=== PATIENT | female | born 1955 | race Caucasian/White ===

== ENCOUNTER 2017-12-26 07:32 | Observation (INO) ==
[2017-12-26] MEDS ORDERED: 0.9 % Sodium Chloride 500 ML IVC ONE (07:40)
[2017-12-26] MEDS ORDERED: Aspirin 81 MG TAB.CHEW PO ONE (07:40)
[2017-12-26] MEDS ORDERED: Ondansetron 4 MG/2 ML VIAL IVP ONE (07:40)
--- NOTE | 2017-12-26 07:43 | Emergency Department Note ---
Disposition Clinical Impression: Elevated troponin, Abnormal EKG Abdominal pain Qualifiers: Abdominal location: generalized Qualified Code(s): R10.84 - Generalized abdominal pain Schizophrenia Qualifiers: Schizophrenia type: unspecified Qualified Code(s): F20.9 - Schizophrenia, unspecified Disposition: Admitted As Inpatient Condition: Good Reasons to Return/Additional Instructions: admitted as inpatient. Referrals: Kalen Ashby [Non-Partnered Physician] - Time of Disposition: 11:44 Nausea/Vomiting/Diarrhea HPI - General Chief complaint: ED Nausea/Vomiting/Diarrhea Stated complaint: N/V couple days Time Seen by Provider: 12/26/17 07:36 Source: patient, EMS Mode of arrival: EMS Limitations: no limitations Nursing Notes Reviewed: Yes Vital Signs Reviewed: Yes - History of Present Illness HPI Narrative: 62 -year-old female presents to emergency department with complaint of abdominal pain, nausea, vomiting, diarrhea, constipation. Patient states that symptoms onset approximately one week ago however they have been worse the past 2 days. She describes the pain as sharp and is located diffusely across the abdomen worse in the epigastric region. Admits to associated symptoms of nausea , continuously vomiting since last night, intermittent diarrhea and constipation. She does state that she has experienced black tarry stools, however most recently they have been yellow and mucousy. She does have very significant psychiatric history and she has been taking muscle relaxers for this pain however she has been increasing her dosage and has run out. She states these episodes began approximately 3 years ago after her laparoscopic cholecystectomy. Also admits to subjective fevers without chills, denies any symptoms of chest pain, shortness of breath. Pt Subjective Complaint: nausea, vomiting, diarrhea, abdominal pain Onset (ago): week(s) Description of emesis: food contents Description of Diarrhea: water, mucous, tarry Associated Abdominal Pain: Yes If pain, Location of pain: diffuse Severity scale (1-10): 10 Quality: sharp Consistency: constant Improves with: nothing Worsens with: nonthing Context: history of abdominal surgery Associated symptoms: Reports: fever/chills, nausea/vomiting - Related Data Home Medications Medication Instructions Recorded Confirmed Albuterol Sulfate [Ventolin Hfa] 1 - 2 puff IH Q4-6H PRN 12/26/17 12/26/17 LORazepam [Ativan] 0.5 mg PO BID 12/26/17 12/26/17 Perphenazine [Perphenazine] 4 - 8 mg PO QID PRN 12/26/17 12/26/17 Tizanidine HCl [Tizanidine HCl] 4 mg PO QID PRN 12/26/17 12/26/17 Allergies Allergy/AdvReac Type Severity Reaction Status Date / Time ciprofloxacin [From Cipro] Allergy Hives Verified 12/26/17 09:57 ibuprofen Allergy Hives Verified 01/03/16 17:28 [From NeoProfen (ibuprofen lysn)(PF)] Penicillins Allergy Swelling Verified 12/26/17 09:57 of Lip/Tongue/Throat vancomycin Allergy Hives Verified 12/26/17 09:57 clindamycin AdvReac Diarrhea Verified 12/26/17 09:57 All systems ED: reviewed and negative except as stated. Review of Systems: As Per HPI Past Medical History - Past Medical History Medical history: Reports: non-contributory, asthma, COPD, migraine, other Psychiatric history: Reports: anxiety, depression, other - Social History Smoking Status: Never smoker Smokeless Tobacco Status: No Alcohol use: Reports: none Drug use: Reports: none Physical Exam - General Limitations: no limitations General appearance: alert, anxious - Head Head exam: atraumatic, normocephalic, normal inspection - Respiratory Respiratory exam: Present: normal lung sounds bilaterally - Cardiovascular Cardiovascular exam: Present: regular rate, normal rhythm, normal heart sounds - Abdominal Exam Abdominal exam: Present: soft, tenderness, normal bowel sounds. Absent: distention, guarding, rebound, rigidity Abdominal tenderness: Present: diffuse - Neurological Exam Neurological exam: Present: alert, oriented X3 - Psychiatric Psychiatric exam: Present: normal affect, normal mood, anxious - Skin Skin exam: Present: warm, dry, intact, normal color Course Course Narrative: 62-year-old female presenting with complaint of abdominal pain, nausea, vomiting. We will obtain EKG, CBC, CMP, lipase, chest x-ray, abdominal CT. We will give full dose aspirin for possible ischemia given hyperacute T waves on EKG. - Reevaluation(s) Reevaluation #1: Patient's EKG noted for hyperacute T waves in V2-4. Elevated trop of 0.19. We repeated the EKG with similar findings which are concerning for Brugada syndrome. We contacted cardiology at 0900 for their recommendations. Vital Signs Temperature 99.7 F H 12/26/17 07:35 Pulse Rate 103 12/26/17 07:35 Respiratory Rate 26 12/26/17 07:35 Blood Pressure 179/132 12/26/17 07:35 O2 Sat by Pulse Oximetry 100 12/26/17 07:35 Temperature 99.7 F H 12/26/17 07:35 Pulse Rate 103 12/26/17 11:15 Respiratory Rate 18 12/26/17 11:15 Blood Pressure 190/107 12/26/17 11:15 O2 Sat by Pulse Oximetry 100 12/26/17 11:15 Oxygen Delivery Oxygen Delivery Room Air Nausea/Vomiting/Diarrhea - MDM Narrative Medical decision making narrative: 62-year-old female presented to emergency room with abdominal pain. Workup has revealed a elevated WBC of 17.5 and elevated troponin is 0.19. Curbside with cardiology for elevated troponin and peaked T waves in leads V2 to V4, recommended obtaining a d-dimer with CTA if elevated. CTA revealed no evidence of pulmonary embolus. Patient will be admitted to medicine service for further evaluation of troponinemia. Discussed this with hospitalist, who agrees with admission at this time. - Lab Data Result diagrams: 12/26/17 07:49 12/26/17 07:49 Lab Results 12/26/17 12/26/17 12/26/17 Range/Units 07:49 07:49 07:49 WBC 17.5 H (4.3-11.1) K/mcL RBC 4.93 (3.82-4.97) M/mcL Hgb 14.2 (11.5-15.4) g/dL Hct 41.4 (35.3-44.9) % MCV 84.0 (83.0-100.0) fL MCH 28.8 (28.0-33.3) pg MCHC 34.3 (31.6-35.5) g/dL RDW 13.0 (11.5-14.5) % Plt Count 495 H (140-400) K/mcL MPV 9.8 (9.4-12.4) fL Immature Gran % 0.4 (0-4) % Seg Neutrophils % 94.8 % Lymphocytes % 2.5 % Monocytes % 2.2 % Eosinophils % 0.0 % Basophils % 0.1 % Neutrophils # 16.6 H (1.6-8.9) K/mcL Lymphocytes # 0.4 L (0.6-4.6) K/mcL Monocytes # 0.4 (0.0-1.3) K/mcL Eosinophils # 0.0 (0.0-0.6) K/mcL Basophils # 0.0 (0.0-0.2) K/mcL PT 13.3 H (9.4-12.1) Seconds INR 1.2 APTT 28.2 (26.0-36.0) Seconds D-Dimer 1036 H (0-500) ng/mLFEU Sodium (136-145) mEq/L Potassium (3.5-5.1) mEq/L Chloride (98-107) mEq/L Carbon Dioxide (23-29) mEq/L BUN (8-23) mg/dL Creatinine (0.60-1.20) mg/dL Est GFR ( Amer) (> 60) Est GFR (Non-Af Amer) (> 60) BUN/Creatinine Ratio (6-26) Glucose (70-105) mg/dL Calculated Osmolality (280-300) Calcium (8.6-10.3) mg/dL Total Bilirubin (0.3-1.0) mg/dL Direct Bilirubin (0.0-0.2) mg/dL Indirect Bilirubin (0.0-1.2) mg/dL AST (13-39) Units/L ALT (7-52) Units/L Alkaline Phosphatase (34-104) Units/L Troponin I (< 0.04) ng/mL B-Natriuretic Peptide 144 H (Less than 100) pg/mL Serum Total Protein (6.4-8.9) g/dL Albumin (3.5-5.7) g/dL Globulin (2.4-3.5) g/dL Albumin/Globulin Ratio (1.1-2.2) Lipase (11-82) Units/L Urine Color (Yellow) Urine Clarity (Clear) Urine pH (5.0-8.0) pH Units Ur Specific [place] (1.010-1.025) Urine Protein (Neg-Trace) mg/dL Urine Glucose (UA) (Normal) mg/dL Urine Ketones (Negative) mg/dL Urine Blood (Negative) Urine Nitrite (Negative) Urine Bilirubin (Negative) Urine Urobilinogen (Normal) mg/dL Ur Leukocyte Esterase (Negative) Urine Microscopic RBC (0-3) per hpf Urine Microscopic WBC (0-3) per hpf Ur Squamous Epith Cells (None-Few) per lpf Urine Bacteria (None-Few) per hpf Hyaline Casts (None-Few) per lpf Ur Culture Indicated? (NO) Urine Opiates Screen (Akkxep=694) ng/mL Ur Barbiturates Screen (Bjoujr=625) ng/mL Ur Phencyclidine Scrn (Cutoff=25) ng/mL Ur Amphetamines Screen (Mlwmjn=5970) ng/mL U Benzodiazepines Scrn (Bxerow=352) ng/mL Urine Cocaine Screen (Cutoff= 300) ng/mL U Marijuana (THC) Screen (Cutoff = 50) ng/mL 12/26/17 12/26/17 12/26/17 Range/Units 07:49 08:35 08:35 WBC (4.3-11.1) K/mcL RBC (3.82-4.97) M/mcL Hgb (11.5-15.4) g/dL Hct (35.3-44.9) % MCV (83.0-100.0) fL MCH (28.0-33.3) pg MCHC (31.6-35.5) g/dL RDW (11.5-14.5) % Plt Count (140-400) K/mcL MPV (9.4-12.4) fL Immature Gran % (0-4) % Seg Neutrophils % % Lymphocytes % % Monocytes % % Eosinophils % % Basophils % % Neutrophils # (1.6-8.9) K/mcL Lymphocytes # (0.6-4.6) K/mcL Monocytes # (0.0-1.3) K/mcL Eosinophils # (0.0-0.6) K/mcL Basophils # (0.0-0.2) K/mcL PT (9.4-12.1) Seconds INR APTT (26.0-36.0) Seconds D-Dimer (0-500) ng/mLFEU Sodium 140 (136-145) mEq/L Potassium 3.5 (3.5-5.1) mEq/L Chloride 103 (98-107) mEq/L Carbon Dioxide 18 L (23-29) mEq/L BUN 6 L (8-23) mg/dL Creatinine 0.78 (0.60-1.20) mg/dL Est GFR ( Amer) > 60 (> 60) Est GFR (Non-Af Amer) > 60 (> 60) BUN/Creatinine Ratio 8 (6-26) Glucose 191 H (70-105) mg/dL Calculated Osmolality 293 (280-300) Calcium 9.9 (8.6-10.3) mg/dL Total Bilirubin 0.8 (0.3-1.0) mg/dL Direct Bilirubin 0.2 (0.0-0.2) mg/dL Indirect Bilirubin 0.6 (0.0-1.2) mg/dL AST 16 (13-39) Units/L ALT 11 (7-52) Units/L Alkaline Phosphatase 65 (34-104) Units/L Troponin I 0.19 H* (< 0.04) ng/mL B-Natriuretic Peptide (Less than 100) pg/mL Serum Total Protein 7.7 (6.4-8.9) g/dL Albumin 5.0 (3.5-5.7) g/dL Globulin 2.7 (2.4-3.5) g/dL Albumin/Globulin Ratio 1.9 (1.1-2.2) Lipase 43 (11-82) Units/L Urine Color Yellow (Yellow) Urine Clarity Clear (Clear) Urine pH 5.5 (5.0-8.0) pH Units Ur Specific [place] 1.023 (1.010-1.025) Urine Protein 100 H (Neg-Trace) mg/dL Urine Glucose (UA) 250 H (Normal) mg/dL Urine Ketones 40 H (Negative) mg/dL Urine Blood Small H (Negative) Urine Nitrite Negative (Negative) Urine Bilirubin Negative (Negative) Urine Urobilinogen Normal (Normal) mg/dL Ur Leukocyte Esterase Negative (Negative) Urine Microscopic RBC 5-15 H (0-3) per hpf Urine Microscopic WBC 0-3 (0-3) per hpf Ur Squamous Epith Cells Many H (None-Few) per lpf Urine Bacteria None Seen (None-Few) per hpf Hyaline Casts Few (None-Few) per lpf Ur Culture Indicated? NO (NO) Urine Opiates Screen Negative (Msubow=849) ng/mL Ur Barbiturates Screen Negative (Pwrcwm=500) ng/mL Ur Phencyclidine Scrn Negative (Cutoff=25) ng/mL Ur Amphetamines Screen Negative (Bcyyxv=8379) ng/mL U Benzodiazepines Scrn Negative (Lbflpe=354) ng/mL Urine Cocaine Screen Negative (Cutoff= 300) ng/mL U Marijuana (THC) Screen Negative (Cutoff = 50) ng/mL - EKG Data EKG shows normal: sinus rhythm Rate: tachycardia Rhythm: NSR [place]/QRS: normal Hyperacute T waves: v3, v4, v5 When compared to previous EKG there are: changes noted Interpretation: other Critical Care Time Critical Care Time: Yes Total Critical Care Time: 45 Attestation: Critical care performed: Time is exclusive of separately billable procedures. Time includes: direct patient care, patient reassessment, coordination of patient care, interpretation of data (laboratory data, radiology data, and respiratory data), review of patient's medical records, medical consultation and documentation of patient care. Procedures included in critical care time: Procedures excluded from critical care time: Attestation Statement - Attestation Attestation: I, Moises Maza DO, examined this patient [id number] and my medical decision-making was reviewed with Lamont Cheek PGY-1, Resident Physician. I agree with the documented findings, disposition and treatment plan as described except to the extent set forth below. Please see my progress notes for details. 62-year-old female presents to the emergency room for evaluation of multiple complaints. She presents here today by EMS for description of nausea, vomiting , diarrhea, abdominal cramping, generalized pain and malaise. Patient has multiple medical issues including psychiatric, postsurgical related complications, intermittent poorly controlled inflammatory or irritable bowel disease. Patient is on a long list of medications. She brought it to his [facility] [place] based on her medical condition and her medications. Vital signs on presentation do show a temperature of 99.7. Heart rate was elevated. Respirations were elevated. Blood pressure was stable. Fluid resuscitation was started in transit by EMS. 1 L was given. Patient otherwise is denying chest pain, shortness of breath. She does complain of nausea vomiting and diarrhea. She also has intermittent constipation. She did have dark colored stool less than 1 week ago return to mucousy and yellow this time. Patient on physical exams resting in the bed with what appears to be slightly exaggerated presentation. Her lungs are clear heart regular. Abdomen is soft but she does describe an act like there is some guarding or discomfort on palpation across the abdominal wall. Patient does move all 4 extremities with appropriate response and purpose. Patient does appear to be alert and oriented. Cranial nerves III through XII are grossly intact. Vital signs will be controlled here in the emergency room of fluids nausea medication as needed. Patient will have a screening evaluation completed with chest x-ray EKG labs including troponin CBC chemistry urine drug screen urinalysis. Patient also CT imaging of the abdomen to address her abdominal complaints possible diarrhea. Currently she does not require any further physical exam or workup. Disposition will be determined once for workup and treatment course are established and evaluated. Some of the symptoms do appear to be histrionic with the patient will be addressed appropriately for potential emergency related issues. Influenza swab loss. On secondary to the presentation possible viral syndrome. See detailed documentation of the physical exam, medical intervention, medical decision- making and disposition of the resident physician's note. No critical care by this patient's treatment course. 0800 Discussion was had with the patient's at the bedside. He states that this happens from time to time. She always has a symptoms when she runs out of her muscle relaxer medication. She does not have a prescription that is able to be filled until the eighth of this month. She has been taking extra medication secondary to the spasms. Again some of this could be secondary to multiple medication she is on as well as her psychiatric history but despite that we will continue with the evaluation looking for potential infectious, pulmonary, cardiac related source of her symptoms. Initial EKG showed sinus tachycardia with what appears to be acute T waves. No concerning history for hyperkalemia at this point labs will be addressed and fluid resuscitation will be established. Disposition pending workup and treatment course. Patient again is still denying chest pain or shortness of breath or other complaints of abdominal discomfort along with the nausea vomiting and diarrhea 0900 Patient's troponin was 0.19. Patient has no other comparable troponins in the past. EKG was repeated at that time approximately 45 minutes after arrival in the emergency room. Second EKG does show some potential progression of a biphasic T-wave in hyperacute T waves in the V1 and V2 V3 distribution. Concern is noted for type II Brugada syndrome. Patient was given aspirin. She has remained chest pain-free throughout the entire treatment course here in the emergency room. Consultation and review the EKGs to be completed by the on- call regulatory affairs intern Dr. Shepard. The EKGs were sent to him directly for review approximately 1 hour and 25 minutes after the initial presentation to the emergency room. Patient does not meet STEMI criteria but because of the findings there is concern and conversations were started about cardiac intervention. 1115 Cardiology review the EKG. No recommendations for intervention. Patient CT angiogram of the chest is unremarkable for acute blood clot. D-dimer was elevated. Patient will be admitted for definitive management of elevated troponin with unknown etiology of this time. Patient is otherwise stable. Pain is still an issue this appears to be chronic. Oral pain medications were started at this time. Pt will be admitted for further workup and management of her symptoms and evaluation by cardiology. Patient is otherwise stable. No recommendation for anticoagulation or other medical intervention requested at this time.
[2017-12-26 08:01] LABS: INR 1.2; Prothrombin Time 13.3 Seconds (9.4-12.1)
[2017-12-26] MEDS ORDERED: *HR* LORazepam 2 MG/ML VIAL IVP ONE ×2 (08:03→09:42)
[2017-12-26 08:04] LABS: Activated Partial Thrombo Time 28.2 Seconds (26.0-36.0)
[2017-12-26 08:19] LABS: Basophils % 0.1 %; Hematocrit 41.4 % (35.3-44.9); Hemoglobin 14.2 g/dL (11.5-15.4); Immature Granulocytes % 0.4 % (0-4); Lymphocytes # 0.4 K/mcL (0.6-4.6); Lymphocytes % 2.5 %; Mean Corpuscular HGB Conc 34.3 g/dL (31.6-35.5); Mean Corpuscular Hemoglobin 28.8 pg (28.0-33.3); Mean Platelet Volume 9.8 fL (9.4-12.4); Monocytes # 0.4 K/mcL (0.0-1.3); Monocytes % 2.2 %; Neutrophils # 16.6 K/mcL (1.6-8.9); Platelet Count 495 K/mcL (140-400); Red Blood Count 4.93 M/mcL (3.82-4.97); Segmented Neutrophils % 94.8 %
[2017-12-26 08:30] LABS: Alanine Aminotransferase 11 Units/L (7-52); Albumin/Globulin Ratio 1.9 (1.1-2.2); Alkaline Phosphatase 65 Units/L (34-104); Aspartate Amino Transferase 16 Units/L (13-39); BUN/Creatinine Ratio 8 (6-26); Bilirubin,Direct 0.2 mg/dL (0.0-0.2); Bilirubin,Indirect 0.6 mg/dL (0.0-1.2); Bilirubin,Total 0.8 mg/dL (0.3-1.0); Blood Urea Nitrogen 6 mg/dL (8-23); Calcium 9.9 mg/dL (8.6-10.3); Carbon Dioxide 18 mEq/L (23-29); Chloride 103 mEq/L (98-107); Globulin 2.7 g/dL (2.4-3.5); Glucose 191 mg/dL (70-105); Lipase 43 Units/L (11-82); Osmolality,Calculated 293 (280-300); Potassium 3.5 mEq/L (3.5-5.1); Sodium 140 mEq/L (136-145); Total Protein 7.7 g/dL (6.4-8.9); eGFR For African Americans > 60 (> 60); eGFR For Non-African Americans > 60 (> 60)
[2017-12-26 08:36] LABS: Troponin I 0.19 ng/mL (< 0.04)
[2017-12-26 08:44] LABS: Bilirubin,Urine Negative (Negative); Blood,Urine Small (Negative); Clarity,Urine Clear (Clear); Color,Urine Yellow (Yellow); Glucose,Urine (UA) 250 mg/dL (Normal); Ketones,Urine 40 mg/dL (Negative); Leukocyte Esterase,Urine Negative (Negative); Nitrite,Urine Negative (Negative); PH,Urine 5.5 pH Units (5.0-8.0); Protein,Urine 100 mg/dL (Neg-Trace); Specific Gravity,Urine 1.023 (1.010-1.025); Urobilinogen,Urine Normal (Normal)
[2017-12-26 08:46] LABS: Bacteria,Urine None Seen per hpf (None-Few); Hyaline Casts,Urine Few per lpf (None-Few); Squamous Epithelial Cell,Urine Many per lpf (None-Few); WBC,Urine 0-3 per hpf (0-3)
[2017-12-26 08:52] LABS: Amphetamine Screen,Urine Negative ng/mL (Cutoff=1000); Barbiturate Screen,Urine Negative ng/mL (Cutoff=200); Benzodiazepines Screen,Urine Negative ng/mL (Cutoff=200); Cannabinoid Screen,Urine Negative ng/mL (Cutoff = 50); Cocaine Screen,Urine Negative ng/mL (Cutoff= 300); Opiate Screen,Urine Negative ng/mL (Cutoff=300); Phencyclidine Screen,Urine Negative ng/mL (Cutoff=25)
[2017-12-26] MEDS ORDERED: *HR* Metoprolol 5 MG/5 ML VIAL IVP ONE (08:55)
[2017-12-26] MEDS ORDERED: *HR* HYDROcodone/Acet 5/325 mg TABLET PO ONE (10:56)
[2017-12-26] MEDS: tiZANidine 4 MG TABLET PO PRN ×2 (13:02→19:08)
[2017-12-26] MEDS: *HR* Promethazine 25 MG/ML VIAL IVP PRN (13:25)
[2017-12-26] MEDS: Pantoprazole 40 MG VIAL IVP SCH ×2 (13:49→18:27)
[2017-12-26] MEDS ORDERED: Naloxone 0.4 MG/ML INJ IVP PRN (14:11)
[2017-12-26] MEDS ORDERED: *HR* HYDROcodone/Acet 5/325 mg TABLET PO PRN (14:11)
[2017-12-26] MEDS ORDERED: Acetaminophen 325 MG TABLET PO PRN (14:11)
[2017-12-26] MEDS ORDERED: Nitroglycerin 0.4 MG TAB.SUBL SL PRN (14:21)
[2017-12-26] MEDS ORDERED: *HR* Heparin 5,000 UNIT/ML VIAL IVP ONE (14:42)
[2017-12-26] MEDS ORDERED: *HR* Heparin 5,000 UNIT/ML VIAL IVP PRN ×2 (14:42)
[2017-12-26 15:19] LABS: Hematocrit 47.9 % (35.3-44.9); Mean Corpuscular HGB Conc 33.8 g/dL (31.6-35.5); Mean Corpuscular Hemoglobin 28.6 pg (28.0-33.3); Mean Corpuscular Volume 84.5 fL (83.0-100.0); Mean Platelet Volume 9.9 fL (9.4-12.4); Platelet Count 504 K/mcL (140-400); Red Blood Count 5.67 M/mcL (3.82-4.97); Red Cell Distribution Width 13.3 % (11.5-14.5)
[2017-12-26 15:25] LABS: INR 1.2; Prothrombin Time 12.9 Seconds (9.4-12.1)
[2017-12-26 15:28] LABS: Activated Partial Thrombo Time 30.4 Seconds (26.0-36.0)
[2017-12-26 15:38] LABS: Hemoglobin 16.2 g/dL (11.5-15.4)
[2017-12-26] MEDS: 0.9 % Sodium Chloride 1,000 ML IVC SCH (15:47)
[2017-12-26] MEDS: Heparin 25,000 UNIT/500 ML D5W 25,000 UNIT/500 ML BAG IVC SCH (15:56)
[2017-12-26] MEDS: *HR* OxyCODONE Immed Rel 5 MG TABLET PO PRN (16:13)
--- NOTE | 2017-12-26 17:39 | Internal Med History&Physical ---
Addendum entered and electronically signed by Dejan Vogel MD 12/26/17 19:43: She is at high risk for morbidity, mortality and complications due to continuous IV heparin infusion which requires frequent blood work monitoring for coagulation parameters. Original Note: <Dejan Vogel - Last Filed: 12/26/17 19:40> Date of Encounter: 12/26/17 Internal Medicine - H&P: HPI History of present illness: Ms. Ocampo is a 62 year old female Internal Medicine - H&P: Meds Albuterol Sulfate [Ventolin Hfa] 1 - 2 puff IH Q4-6H PRN 12/26/17 [History] LORazepam [Ativan] 0.5 mg PO BID 12/26/17 [History] Perphenazine [Perphenazine] 4 - 8 mg PO QID PRN 12/26/17 [History] Tizanidine HCl [Tizanidine HCl] 4 mg PO QID PRN 12/26/17 [History] 3 Allergy/AdvReac Type Severity Reaction Status Date / Time ciprofloxacin [From Cipro] Allergy Hives Verified 12/26/17 09:57 ibuprofen Allergy Hives Verified 01/03/16 17:28 [From NeoProfen (ibuprofen lysn)(PF)] Penicillins Allergy Swelling Verified 12/26/17 09:57 of Lip/Tongue/Throat vancomycin Allergy Hives Verified 12/26/17 09:57 clindamycin AdvReac Diarrhea Verified 12/26/17 09:57 All Systems PM: A 10-system review of systems was performed and is negative for pertinent findings except as documented above in the HPI. - Constitutional Vitals: Temp Pulse Resp BP Pulse Ox 97.7 F 83 14 112/68 100 12/26/17 19:00 12/26/17 19:00 12/26/17 19:00 12/26/17 19:00 12/26/17 19:00 Internal Med - H&P Results - Labs CBC & Chem 7: 12/26/17 15:07 12/26/17 07:49 Labs: Cardiac Enzymes 12/26/17 Range/Units 17:54 Troponin I 0.40 H* (< 0.04) ng/mL - Attending Attestation I have personally performed a face to face evaluation on this patient. I have reviewed and agree with the care plan. History and Exam by me shows: Patient presented to the hospital with abdominal pain. She reports mild, dull chest pain. On exam she is in no acute distress. Heart is regular. Lungs are clear. EKG was personally reviewed shows normal sinus rhythm with nonspecific ST and T wave changes. Assessment: Non-ST elevation ME based on chest pain, abdominal pain and rising serum troponin as well as nondiagnostic EKG changes. 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 Consult cardiology. Obtain echocardiogram. Dejan Vogel MD <[email or web address] - Last Filed: 12/26/17 20:59> Date of Encounter: 12/26/17 Time of Encounter: 13:00 Assessment and Plan (1) Abdominal pain Current visit: Yes Status: Acute Acute on chronic abdominal pain. Pt. states she has had severe cramping in abdomen since having gallbladder removed 3 years ago. States pain became worse yesterday at 6 PM accompanied with nausea, vomiting, diarrhea. Patient also reports black stool yesterday. Colonoscopy in [address] of the abdomen/pelvis today shows no convincing acute abnormality in the abdomen or pelvis to account for patient's abdominal pain, subtle approximately 2 cm hypodensity in the liver dome. Consider further evaluation with contrast- enhanced CT, and mild thickening of the cecal wall. IVP Phenergan 12.5 mg Q6 PRN for N/V. IVP Protonix 40 mg BID. Monitor I&O. Fecal hemoccult ordered. Consider GI consult based on FOBT results and/or worsening abdminal sx. Monitor pt. and f/u labs. Pt. discussed w/Dr. Vogel who agrees w/plan of care. Pt. is high risk for further morbidity d/t severe abdominal pain, current CP and elevated troponins requiring heparin infusion and monitoring of PT/INR, current leukocytosis, hx, and risk factors. Inpatient. Qualifiers: Abdominal location: generalized Qualified Code(s): R10.84 - Generalized abdominal pain (2) Elevated troponin Current visit: Yes Status: Acute Acutely elevated troponin first at 0.19, second at 0.25. Heparin drip started. Pt. states she has hx of intermittent chest pain >10 years. Denies cardiac hx. Current CP presents as centralized pressure w/o radiation. Cardiology consult ordered in ED and I appreciate the consult. Continuous telemetry. Echocardiogram. Pt. to be monitored closely. (3) Chest pain Current visit: Yes Status: Acute Acute on chronic chest pain. Pt. reports hx of intermittent chest pain >10 years. States pain can present as sharp and stabbing or squeezing pressure. Patient currently experiencing centralized pressure in chest without radiation. Initial troponin 0.19. Second troponin 0.25. Will trend 1. Heparin drip started. Cardiology consult ordered in the ED and I appreciate the consult. Continuous cardiac telemetry. Echocardiogram ordered. Qualifiers: Chest pain type: other chest pain Qualified Code(s): R07.89 - Other chest pain; R07.8 - Other chest pain (4) Leukocytosis Current visit: Yes Status: Acute Acute leukocytosis w/WBC of 17.5 on admission. Pt. reports fever and chills intermittently over past several months. Currently has N/V/Diarrhea. Blood cultures x2. Pt. currently afebrile. Will continue to monitor and consider abx coverage based on culture results and/or f/u labs. Qualifiers: Leukocytosis type: unspecified Qualified Code(s): D72.829 - Elevated white blood cell count, unspecified (5) COPD (chronic obstructive pulmonary disease) Current visit: Yes Status: Chronic Hx of chronic COPD. Stable. Supplemental O2 w/titration and SpO2 monitoring. DuoNebs Q6 PRN. Qualifiers: COPD type: unspecified COPD Qualified Code(s): J44.9 - Chronic obstructive pulmonary disease, unspecified (6) IBS (irritable bowel syndrome) Current visit: Yes Status: Chronic Hx of chronic IBS. Pt. reports Crohns disease as well as dx of diverticulitis with colonoscopy in 2013. Patient reports diarrhea currently. CT of the abdomen /pelvis today shows no convincing acute abnormality in the abdomen or pelvis to account for patient's abdominal pain, subtle approximately 2 cm hypodensity in the liver dome. Consider further evaluation with contrast-enhanced CT, mild thickening of the cecal wall. Monitor I&O. Fecal hemoccult. Qualifiers: Irritable bowel syndrome type: with both diarrhea and constipation Qualified Code(s): K58.2 - Mixed irritable bowel syndrome (7) Schizophrenia Current visit: Yes Status: Chronic Hx of chronic schizophrenia. Continue pts. Perphenazine. Qualifiers: Schizophrenia type: unspecified Qualified Code(s): F20.9 - Schizophrenia, unspecified (8) DVT prophylaxis Current visit: Yes Status: Acute Patient due to currently elevated troponins. Monitor patient for signs of bleeding. Internal Medicine - H&P: HPI Chief complaint: N/V/Diarrhea Admitted From: Emergency Dept Plans for Post Hospital Care: Home History of present illness: Ms. Ocampo is a 62 year old femalew PMH of asthma, COPD, migraine, and IBS/ Crohn's disease presents from the ED with chief complaint of abdominal pain with nausea, vomiting, and diarrhea since 6 PM last night. Patient states she has chronic abdominal pain since having her gallbladder removed 3 years ago. Described pain as severe abdominal cramping. 2014 colonoscopy that showed diverticulosis. Patient also reports recent episodes of black stool with latest last evening. Additionally patient reports chest pain in center chest as pressure and states she has intermittent chest pain for the past 10 years. Denies cardiac history, catheterization, or stent placement. Patient also reports generalized weakness for the past several weeks. Patient reports fever , chills, nausea, vomiting, abdominal pain, diarrhea, chest pain, shortness of breath but denies changes in vision, headache, palpitations, numbness, tingling , constipation, pre-syncope, or syncope. Past Med Surg Social Fam HX - Past Medical History Source: patient, old records reviewed, obtained from family Medical history: asthma, COPD, migraine, other (IBS/Crohns disease, Diverticulosis) Psychiatric history: anxiety, depression, other - Social History Smoking Status: Never smoker Smokeless Tobacco Status: No Alcohol use: none Drug use: none Current living situation: Home, With Family Activity Level: Independent ambulation Recent Out of Country Travel Within the Last 8 Weeks: No Exposure or Possible Exposure to Illness During Travel: No - Family History Father Race: Family Member Ethnicity: Non- Living Status: Still Living Hx Family Cardiac Disorders: Yes (HTN) Hx Family Neurologic Disorders: Yes (Seizures) Mother Race: Family Member Ethnicity: Non- Living Status: Still Living Hx Family Cardiac Disorders: Yes (HTN) Hx Family GI Disorders: Yes (GERD) Brother History Unknown: Yes Race: Family Member Ethnicity: Non- Living Status: Still Living All Systems PM: A 10-system review of systems was performed and is negative for pertinent findings except as documented above in the HPI. - Constitutional Constitutional: as per HPI, chills, fever(s), weakness, no night sweats - EENT Eyes: no change in vision, no discharge, no pain, no photophobia Ears: no ear discharge, no ear pain, no tinnitus Nose, mouth and throat: no dysphagia, no nasal discharge, no neck pain, no sore throat - Breasts Breasts: as per HPI - Cardiovascular Cardiovascular ROS IM: as per HPI, chest pain, dyspnea, dyspnea on exertion, lightheadedness, no diaphoresis, no palpitations, no syncope - Respiratory Respiratory: as per HPI, dyspnea, dyspnea on exertion, no cough, no wheezing, no excessive phlegm production - Gastrointestinal Gastrointestinal: as per HPI, abdominal pain, diarrhea, melena, nausea, vomiting , no hematemesis, no hematochezia - Genitourinary Genitourinary: as per HPI, no change in urinary stream, no dysuria, no flank pain, no hematuria Menstruation: as per HPI - Musculoskeletal Musculoskeletal ROS IM: no numbness, no tingling - Integumentary Integumentary IM: no rash, no unusual bruising - Neurological Neurological ROS: no confusion, no convulsions, no focal weakness, no numbness, no tingling, no tremor(s) - Psychiatric Psychiatric: as per HPI, anxiety, depression - Endocrine Endocrine IM: as per HPI - Hematologic/Lymphatic Hematologic/Lymphatic: no easy bruising - Allergic/Immunologic Allergic/Immunologic: as per HPI - Constitutional Vitals: Temp Pulse Resp BP Pulse Ox 98.1 F 123 16 148/77 100 12/26/17 15:23 12/26/17 15:23 12/26/17 15:23 12/26/17 15:23 12/26/17 15:23 General appearance: Present: cooperative, A&O X 3, pleasant, severe distress ( Abdominal pain), underweight, answers questions appropriately - Head Head exam: Present: atraumatic, normocephalic - Eye Eye exam: Present: PERRL, conjuntiva pink, sclera anicteric Pupils: Present: PERRL - ENT ENT exam: Present: normal exam, normal external ear exam - Neck Neck exam general surgery: Present: supple, trachea midline. Absent: lymphadenopathy - Respiratory Respiratory exam: Present: CTAB. Absent: accessory muscle use, rales, rhonchi, wheezes - Cardiovascular Cardiovascular exam: Present: +S1, +S2, tachycardia. Absent: diastolic murmur, gallop, rubs, systolic murmur - GI/Abdominal GI/Abdominal exam: Present: guarding, normal bowel sounds, soft, tenderness, no peritoneal signs. Absent: distended - Rectal Rectal exam: Present: deferred - Additional comments: exam deferred. - Extremities Exam Extremities exam: Present: warm, radial pulses palpable and symmetrical. Absent : calf tenderness, cyanotic, pedal edema - Back Exam Back exam: Present: normal inspection - Neurological Exam Neurological exam: Present: CN II-XII intact, oriented X3, no focal deficits. Absent: pronater drift, facial droop, speech deficit - Psychiatric Psychiatric exam: Present: anxious - Skin Skin exam: Present: dry, intact, pallor Internal Med - H&P Results - Labs CBC & Chem 7: 12/26/17 15:07 12/26/17 07:49 - EKG Data EKG shows normal: sinus rhythm Rate: tachycardia - EKG Data Prior EKG available for review: yes EKG comments: 12/26/17 18:00 EKG dated 10/09/13 shows sinus rhythm with short TN interval. EKG dated 12/26/17 07:35 shows sinus tachycardia with possible left atrial enlargement and moderate ST depression. EKG dated 12/26/17 08:52 shows sinus tachycardia with possible left atrial enlargement. - Diagnostic Studies Chest x-ray Additional comments: Impressions Chest X-Ray 12/26/17 07:41 IMPRESSION: 1. No acute radiographic abnormality to account for patient's chest pain. D/ / Ephraim Tavares MD / Ephraim Tavares MD Interpreting Provider: Ephraim Tavares MD CT scan - abdomen Additional comments: Impressions Abdomen/Pelvis CT 12/26/17 07:41 IMPRESSION: 1. No convincing acute abnormality in the abdomen or pelvis to account for patient's abdominal pain. 2. Subtle approximately 2 cm hypodensity in the liver dome. Consider further evaluation with contrast-enhanced CT. 3. Mild thickening of the cecal wall. If patient is not up-to-date on colon cancer screening, consider colonoscopy for further evaluation. Other Images Additional comments: Impressions Chest CTA 12/26/17 10:13 IMPRESSION: 1. No evidence of a pulmonary embolism or parenchymal lung infiltrate. D/ / 12/26/2017 11:02:45 Santiago Bernardo MD / pravin Interpreting Provider: Santiago Bernardo MD
[2017-12-26] MEDS ORDERED: Ipratropium/Albuterol Neb 3 ML IH PRN (18:35)
[2017-12-26] MEDS: *HR* LORazepam 0.5 MG TABLET PO SCH (20:22)
[2017-12-27] MEDS: Perphenazine 2 MG TABLET PO PRN ×2 (00:43→22:16)
[2017-12-27] MEDS: 0.9 % Sodium Chloride 1,000 ML IVC SCH ×3 (01:55→23:28)
[2017-12-27] MEDS: tiZANidine 4 MG TABLET PO PRN ×4 (02:00→21:24)
[2017-12-27] MEDS ORDERED: 0.9 % Sodium Chloride 1,000 ML IVC ONE ×3 (03:10→12:01)
[2017-12-27] MEDS: Pantoprazole 40 MG VIAL IVP SCH ×2 (05:22→17:13)
[2017-12-27] MEDS: *HR* LORazepam 0.5 MG TABLET PO SCH ×2 (08:12→21:24)
[2017-12-27] MEDS: Aspirin Enteric Coated 81 MG Tablet PO SCH (08:12)
[2017-12-27 08:24] LABS: Basophils % 0.2 %; Eosinophils % 0.1 %; Hematocrit 31.8 % (35.3-44.9); Immature Granulocytes % 0.4 % (0-4); Lymphocytes # 2.5 K/mcL (0.6-4.6); Lymphocytes % 19.1 %; Mean Corpuscular HGB Conc 32.7 g/dL (31.6-35.5); Mean Corpuscular Hemoglobin 28.8 pg (28.0-33.3); Mean Corpuscular Volume 88.1 fL (83.0-100.0); Mean Platelet Volume 10.7 fL (9.4-12.4); Monocytes # 0.7 K/mcL (0.0-1.3); Monocytes % 5.3 %; Neutrophils # 9.8 K/mcL (1.6-8.9); Platelet Count 284 K/mcL (140-400); Red Blood Count 3.61 M/mcL (3.82-4.97); Red Cell Distribution Width 13.8 % (11.5-14.5); Segmented Neutrophils % 74.9 %
[2017-12-27 08:25] LABS: Hemoglobin 10.4 g/dL (11.5-15.4)
[2017-12-27 08:30] LABS: Alanine Aminotransferase 8 Units/L (7-52); Albumin 3.7 g/dL (3.5-5.7); Albumin/Globulin Ratio 1.8 (1.1-2.2); Alkaline Phosphatase 44 Units/L (34-104); Aspartate Amino Transferase 15 Units/L (13-39); BUN/Creatinine Ratio 12 (6-26); Bilirubin,Total 0.7 mg/dL (0.3-1.0); Blood Urea Nitrogen 10 mg/dL (8-23); Calcium 8.1 mg/dL (8.6-10.3); Carbon Dioxide 19 mEq/L (23-29); Chloride 110 mEq/L (98-107); Chol/HDL Ratio 3.2 (0-4.9); Cholesterol 118 mg/dL (< 200); Globulin 2.1 g/dL (2.4-3.5); Glucose 98 mg/dL (70-105); HDL Cholesterol 37 mg/dL (40-59); LDL Cholesterol,Calculated 57 mg/dL (0-99); Magnesium 1.6 mg/dL (1.6-2.6); Osmolality,Calculated 283 (280-300); Potassium 3.3 mEq/L (3.5-5.1); Sodium 137 mEq/L (136-145); Total Protein 5.8 g/dL (6.4-8.9); Triglycerides 119 mg/dL (< 150); eGFR For African Americans > 60 (> 60); eGFR For Non-African Americans > 60 (> 60)
--- NOTE | 2017-12-27 09:38 | Cardiology Consult Note ---
Date of Encounter: 12/27/17 Time of Encounter: 09:35 Assessment and Plan (1) Elevated troponin Current Visit: Yes Status: Acute Asymptomatic denied any chest pain however elevated troponin is from significant abdominal pain almost to the point of seizure like activity as described by the patient. Possible demand ischemia rather than a primary ischemic event. In the setting of her black tarry stools Crohn's disease and drop in hemoglobin a noninvasive ischemic workup would likely be more appropriate such as a stress test. A left heart can be possible if the patient is deemed low risk from the G.I. bleed perspective. Since her components are trending downwards and she has no chest pain the ischemic workup can be postponed until she is stable from her G.I. symptoms. An ischemic workup should be obtained prior to discharge from this hospital visit. Echoes pending (2) IBS (irritable bowel syndrome) Current Visit: Yes Status: Chronic Significant abdominal pain almost to the point of seizure like activity relieved with muscle relaxants and G.I. bleed, black tarry stools, drop in hemoglobin and potassium with history of Crohn's disease likely is reason for presentation to the hospital. Cardiac evaluation within echocardiogram will be obtained immediately to help her stratify her upcoming ischemic evaluation. Qualifiers: Irritable bowel syndrome type: with both diarrhea and constipation Qualified Code(s): K58.2 - Mixed irritable bowel syndrome Discussion w patient/family: The assessment and plan as outlined above was discussed with the patient and/or family members who expressed understanding and agreement. All questions were answered. Thank you for involving us in the care of your patient. Please call with any questions. History of Present Illness Consult date: 12/27/17 Consult reason: NSTEMI Chief complaint: abdominal pain and taina tarry stools History of present illness: Ms. Ocampo is a 62 year old female with history of COPD, Crohn's disease, schizophrenia who presents with abdominal pain, nausea vomiting and diarrhea. She also complains of black tarry stools. Initially her white blood count was elevated in her BNP is only 144. She was found to have an elevated troponin of .4 currently at .19. Her hemoglobin has dropped significantly from 16.5 currently 10.0. Her potassium also is below 3.5. She denies any current chest pain or past chest pain but does describe shortness of breath which she relates to COPD. She is not a smoker but has had secondhand smoke exposure as well as significant exposure to multiple chemicals. She had a remote stress test but no recent cardiac workup. She currently is denying any chest pain, orthopnea, PND, presyncope or syncope Past Med Surg Social Fam HX - Past Medical History Medical history: asthma, COPD, migraine, other (IBS/Crohns disease, Diverticulosis) Psychiatric history: anxiety, depression, other - Social History Smoking Status: Never smoker Smokeless Tobacco Status: No Alcohol use: none Drug use: none - Family History Father Race: Family Member Ethnicity: Non- Living Status: Still Living Hx Family Cardiac Disorders: Yes (HTN) Hx Family Neurologic Disorders: Yes (Seizures) Mother Race: Family Member Ethnicity: Non- Living Status: Still Living Hx Family Cardiac Disorders: Yes (HTN) Hx Family GI Disorders: Yes (GERD) Brother History Unknown: Yes Race: Family Member Ethnicity: Non- Living Status: Still Living Medications and Allergies Albuterol Sulfate [Ventolin Hfa] 1 - 2 puff IH Q4-6H PRN 12/26/17 [History] LORazepam [Ativan] 0.5 mg PO BID 12/26/17 [History] Perphenazine [Perphenazine] 4 - 8 mg PO QID PRN 12/26/17 [History] Tizanidine HCl [Tizanidine HCl] 4 mg PO QID PRN 12/26/17 [History] 3 Allergy/AdvReac Type Severity Reaction Status Date / Time ciprofloxacin [From Cipro] Allergy Hives Verified 12/26/17 09:57 ibuprofen Allergy Hives Verified 01/03/16 17:28 [From NeoProfen (ibuprofen lysn)(PF)] Penicillins Allergy Swelling Verified 12/26/17 09:57 of Lip/Tongue/Throat vancomycin Allergy Hives Verified 12/26/17 09:57 clindamycin AdvReac Diarrhea Verified 12/26/17 09:57 All Systems Review: The remainder of the systems were reviewed and are negative Physical Examination Vital Signs, Last 4 Hours Temp Pulse Resp BP Pulse Ox 12/27/17 06:57 98.5 F 86 16 109/63 100 General: Conversant, No Apparent Distress HEENT: Atraumatic, Normocephaly, Mucus Membranes Moist Neck: No JVD, Normal carotid pulses Cardiac: Reg Rate and Rhythm, Normal S1 and S2, No Murmur Lungs: Normal Breath Sounds, No Wheeze, Rales, Rhonchi Neuro: Alert and responsive, No focal deficits noted Abdomen: Soft, Non-Tender Skin: No rashes noted on visualized skin Musculoskeletal: No Chest Wall Tenderness Extremities: No Clubbing, No Cyanosis, No Edema, Normal Pulses Results 12/27/17 06:43 12/27/17 06:43 Lab Results 12/26/17 12/26/17 12/27/17 17:54 22:41 00:25 WBC Hgb Hct Plt Count APTT 94.2 H D Sodium Potassium Chloride Carbon Dioxide BUN Creatinine Glucose Calcium Magnesium Total Bilirubin AST ALT Alkaline Phosphatase Troponin I 0.40 H* 0.18 H* 12/27/17 12/27/17 12/27/17 06:43 06:43 06:43 WBC 13.1 H Hgb 10.4 L D Hct 31.8 L Plt Count 284 APTT 41.3 H D Sodium 137 Potassium 3.3 L Chloride 110 H Carbon Dioxide 19 L BUN 10 Creatinine 0.84 Glucose 98 Calcium 8.1 L Magnesium 1.6 Total Bilirubin 0.7 AST 15 ALT 8 Alkaline Phosphatase 44 Troponin I Consult Discharge Plan - Plan Additional Instructions: admitted as inpatient. Referrals: Kalen Ashby [Non-Partnered Physician] -
[2017-12-27 13:31] LABS: Basophils % 0.2 %; Eosinophils % 0.2 %; Hematocrit 26.6 % (35.3-44.9); Immature Granulocytes % 0.3 % (0-4); Immature Platelets 2.2 % (1.1-6.1); Lymphocytes # 2.5 K/mcL (0.6-4.6); Lymphocytes % 26.1 %; Mean Corpuscular HGB Conc 32.3 g/dL (31.6-35.5); Mean Corpuscular Hemoglobin 28.7 pg (28.0-33.3); Mean Corpuscular Volume 88.7 fL (83.0-100.0); Mean Platelet Volume 10.3 fL (9.4-12.4); Monocytes # 0.6 K/mcL (0.0-1.3); Monocytes % 6.4 %; Neutrophils # 6.5 K/mcL (1.6-8.9); Platelet Count 212 K/mcL (140-400); Red Cell Distribution Width 13.7 % (11.5-14.5); Segmented Neutrophils % 66.8 %
[2017-12-27 13:34] LABS: Hemoglobin 8.6 g/dL (11.5-15.4)
[2017-12-27 16:36] LABS: Activated Partial Thrombo Time 201.8 Seconds (26.0-36.0)
[2017-12-27 16:42] LABS: Heparin anti-factor XA UFH 0.99 IU/mL (0.30-0.70)
--- NOTE | 2017-12-27 17:05 | Internal Med Progress Note ---
Date of Encounter: 12/27/17 Time of Encounter: 17:00 - Assessment and plan (1) Abdominal pain Current Visit: Yes Status: Acute Assessment and plan: Pain is improved this afternoon. N/V resolved. Continues to have black, tarry , loose stool. Patient had some hypotension this afternoon, which improved with fluid bolus. Hgb was down to 10.4 this AM; further decreased to 8.6 this AM. Suspect GI bleed. Nursing staff unable to get FOBT. She refused IV protonix his AM; I have convinced her to take it. Will give stat dose now and continue BID. I have consulted GI Dr. Bass for suspected GI bleed. I have discontinued her heparin. I will make her NPO. I will obtain serial H/H. Will consent, type and crossmatch, and hold 2 units PRBCs; will transfuse if Hgb drops below 7 or she becomes symptomatic. Will monitor closely. Her condition is guarded at this time. Qualifiers: Abdominal location: generalized Qualified Code(s): R10.84 - Generalized abdominal pain (2) GI bleed Current Visit: Yes Status: Suspected Assessment and plan: See above. Qualifiers: GI bleed type/associated pathology: melena Qualified Code(s): K92.1 - Melena (3) Elevated troponin Current Visit: Yes Status: Acute Assessment and plan: Cardiology consulted; appreciate input. Troponin has trended down. Chest pain has resolved. Will defer stress test until after GI issues resolved per cardiology recommendations. (4) Chest pain Current Visit: Yes Status: Resolved Assessment and plan: See above. Qualifiers: Chest pain type: other chest pain Qualified Code(s): R07.89 - Other chest pain; R07.8 - Other chest pain (5) Leukocytosis Current Visit: Yes Status: Resolved Assessment and plan: Resolved. Follow up on blood cultures x 2. Qualifiers: Leukocytosis type: unspecified Qualified Code(s): D72.829 - Elevated white blood cell count, unspecified (6) COPD (chronic obstructive pulmonary disease) Current Visit: Yes Status: Chronic Assessment and plan: Supplemental O2 w/titration and SpO2 monitoring. DuoNebs Q6 PRN. Qualifiers: COPD type: unspecified COPD Qualified Code(s): J44.9 - Chronic obstructive pulmonary disease, unspecified (7) IBS (irritable bowel syndrome) Current Visit: Yes Status: Chronic Assessment and plan: Manage abdominal pain as per above. Qualifiers: Irritable bowel syndrome type: with both diarrhea and constipation Qualified Code(s): K58.2 - Mixed irritable bowel syndrome (8) Schizophrenia Current Visit: Yes Status: Chronic Assessment and plan: Continue home medications. Qualifiers: Schizophrenia type: unspecified Qualified Code(s): F20.9 - Schizophrenia, unspecified (9) DVT prophylaxis Current Visit: Yes Status: Acute Assessment and plan: Heparin discontinued due to acute GI bleed. Start SCDs. - Time Spent With Patient 25 - 35 minutes - Subjective Interval history: Patient had no acute events overnight. She states that she is feeling better right now in terms of her abdominal pain. Her only complaint is some swelling in her bilateral hands. Nursing staff reported this afternoon that patient had low BP to systolic 80s. She received IV NS 1L bolus and BP improved to systolic 120s. A repeat CBC showed drop of hemoglobin to 8.6 this afternoon from 10.4 this AM. Nursing staff has not been able to get sufficient stool for FOBT. She continues to have dark, tarry, loose stool. She refused her protonix this AM because she is "allergic to everything." Nursing staff did not notify me that this medication was held. I explained to her the importance of this medication for GI bleed, and she agreed to try it. I advised nursing staff to give this evening's dose STAT at 16:45. I have consulted GI Dr. Bass, who agreed to come evaluate patient. I will get serial H/H to monitor her blood count. I have consented, typed and crossed, and held 2 units PRBCs; will consider transfusion if Hbg drops below 7 or she becomes symptomatic. I have stopped her heparin. I have made her NPO. - Constitutional Vitals: Temp Pulse Resp BP Pulse Ox 98 F 77 16 129/75 99 12/27/17 14:20 12/27/17 14:20 12/27/17 14:20 12/27/17 14:20 12/27/17 14:20 General appearance: Present: cooperative, A&O X 3, pleasant, no acute distress, underweight, answers questions appropriately Exam: Pale - Respiratory Respiratory exam: Present: CTAB. Absent: accessory muscle use, rales, rhonchi, wheezes Additional comments: Normal WOB - Cardiovascular Cardiovascular exam: Present: RRR, +S1, +S2. Absent: diastolic murmur, gallop, rubs, systolic murmur Additional comments: Trace edema of hands, no BLE edema - GI/Abdominal GI/Abdominal exam: Present: normal bowel sounds, soft. Absent: distended, hepatomegaly, mass, splenomegaly Additional comments: Moderate diffuse TTP across epigastrium; no rebound or guarding - Psychiatric Psychiatric exam: Present: normal affect, normal mood. Absent: anxious, depressed - Skin Skin exam: Present: dry, intact, pallor, warm. Absent: rash Internal Medicine: Result - Labs CBC & Chem 7: 12/27/17 12:50 12/27/17 06:43 Labs: Short CBC 12/27/17 12/27/17 Range/Units 06:43 12:50 WBC 13.1 H 9.7 (4.3-11.1) K/mcL Hgb 10.4 L D 8.6 L D (11.5-15.4) g/dL Hct 31.8 L 26.6 L (35.3-44.9) % Plt Count 284 212 (140-400) K/mcL Neutrophils # 9.8 H 6.5 (1.6-8.9) K/mcL BMP 12/27/17 06:43 Sodium 137 Potassium 3.3 L Chloride 110 H Carbon Dioxide 19 L BUN 10 Creatinine 0.84 Glucose 98 Calcium 8.1 L Cardiac Enzymes 12/26/17 12/27/17 Range/Units 17:54 00:25 Troponin I 0.40 H* 0.18 H* (< 0.04) ng/mL Liver Function 12/27/17 Range/Units 06:43 Total Bilirubin 0.7 (0.3-1.0) mg/dL AST 15 (13-39) Units/L ALT 8 (7-52) Units/L Alkaline Phosphatase 44 (34-104) Units/L Albumin 3.7 (3.5-5.7) g/dL - ABG Interpretation ABG results: PT/INR, D-dimer PT 12.9 Seconds (9.4-12.1) H 12/26/17 15:07 D-Dimer 1036 ng/mLFEU (0-500) H 12/26/17 07:49 - Impressions Impressions Echocardiogram 12/27/17 18:40 Impressions: LVEF 65-70%. Normal left ventricular diastolic function. Normal right ventricular structure and function. No pulmonary hypertension. Left Ventricular Wall Motion: Rest Echo Findings All wall segments showed normal motion. Findings: Study Quality * Technically adequate exam. ECG Findings * Sinus bradycardia. Left Ventricle * LVEF 65-70%. * Normal left ventricular diastolic function. * Normal LV chamber size, wall thickness and function. Right Ventricle * Normal right ventricular structure and function. Left Atrium * Normal left atrial size. Right Atrium * Normal right atrial size. Interatrial Septum * No evidence of PFO by color Doppler. Aortic Valve * Aortic valve not well visualized. Mitral Valve * Normal mitral valve structure and function. Tricuspid Valve * Mild tricuspid regurgitation. * Estimated RVSP is 20 mmHg. * Estimated RA pressure is 5 mmHg. * No pulmonary hypertension. Pulmonic Valve * Pulmonic valve not well visualized. Aorta * Normally sized aortic root. Pericardium * The pericardium appears normal. IVC * Normal IVC dimensions and inspiratory collapse. - VTE Documentation of Mechanical Device: Intermittent pneumatic compression device Consult Discharge Plan - Plan Additional Instructions: admitted as inpatient. Referrals: Kalen Ashby [Non-Partnered Physician] -
--- NOTE | 2017-12-27 17:37 | General Surgery Consult Note ---
<GrantgénesisAylin cope - Last Filed: 12/27/17 17:31> Date of Encounter: 12/27/17 Time of Encounter: 17:31 Assessment and Plan (1) GI bleed Current Visit: Yes Status: Suspected 62-year-old female with past medical history of Crohn's colitis presenting with melena and suspected active LGIB. Hemoglobin 14.2 on admission down to 8.6 this afternoon. -Patient denies any melena or rectal bleeding currently. -Continue to trend H&H. -Transfuse per primary team. -Protonix. -NPO -Patient with mild thickening of the cecal wall indicated on CT of the abdomen and pelvis on 12/26/2017. We will continue to monitor patient closely. Will consider endoscopy tomorrow. If patient stabilizes with no further drop in hemoglobin, can consider outpatient colonoscopy. Qualifiers: GI bleed type/associated pathology: melena Qualified Code(s): K92.1 - Melena (2) Elevated troponin Current Visit: Yes Status: Acute Management per cardiology. History of Present Illness Consult date: 12/27/17 Reason for consult: other (Suspected active GI bleed) Requesting physician: Michael Garcia History of present illness: Mrs. Hermosillo is a 62-year-old female with past medical history of COPD, migraines , Crohn's disease since 2008, and schizoaffective disorder who presents to [facility] on 12/26/2017 with chief complaint of abdominal pain with nausea, vomiting, and diarrhea for 1 day prior to arrival. Patient also stated at that time that she had noticed black tarry stools for the past several days. Upon further questioning, patient states she has had melena off and on since 2008 when she was diagnosed with Crohn's colitis. Patient states her last colonoscopy was in 2013 which demonstrated diverticulosis, and no active Crohn's disease. Patient attributes this to taking aloe vera capsules prior to endoscopy. Patient states she has had chronic abdominal pain since having her gallbladder removed 3 years ago. Patient also reporting chest pain in the center of her chest that she quantifies as pressure-like. He states she has had intermittent chest pain for the past 10 years. Patient denies any history of cardiac catheterization or stent placement. Patient does report lightheadedness over the past couple days and generalized weakness for the past several weeks. She reports intermittent subjective fevers, chills, and night sweats. She also reports chest pain and shortness of breath. She denies any recent changes in her vision, palpitations, numbness, tingling, or syncope. Patient states she believes she looks paler than normal. She states she does not currently follow with a GI physician, and she is taking no medications for her Crohn's. Past Med Surg Social Fam HX - Past Medical History Source: patient Medical history: asthma, COPD, migraine, other (IBS/Crohns disease, Diverticulosis) Psychiatric history: anxiety, bipolar, depression, other (Schizoaffective) - Past Surgical History Surgical History: cholecystectomy, other (Breast augmentation) - Social History Smoking Status: Never smoker Smokeless Tobacco Status: No Alcohol use: none Drug use: none - Family History Father Race: Family Member Ethnicity: Non- Living Status: Still Living Hx Family Cardiac Disorders: Yes (HTN) Hx Family Neurologic Disorders: Yes (Seizures) Mother Race: Family Member Ethnicity: Non- Living Status: Still Living Hx Family Cardiac Disorders: Yes (HTN) Hx Family GI Disorders: Yes (GERD) Brother History Unknown: Yes Race: Family Member Ethnicity: Non- Living Status: Still Living Medications and Allergies Albuterol Sulfate [Ventolin Hfa] 1 - 2 puff IH Q4-6H PRN 12/26/17 [History] LORazepam [Ativan] 0.5 mg PO BID 12/26/17 [History] Perphenazine [Perphenazine] 4 - 8 mg PO QID PRN 12/26/17 [History] Tizanidine HCl [Tizanidine HCl] 4 mg PO QID PRN 12/26/17 [History] 3 Allergy/AdvReac Type Severity Reaction Status Date / Time ciprofloxacin [From Cipro] Allergy Hives Verified 12/26/17 09:57 ibuprofen Allergy Hives Verified 01/03/16 17:28 [From NeoProfen (ibuprofen lysn)(PF)] Penicillins Allergy Swelling Verified 12/26/17 09:57 of Lip/Tongue/Throat vancomycin Allergy Hives Verified 12/26/17 09:57 clindamycin AdvReac Diarrhea Verified 12/26/17 09:57 Review of Systems All systems PM: The remainder of the systems were reviewed and are negative - Constitutional as per HPI, chills, fever(s), headache(s), weakness, no frequent falls - EENT Nose, mouth and throat: no abnormal hearing, no dizziness - Cardiovascular chest pain, dyspnea, dyspnea on exertion, lightheadedness, no irregular heart rhythm, no radiating jaw, neck or arm pain, no orthopnea, no palpitations - Respiratory dyspnea, no cough - Gastrointestinal abdominal pain, diarrhea, loose stools, melena, vomiting, no hematemesis, no hematochezia - Musculoskeletal back pain, muscle cramps, no abnormal gait - Neurological headache(s), weakness, no dizziness, no frequent falls, no numbness, no paresthesias General Surgery Exam Initial Vital Signs Temp Pulse Resp BP Pulse Ox 99.7 F H 103 26 179/132 100 12/26/17 07:35 12/26/17 07:35 12/26/17 07:35 12/26/17 07:35 12/26/17 07:35 - General physical appearance no distress, other (Pallor) - Respiratory normal expansion, normal respiratory effort, clear to auscultation - Cardiovascular Cardiovascular exam: Present: RRR, no murmurs/rubs/gallops - Abdomen Abdomen general surgery: Present: bowel sounds present, soft, tender ( Bilaterally across her lower abdomen). Absent: distended, guarding, rebound, rigid Hernia: Present: none - Integumentary Integumentary general surgery: Present: warm and dry - Neurologic Present: CN 2-12 grossly intact, normal coordination - Psychiatric Psychiatric general surgery: Present: A&Ox3, speech is normal, memory intact Exam Initial Vital Signs Temp Pulse Resp BP Pulse Ox 99.7 F H 103 26 179/132 100 12/26/17 07:35 12/26/17 07:35 12/26/17 07:35 12/26/17 07:35 12/26/17 07:35 Results - Labs 12/27/17 12:50 12/27/17 06:43 Abnormal lab results RBC 3.00 M/mcL (3.82-4.97) L 12/27/17 12:50 Hgb 8.6 g/dL (11.5-15.4) L D 12/27/17 12:50 Hct 26.6 % (35.3-44.9) L 12/27/17 12:50 PT 12.9 Seconds (9.4-12.1) H 12/26/17 15:07 APTT 201.8 Seconds (26.0-36.0) H* D 12/27/17 15:15 D-Dimer 1036 ng/mLFEU (0-500) H 12/26/17 07:49 Heparin Anti-Xa, Unfract 0.99 IU/mL (0.30-0.70) H 12/27/17 15:15 Potassium 3.3 mEq/L (3.5-5.1) L 12/27/17 06:43 Chloride 110 mEq/L (98-107) H 12/27/17 06:43 Carbon Dioxide 19 mEq/L (23-29) L 12/27/17 06:43 Calcium 8.1 mg/dL (8.6-10.3) L 12/27/17 06:43 Troponin I 0.18 ng/mL (< 0.04) H* 12/27/17 00:25 B-Natriuretic Peptide 144 pg/mL (Less than 100) H 12/26/17 07:49 Serum Total Protein 5.8 g/dL (6.4-8.9) L 12/27/17 06:43 Globulin 2.1 g/dL (2.4-3.5) L 12/27/17 06:43 HDL Cholesterol 37 mg/dL (40-59) L 12/27/17 06:43 Urine Protein 100 mg/dL (Neg-Trace) H 12/26/17 08:35 Urine Glucose (UA) 250 mg/dL (Normal) H 12/26/17 08:35 Urine Ketones 40 mg/dL (Negative) H 12/26/17 08:35 Urine Blood Small (Negative) H 12/26/17 08:35 Urine Microscopic RBC 5-15 per hpf (0-3) H 12/26/17 08:35 Ur Squamous Epith Cells Many per lpf (None-Few) H 12/26/17 08:35 Diabetes panel 12/27/17 Range/Units 06:43 Sodium 137 (136-145) mEq/L Potassium 3.3 L (3.5-5.1) mEq/L Chloride 110 H (98-107) mEq/L Carbon Dioxide 19 L (23-29) mEq/L BUN 10 (8-23) mg/dL Creatinine 0.84 (0.60-1.20) mg/dL Glucose 98 (70-105) mg/dL Calcium 8.1 L (8.6-10.3) mg/dL AST 15 (13-39) Units/L ALT 8 (7-52) Units/L Alkaline Phosphatase 44 (34-104) Units/L Albumin 3.7 (3.5-5.7) g/dL Triglycerides 119 (< 150) mg/dL HDL Cholesterol 37 L (40-59) mg/dL Calcium panel 12/27/17 Range/Units 06:43 Calcium 8.1 L (8.6-10.3) mg/dL Albumin 3.7 (3.5-5.7) g/dL Pituitary panel 12/27/17 Range/Units 06:43 Sodium 137 (136-145) mEq/L Potassium 3.3 L (3.5-5.1) mEq/L Chloride 110 H (98-107) mEq/L Carbon Dioxide 19 L (23-29) mEq/L BUN 10 (8-23) mg/dL Creatinine 0.84 (0.60-1.20) mg/dL Glucose 98 (70-105) mg/dL Calcium 8.1 L (8.6-10.3) mg/dL Adrenal panel 12/27/17 Range/Units 06:43 Sodium 137 (136-145) mEq/L Potassium 3.3 L (3.5-5.1) mEq/L Chloride 110 H (98-107) mEq/L Carbon Dioxide 19 L (23-29) mEq/L BUN 10 (8-23) mg/dL Creatinine 0.84 (0.60-1.20) mg/dL Glucose 98 (70-105) mg/dL Calcium 8.1 L (8.6-10.3) mg/dL Total Bilirubin 0.7 (0.3-1.0) mg/dL AST 15 (13-39) Units/L ALT 8 (7-52) Units/L Alkaline Phosphatase 44 (34-104) Units/L Albumin 3.7 (3.5-5.7) g/dL All other labs normal. Consult Discharge Plan - Plan Additional Instructions: admitted as inpatient. Referrals: Kalen Ashby [Non-Partnered Physician] - <Eliezer Bass - Last Filed: 12/27/17 21:11> Date of Encounter: 12/27/17 Review of Systems All systems PM: The remainder of the systems were reviewed and are negative General Surgery Exam Initial Vital Signs Temp Pulse Resp BP Pulse Ox 99.7 F H 103 26 179/132 100 12/26/17 07:35 12/26/17 07:35 12/26/17 07:35 12/26/17 07:35 12/26/17 07:35 Exam Initial Vital Signs Temp Pulse Resp BP Pulse Ox 99.7 F H 103 26 179/132 100 12/26/17 07:35 12/26/17 07:35 12/26/17 07:35 12/26/17 07:35 12/26/17 07:35 Results - Labs 12/27/17 18:06 12/27/17 06:43 Abnormal lab results RBC 3.00 M/mcL (3.82-4.97) L 12/27/17 12:50 Hgb 9.6 g/dL (11.5-15.4) L 12/27/17 18:06 Hct 29.2 % (35.3-44.9) L 12/27/17 18:06 PT 12.9 Seconds (9.4-12.1) H 12/26/17 15:07 APTT 201.8 Seconds (26.0-36.0) H* D 12/27/17 15:15 D-Dimer 1036 ng/mLFEU (0-500) H 12/26/17 07:49 Heparin Anti-Xa, Unfract 0.99 IU/mL (0.30-0.70) H 12/27/17 15:15 Potassium 3.3 mEq/L (3.5-5.1) L 12/27/17 06:43 Chloride 110 mEq/L (98-107) H 12/27/17 06:43 Carbon Dioxide 19 mEq/L (23-29) L 12/27/17 06:43 Calcium 8.1 mg/dL (8.6-10.3) L 12/27/17 06:43 Troponin I 0.18 ng/mL (< 0.04) H* 12/27/17 00:25 B-Natriuretic Peptide 144 pg/mL (Less than 100) H 12/26/17 07:49 Serum Total Protein 5.8 g/dL (6.4-8.9) L 12/27/17 06:43 Globulin 2.1 g/dL (2.4-3.5) L 12/27/17 06:43 HDL Cholesterol 37 mg/dL (40-59) L 12/27/17 06:43 Urine Protein 100 mg/dL (Neg-Trace) H 12/26/17 08:35 Urine Glucose (UA) 250 mg/dL (Normal) H 12/26/17 08:35 Urine Ketones 40 mg/dL (Negative) H 12/26/17 08:35 Urine Blood Small (Negative) H 12/26/17 08:35 Urine Microscopic RBC 5-15 per hpf (0-3) H 12/26/17 08:35 Ur Squamous Epith Cells Many per lpf (None-Few) H 12/26/17 08:35 Stool Occult Blood Positive (Negative) A 12/27/17 18:43 Diabetes panel 12/27/17 Range/Units 06:43 Sodium 137 (136-145) mEq/L Potassium 3.3 L (3.5-5.1) mEq/L Chloride 110 H (98-107) mEq/L Carbon Dioxide 19 L (23-29) mEq/L BUN 10 (8-23) mg/dL Creatinine 0.84 (0.60-1.20) mg/dL Glucose 98 (70-105) mg/dL Calcium 8.1 L (8.6-10.3) mg/dL AST 15 (13-39) Units/L ALT 8 (7-52) Units/L Alkaline Phosphatase 44 (34-104) Units/L Albumin 3.7 (3.5-5.7) g/dL Triglycerides 119 (< 150) mg/dL HDL Cholesterol 37 L (40-59) mg/dL Calcium panel 12/27/17 Range/Units 06:43 Calcium 8.1 L (8.6-10.3) mg/dL Albumin 3.7 (3.5-5.7) g/dL Pituitary panel 12/27/17 Range/Units 06:43 Sodium 137 (136-145) mEq/L Potassium 3.3 L (3.5-5.1) mEq/L Chloride 110 H (98-107) mEq/L Carbon Dioxide 19 L (23-29) mEq/L BUN 10 (8-23) mg/dL Creatinine 0.84 (0.60-1.20) mg/dL Glucose 98 (70-105) mg/dL Calcium 8.1 L (8.6-10.3) mg/dL Adrenal panel 12/27/17 Range/Units 06:43 Sodium 137 (136-145) mEq/L Potassium 3.3 L (3.5-5.1) mEq/L Chloride 110 H (98-107) mEq/L Carbon Dioxide 19 L (23-29) mEq/L BUN 10 (8-23) mg/dL Creatinine 0.84 (0.60-1.20) mg/dL Glucose 98 (70-105) mg/dL Calcium 8.1 L (8.6-10.3) mg/dL Total Bilirubin 0.7 (0.3-1.0) mg/dL AST 15 (13-39) Units/L ALT 8 (7-52) Units/L Alkaline Phosphatase 44 (34-104) Units/L Albumin 3.7 (3.5-5.7) g/dL All other labs normal. - Attending Attestation I have personally seen and examined the patient. I have reviewed pertinent labs , imaging, progress notes, including this one. I agree with the above assessment and plan. 62F with several day history of melena/dark stools with associated lightheadedness; also reports abdominal pain; has acute blood loss anemia; will plan for endoscopy if she continues to have bloody stools and h/h continues to decline; if all is improved, then will plan for outpatient colonoscopy and EGD
[2017-12-27] MEDS: Heparin 25,000 UNIT/500 ML D5W 25,000 UNIT/500 ML BAG IVC SCH (18:25)
[2017-12-27 18:32] LABS: Hematocrit 29.2 % (35.3-44.9); Hemoglobin 9.6 g/dL (11.5-15.4)
[2017-12-27] MEDS: *HR* OxyCODONE Immed Rel 5 MG TABLET PO PRN (21:24)
[2017-12-27] MEDS: *HR* Promethazine 25 MG/ML VIAL IVP PRN (21:24)
[2017-12-27 23:48] LABS: Hematocrit 27.2 % (35.3-44.9); Hemoglobin 8.9 g/dL (11.5-15.4)
[2017-12-28] MEDS: tiZANidine 4 MG TABLET PO PRN ×2 (03:10→09:49)
[2017-12-28] MEDS: Pantoprazole 40 MG VIAL IVP SCH (06:17)
[2017-12-28] MEDS: *HR* OxyCODONE Immed Rel 5 MG TABLET PO PRN ×2 (06:17→14:37)
[2017-12-28 08:15] LABS: Basophils # 0.1 K/mcL (0.0-0.2); Basophils % 0.8 %; Eosinophils # 0.1 K/mcL (0.0-0.6); Eosinophils % 0.9 %; Hematocrit 29.5 % (35.3-44.9); Hemoglobin 9.5 g/dL (11.5-15.4); Immature Granulocytes % 0.2 % (0-4); Lymphocytes # 2.4 K/mcL (0.6-4.6); Lymphocytes % 37.9 %; Mean Corpuscular HGB Conc 32.2 g/dL (31.6-35.5); Mean Corpuscular Volume 89.9 fL (83.0-100.0); Mean Platelet Volume 10.5 fL (9.4-12.4); Monocytes # 0.4 K/mcL (0.0-1.3); Monocytes % 5.9 %; Neutrophils # 3.5 K/mcL (1.6-8.9); Platelet Count 226 K/mcL (140-400); Red Blood Count 3.28 M/mcL (3.82-4.97); Red Cell Distribution Width 13.8 % (11.5-14.5); Segmented Neutrophils % 54.3 %
[2017-12-28 08:28] LABS: Alanine Aminotransferase 9 Units/L (7-52); Albumin 3.4 g/dL (3.5-5.7); Albumin/Globulin Ratio 1.9 (1.1-2.2); Alkaline Phosphatase 41 Units/L (34-104); Aspartate Amino Transferase 16 Units/L (13-39); BUN/Creatinine Ratio 10 (6-26); Bilirubin,Total 0.6 mg/dL (0.3-1.0); Blood Urea Nitrogen 6 mg/dL (8-23); Calcium 8.5 mg/dL (8.6-10.3); Carbon Dioxide 19 mEq/L (23-29); Chloride 114 mEq/L (98-107); Globulin 1.8 g/dL (2.4-3.5); Glucose 76 mg/dL (70-105); Osmolality,Calculated 284 (280-300); Potassium 3.9 mEq/L (3.5-5.1); Sodium 139 mEq/L (136-145); Total Protein 5.2 g/dL (6.4-8.9); eGFR For African Americans > 60 (> 60); eGFR For Non-African Americans > 60 (> 60)
[2017-12-28] MEDS: *HR* LORazepam 0.5 MG TABLET PO SCH (09:48)
[2017-12-28] MEDS: 0.9 % Sodium Chloride 1,000 ML IVC SCH (10:01)
[2017-12-28] MEDS: Aspirin Enteric Coated 81 MG Tablet PO SCH (10:02)
--- NOTE | 2017-12-28 10:58 | General Surgery Progress Note ---
Addendum entered and electronically signed by Aylin Webster MD 12/28/17 12 :12: Patient now reporting abdominal discomfort and weakness. She states she thinks it is secondary to not eating. We will give her clear liquid diet without red dye. If patient is feeling better around dinner, ok for discharge. If not feeling better, NPO at midnight for endoscopy tomorrow. Original Note: <Aylin Webster - Last Filed: 12/28/17 10:52> Date of Encounter: 12/28/17 Time of Encounter: 10:53 - Assessment and Plan (1) GI bleed Current Visit: Yes Status: Suspected 62-year-old female with past medical history of Crohn's colitis presenting with melena and suspected active LGIB. Hemoglobin 14.2 on admission down to 8.6 this afternoon. Mild thickening of the cecal wall indicated on CT of the abdomen and pelvis on 12/26/2017. -Patient denies any melena or rectal bleeding overnight. -Patient's hemoglobin stable overnight. Patient denies any bleeding over the last 24 hours. We will have her follow-up in the office with Dr. Bass on January 28 to schedule outpatient endoscopy. -Okay to resume diet. -Surgery to sign off. Please feel free to reach out with any further questions or concerns. Thank you for involving us in the patient's care. Qualifiers: GI bleed type/associated pathology: melena Qualified Code(s): K92.1 - Melena (2) Elevated troponin Current Visit: Yes Status: Acute Management per cardiology. Subjective Patient reports: no new complaints, feels better, pain is less, voiding w/o difficulty, flatus, bowel movement (Patient denies bleeding from her rectum for the last 24 hours. Reports brown diarrhea overnight. No blood, no melena. States her abdominal pain is improving. No lightheadedness or shortness of breath. No nausea or vomiting for 3 days.) Objective Vital Signs - Last 8 Hours Temp Pulse Resp BP Pulse Ox 12/28/17 10:44 98.3 F 52 15 151/75 98 12/28/17 07:32 98.2 F 58 15 127/72 99 Intake and Output 12/27/17 12/28/17 12/28/17 23:59 07:59 15:59 Intake Total 900 / 900 1000 / 1000 Balance 900 / 900 1000 / 1000 Intake: IV Fluids 900 / 900 1000 / 1000 0.9 % Sodium Chloride 1,000 ML 900 / 900 1000 / 1000 @ 100 mls/hr IVC .Q10H YOON Rx#: [id number] Other: # Voids 1 Weight 45.359 kg Patient Weight 12/28/17 23:59 Weight 45.359 kg - General physical appearance well developed, well nourished, no distress, other (Mild pallor) - Cardiovascular Cardiovascular exam: Present: RRR, no murmurs/rubs/gallops - Abdomen Abdomen: Present: bowel sounds present, soft. Absent: guarding, rebound, rigid Abdominal Tenderness: diffusely (Mild) Hernia: none - Neurologic CN 2-12 grossly intact, normal coordination - Musculoskeletal normal gait, normal posture - Psychiatric oriented to time, oriented to person, oriented to place, speech is normal, memory intact - Labs 12/28/17 07:24 12/28/17 07:24 Diabetes panel 12/28/17 Range/Units 07:24 Sodium 139 (136-145) mEq/L Potassium 3.9 (3.5-5.1) mEq/L Chloride 114 H (98-107) mEq/L Carbon Dioxide 19 L (23-29) mEq/L BUN 6 L (8-23) mg/dL Creatinine 0.60 (0.60-1.20) mg/dL Glucose 76 (70-105) mg/dL Calcium 8.5 L (8.6-10.3) mg/dL AST 16 (13-39) Units/L ALT 9 (7-52) Units/L Alkaline Phosphatase 41 (34-104) Units/L Albumin 3.4 L (3.5-5.7) g/dL Calcium panel 12/28/17 Range/Units 07:24 Calcium 8.5 L (8.6-10.3) mg/dL Albumin 3.4 L (3.5-5.7) g/dL Pituitary panel 12/28/17 Range/Units 07:24 Sodium 139 (136-145) mEq/L Potassium 3.9 (3.5-5.1) mEq/L Chloride 114 H (98-107) mEq/L Carbon Dioxide 19 L (23-29) mEq/L BUN 6 L (8-23) mg/dL Creatinine 0.60 (0.60-1.20) mg/dL Glucose 76 (70-105) mg/dL Calcium 8.5 L (8.6-10.3) mg/dL Adrenal panel 12/28/17 Range/Units 07:24 Sodium 139 (136-145) mEq/L Potassium 3.9 (3.5-5.1) mEq/L Chloride 114 H (98-107) mEq/L Carbon Dioxide 19 L (23-29) mEq/L BUN 6 L (8-23) mg/dL Creatinine 0.60 (0.60-1.20) mg/dL Glucose 76 (70-105) mg/dL Calcium 8.5 L (8.6-10.3) mg/dL Total Bilirubin 0.6 (0.3-1.0) mg/dL AST 16 (13-39) Units/L ALT 9 (7-52) Units/L Alkaline Phosphatase 41 (34-104) Units/L Albumin 3.4 L (3.5-5.7) g/dL - VTE Documentation of Mechanical Device: Intermittent pneumatic compression device Consult Discharge Plan - Plan Additional Instructions: admitted as inpatient. Referrals: Kalen Ashby [Non-Partnered Physician] - Eliezer Bass MD [Non-Partnered Physician] - 01/28/18 4:15 pm <Eliezer Bass - Last Filed: 12/28/17 12:35> Date of Encounter: 12/28/17 Objective Vital Signs - Last 8 Hours Temp Pulse Resp BP Pulse Ox 12/28/17 10:44 98.3 F 52 15 151/75 98 12/28/17 07:32 98.2 F 58 15 127/72 99 Intake and Output 12/27/17 12/28/17 12/28/17 23:59 07:59 15:59 Intake Total 900 / 900 1000 / 1000 Balance 900 / 900 1000 / 1000 Intake: IV Fluids 900 / 900 1000 / 1000 0.9 % Sodium Chloride 1,000 ML 900 / 900 1000 / 1000 @ 100 mls/hr IVC .Q10H YOON Rx#: [id number] Other: # Voids 1 Weight 45.359 kg Patient Weight 12/28/17 23:59 Weight 45.359 kg - Labs 12/28/17 10:40 12/28/17 07:24 Diabetes panel 12/28/17 Range/Units 07:24 Sodium 139 (136-145) mEq/L Potassium 3.9 (3.5-5.1) mEq/L Chloride 114 H (98-107) mEq/L Carbon Dioxide 19 L (23-29) mEq/L BUN 6 L (8-23) mg/dL Creatinine 0.60 (0.60-1.20) mg/dL Glucose 76 (70-105) mg/dL Calcium 8.5 L (8.6-10.3) mg/dL AST 16 (13-39) Units/L ALT 9 (7-52) Units/L Alkaline Phosphatase 41 (34-104) Units/L Albumin 3.4 L (3.5-5.7) g/dL Calcium panel 12/28/17 Range/Units 07:24 Calcium 8.5 L (8.6-10.3) mg/dL Albumin 3.4 L (3.5-5.7) g/dL Pituitary panel 12/28/17 Range/Units 07:24 Sodium 139 (136-145) mEq/L Potassium 3.9 (3.5-5.1) mEq/L Chloride 114 H (98-107) mEq/L Carbon Dioxide 19 L (23-29) mEq/L BUN 6 L (8-23) mg/dL Creatinine 0.60 (0.60-1.20) mg/dL Glucose 76 (70-105) mg/dL Calcium 8.5 L (8.6-10.3) mg/dL Adrenal panel 12/28/17 Range/Units 07:24 Sodium 139 (136-145) mEq/L Potassium 3.9 (3.5-5.1) mEq/L Chloride 114 H (98-107) mEq/L Carbon Dioxide 19 L (23-29) mEq/L BUN 6 L (8-23) mg/dL Creatinine 0.60 (0.60-1.20) mg/dL Glucose 76 (70-105) mg/dL Calcium 8.5 L (8.6-10.3) mg/dL Total Bilirubin 0.6 (0.3-1.0) mg/dL AST 16 (13-39) Units/L ALT 9 (7-52) Units/L Alkaline Phosphatase 41 (34-104) Units/L Albumin 3.4 L (3.5-5.7) g/dL - Attending Attestation I have personally seen and examined the patient. I have reviewed pertinent labs , imaging, progress notes, including this one. I agree with the above assessment and plan and wish to include the following... Patient reports feeling 'rough around the edges.' states stools are 'less dark ' than before but she feels 'exhausted' she attributed to not eating today; h/ h did drop slightly; will reassess h/h and patient status after eating. if there juarez drop, then will keep patient and plan for endoscopy tomorrow.
[2017-12-28 11:33] LABS: Hematocrit 28.4 % (35.3-44.9); Hemoglobin 9.3 g/dL (11.5-15.4)
--- NOTE | 2017-12-28 12:24 | Cardiology Progress Note ---
Date of Encounter: 12/28/17 Time of Encounter: 12:00 Assessment and Plan (1) Elevated troponin Current Visit: Yes Status: Acute Troponin elevation, 0.19, 0.25, 0.40, 0.18. Likely demand ischemia in the setting of GI bleed and leukocytosis. Hgb dropped from 16 to 8.5. Denies chest pain. Reports intermittent melena at home. TTE-LVEF 65-70%. Normal left ventricular diastolic function. Normal right ventricular structure and function. No pulmonary hypertension. She is not a good candidate for further ischemic evaluation due to melena. Planning for EGD/colonoscopy in out-pt setting. Consider stress test in out-pt setting after EGD/ colonoscopy. (2) IBS (irritable bowel syndrome) Current Visit: Yes Status: Chronic Significant abdominal pain almost to the point of seizure like activity relieved with muscle relaxants and G.I. bleed, black tarry stools, drop in hemoglobin and potassium with history of Crohn's disease likely is reason for presentation to the hospital. Qualifiers: Irritable bowel syndrome type: with both diarrhea and constipation Qualified Code(s): K58.2 - Mixed irritable bowel syndrome Discussion w patient/family: The assessment and plan as outlined above was discussed with the patient and/or family members who expressed understanding and agreement. All questions were answered. Thank you for involving us in the care of your patient. Please call with any questions. Subjective Principal diagnosis: elevated troponin, melena Interval history: Ms. Ocampo denies recurrent anemia. Denies chest pain. Objective Vital Signs, Last 4 Hours Temp Pulse Resp BP Pulse Ox 12/28/17 10:44 98.3 F 52 15 151/75 98 General: Conversant, No Apparent Distress, Other (pale appearing) HEENT: Atraumatic, Normocephaly, Mucus Membranes Moist Neck: No JVD, Normal carotid pulses Cardiac: Reg Rate and Rhythm, Normal S1 and S2, No Murmur Lungs: Normal Breath Sounds, No Wheeze, Rales, Rhonchi Neuro: Alert and responsive, No focal deficits noted Abdomen: Soft, Non-Tender Skin: No rashes noted on visualized skin Musculoskeletal: No Chest Wall Tenderness Extremities: No Clubbing, No Cyanosis, No Edema, Normal Pulses Results 12/28/17 10:40 12/28/17 07:24 Lab Results 03/02/1012/27/17 12/27/17 12:50 15:15 18:06 WBC 9.7 Hgb 8.6 L D 9.6 L Hct 26.6 L 29.2 L Plt Count 212 APTT 201.8 H* D Sodium Potassium Chloride Carbon Dioxide BUN Creatinine Glucose Calcium Total Bilirubin AST ALT Alkaline Phosphatase 12/27/17 12/28/17 12/28/17 23:26 07:24 07:24 WBC 6.4 Hgb 8.9 L 9.5 L Hct 27.2 L 29.5 L Plt Count 226 APTT Sodium 139 Potassium 3.9 Chloride 114 H Carbon Dioxide 19 L BUN 6 L Creatinine 0.60 Glucose 76 Calcium 8.5 L Total Bilirubin 0.6 AST 16 ALT 9 Alkaline Phosphatase 41 12/28/17 10:40 WBC Hgb 9.3 L Hct 28.4 L Plt Count APTT Sodium Potassium Chloride Carbon Dioxide BUN Creatinine Glucose Calcium Total Bilirubin AST ALT Alkaline Phosphatase - Imaging and Cardiology Echo: report reviewed - EKG Interpretation EKG results cardiology: personally reviewed - VTE Documentation of Mechanical Device: Intermittent pneumatic compression device Consult Discharge Plan - Plan Additional Instructions: admitted as inpatient. Referrals: Eliezer Bass MD [Non-Partnered Physician] - 01/28/18 4:15 pm Kalen Ashby [Non-Partnered Physician] -
[2017-12-28 15:07] VITALS: BP 179/71
[2017-12-28 15:47] LABS: Hematocrit 32.4 % (35.3-44.9); Hemoglobin 10.6 g/dL (11.5-15.4)
--- NOTE | 2017-12-28 16:52 | Discharge Summary ---
- NOTES TO OUTPATIENT PROVIDER Notes to Outpatient Provider: Obtain CBC at follow up. Refer for EGD/ colonoscopy as outpatient. Refer for stress stest as outpatient. Follow up with PCP in 2-3 days after discharge. Follow up with GI as scheduled. Follow up with cardiology for outpatient stress test after resolution of GI issues. Orders not resulted at time of discharge: Pending orders 12/26/17 22:41 Silicon, serum Routine 12/27/17 12:50 PRBC [Red Blood Cells] [BBK] Routine Type and Screen [BBK] Stat 12/28/17 17:00 Hemoglobin and Hematocrit [HEME] Q6H 12/28/17 23:00 Hemoglobin and Hematocrit [HEME] Q6H Date of Encounter: 12/28/17 Time of Encounter: 16:50 - Discharge Diagnosis (1) GI bleed Priority: Primary Status: Acute Qualifiers: GI bleed type/associated pathology: melena Qualified Code(s): K92.1 - Melena (2) Abdominal pain Priority: Secondary Status: Acute Qualifiers: Abdominal location: generalized Qualified Code(s): R10.84 - Generalized abdominal pain (3) Elevated troponin Priority: Secondary Status: Acute (4) Chest pain Priority: Secondary Status: Resolved Qualifiers: Chest pain type: other chest pain Qualified Code(s): R07.89 - Other chest pain; R07.8 - Other chest pain (5) Leukocytosis Priority: Secondary Status: Resolved Qualifiers: Leukocytosis type: unspecified Qualified Code(s): D72.829 - Elevated white blood cell count, unspecified (6) COPD (chronic obstructive pulmonary disease) Priority: Secondary Status: Chronic Qualifiers: COPD type: unspecified COPD Qualified Code(s): J44.9 - Chronic obstructive pulmonary disease, unspecified (7) IBS (irritable bowel syndrome) Priority: Secondary Status: Chronic Qualifiers: Irritable bowel syndrome type: with both diarrhea and constipation Qualified Code(s): K58.2 - Mixed irritable bowel syndrome (8) Schizophrenia Priority: Secondary Status: Chronic Qualifiers: Schizophrenia type: unspecified Qualified Code(s): F20.9 - Schizophrenia, unspecified (9) DVT prophylaxis Priority: Secondary Status: Acute Hospital course: Ms. Ocampo is a 62 year old female admitted for abdominal pain, nausea, vomiting, and diarrhea. She was admitted to general medical floor and made NPO and started on IVF. She was started on IV protonix and IV phenergan PRN for N/ V. She has history of diverticulosis and GI bleed was suspected given melena. FOBT was positive. Her hemoglobin dropped the later on the day of admission. GI was consulted and recommended NPO, serial H/H, protonix, and transfusions if necessary. They would take her to endoscopy if she did not stabilize. Patient' s hemoglobin stabilized over the next 24 hours. Since she was still having abdominal pain and dark stools, GI recommended EGD today. However, patient did not want to get this done and wanted to go home. GI recommended that if she tolerated clear liquid diet, she could be discharged with endoscopy scheduled as outpatient. She was able to tolerate diet. I counselled her for 15 minutes today on the risks of going home. I advised her to monitor intake and advance diet as tolerated. I advised her to return to ED if she developed dizziness, lightheadedness, worsening melena, worsening abdominal pain, or any other symptom of worsening GI bleed. She voiced understanding. During this hospitalization, she also had an elevated troponin 0.25 --> 0.40 --> 0.18. Cardiology was consulted. She had ECHO with TTE-LVEF 65-70%. Normal left ventricular diastolic function. Normal right ventricular structure and function. No pulmonary hypertension. Cardiology stated that she is not a good candidate for further ischemic evaluation at this time due to melena. They recommended stress test in outpatient setting after EGD/colonoscopy. Patient will be discharged home on protonix 40 mg PO QD for 14 days. She will follow up with her PCP in 2-3 days after discharge. Patient has met maximum benefit of this hospitalization and will be discharged home in stable condition. Discharge discussed with: patient, family, nurse - Time Spent with Patient Total time spent providing and/or coordinating discharge services: Greater than 30 minutes - Discharge Medications Prescriptions: Pantoprazole Sodium [Protonix] 40 mg PO DAILY 14 Days #14 tablet. Tizanidine HCl 4 mg PO QID PRN 3 Days #12 tablet PRN Reason: Muscle Spasm Home Medications: Albuterol Sulfate [Ventolin Hfa] 1 - 2 puff IH Q4-6H PRN 12/26/17 [History] LORazepam [Ativan] 0.5 mg PO BID 12/26/17 [History] Perphenazine 4 - 8 mg PO QID PRN 12/26/17 [History] Pantoprazole Sodium [Protonix] 40 mg PO DAILY 14 Days #14 tablet. 12/28/17 [Rx ] Tizanidine HCl 4 mg PO QID PRN 3 Days #12 tablet 12/28/17 [Rx] Allergies/Adverse Reactions: 3 Allergy/AdvReac Type Severity Reaction Status Date / Time ciprofloxacin [From Cipro] Allergy Hives Verified 12/26/17 09:57 ibuprofen Allergy Hives Verified 01/03/16 17:28 [From NeoProfen (ibuprofen lysn)(PF)] Penicillins Allergy Swelling Verified 12/26/17 09:57 of Lip/Tongue/Throat vancomycin Allergy Hives Verified 12/26/17 09:57 clindamycin AdvReac Diarrhea Verified 12/26/17 09:57 Date of admission: 12/26/17 15:39 Primary care physician: Lakshmi Rahman MD Consults: 12/27/17 16:34 Consult to Gastroenterology [CONS] Stat Consulting Provider: Eliezer Bass Reason for Consult: Suspected active GI bleed. Time Notified: 16:35 Call Completed: Yes Discharging clinician: Michael Garcia Anticipated date of discharge: 12/28/17 - Constitutional Vitals: Temp Pulse Resp BP Pulse Ox 99.0 F 57 15 179/71 99 12/28/17 15:06 12/28/17 15:06 12/28/17 15:06 12/28/17 15:06 12/28/17 15:06 General appearance: Present: cooperative, A&O X 3, pleasant, no acute distress, underweight, answers questions appropriately - Respiratory Respiratory exam: Present: CTAB. Absent: accessory muscle use, rales, rhonchi, wheezes Additional comments: Normal WOB - Cardiovascular Cardiovascular exam: Present: RRR, +S1, +S2. Absent: diastolic murmur, gallop, rubs, systolic murmur Additional comments: No BLE edema - GI/Abdominal GI/Abdominal exam: Present: soft. Absent: distended, hepatomegaly, mass, splenomegaly Additional comments: Mild TTP diffusely across epigastrium. - Psychiatric Psychiatric exam: Present: normal affect, normal mood. Absent: anxious, depressed - Skin Skin exam: Present: dry, intact, pallor, warm. Absent: rash - Patient Status Disposition: Home, Self-Care Condition: Fair Overall status at discharge: patient is progressing back to baseline - Discharge Instructions Follow Up With: Eliezer Bass MD [Non-Partnered Physician] - 01/28/18 4:15 pm Kalen Ashby [Non-Partnered Physician] - 12/30/17 Additional Instructions: Obtain CBC at follow up. Refer for EGD/colonoscopy as outpatient. Refer for stress stest as outpatient. Follow up with PCP in 2-3 days after discharge. Follow up with GI as scheduled. Follow up with cardiology for outpatient stress test after resolution of GI issues. - Diet and Activity Activity: resume usual activities as tolerated Diet: advance to your usual diet - VTE Documentation of Mechanical Device: Intermittent pneumatic compression device
--- NOTE | 2017-12-29 19:57 | Electrocardiograph Report ---
[place] [id number] Test Date: 2017-12-26 Pat Name: Tomasa Ocampo Department: 103 Room: 3B Gender: F Corporate Executive: HEATHER : 1955 Requested By: Kenney Cheek Order Number: [id number] Reading MD: Renetta Schultz Measurements Intervals [place] Rate: 105 P: 57 MA: 122 QRS: 11 QRSD: 89 T: 63 QT: 336 QTc: 397 Interpretive Statements SINUS TACHYCARDIA POSSIBLE LEFT ATRIAL ENLARGEMENT [-0.1mV P WAVE IN V1/V2] MODERATE ST DEPRESSION [0.05+ mV ST DEPRESSION] Electronically Signed On 12-29-2017 19:56:11 EST by Renetta Schultz
--- NOTE | 2017-12-29 19:58 | Electrocardiograph Report ---
[place] [address] Test Date: 2017-12-26 Pat Name: Tomasa Ocampo Department: 103 Room: 3B Gender: F Dam Attendant: EVERETTE : 1955 Requested By: Moises Maza Order Number: [id number] Reading MD: Renetta Schultz Measurements Intervals [place] Rate: 112 P: 65 PA: 130 QRS: 5 QRSD: 89 T: 67 QT: 341 QTc: 408 Interpretive Statements SINUS TACHYCARDIA POSSIBLE LEFT ATRIAL ENLARGEMENT [-0.1mV P WAVE IN V1/V2] ABNORMAL RHYTHM ECG Electronically Signed On 12-29-2017 19:56:39 EST by Renetta Schultz
== END 2017-12-28 18:00 | disposition home or self-care (01) | DRG 385 ==
LOC: 3BNU 07:32 → EMEROO 07:32 → 3BNU 12:10 → SUATTDRO 15:39
PROVIDERS: ADMIT Internal Medicine; ATTEND Family Medicine

== ENCOUNTER 2018-04-05 13:59 | Inpatient (IN) ==
--- NOTE | 2018-04-05 14:28 | General Surg History&Physical ---
Date of Encounter: 04/05/18 Time of Encounter: 14:25 Assessment and Plan (1) GI bleed Current Visit: Yes Status: Acute Tomasa Ocampo has lower GI bleeding with associated hemodynamic compromise as evidenced by her dizziness and passing out and pale skin. - admit - CLD - IVF - labs - CT scan of abd and pelvis - medicine consult - begin bowel prep - plan for colonoscopy on 04/06 The assessment and plan as outlined above was discussed with the patient and/or family members who expressed understanding and agreement. All questions were answered. Qualifiers: GI bleed type/associated pathology: melena Qualified Code(s): K92.1 - Melena History of Present Illness Chief complaint: melena HPI: Tomasa Ocampo is a patient that is well known to me who I saw originally in the inpatient setting as a consult for lower GI bleeding. Although it is not alright diagnosed, she states she was told she has some component of IBD. She presents today because she states that she continues to have lower GI bleeding with associated dizziness, lightheadedness, and syncopal episodes. She states her last bowel movement was on 04/04 and there was blood. She has not had a bowel movement today. Furthermore, she reports persistent and sometimes worse abdominal pain, but it is difficult to distinguish it from surgical pathologial abdominal pain vs her IBS and IBD?. In addition, I did review her old CT scan which demonstrated thickening of her cecum. Past Med Surg Social Fam HX - Past Medical History Medical history: asthma, COPD, migraine, other (IBS/Crohns disease, Diverticulosis) Additional medical history: 3 bowel diseases ? Psychiatric history: anxiety, bipolar, depression, other (Schizoaffective) - Past Surgical History Surgical History: cholecystectomy, other (Breast augmentation) Additional surgical history: breast construction. dental - Social History Smoking Status: Never smoker Smokeless Tobacco Status: No Alcohol use: none Drug use: none - Family History Father Family Member Ethnicity: Non- Living Status: Still Living Hx Family Cardiac Disorders: Yes (HTN) Hx Family Neurologic Disorders: Yes (Seizures) Mother Family Member Ethnicity: Non- Living Status: Still Living Hx Family Cardiac Disorders: Yes (HTN) Hx Family GI Disorders: Yes (GERD) Brother Family Member Ethnicity: Non- Living Status: Still Living Medications and Allergies Albuterol Sulfate [Ventolin Hfa] 1 - 2 puff IH Q4-6H PRN 12/26/17 [History] LORazepam [Ativan] 0.5 mg PO BID 12/26/17 [History] Perphenazine 4 - 8 mg PO QID PRN 12/26/17 [History] Pantoprazole Sodium [Protonix] 40 mg PO DAILY 14 Days #14 tablet. 12/28/17 [Rx ] Tizanidine HCl 4 mg PO QID PRN 3 Days #12 tablet 12/28/17 [Rx] Dicyclomine [Bentyl] 10 mg PO QID #60 capsule 02/22/18 [Rx] 3 Allergy/AdvReac Type Severity Reaction Status Date / Time ciprofloxacin [From Cipro] Allergy Hives Verified 12/26/17 09:57 ibuprofen Allergy Hives Verified 01/03/16 17:28 [From NeoProfen (ibuprofen lysn)(PF)] Penicillins Allergy Swelling Verified 12/26/17 09:57 of Lip/Tongue/Throat vancomycin Allergy Hives Verified 12/26/17 09:57 clindamycin AdvReac Diarrhea Verified 12/26/17 09:57 Review of Systems All systems PM: The remainder of the systems were reviewed and are negative General Surgery Exam - General physical appearance no distress - Eyes normal ocular movement - ENT normocephalic - Neck no lymphadectomy - Respiratory normal expansion, normal respiratory effort - Cardiovascular Cardiovascular exam: Present: RRR - Abdomen Abdomen general surgery: Present: soft, non tender - Integumentary Integumentary general surgery: Present: other (pale) - Neurologic Present: CN 2-12 grossly intact - Musculoskeletal Present: normal posture - Psychiatric Psychiatric general surgery: Present: A&Ox3, speech is normal, memory intact Results - Labs All other labs normal.
[2018-04-05] MEDS ORDERED: Isovue-370 500 ML INFUS..BTL IV ONE ×2 (14:29→15:03)
[2018-04-05] MEDS ORDERED: Perphenazine 2 MG TABLET PO PRN (14:35)
[2018-04-05] MEDS ORDERED: Polyethylene Glycol 3350 255 GM POWDER PO ONE (14:35)
[2018-04-05] MEDS: 0.9 % Sodium Chloride 1,000 ML IVC SCH (15:24)
[2018-04-05 15:41] LABS: Basophils % 0.5 %; Eosinophils # 0.1 K/mcL (0.0-0.6); Eosinophils % 1.1 %; Hematocrit 33.8 % (35.3-44.9); Hemoglobin 11.3 g/dL (11.5-15.4); Immature Granulocytes % 0.2 % (0-4); Lymphocytes # 1.8 K/mcL (0.6-4.6); Lymphocytes % 21.3 %; Mean Corpuscular HGB Conc 33.4 g/dL (31.6-35.5); Mean Corpuscular Hemoglobin 28.9 pg (28.0-33.3); Mean Corpuscular Volume 86.4 fL (83.0-100.0); Mean Platelet Volume 9.6 fL (9.4-12.4); Monocytes # 0.6 K/mcL (0.0-1.3); Monocytes % 7.1 %; Neutrophils # 5.8 K/mcL (1.6-8.9); Platelet Count 274 K/mcL (140-400); Red Blood Count 3.91 M/mcL (3.82-4.97); Red Cell Distribution Width 12.4 % (11.5-14.5); Segmented Neutrophils % 69.8 %
[2018-04-05] MEDS ORDERED: *HR* OxyCODONE Immed Rel 5 MG TABLET PO PRN (15:55)
[2018-04-05 16:01] LABS: BUN/Creatinine Ratio 7 (6-26); Blood Urea Nitrogen 5 mg/dL (8-23); Calcium 9.7 mg/dL (8.6-10.3); Carbon Dioxide 22 mEq/L (23-29); Chloride 101 mEq/L (98-107); Glucose 108 mg/dL (70-105); Osmolality,Calculated 278 (280-300); Phosphorous 3.8 mg/dL (2.7-4.5); Potassium 3.8 mEq/L (3.5-5.1); Sodium 135 mEq/L (136-145); Troponin I < 0.03 ng/mL (< 0.04); eGFR For African Americans > 60 (> 60); eGFR For Non-African Americans > 60 (> 60)
[2018-04-05 16:01] LABS: INR 1.1; Prothrombin Time 11.8 Seconds (9.4-12.1)
[2018-04-05 16:03] LABS: Activated Partial Thrombo Time 32.9 Seconds (26.0-36.0)
[2018-04-05] MEDS: *HR* Promethazine 25 MG/ML VIAL IVP PRN (17:56)
--- NOTE | 2018-04-05 18:13 | Internal Medicine Consult Note ---
<RuiterrencecarleyDylan chi - Last Filed: 04/05/18 19:04> Date of Encounter: 04/05/18 Time of Encounter: 17:00 - Assessment and plan (1) GI bleed Current Visit: Yes Status: Acute Assessment and plan: Acute lower GI bleeding. Pt. reports BM yesterday w/bright red and dark blood. Associated sx: dizziness, lightheadedness, pallor, syncope. IV flids. CT of abd/ pel ordered. Pt. doing bowel prep for colonoscopy tomorrow. Repeat labs ordered. Monitor H/H and I&O. Pt. typed and screened: O positive with negative antibody screen. Pt. discussed w/Dr. Hamilton who agrees w/plan of care and consult. Pt. is high risk for further morbidity d/t current GI bleeding, abdominal pain, syncopal episodes w/dizziness and lightheadedness, hx, and risk factors. Inpatient. Qualifiers: GI bleed type/associated pathology: melena Qualified Code(s): K92.1 - Melena (2) Abdominal pain Current Visit: Yes Status: Acute Assessment and plan: Acute on chronic abdominal pain. Pt. reports abdominal pain since cholecystectomy 3 years ago. [address] of the abdomen/pelvis ordered. Will await results. CT of the abdomen/pelvis dated showed mild thickening of the cecal wall with recommendation for colonoscopy for further evaluation. Pt. completing bowel prep tonight for planned colonoscopy tomorrow. IVP Zofran and Phenergan for N/V. Clear liquids tonight (avoid reds/purples/blues) and NPO @ midnight. Pt. reports bleeding w/ IV Protonix. Continue pts. PO Prilosec. Monitor I&O. Qualifiers: Abdominal location: generalized Qualified Code(s): R10.84 - Generalized abdominal pain (3) Syncope Current Visit: Yes Status: Acute Assessment and plan: Acute syncope most likely d/t GI bleed. Pt. is pale on presentation. Hgb 11.3 and Hct 33.8, down from WNL 02/22/18. Falls/safety precautions, up with assist, bed rest w/bathroom privileges w/assist only. Continuous cardiac telemetry. Qualifiers: Syncope type: unspecified Qualified Code(s): R55 - Syncope and collapse (4) Sodium (Na) deficiency Current Visit: Yes Status: Acute Assessment and plan: Mild. 135 today. Pt. receiving 0.[address] IV fluids per Dr. Bass. Re-check sodium @ 00:00 to ensure sodium increase does not exceed 7-8 mEq in 24 hour period. (5) COPD (chronic obstructive pulmonary disease) Current Visit: Yes Status: Chronic Assessment and plan: Hx of chronic COPD. Stable. DuoNebs Q6HR PRN. Supplemental O2 w/titration and SpO2 monitoring. Continue pts. inhalers PRN. Qualifiers: COPD type: unspecified COPD Qualified Code(s): J44.9 - Chronic obstructive pulmonary disease, unspecified (6) Schizoaffective disorder, chronic condition Current Visit: Yes Status: Chronic Assessment and plan: Hx of chronic Schizoaffective Disorder. Continue pts. Perphenazine. (7) Chest pain Current Visit: Yes Status: Chronic Assessment and plan: Hx of chronic chest discomfort. Pt. states that she has had sx for past 10 years. Initial troponin <0.03. Will trend. Continuous cardiac telemetry. Echocardiogram dated showed LVEF of 65-70%, normal left ventricular diastolic function, normal right ventricular structure and function, and no pulmonary hypertension. Left ventricular wall segments showed normal motion. Qualifiers: Chest pain type: other chest pain Qualified Code(s): R07.89 - Other chest pain; R07.8 - Other chest pain (8) DVT prophylaxis Current Visit: Yes Status: Acute Assessment and plan: Anti-embolic stockings and SCDs on bilateral LEs for DVT prophylaxis d/t current GI bleeding. - Time Spent With Patient Total time spent is greater than 50% in coordination of care (as documented) at patient's floor/unit and/or counseling patient: Greater than 35 minutes Internal Medicine - CN: HPI - Data of Consult Patient: new to practice Consult date: 04/05/18 Requesting Physician: Eliezer Bass MD - Consult Narrative Reason for consult: Medical mgmt History of present illness: Ms. Ocampo is a 62 year old female w/PMH of asthma, COPD, migraine, and IBS/ Crohn's disease presents for Hospitalist consult with chief complaint of lower GI bleeding. Patient states she has chronic abdominal pain since having her gallbladder removed 3 years ago. Also reports being told she may have IBS but no official dx. States she had BM yesterday w/bright red and dark blood in stool. 2014 colonoscopy that showed diverticulosis. Additionally patient reports chest discomfort in center chest as pressure and states she has intermittent chest pain for the past 10 years. Also reports having migraine headache today. Denies cardiac history, catheterization, or stent placement. Patient also reports generalized weakness for the past several weeks. Patient reports syncope, fever, chills, nausea, vomiting, abdominal pain, urinary retention, chest discomfort, shortness of breath, dizziness, and lightheadedness but denies changes in vision, palpitations, numbness, tingling, constipation, pre-syncope. Past Med Surg Social Fam HX - Past Medical History Source: patient, old records reviewed, obtained from family Medical history: asthma, COPD, migraine, other Additional medical history: IBS, Crohns disease, Diverticulosis Psychiatric history: anxiety, bipolar, depression, other - Past Surgical History Surgical History: cholecystectomy, other (Breast augmentation) Additional surgical history: breast construction. dental - Social History Smoking Status: Never smoker Smokeless Tobacco Status: No Alcohol use: none Drug use: none Current living situation: Home, With Family Activity Level: Independent ambulation Recent Out of Country Travel Within the Last 8 Weeks: No Exposure or Possible Exposure to Illness During Travel: No - Family History Father Race: Family Member Ethnicity: Non- Living Status: Still Living Hx Family Cardiac Disorders: Yes (HTN, HLD) Hx Family Genitourinary Disorders: Yes (Kidney stones) Hx Family Musculoskeletal Disorders: Yes (Degenerative spine) Hx Family Neurologic Disorders: Yes (Seizures) Mother Race: Family Member Ethnicity: Non- Living Status: Still Living Hx Family Cardiac Disorders: Yes (HTN, HLD) Hx Family GI Disorders: Yes (GERD) Brother Race: Family Member Ethnicity: Non- Living Status: Still Living Hx Family Musculoskeletal Disorders: Yes (Degenerative spine) - Constitutional Constitutional: as per HPI, chills, fatigue, fever(s), falls, weakness - EENT Eyes: as per HPI Ears: as per HPI Nose, mouth and throat: as per HPI - Breasts Breasts: as per HPI - Cardiovascular Cardiovascular ROS IM: as per HPI, lightheadedness, syncope, other (Occasional chest discomfort) - Respiratory Respiratory: as per HPI - Gastrointestinal Gastrointestinal: as per HPI, abdominal pain, cramping, hematochezia, melena, nausea, vomiting - Genitourinary Genitourinary: as per HPI Menstruation: as per HPI - Musculoskeletal Musculoskeletal ROS IM: as per HPI - Integumentary Integumentary IM: as per HPI - Neurological Neurological ROS: as per HPI, dizziness, headache(s), weakness - Psychiatric Psychiatric: as per HPI, anxiety, depression (Bipolar), other (Schizoaffective Disorder) - Endocrine Endocrine IM: as per HPI - Hematologic/Lymphatic Hematologic/Lymphatic: as per HPI - Allergic/Immunologic Allergic/Immunologic: as per HPI Internal Medicine - CN: Meds Albuterol Sulfate [Ventolin Hfa] 1 - 2 puff IH Q4-6H PRN 12/26/17 [History] LORazepam [Ativan] 0.5 mg PO BID 12/26/17 [History] Perphenazine 4 - 8 mg PO QID PRN 12/26/17 [History] Pantoprazole Sodium [Protonix] 40 mg PO DAILY 14 Days #14 tablet. 12/28/17 [Rx ] Tizanidine HCl 4 mg PO QID PRN 3 Days #12 tablet 12/28/17 [Rx] Dicyclomine [Bentyl] 10 mg PO QID #60 capsule 02/22/18 [Rx] 3 Allergy/AdvReac Type Severity Reaction Status Date / Time ciprofloxacin [From Cipro] Allergy Hives Verified 12/26/17 09:57 ibuprofen Allergy Hives Verified 01/03/16 17:28 [From NeoProfen (ibuprofen lysn)(PF)] Penicillins Allergy Swelling Verified 12/26/17 09:57 of Lip/Tongue/Throat vancomycin Allergy Hives Verified 12/26/17 09:57 clindamycin AdvReac Diarrhea Verified 12/26/17 09:57 Internal Medicine - CN: Exam - Constitutional General appearance IM: Present: cooperative, mild distress (Abdominal pain and nausea), A&O X 3, pleasant, underweight, answers questions appropriately - Head Head exam: Present: atraumatic - Eye Eye exam: Present: PERRL, conjuntiva pink, sclera anicteric Pupils: Present: normal accommodation, PERRL - ENT ENT exam: Present: normal exam - Neck Neck exam general surgery: Present: normal inspection - Respiratory Respiratory exam: Present: CTAB - Cardiovascular Cardiovascular exam IM: Present: RRR, +S1, +S2 - GI/Abdominal GI/Abdominal exam IM: Present: normal bowel sounds, soft, tenderness - Rectal Rectal exam: Present: deferred - Additional comments: exam deferred. - Extremities Exam Extremities exam IM: Present: warm, radial pulses palpable and symmetrical - Back Exam Back exam: Present: normal inspection - Neurological Exam Neurological exam: Present: alert, oriented X3, strengths equal and symetr throughout - Psychiatric Psychiatric exam: Present: normal affect, normal mood - Skin Skin exam IM: Present: dry, intact Internal Medicine - CN: Reslt - Labs CBC & Chem 7: 04/05/18 14:29 04/05/18 14:34 Labs: Short CBC 04/05/18 Range/Units 14:29 WBC 8.3 (4.3-11.1) K/mcL Hgb 11.3 L (11.5-15.4) g/dL Hct 33.8 L (35.3-44.9) % Plt Count 274 (140-400) K/mcL Neutrophils # 5.8 (1.6-8.9) K/mcL BMP 04/05/18 14:34 Sodium 135 L Potassium 3.8 Chloride 101 Carbon Dioxide 22 L BUN 5 L Creatinine 0.71 Glucose 108 H Calcium 9.7 Cardiac Enzymes 04/05/18 Range/Units 14:34 Troponin I < 0.03 (< 0.04) ng/mL - ABG Interpretation ABG results: PT/INR, D-dimer PT 11.8 Seconds (9.4-12.1) 04/05/18 14:29 - EKG Data Prior EKG available for review: yes EKG comments: 04/05/18 18:26 EKG dated 10/09/13 shows sinus rhythm with short ME interval. EKG dated 12/26/17 shows sinus tachycardia with possible left atrial enlargement. EKG dated 04/05/18 17:33 shows sinus rhythm and normal ECG. EKG dated 04/05/18 17:34 shows ectopic atrial bradycardia with short ME interval. Consult Discharge Plan - Plan Referrals: Lakshmi Rahman MD [Primary Care Provider] - <Arti Hamilton - Last Filed: 04/06/18 00:18> Date of Encounter: 04/06/18 - Time Spent With Patient Total time spent is greater than 50% in coordination of care (as documented) at patient's floor/unit and/or counseling patient: Internal Medicine - CN: HPI - Data of Consult Requesting Physician: Eliezer Bass MD - Consult Narrative History of present illness: Ms. Ocampo is a 62 year old female Internal Medicine - CN: Exam - Constitutional Vitals: Temp Pulse Resp BP Pulse Ox 99.0 F 99 17 173/88 99 04/05/18 23:07 04/05/18 23:07 04/05/18 23:07 04/05/18 23:07 04/05/18 23:07 Internal Medicine - CN: Reslt - Labs CBC & Chem 7: 04/05/18 14:29 04/05/18 14:34 Labs: Short CBC 04/05/18 Range/Units 14:29 WBC 8.3 (4.3-11.1) K/mcL Hgb 11.3 L (11.5-15.4) g/dL Hct 33.8 L (35.3-44.9) % Plt Count 274 (140-400) K/mcL Neutrophils # 5.8 (1.6-8.9) K/mcL BMP 04/05/18 14:34 Sodium 135 L Potassium 3.8 Chloride 101 Carbon Dioxide 22 L BUN 5 L Creatinine 0.71 Glucose 108 H Calcium 9.7 Cardiac Enzymes 04/05/18 04/05/18 Range/Units 14:34 20:41 Troponin I < 0.03 0.07 H* (< 0.04) ng/mL - ABG Interpretation ABG results: PT/INR, D-dimer PT 11.8 Seconds (9.4-12.1) 04/05/18 14:29 - Impressions Impressions Abdomen/Pelvis CT 04/05/18 18:00 IMPRESSION: No CT evidence of an acute intra-abdominal or intrapelvic process. Cecal thickening described on previous CT is not appreciated on this exam. The hepatic dome hypoattenuating lesion described on previous study is not appreciated on this exam. D/ / Josesito Dennis / Josesito Dennis Interpreting Provider: Josesito Dennis - Attending Attestation I performed a history and physical exam of the patient and discussed her management with the SEO TEAM LEAD. I reviewed the SEO TEAM LEAD note and agree with the documented findings and plan of care, except Pt states her abd spasms are usually controlled by her PO muscle relaxant. Will give Valium 5 mg IV x one trial for abdominal spams.
[2018-04-05] MEDS ORDERED: Ipratropium/Albuterol Neb 3 ML IH PRN (18:39)
[2018-04-05] MEDS ORDERED: tiZANidine 4 MG TABLET PO PRN (19:00)
[2018-04-05] MEDS: Ondansetron 4 MG/2 ML VIAL IVP PRN (20:09)
[2018-04-05] MEDS: *HR* LORazepam 0.5 MG TABLET PO SCH (22:50)
[2018-04-06] MEDS ORDERED: diazePAM 10 MG/2 ML SYRINGE IVP ONE (00:05)
[2018-04-06] MEDS: 0.9 % Sodium Chloride 1,000 ML IVC SCH ×3 (01:17→18:42)
[2018-04-06] MEDS: *HR* Promethazine 25 MG/ML VIAL IVP PRN (01:18)
[2018-04-06 01:54] LABS: ABG Base Excess -3 mEq/L (-2 to 3); ABG HCO3 22 mEq/L (21-27); ABG Oxygen Saturation 100 % (95-98); ABG PCO2 37 mmHg (35-45); ABG PH 7.38 pH Units (7.32-7.45); ABG PO2 456 mmHg (85-104); ABG TCO2 23 mEq/L (20-26)
[2018-04-06 03:43] LABS: Alanine Aminotransferase 15 Units/L (7-52); Albumin/Globulin Ratio 1.7 (1.1-2.2); Alkaline Phosphatase 74 Units/L (34-104); Aspartate Amino Transferase 35 Units/L (13-39); BUN/Creatinine Ratio 8 (6-26); Blood Urea Nitrogen 5 mg/dL (8-23); Calcium 9.9 mg/dL (8.6-10.3); Carbon Dioxide 18 mEq/L (23-29); Chloride 96 mEq/L (98-107); Globulin 2.9 g/dL (2.4-3.5); Glucose 145 mg/dL (70-105); Lipase 14 Units/L (11-82); Osmolality,Calculated 274 (280-300); Potassium 3.5 mEq/L (3.5-5.1); Sodium 132 mEq/L (136-145); Total Protein 7.9 g/dL (6.4-8.9); eGFR For African Americans > 60 (> 60); eGFR For Non-African Americans > 60 (> 60)
[2018-04-06] MEDS ORDERED: 0.9 % Sodium Chloride 1,000 ML IVC ONE (03:43)
[2018-04-06 03:49] LABS: Basophils % 0.1 %; Hematocrit 44.9 % (35.3-44.9); Immature Granulocytes % 0.6 % (0-4); Lymphocytes # 0.8 K/mcL (0.6-4.6); Lymphocytes % 3.4 %; Mean Corpuscular HGB Conc 33.4 g/dL (31.6-35.5); Mean Corpuscular Hemoglobin 28.7 pg (28.0-33.3); Mean Platelet Volume 9.5 fL (9.4-12.4); Monocytes # 0.8 K/mcL (0.0-1.3); Monocytes % 3.3 %; Neutrophils # 21.9 K/mcL (1.6-8.9); Platelet Count 388 K/mcL (140-400); Red Blood Count 5.22 M/mcL (3.82-4.97); Red Cell Distribution Width 12.3 % (11.5-14.5); Segmented Neutrophils % 92.6 %
[2018-04-06] MEDS: *HR* Metoprolol 5 MG/5 ML VIAL IVP PRN ×2 (03:52→12:02)
[2018-04-06] MEDS: Meropenem 1,000 MG in Water for inj. (sterile) 20 ML 10 ML IVP SCH ×3 (03:57→20:15)
--- NOTE | 2018-04-06 04:15 | Event Note ---
Date of Encounter: 04/06/18 Time of Encounter: 01:40 Pt was found nonresponsive. Rapid respond is called. Saw pt at bedside. Pt is lethargic, weak, Opening eyes on deep stimulation. Patient has received Valium 5 mg IV earlier. Flumazenil 0.2 mg iv x 2 was given. Patient is more awake alert after treatment, but still lethargic and weak. Patient has tachycardia, tachypenia. She denies chest pain. Lab work shows elevated WBC, elevated lactate. Highly suspect sepsis, source of infection is unclear. Chest x-ray shows mild pulmonary edema. Will check a urine analysis. Early today abdominal CT has been done, result is unremarkable. Pt has multiple antibiotic allergies. Will continue IV fluid, empirically start zyvox and meropenem. Follow-up blood culture. Patient has elevated troponin. She denies chest pain. Highly suspect due to sepsis. Patient cannot have antioagulations because of GI bleed. Will continue antibiotic treatment for sepsis. Consult cardiology in a.m. for further management for elevated troponin. Patient was transferred to [facility] for close monitoring.
[2018-04-06 04:20] LABS: Platelet Estimate Normal (Normal)
[2018-04-06] MEDS ORDERED: Furosemide 20 MG/2 ML VIAL IVP ONE (04:22)
[2018-04-06 05:46] LABS: Bilirubin,Urine Negative (Negative); Blood,Urine Small (Negative); Clarity,Urine Clear (Clear); Color,Urine Yellow (Yellow); Glucose,Urine (UA) 100 mg/dL (Normal); Ketones,Urine 80 mg/dL (Negative); Leukocyte Esterase,Urine Negative (Negative); Nitrite,Urine Negative (Negative); Protein,Urine 100 mg/dL (Neg-Trace); Specific Gravity,Urine 1.013 (1.010-1.025); Urobilinogen,Urine Normal (Normal)
[2018-04-06 05:49] LABS: Bacteria,Urine None Seen per hpf (None-Few); Hyaline Casts,Urine None Seen per lpf (None-Few); Squamous Epithelial Cell,Urine Many per lpf (None-Few); WBC,Urine 0-3 per hpf (0-3)
[2018-04-06] MEDS: Ondansetron 4 MG/2 ML VIAL IVP PRN ×2 (07:41→23:57)
[2018-04-06] MEDS ORDERED: Acetaminophen IV 1,000 MG/100 ML INFUS..BTL IVPB PRN ×2 (07:41→19:23)
[2018-04-06] MEDS ORDERED: Meropenem 1,000 MG in Water for inj. (sterile) 20 ML 10 ML IVP SCH (08:00)
[2018-04-06] MEDS: *HR* LORazepam 0.5 MG TABLET PO SCH ×2 (09:20→20:16)
--- NOTE | 2018-04-06 09:20 | Cardiology Consult Note ---
Addendum entered and electronically signed by Wilner Hernandez CNP 04/06/18 11:55 : Noted that troponin elevated up to 4.0 and d-dimer elevated at 797. Discussed with Dr. Shepard. Will order stat echo. Will consider LHC during stay. Will defer CTA to primary team. Heparin gtt started. Addendum entered and electronically signed by Wilner Hernandez CNP 04/06/18 11:08 : Okay to start AC and asa per surgery. Hgb 15. Last BM normal with no blood. Discussed with Dr. Shepard, will start low dose heparin gtt. Check Stat troponin and d-dimer. If troponin significantly elevated further will consider diagnostic LHC. Original Note: <Wilner Hernandez - Last Filed: 04/06/18 09:12> Date of Encounter: 04/06/18 Time of Encounter: 09:12 Assessment and Plan (1) Elevated troponin Current Visit: Yes Status: Acute Troponin elevation 0.03, 0.07, 1.34 possible NSTEMI vs demand ischemia in the setting of sepsis and unresponsiveness. Initial EKG shows NSR with no acute ST changes. Repeat EKG showed SR with short HI interval. No sinus tachycardia. She denies chest pain during admission. She was found unresponsive last night. AMS may be secondary to Valium. No prior history of CAD. Recent hospital stay with elevated troponin in the setting of GI bleed. Recommend checking TTE. Due to concern for GI bleed we will not start heparin. Continue beta-jeovany and start statin. Start asa when felt to be safe from GI standpoint. Noted to have tachycardia in the setting of possible sepsis. Currently receiving IV fluid resuscitation. (2) Abdominal pain Current Visit: Yes Status: Acute Dr. Bass following. Planning for EGD and colonoscopy. Qualifiers: Abdominal location: generalized Qualified Code(s): R10.84 - Generalized abdominal pain Discussion w patient/family: The assessment and plan as outlined above was discussed with the patient and/or family members who expressed understanding and agreement. All questions were answered. Thank you for involving us in the care of your patient. Please call with any questions. History of Present Illness Consult date: 04/06/18 Requesting physician: Lorin Brown Consult reason: Elevated troponin Chief complaint: abdominal pain, blood in stools History of present illness: Ms. Ocampo is a 62 year old female with past medical history significant for COPD, IBS, and chron's disease. She was sent to the hospital for urgent work-up for c/o abdominal pain and melena. Cardiology consulted for elevated troponin. Last night she was found unresponsive and rapid response was called. states that she started having nausea and restlessness after drinking contrast. She was given valium prior to being unresponsive. She was given flumazenil IV and responded. She denies chest pain or SOB during her hospital stay. Reports that it is not uncommon for her to have chest pain on a daily basis that increases with activity or occurs with rest. Her chest pain is associated with SOB. On my exam she remains tachycardiac. Noted that patient was hospitalized in December with GI bleed and found to have elevated troponin at that time. LHC was not recommended due to GI bleed. TTE completed showed preserved EF. Past Med Surg Social Fam HX - Past Medical History Medical history: asthma, COPD, GI bleed, migraine, other Additional medical history: IBS, Crohns disease, Diverticulosis Psychiatric history: anxiety, bipolar, depression, other - Past Surgical History Surgical History: cholecystectomy, other (Breast augmentation) Additional surgical history: breast construction. dental - Social History Smoking Status: Never smoker Smokeless Tobacco Status: No Alcohol use: none Drug use: none - Family History Father Race: Family Member Ethnicity: Non- Living Status: Still Living Hx Family Cardiac Disorders: Yes (HTN, HLD) Hx Family Genitourinary Disorders: Yes (Kidney stones) Hx Family Musculoskeletal Disorders: Yes (Degenerative spine) Hx Family Neurologic Disorders: Yes (Seizures) Mother Race: Family Member Ethnicity: Non- Living Status: Still Living Hx Family Cardiac Disorders: Yes (HTN, HLD) Hx Family GI Disorders: Yes (GERD) Brother Race: Family Member Ethnicity: Non- Living Status: Still Living Hx Family Musculoskeletal Disorders: Yes (Degenerative spine) Medications and Allergies Albuterol Sulfate [Ventolin Hfa] 1 - 2 puff IH Q4-6H PRN 12/26/17 [History] LORazepam [Ativan] 0.5 mg PO BID 12/26/17 [History] Perphenazine 4 - 8 mg PO QID PRN 12/26/17 [History] Tizanidine HCl 4 mg PO QID PRN 3 Days #12 tablet 12/28/17 [Rx] Oxycodone HCl [Oxycodone HCl] 5 mg PO Q4-6H PRN 04/06/18 [History] 3 Allergy/AdvReac Type Severity Reaction Status Date / Time ciprofloxacin [From Cipro] Allergy Hives Verified 12/26/17 09:57 ibuprofen Allergy Hives Verified 01/03/16 17:28 [From NeoProfen (ibuprofen lysn)(PF)] Penicillins Allergy Swelling Verified 12/26/17 09:57 of Lip/Tongue/Throat vancomycin Allergy Hives Verified 12/26/17 09:57 clindamycin AdvReac Diarrhea Verified 12/26/17 09:57 All Systems Review: The remainder of the systems were reviewed and are negative Physical Examination Vital Signs, Last 4 Hours Temp Pulse Resp BP Pulse Ox 04/06/18 07:05 97.5 F L 140 20 132/100 95 04/06/18 05:24 137 133/95 General: Other (Drowsy, ill appearing, Pale) HEENT: Atraumatic, Normocephaly, Mucus Membranes Moist Neck: No JVD, Normal carotid pulses Cardiac: Reg Rate and Rhythm, Normal S1 and S2, No Murmur, Other (sinus tachycardia) Lungs: Normal Breath Sounds, No Wheeze, Rales, Rhonchi Neuro: Other (Drowsy and oriented x3) Abdomen: Soft Skin: No rashes noted on visualized skin, Other (Chill with brown, benites discoloration) Musculoskeletal: No Chest Wall Tenderness Extremities: No Clubbing, No Cyanosis, No Edema, Normal Pulses Results 04/06/18 03:36 04/06/18 02:04 Lab Results 04/05/18 04/05/18 04/05/18 14:29 14:29 14:34 WBC 8.3 Hgb 11.3 L Hct 33.8 L Plt Count 274 INR 1.1 APTT 32.9 Sodium 135 L Potassium 3.8 Chloride 101 Carbon Dioxide 22 L BUN 5 L Creatinine 0.71 Glucose 108 H Calcium 9.7 Magnesium 2.0 Total Bilirubin AST ALT Alkaline Phosphatase Troponin I < 0.03 Lipase 04/05/18 04/06/18 04/06/18 20:41 02:04 02:04 WBC Hgb Hct Plt Count INR APTT Sodium Cancelled 132 L Potassium Cancelled 3.5 Chloride Cancelled 96 L Carbon Dioxide Cancelled 18 L BUN Cancelled 5 L Creatinine Cancelled 0.64 Glucose Cancelled 145 H Calcium Cancelled 9.9 Magnesium Total Bilirubin Cancelled 1.0 AST Cancelled 35 ALT Cancelled 15 Alkaline Phosphatase Cancelled 74 Troponin I 0.07 H* 1.34 H* Lipase Cancelled 14 04/06/18 03:36 WBC 23.6 H D Hgb 15.0 D Hct 44.9 Plt Count 388 INR APTT Sodium Potassium Chloride Carbon Dioxide BUN Creatinine Glucose Calcium Magnesium Total Bilirubin AST ALT Alkaline Phosphatase Troponin I Lipase - Imaging and Cardiology Chest Xray: report reviewed Echo: report reviewed - EKG Interpretation EKG results cardiology: personally reviewed Consult Discharge Plan - Plan Referrals: Lakshmi Rahman MD [Primary Care Provider] - 04/19/18 10:00 am <Daniel Shepard - Last Filed: 04/06/18 12:50> Date of Encounter: 04/06/18 - Attending Attestation I have personally performed a face to face evaluation on this patient. I have reviewed and agree with the care plan. History and Exam by me shows: 62 YOF with NSTEMI in setting of recent hx of GI Bleed, states presented with bloody stools, nausea and vomiting. Patient unresponsive last night with improvement today. WBC and troponins trending up today with unknown source of infection. Patient denies any chest pain but has tachycardia. Stat ECHO today to evaluate for RWMA and RV strain (possible PE). D/W family high risk of LHC/PCI in setting of recent increase in WBC/infection. Also PCI with recent GI bleed high risk. Family will wait for results of echo for better decision on urgency of LHC. Also repeat CE's obtained in hope they will downtrend to allo management of possible infection/sepsis/rising lactate prior to LHC. D/W Dr. Pierce aware of risks and pending cardiac testing for possible LHC. Assessment and Plan Discussion w patient/family: The assessment and plan as outlined above was discussed with the patient and/or family members who expressed understanding and agreement. All questions were answered. Thank you for involving us in the care of your patient. Please call with any questions. History of Present Illness History of present illness: Ms. Ocampo is a 62 year old female All Systems Review: The remainder of the systems were reviewed and are negative Physical Examination Vital Signs, Last 4 Hours Temp Pulse Resp BP Pulse Ox 04/06/18 11:15 98.5 F 135 21 139/90 98 Results 04/06/18 11:25 04/06/18 02:04 Lab Results 04/05/18 04/05/18 04/05/18 14:29 14:29 14:34 WBC 8.3 Hgb 11.3 L Hct 33.8 L Plt Count 274 INR 1.1 APTT 32.9 D-Dimer Sodium 135 L Potassium 3.8 Chloride 101 Carbon Dioxide 22 L BUN 5 L Creatinine 0.71 Glucose 108 H Calcium 9.7 Magnesium 2.0 Total Bilirubin AST ALT Alkaline Phosphatase Troponin I < 0.03 Lipase 04/05/18 04/06/18 04/06/18 20:41 02:04 02:04 WBC Hgb Hct Plt Count INR APTT D-Dimer Sodium Cancelled 132 L Potassium Cancelled 3.5 Chloride Cancelled 96 L Carbon Dioxide Cancelled 18 L BUN Cancelled 5 L Creatinine Cancelled 0.64 Glucose Cancelled 145 H Calcium Cancelled 9.9 Magnesium Total Bilirubin Cancelled 1.0 AST Cancelled 35 ALT Cancelled 15 Alkaline Phosphatase Cancelled 74 Troponin I 0.07 H* 1.34 H* Lipase Cancelled 14 04/06/18 04/06/18 04/06/18 03:36 10:30 10:30 WBC 23.6 H D Hgb 15.0 D Hct 44.9 Plt Count 388 INR APTT D-Dimer 797 H Sodium Potassium Chloride Carbon Dioxide BUN Creatinine Glucose Calcium Magnesium 1.5 L Total Bilirubin AST ALT Alkaline Phosphatase Troponin I Lipase 04/06/18 04/06/18 04/06/18 10:30 11:25 11:25 WBC 18.0 H Hgb 15.9 H Hct 46.8 H Plt Count 411 H INR 1.2 APTT 30.8 D-Dimer Sodium Potassium Chloride Carbon Dioxide BUN Creatinine Glucose Calcium Magnesium Total Bilirubin AST ALT Alkaline Phosphatase Troponin I 4.06 H* Lipase
--- NOTE | 2018-04-06 09:49 | General Surgery Progress Note ---
Addendum entered and electronically signed by Mono Echevarria DO 04/06/18 10: 33: BM without melena overnight. Hgb stable, 15.0. No colonoscopy at this time. Ok with ASA and anticoagulation if needed Prefer Medicine to take over as primary Original Note: <Mono Echevarria - Last Filed: 04/06/18 09:45> Date of Encounter: 04/06/18 Time of Encounter: 07:30 - Assessment and Plan (1) GI bleed Current Visit: Yes Status: Acute Admitted with GI bleed and syncope CT Abd/Pelvis shows no evidence of acute abdominal or pelvic process, cecal thickening not appreciated compared to previous Rapid called last night likely 2/2 valium Labs: leukocytosis (23.6), no anemia, elevated lactic acid (4.1), elevated troponin (1.34) Tachycardia and troponemia - appreciate Cardiology input BM last night - brown, no noted blood PLAN: Clear liquid diet - if able to tolerate and no vomiting IV fluids Continue antibiotics Nausea control Pain control with Ofirmev for now - avoid narcotics for now with lethargy Check electrolytes and replace if needed Colonoscopy on hold until patient is more stable Qualifiers: GI bleed type/associated pathology: melena Qualified Code(s): K92.1 - Melena (2) Abdominal pain Current Visit: Yes Status: Acute Qualifiers: Abdominal location: generalized Qualified Code(s): R10.84 - Generalized abdominal pain Subjective Patient reports: feels better, still having pain, no bowel movement, nausea, afebrile Narrative: Patient reports that she feels a little better today, but still very weak and lethargic. Complaining of diffuse abdominal pain. Still has some nausea, but her vomiting has stopped. reports that the vomiting began after getting contrast for her CT scan yesterday. Last night the patient was found unresponsive. She responded to flumazenil, and it was suspected that maybe valium was contributing to her limited responsiveness. Unclear at this time why she was given the valium. Infection was also suspected and she was started on IV antibiotics. She was not able to drink her bowel prep due to N/V. She denies other complaints, denies chest pain, dyspnea, or problems with urination. Objective Vital Signs - Last 8 Hours Temp Pulse Resp BP Pulse Ox 04/06/18 07:05 97.5 F L 140 20 132/100 95 06/12/18 05:24 137 133/95 04/06/18 02:48 98.4 F 140 18 152/102 94 Intake and Output 04/05/18 04/06/18 04/06/18 23:59 07:59 15:59 Intake Total 1000 / 1000 1760 / 1760 Output Total 600 / 600 1350 / 1350 Balance 400 / 400 410 / 410 Intake: IV Fluids 1000 / 1000 1760 / 1760 0.9 % Sodium Chloride 1,000 ML 1000 / 1000 1750 / 1750 @ 125 mls/hr IVC .Q8H YOON Rx#: [id number] Merrem 1,000 MG In Water for inj. (sterile) 10 ML @ 120 mls/ hr IVP Q8H YOON Rx#:[id number] Oral 0 0 Output: Urine 500 / 500 Emesis 100 / 100 Catheter 1350 / 1350 Urethral (Askew) 700 / 700 Other: Meal Dinner Percent of Meal Consumed 0% Stool Size Moderate Stool Consistency formed Stool Characteristics Normal for Patient Stool Color Brown # Bowel Movements 1 Blood Glucose* 229 - General physical appearance moderate distress, other (lethargic) - Respiratory normal expansion, normal respiratory effort, clear to auscultation - Cardiovascular Cardiovascular exam: Present: tachycardia, regular rhythm, no murmurs/rubs/ gallops - Abdomen Abdomen: Present: bowel sounds present, soft, tender (Diffuse). Absent: distended, guarding, rebound, rigid - Neurologic CN 2-12 grossly intact, other (able to answer questions appropriately) - Labs 04/06/18 03:36 04/06/18 02:04 Diabetes panel 04/05/18 04/06/18 04/06/18 Range/Units 14:34 02:04 02:04 Sodium 135 L Cancelled 132 L (136-145) mEq/L Potassium 3.8 Cancelled 3.5 (3.5-5.1) mEq/L Chloride 101 Cancelled 96 L (98-107) mEq/L Carbon Dioxide 22 L Cancelled 18 L (23-29) mEq/L BUN 5 L Cancelled 5 L (8-23) mg/dL Creatinine 0.71 Cancelled 0.64 (0.60-1.20) mg/dL Glucose 108 H Cancelled 145 H (70-105) mg/dL Calcium 9.7 Cancelled 9.9 (8.6-10.3) mg/dL AST Cancelled 35 ALT Cancelled 15 Alkaline Phosphatase Cancelled 74 Albumin Cancelled 5.0 Calcium panel 04/05/18 04/06/18 04/06/18 Range/Units 14:34 02:04 02:04 Calcium 9.7 Cancelled 9.9 (8.6-10.3) mg/dL Phosphorus 3.8 (2.7-4.5) mg/dL Albumin Cancelled 5.0 Pituitary panel 04/05/18 04/06/18 04/06/18 Range/Units 14:34 02:04 02:04 Sodium 135 L Cancelled 132 L (136-145) mEq/L Potassium 3.8 Cancelled 3.5 (3.5-5.1) mEq/L Chloride 101 Cancelled 96 L (98-107) mEq/L Carbon Dioxide 22 L Cancelled 18 L (23-29) mEq/L BUN 5 L Cancelled 5 L (8-23) mg/dL Creatinine 0.71 Cancelled 0.64 (0.60-1.20) mg/dL Glucose 108 H Cancelled 145 H (70-105) mg/dL Calcium 9.7 Cancelled 9.9 (8.6-10.3) mg/dL Adrenal panel 04/05/18 04/06/18 04/06/18 Range/Units 14:34 02:04 02:04 Sodium 135 L Cancelled 132 L (136-145) mEq/L Potassium 3.8 Cancelled 3.5 (3.5-5.1) mEq/L Chloride 101 Cancelled 96 L (98-107) mEq/L Carbon Dioxide 22 L Cancelled 18 L (23-29) mEq/L BUN 5 L Cancelled 5 L (8-23) mg/dL Creatinine 0.71 Cancelled 0.64 (0.60-1.20) mg/dL Glucose 108 H Cancelled 145 H (70-105) mg/dL Calcium 9.7 Cancelled 9.9 (8.6-10.3) mg/dL Total Bilirubin Cancelled 1.0 AST Cancelled 35 ALT Cancelled 15 Alkaline Phosphatase Cancelled 74 Albumin Cancelled 5.0 - VTE Documentation of Mechanical Device: Intermittent pneumatic compression device Consult Discharge Plan - Plan Referrals: Lakshmi Rahman MD [Primary Care Provider] - 04/19/18 10:00 am <Eliezer Bass Milka - Last Filed: 04/06/18 21:44> Date of Encounter: 04/06/18 - Assessment and Plan (1) GI bleed Current Visit: Yes Status: Acute Qualifiers: GI bleed type/associated pathology: melena Qualified Code(s): K92.1 - Melena Objective Vital Signs - Last 8 Hours Temp Pulse Resp BP Pulse Ox 04/06/18 20:56 118 16 101/79 96 04/06/18 20:40 131 04/06/18 20:39 131 16 122/91 96 04/06/18 20:17 98.1 F 04/06/18 17:44 128 04/06/18 17:41 133 16 139/107 96 04/06/18 15:55 98.2 F 126 17 124/111 94 Intake and Output 04/06/18 04/06/18 04/06/18 07:59 15:59 23:59 Intake Total 2059 260 / 260 Output Total 1350 / 1350 900 / 900 Balance 710 / 710 -640 / -640 Intake: IV Fluids 2059 260 / 260 0.9 % Sodium Chloride 1,000 ML 1750 / 1750 250 / 250 @ 125 mls/hr IVC .Q8H YOON Rx#: [id number] Merrem 1,000 MG In Water for inj. (sterile) 10 ML @ 120 mls/ hr IVP Q8H YOON Rx#:[id number] Zyvox Premix 600mg/300mL 600 mg 300 / 300 In 300 ml @ 150 mls/hr IVPB Q12HR YOON Rx#:[id number] Output: Catheter 1350 / 1350 900 / 900 Urethral (Askew) 700 / 700 Other: Blood Glucose* 229 179 - Labs 04/06/18 18:22 04/06/18 02:04 Diabetes panel 04/06/18 04/06/18 Range/Units 02:04 02:04 Sodium Cancelled 132 L Potassium Cancelled 3.5 Chloride Cancelled 96 L Carbon Dioxide Cancelled 18 L BUN Cancelled 5 L Creatinine Cancelled 0.64 Glucose Cancelled 145 H Calcium Cancelled 9.9 AST Cancelled 35 ALT Cancelled 15 Alkaline Phosphatase Cancelled 74 Albumin Cancelled 5.0 Thyroid panel 04/06/18 Range/Units 18:22 TSH 0.309 L (0.340-5.600) mcIU/mL Calcium panel 04/06/18 04/06/18 04/06/18 Range/Units 02:04 02:04 10:30 Calcium Cancelled 9.9 Phosphorus 2.6 L (2.7-4.5) mg/dL Albumin Cancelled 5.0 Pituitary panel 04/06/18 04/06/18 04/06/18 Range/Units 02:04 02:04 18:22 Sodium Cancelled 132 L Potassium Cancelled 3.5 Chloride Cancelled 96 L Carbon Dioxide Cancelled 18 L BUN Cancelled 5 L Creatinine Cancelled 0.64 Glucose Cancelled 145 H Calcium Cancelled 9.9 TSH 0.309 L (0.340-5.600) mcIU/mL Adrenal panel 04/06/18 04/06/18 Range/Units 02:04 02:04 Sodium Cancelled 132 L Potassium Cancelled 3.5 Chloride Cancelled 96 L Carbon Dioxide Cancelled 18 L BUN Cancelled 5 L Creatinine Cancelled 0.64 Glucose Cancelled 145 H Calcium Cancelled 9.9 Total Bilirubin Cancelled 1.0 AST Cancelled 35 ALT Cancelled 15 Alkaline Phosphatase Cancelled 74 Albumin Cancelled 5.0 - Attending Attestation I have personally seen and examined the patient. I have reviewed pertinent labs , imaging, progress notes, including this one. I agree with the above assessment and plan and wish to include the following... 62F admitted from clinic due to syncopal episodes and reports of melena; was unresponsive overnight; patient evaluated by cardiology and found to have an MS ; no further reports of LGIB; h/h stable; tachycardic with sinus rhythm; will plan for investigation of her bleeding when cardiac issues resolved and patient recovers, unless there is an emergent case that requires otherwise. will allow medicine to take over care of patient with general surgery being available as needed.
[2018-04-06 11:00] LABS: Magnesium 1.5 mg/dL (1.6-2.6); Phosphorous 2.6 mg/dL (2.7-4.5)
[2018-04-06] MEDS ORDERED: *HR* Heparin 5,000 UNIT/ML VIAL IVP ONE (11:03)
[2018-04-06] MEDS ORDERED: *HR* Heparin 5,000 UNIT/ML VIAL IVP PRN ×4 (11:03→19:23)
[2018-04-06] MEDS ORDERED: Heparin 25,000 UNIT/500 ML D5W 25,000 UNIT/500 ML BAG IVC SCH ×2 (11:15→19:23)
[2018-04-06] MEDS ORDERED: Aspirin 81 MG TAB.CHEW PO SCH (11:15)
[2018-04-06] MEDS ORDERED: Isovue-370 500 ML INFUS..BTL IV ONE ×3 (11:41→19:23)
[2018-04-06 12:26] LABS: Hematocrit 46.8 % (35.3-44.9); Hemoglobin 15.9 g/dL (11.5-15.4); Mean Corpuscular Hemoglobin 28.5 pg (28.0-33.3); Platelet Count 411 K/mcL (140-400); Red Blood Count 5.57 M/mcL (3.82-4.97); Red Cell Distribution Width 12.5 % (11.5-14.5)
[2018-04-06 12:39] LABS: INR 1.2; Prothrombin Time 12.8 Seconds (9.4-12.1)
[2018-04-06 12:41] LABS: Activated Partial Thrombo Time 30.8 Seconds (26.0-36.0)
[2018-04-06 12:52] LABS: Troponin I 3.49 ng/mL (< 0.04)
--- NOTE | 2018-04-06 12:53 | Internal Med Progress Note ---
Date of Encounter: 04/06/18 Time of Encounter: 12:51 - Assessment and plan (1) Elevated troponin I level Current Visit: Yes Status: Acute Assessment and plan: Pt discussed with cardiology and consult ordered. Pt started on Heparin. Pt does not report CP or SOB. Will continue to monitor on telemetry. Echo ordered and pending. (2) Leukocytosis Current Visit: Yes Status: Acute Assessment and plan: Origin unclear at this time. Urine analaysis does not show evidence of UTI. CXR shows mild pulmonary edema. Abdominal CT CT evidence of an acute intra-abdominal or intrapelvic process. Cecal thickening described on previous CT is not appreciated on this exam. Awaiting Echo. Blood cultures ordered and pending. Checking CTA abdomen and pelvis. Qualifiers: Qualified Code(s): D72.829 - Elevated white blood cell count, unspecified (3) Elevated d-dimer Current Visit: Yes Status: Acute Assessment and plan: Checking CTA chest to rule out PE. (4) Elevated lactic acid level Current Visit: Yes Status: Acute Assessment and plan: Getting IVFsince 04/05/2018, and will recheck now. Will monitor till resolved. Checking CTA abd and pelvis - Time Spent With Patient Total time spent is greater than 50% in coordination of care (as documented) at patient's floor/unit and/or counseling patient: less than 15 minutes - Subjective Interval history: Pt's and parents at bedside. I updated on current medical status. Patient still nauseous and vomiting. Still having abdominal pain. Very pale Assessment and plan (1) GI bleed Current Visit: Yes Status: Acute Assessment and plan: Acute lower GI bleeding. Pt. reported blood in stool 04/05/2018, w/bright red and dark blood. Associated sx: dizziness, lightheadedness, pallor, syncope. IV flids. Clear liquid diet, prn Ofirmev. CT of abd/pelvis shows no acute intra abdominal process. Bowel prep ordered for colonoscopy 04/06/2018 but pt not tolerating prep. Surgery recommend hodling colonoscopy for now due to pt having possible sepsis and unknown source of infection. Repeat labs ordered. Monitor H/H and I&O. Pt. typed and screened: O positive with negative antibody screen. Pt. is high risk for further morbidity d/t current GI bleeding, abdominal pain, syncopal episodes w/dizziness and lightheadedness, hx, and risk factors. Inpatient. Qualifiers: GI bleed type/associated pathology: melena Qualified Code(s): K92.1 - Melena (2) Abdominal pain Current Visit: Yes Status: Acute Assessment and plan: Acute on chronic abdominal pain. Pt. reports abdominal pain since cholecystectomy 3 years ago. [address] of the abdomen/pelvis dated showed mild thickening of the cecal wall with recommendation for colonoscopy for further evaluation. CT of abd/pelvis 04/06/2018 shows no acute intra abdominal process. Checking STAT CTA abd/pelvis to ealuate for ischemic bowel. Colonoscopy on hold for now. IVP Zofran and Phenergan for N/V. Clear liquids tonight (avoid reds/purples/blues) and NPO @ midnight. Pt. reports bleeding w/ IV Protonix. Continue pts. PO Prilosec. Monitor I&O. Qualifiers: Abdominal location: generalized Qualified Code(s): R10.84 - Generalized abdominal pain (3) Syncope Current Visit: Yes Status: Acute Assessment and plan: Acute syncope most likely d/t GI bleed. Pt. is pale on presentation. Hgb 11.3 and Hct 33.8 now 15.9/46.8. H/H WNL 02/22/18. Falls/safety precautions, up with assist, bed rest w/bathroom privileges w/ assist only. Continuous cardiac telemetry. Hold off on orthostatic vitals for now as she is high risk for falls. Qualifiers: Syncope type: unspecified Qualified Code(s): R55 - Syncope and collapse (4) Sodium (Na) deficiency Current Visit: Yes Status: Acute Assessment and plan: Mild. 135 today. Pt. receiving 0.9 NS IV fluids per Dr. Bass. Re-check sodium 132. Will continue with fluids and continue to monitor Na levels (5) COPD (chronic obstructive pulmonary disease) Current Visit: Yes Status: Chronic Assessment and plan: Hx of chronic COPD. Stable. DuoNebs Q6HR PRN. Supplemental O2 w/titration and SpO2 monitoring. Continue pts. inhalers PRN. Qualifiers: COPD type: unspecified COPD Qualified Code(s): J44.9 - Chronic obstructive pulmonary disease, unspecified (6) Schizoaffective disorder, chronic condition Current Visit: Yes Status: Chronic Assessment and plan: Hx of chronic Schizoaffective Disorder. Continue pts. Perphenazine. (7) Chest pain Current Visit: Yes Status: Chronic Assessment and plan: Hx of chronic chest discomfort. Pt. states that she has had sx for past 10 years. Initial troponin <0.03. Will trend. Continuous cardiac telemetry. Echocardiogram dated showed LVEF of 65-70%, normal left ventricular diastolic function, normal right ventricular structure and function, and no pulmonary hypertension. Left ventricular wall segments showed normal motion. Qualifiers: Chest pain type: other chest pain Qualified Code(s): R07.89 - Other chest pain; R07.8 - Other chest pain (8) DVT prophylaxis Current Visit: Yes Status: Acute Assessment and plan: Anti-embolic stockings and SCDs on bilateral LEs for DVT prophylaxis d/t current GI bleeding. - Constitutional Vitals: Temp Pulse Resp BP Pulse Ox 98.5 F 135 21 139/90 98 04/06/18 11:15 04/06/18 11:15 04/06/18 11:15 04/06/18 11:15 04/06/18 11:15 General appearance: Present: cooperative, mild distress (Abdominal pain and nausea), A&O X 3, pleasant, underweight, answers questions appropriately - Head Head exam: Present: atraumatic, normocephalic - Eye Eye exam: Present: PERRL, conjuntiva pink, sclera anicteric Pupils: Present: PERRL - Neck Neck exam general surgery: Present: supple, trachea midline. Absent: lymphadenopathy - Respiratory Respiratory exam: Present: CTAB. Absent: accessory muscle use, rales, rhonchi, wheezes - Cardiovascular Cardiovascular exam: Present: RRR, +S1, +S2, tachycardia. Absent: diastolic murmur, gallop, rubs, systolic murmur - GI/Abdominal GI/Abdominal exam: Present: normal bowel sounds, soft, no peritoneal signs. Absent: distended, tenderness - Extremities Exam Extremities exam: Present: warm, radial pulses palpable and symmetrical. Absent : calf tenderness, cyanotic, pedal edema - Neurological Exam Neurological exam: Present: CN II-XII intact, oriented X3, no focal deficits. Absent: pronater drift, facial droop, speech deficit - Skin Skin exam: Present: dry, intact, pallor Internal Medicine: Result - Labs CBC & Chem 7: 04/06/18 11:25 04/06/18 02:04 Labs: Short CBC 04/05/18 04/06/18 04/06/18 Range/Units 14:29 03:36 11:25 WBC 8.3 23.6 H D 18.0 H (4.3-11.1) K/mcL Hgb 11.3 L 15.0 D 15.9 H (11.5-15.4) g/dL Hct 33.8 L 44.9 46.8 H (35.3-44.9) % Plt Count 274 388 411 H (140-400) K/mcL Neutrophils # 5.8 21.9 H (1.6-8.9) K/mcL BMP 04/05/18 04/06/18 04/06/18 14:34 02:04 02:04 Sodium 135 L Cancelled 132 L Potassium 3.8 Cancelled 3.5 Chloride 101 Cancelled 96 L Carbon Dioxide 22 L Cancelled 18 L BUN 5 L Cancelled 5 L Creatinine 0.71 Cancelled 0.64 Glucose 108 H Cancelled 145 H Calcium 9.7 Cancelled 9.9 Cardiac Enzymes 04/05/18 04/05/18 04/06/18 Range/Units 14:34 20:41 02:04 Troponin I < 0.03 0.07 H* 1.34 H* (< 0.04) ng/mL 04/06/18 Range/Units 10:30 Troponin I 4.06 H* (< 0.04) ng/mL Liver Function 04/06/18 04/06/18 Range/Units 02:04 02:04 Total Bilirubin Cancelled 1.0 AST Cancelled 35 ALT Cancelled 15 Alkaline Phosphatase Cancelled 74 Albumin Cancelled 5.0 Urine 04/06/18 Range/Units 05:00 Urine Color Yellow (Yellow) Urine Clarity Clear (Clear) Urine pH 7.0 (5.0-8.0) pH Units Ur Specific Coral 1.013 (1.010-1.025) Urine Protein 100 H (Neg-Trace) mg/dL Urine Glucose (UA) 100 H (Normal) mg/dL - ABG Interpretation ABG results: ABG ABG pH 7.38 pH Units (7.32-7.45) 04/06/18 01:51 ABG pCO2 37 mmHg (35-45) 04/06/18 01:51 ABG pO2 456 mmHg (85-104) H 04/06/18 01:51 ABG O2 Saturation 100 % (95-98) H 04/06/18 01:51 PT/INR, D-dimer PT 12.8 Seconds (9.4-12.1) H 04/06/18 11:25 D-Dimer 797 ng/mLFEU (0-500) H 04/06/18 10:30 - Impressions Impressions Abdomen/Pelvis CT 04/05/18 18:00 IMPRESSION: No CT evidence of an acute intra-abdominal or intrapelvic process. Cecal thickening described on previous CT is not appreciated on this exam. The hepatic dome hypoattenuating lesion described on previous study is not appreciated on this exam. D/ / Josesito Dennis / Josesito Dennis Interpreting Provider: Josesito Dennis Chest X-Ray 04/06/18 02:11 IMPRESSION: Mild pulmonary edema. D/ / Bernardino Vasquez MD / Bernardino Vasquez MD Interpreting Provider: Beranrdino Vasquez MD - VTE Documentation of Mechanical Device: Intermittent pneumatic compression device Consult Discharge Plan - Plan Referrals: Lakshmi Rahman MD [Primary Care Provider] - 04/19/18 10:00 am
--- NOTE | 2018-04-06 13:34 | Internal Med Progress Note ---
Date of Encounter: 04/06/18 Time of Encounter: 12:51 - Assessment and plan (1) GI bleed Current Visit: Yes Status: Acute Assessment and plan: Acute lower GI bleeding. Pt. reported blood in stool 04/05/2018, w/bright red and dark blood. Associated sx: dizziness, lightheadedness, pallor, syncope. Monitoring H/H Q 6 hour. Pt started on heparin for elevated troponin of 4. IV flids. Clear liquid diet, prn Ofirmev. CT of abd/pelvis shows no acute intra abdominal process. Bowel prep ordered for colonoscopy 04/06/2018 but pt not tolerating prep. Surgery recommend hodling colonoscopy for now due to pt having possible sepsis and unknown source of infection. Repeat labs ordered. Monitor H/H and I&O. Pt. typed and screened: O positive with negative antibody screen. Pt. is high risk for further morbidity d/t current GI bleeding, abdominal pain, syncopal episodes w/dizziness and lightheadedness, hx, and risk factors. Inpatient. Qualifiers: GI bleed type/associated pathology: melena Qualified Code(s): K92.1 - Melena (2) Elevated troponin I level Current Visit: Yes Status: Acute Assessment and plan: Pt discussed with cardiology and consult ordered. Pt started on Heparin. Pt does not report CP or SOB. Will continue to monitor on telemetry. Echo ordered and pending. (3) Leukocytosis Current Visit: Yes Status: Acute Assessment and plan: Origin unclear at this time. Urine analaysis does not show evidence of UTI. CXR shows mild pulmonary edema. Abdominal CT CT evidence of an acute intra-abdominal or intrapelvic process. Cecal thickening described on previous CT is not appreciated on this exam. Awaiting Echo. Blood cultures ordered and pending. Checking CTA abdomen and pelvis. Qualifiers: Qualified Code(s): D72.829 - Elevated white blood cell count, unspecified (4) Elevated d-dimer Current Visit: Yes Status: Acute Assessment and plan: Checking CTA chest to rule out PE (5) Elevated lactic acid level Current Visit: Yes Status: Acute Assessment and plan: Getting IVFsince 04/05/2018, and will recheck now. Will monitor till resolved. Checking CTA abd and pelvis (6) COPD (chronic obstructive pulmonary disease) Current Visit: Yes Status: Chronic Assessment and plan: Hx of chronic COPD. Stable. DuoNebs Q6HR PRN. Supplemental O2 w/titration and SpO2 monitoring. Continue pts. inhalers PRN. Qualifiers: COPD type: unspecified COPD Qualified Code(s): J44.9 - Chronic obstructive pulmonary disease, unspecified (7) Syncope Current Visit: Yes Status: Acute Assessment and plan: Acute syncope most likely d/t GI bleed. Pt. is pale on presentation. Hgb 11.3 and Hct 33.8 now 15.9/46.8. H/H WNL 02/22/18. Falls/safety precautions, up with assist, bed rest w/bathroom privileges w/ assist only. Continuous cardiac telemetry. Hold off on orthostatic vitals for now as she is high risk for falls. Qualifiers: Syncope type: unspecified Qualified Code(s): R55 - Syncope and collapse (8) Sodium (Na) deficiency Current Visit: Yes Status: Acute Assessment and plan: Mild. 135 today. Pt. receiving 0.9 NS IV fluids per Dr. Bass. Re-check sodium 132. Will continue with fluids and continue to monitor Na levels (9) Schizoaffective disorder, chronic condition Current Visit: Yes Status: Chronic Assessment and plan: Hx of chronic Schizoaffective Disorder. Continue pts. Perphenazine. (10) Abdominal pain Current Visit: Yes Status: Acute Assessment and plan: Acute on chronic abdominal pain. Pt. reports abdominal pain since cholecystectomy 3 years ago. [address] of the abdomen/pelvis dated showed mild thickening of the cecal wall with recommendation for colonoscopy for further evaluation. CT of abd/pelvis 04/06/2018 shows no acute intra abdominal process. Checking STAT CTA abd/pelvis to ealuate for ischemic bowel. Colonoscopy on hold for now. IVP Zofran and Phenergan for N/V. Clear liquids tonight (avoid reds/purples/blues) and NPO @ midnight. Pt. reports bleeding w/ IV Protonix. Continue pts. PO Prilosec. Monitor I&O. Qualifiers: Abdominal location: generalized Qualified Code(s): R10.84 - Generalized abdominal pain (11) Chest pain Current Visit: Yes Status: Chronic Assessment and plan: Hx of chronic chest discomfort. Pt. states that she has had sx for past 10 years. Initial troponin <0.03. Will trend. Continuous cardiac telemetry. Echocardiogram dated showed LVEF of 65-70%, normal left ventricular diastolic function, normal right ventricular structure and function, and no pulmonary hypertension. Left ventricular wall segments showed normal motion. Qualifiers: Chest pain type: other chest pain Qualified Code(s): R07.89 - Other chest pain; R07.8 - Other chest pain (12) DVT prophylaxis Current Visit: Yes Status: Acute Assessment and plan: Initially ordered anti-embolic stockings and SCDs on bilateral LEs for DVT prophylaxis d/t current GI bleeding, however pt placed on heparin due to elevated troponin. (13) Hypomagnesemia Current Visit: Yes Status: Acute Assessment and plan: Will replace and recheck in am (14) Hypomagnesemia Current Visit: Yes Status: Acute - Time Spent With Patient Total time spent is greater than 50% in coordination of care (as documented) at patient's floor/unit and/or counseling patient: less than 15 minutes - Subjective Interval history: 04/05/2018 Ms. Ocampo is a 62 year old female w/PMH of asthma, COPD, migraine, and IBS/ Crohn's disease presents for Hospitalist consult with chief complaint of lower GI bleeding. Patient states she has chronic abdominal pain since having her gallbladder removed 3 years ago. Also reports being told she may have IBS but no official dx. States she had BM yesterday w/bright red and dark blood in stool. 2014 colonoscopy that showed diverticulosis. Additionally patient reports chest discomfort in center chest as pressure and states she has intermittent chest pain for the past 10 years. Also reports having migraine headache today. Denies cardiac history, catheterization, or stent placement. Patient also reports generalized weakness for the past several weeks. Patient reports syncope, fever, chills, nausea, vomiting, abdominal pain, urinary retention, chest discomfort, shortness of breath, dizziness, and lightheadedness but denies changes in vision, palpitations, numbness, tingling, constipation, pre-syncope. 04/06/2018 Pt's and parents at bedside. I updated on current medical status. Patient still nauseous and vomiting. Still having abdominal pain. Very pale - Constitutional Vitals: Temp Pulse Resp BP Pulse Ox 98.5 F 135 21 139/90 98 04/06/18 11:15 04/06/18 11:15 04/06/18 11:15 04/06/18 11:15 04/06/18 11:15 General appearance: Present: cooperative, mild distress (Abdominal pain and nausea), A&O X 3, pleasant, underweight, answers questions appropriately - Head Head exam: Present: atraumatic, normocephalic - Eye Eye exam: Present: PERRL, conjuntiva pink, sclera anicteric Pupils: Present: PERRL - Neck Neck exam general surgery: Present: supple, trachea midline. Absent: lymphadenopathy - Respiratory Respiratory exam: Present: CTAB. Absent: accessory muscle use, rales, rhonchi, wheezes - Cardiovascular Cardiovascular exam: Present: RRR, +S1, +S2, tachycardia. Absent: diastolic murmur, gallop, rubs, systolic murmur - GI/Abdominal GI/Abdominal exam: Present: normal bowel sounds, soft, no peritoneal signs. Absent: distended, tenderness - Extremities Exam Extremities exam: Present: warm, radial pulses palpable and symmetrical. Absent : calf tenderness, cyanotic, pedal edema - Neurological Exam Neurological exam: Present: CN II-XII intact, oriented X3, no focal deficits. Absent: pronater drift, facial droop, speech deficit - Skin Skin exam: Present: dry, intact, pallor Internal Medicine: Result - Labs CBC & Chem 7: 04/06/18 11:25 04/06/18 02:04 Labs: Short CBC 04/05/18 04/06/18 04/06/18 Range/Units 14:29 03:36 11:25 WBC 8.3 23.6 H D 18.0 H (4.3-11.1) K/mcL Hgb 11.3 L 15.0 D 15.9 H (11.5-15.4) g/dL Hct 33.8 L 44.9 46.8 H (35.3-44.9) % Plt Count 274 388 411 H (140-400) K/mcL Neutrophils # 5.8 21.9 H (1.6-8.9) K/mcL BMP 04/05/18 04/06/18 04/06/18 14:34 02:04 02:04 Sodium 135 L Cancelled 132 L Potassium 3.8 Cancelled 3.5 Chloride 101 Cancelled 96 L Carbon Dioxide 22 L Cancelled 18 L BUN 5 L Cancelled 5 L Creatinine 0.71 Cancelled 0.64 Glucose 108 H Cancelled 145 H Calcium 9.7 Cancelled 9.9 Cardiac Enzymes 04/05/18 04/05/18 04/06/18 Range/Units 14:34 20:41 02:04 Troponin I < 0.03 0.07 H* 1.34 H* (< 0.04) ng/mL 04/06/18 04/06/18 Range/Units 10:30 12:07 Troponin I 4.06 H* 3.49 H* (< 0.04) ng/mL Liver Function 04/06/18 04/06/18 Range/Units 02:04 02:04 Total Bilirubin Cancelled 1.0 AST Cancelled 35 ALT Cancelled 15 Alkaline Phosphatase Cancelled 74 Albumin Cancelled 5.0 Urine 04/06/18 Range/Units 05:00 Urine Color Yellow (Yellow) Urine Clarity Clear (Clear) Urine pH 7.0 (5.0-8.0) pH Units Ur Specific [place] 1.013 (1.010-1.025) Urine Protein 100 H (Neg-Trace) mg/dL Urine Glucose (UA) 100 H (Normal) mg/dL - ABG Interpretation ABG results: ABG ABG pH 7.38 pH Units (7.32-7.45) 04/06/18 01:51 ABG pCO2 37 mmHg (35-45) 04/06/18 01:51 ABG pO2 456 mmHg (85-104) H 04/06/18 01:51 ABG O2 Saturation 100 % (95-98) H 04/06/18 01:51 PT/INR, D-dimer PT 12.8 Seconds (9.4-12.1) H 04/06/18 11:25 D-Dimer 797 ng/mLFEU (0-500) H 04/06/18 10:30 - Impressions Impressions Abdomen/Pelvis CT 04/05/18 18:00 IMPRESSION: No CT evidence of an acute intra-abdominal or intrapelvic process. Cecal thickening described on previous CT is not appreciated on this exam. The hepatic dome hypoattenuating lesion described on previous study is not appreciated on this exam. D/ / Josesito Dennis / Josesito Dennis Interpreting Provider: Josesito Dennis Chest X-Ray 04/06/18 02:11 IMPRESSION: Mild pulmonary edema. D/ / Bernardino Vasquez MD / Bernardino Vasquez MD Interpreting Provider: Bernardino Vasquez MD - VTE Documentation of Mechanical Device: Intermittent pneumatic compression device Consult Discharge Plan - Plan Referrals: Lakshmi Rahman MD [Primary Care Provider] - 04/19/18 10:00 am
[2018-04-06 13:46] LABS: Basophils % 0.1 %; Hemoglobin 15.6 g/dL (11.5-15.4); Immature Granulocytes % 0.7 % (0-4); Lymphocytes % 5.1 %; Mean Corpuscular HGB Conc 33.9 g/dL (31.6-35.5); Mean Corpuscular Hemoglobin 28.4 pg (28.0-33.3); Mean Corpuscular Volume 83.8 fL (83.0-100.0); Mean Platelet Volume 9.8 fL (9.4-12.4); Monocytes # 0.9 K/mcL (0.0-1.3); Monocytes % 4.8 %; Neutrophils # 16.7 K/mcL (1.6-8.9); Platelet Count 394 K/mcL (140-400); Red Blood Count 5.49 M/mcL (3.82-4.97); Red Cell Distribution Width 12.5 % (11.5-14.5); Segmented Neutrophils % 89.3 %
--- NOTE | 2018-04-06 14:37 | Event Note ---
Date of Encounter: 04/06/18 Time of Encounter: 14:34 - Cardiology Event Note Patient with EF 15% in setting of pneumonia and possible sepsis. D/W and parents high risk of proceding with a LHC in setting of sepsis and GI bleed. Trops downtrending currently at 3.5 from 4.0. She continues to deny any chest pain. Will consider LHC when sepsis/pneumonia improves. Family understand high risk involved and agree to wait for improvement in comorbidities prior to a LHC.
[2018-04-06] MEDS ORDERED: Potassium Phosphate 44 MEQ in 0.9 % Sodium Chloride 250 ML IVPB ONE (14:49)
--- NOTE | 2018-04-06 15:41 | Event Note ---
Date of Encounter: 04/06/18 Time of Encounter: 15:40 Consulting sales project coordinator and ID
--- NOTE | 2018-04-06 16:45 | Infectious Disease Consult ---
Date of Encounter: 04/06/18 Time of Encounter: 16:45 Assessment and Plan (1) Severe sepsis Status: Acute Assessment and plan: Secondary to pneumonia Patient has 3 SIRS criteria and end organ damage (2) Multifocal pneumonia Status: Acute Assessment and plan: Causative organism not clear. We will check urine legionella and pneumococcal antigen Check sputum cultures Check blood cultures Agree with broad-spectrum antibiotics including meropenem and Zyvox Might want to consider adding azithromycin for atypical coverage if patient does not improve clinically We will repeat chest x-ray 48 hours (3) Acute coronary syndrome Status: Acute Assessment and plan: Appreciate cardiology's recommendation Patient with severe sepsis and GI bleed she would be very high risk for angioplasty apparently and she is on heparin already (4) Crohns disease Status: Acute Qualifiers: Gastrointestinal tract location: unspecified location Digestive disease complication type: with rectal bleeding Qualified Code(s): K50.911 - Crohn's disease, unspecified, with rectal bleeding (5) Drug allergy, antibiotic Status: Acute Assessment and plan: Apparently she is allergic to penicillin - makes her tongue swell Allergies to Cipro vancomycin and clindamycin I am not clear but some of them she states make her very nauseated (6) Allergy to multiple antibiotics Status: Acute (7) GI bleed Status: Acute Assessment and plan: Surgery following Qualifiers: GI bleed type/associated pathology: melena Qualified Code(s): K92.1 - Melena (8) COPD (chronic obstructive pulmonary disease) Status: Chronic Qualifiers: COPD type: unspecified COPD Qualified Code(s): J44.9 - Chronic obstructive pulmonary disease, unspecified (9) Schizoaffective disorder, chronic condition Status: Chronic Infectious Disease HPI - Data of Consult Requesting Physician: Eliezer Bass MD Primary Care Provider: Lakshmi Rahman MD - Consult Narrative Reason for consult: sepsis History of present illness: Ms. Ocampo is a 62 year old female Patient is a 62-year-old woman who came in to [facility] on 04/05/2018 as direct admission from Dr. Ivan office for GI bleed, we are consulted on April 06 for leukocytosis. Patient is a 62-year-old woman who has past medical history mentioned below including asthma, COPD, irritable bowel syndrome with Crohns disease and diverticulosis and multiple psychiatric issues including anxiety, bipolar, depression and schizoaffective disorder was seen initially as an outpatient consult by surgery for lower GI bleeding. Patient apparently was having associated dizziness, lightheadedness and apparently had a near syncopal episode. Patient came into the admitted for further workup and evaluation. Since admission, patient has been afebrile with a MAXIMUM TEMPERATURE of 99.7 Fahrenheit. Patient has been tachycardic with heart rate as high as 154. Patient also had tachypnea with the breathing as high as 38. Initially labs revealed a WBC of 8.3, hemoglobin of 11.3, BUN of 5 and creatinine of 0.71 and a mild troponin leak with a troponin of 0.07. Other workup included abdominal and pelvic CT which was read as bilateral parenchymal infiltrates with patchy areas of consolidation with small pleural effusion suggesting probable multifocal pneumonia. No pulmonary emboli are identified. No aortic aneurysm or abdominal aortic dissection. Thoracic aortic is not well evaluated for a dissection though the limited evaluation shows no definite dissection flap. Vascular evaluation of the abdomen shows a patent inferior mesenteric artery as well as SMA and celiac artery. No acute processes seen within the abdominal pelvis. No evidence of ischemic bowel. Currently patient laying in bed appears comfortable. She appears very pale and tachycardic. is at bedside. I asked her about her allergies to antibiotics and she stated that penicillin makes her tongue swell but the rest of the antibiotics give her nausea and vomiting. I am not sure really if she is allergic to the vancomycin, clindamycin and ciprofloxacin at this point. CC: Eliezer Bass MD Past Med Surg Social Fam HX - Past Medical History Medical history: asthma, COPD, GI bleed, migraine, other Additional medical history: IBS, Crohns disease, Diverticulosis Psychiatric history: anxiety, bipolar, depression, other - Past Surgical History Surgical History: cholecystectomy, other (Breast augmentation) Additional surgical history: breast construction. dental - Social History Smoking Status: Never smoker Smokeless Tobacco Status: No Alcohol use: none Drug use: none - Family History Father Race: Family Member Ethnicity: Non- Living Status: Still Living Hx Family Cardiac Disorders: Yes (HTN, HLD) Hx Family Genitourinary Disorders: Yes (Kidney stones) Hx Family Musculoskeletal Disorders: Yes (Degenerative spine) Hx Family Neurologic Disorders: Yes (Seizures) Mother Race: Family Member Ethnicity: Non- Living Status: Still Living Hx Family Cardiac Disorders: Yes (HTN, HLD) Hx Family GI Disorders: Yes (GERD) Brother Race: Family Member Ethnicity: Non- Living Status: Still Living Hx Family Musculoskeletal Disorders: Yes (Degenerative spine) Infectious Disease-CN:Meds Albuterol Sulfate [Ventolin Hfa] 1 - 2 puff IH Q4-6H PRN 12/26/17 [History] LORazepam [Ativan] 0.5 mg PO BID 12/26/17 [History] Perphenazine 4 - 8 mg PO QID PRN 12/26/17 [History] Tizanidine HCl 4 mg PO QID PRN 3 Days #12 tablet 12/28/17 [Rx] Oxycodone HCl [Oxycodone HCl] 5 mg PO Q4-6H PRN 04/06/18 [History] 3 Allergy/AdvReac Type Severity Reaction Status Date / Time ciprofloxacin [From Cipro] Allergy Hives Verified 12/26/17 09:57 ibuprofen Allergy Hives Verified 01/03/16 17:28 [From NeoProfen (ibuprofen lysn)(PF)] Penicillins Allergy Swelling Verified 12/26/17 09:57 of Lip/Tongue/Throat vancomycin Allergy Hives Verified 12/26/17 09:57 clindamycin AdvReac Diarrhea Verified 12/26/17 09:57 Review of systems: 10 point review of systems done, negative other for what mentioned in history of present illness. Exam - Constitutional Vitals: Temp Pulse Resp BP Pulse Ox 98.2 F 126 17 124/111 94 04/06/18 15:55 04/06/18 15:55 04/06/18 15:55 04/06/18 15:55 04/06/18 15:55 General appearance: mild distress, no febrile - Head Head exam: Present: atraumatic, normocephalic - Eye Eye exam: Present: EOMI, PERRL, sclera anicteric Additional comments: Conjunctiva pale - ENT Additional comments: Mucous membranes dry. No oral lesions no oral thrush - Neck Neck exam: Present: full ROM. Absent: meningismus - Respiratory Additional comments: Chest expanding symmetrically. Some rhonchi bilateral. Some wheezing bilateral. - Cardiovascular Cardiovascular exam: Present: RRR, +S1, +S2 Additional comments: Tachycardic. I did not appreciate any murmur. - GI/Abdominal GI/Abdominal exam: Present: normal bowel sounds, soft. Absent: tenderness - Extremities Exam Extremities exam: Present: normal inspection. Absent: pedal edema - Back Exam Back exam: Present: normal inspection. Absent: CVA tenderness (L), CVA tenderness (R) - Neurological Exam Neurological exam: Present: alert, oriented X3, speech deficit - Psychiatric Psychiatric exam: Present: anxious - Skin Additional comments: Pale skin with bluish discoloration of the face Infectious Disease CN: Results - Labs CBC & Chem 7: 04/07/18 13:05 04/07/18 00:39 Cultures: Cultures 04/06/18 12:07 Blood Culture - Preliminary Arterial Line Culture is incubating and being continuously monitored for growth. Final report to follow. 04/06/18 03:36 Blood Culture - Preliminary Peripheral Venipuncture Culture is incubating and being continuously monitored for growth. Final report to follow. 04/06/18 03:53 Blood Culture - Preliminary Peripheral Venipuncture Culture is incubating and being continuously monitored for growth. Final report to follow. Serology: Serology 04/06/18 Range/Units 05:00 Urine Color Yellow (Yellow) Urine Clarity Clear (Clear) Urine pH 7.0 (5.0-8.0) pH Units Ur Specific [place] 1.013 (1.010-1.025) Urine Protein 100 H (Neg-Trace) mg/dL Urine Glucose (UA) 100 H (Normal) mg/dL Urine Ketones 80 H (Negative) mg/dL Urine Blood Small H (Negative) Urine Nitrite Negative (Negative) Urine Bilirubin Negative (Negative) Urine Urobilinogen Normal (Normal) mg/dL Ur Leukocyte Esterase Negative (Negative) Urine Microscopic RBC 5-15 H (0-3) per hpf Urine Microscopic WBC 0-3 (0-3) per hpf Ur Squamous Epith Cells Many H (None-Few) per lpf Urine Bacteria None Seen (None-Few) per hpf Hyaline Casts None Seen (None-Few) per lpf Ur Culture Indicated? NO (NO) - VTE Documentation of Mechanical Device: Intermittent pneumatic compression device Consult Discharge Plan - Plan Referrals: Lakshmi Rahman MD [Primary Care Provider] - 04/19/18 10:00 am
--- NOTE | 2018-04-06 16:52 | Pulmonology Consult Note ---
<Guillaume Aly W - Last Filed: 04/06/18 17:02> Date of Encounter: 04/06/18 Medications and Allergies Albuterol Sulfate [Ventolin Hfa] 1 - 2 puff IH Q4-6H PRN 12/26/17 [History] LORazepam [Ativan] 0.5 mg PO BID 12/26/17 [History] Perphenazine 4 - 8 mg PO QID PRN 12/26/17 [History] Tizanidine HCl 4 mg PO QID PRN 3 Days #12 tablet 12/28/17 [Rx] Oxycodone HCl [Oxycodone HCl] 5 mg PO Q4-6H PRN 04/06/18 [History] 3 Allergy/AdvReac Type Severity Reaction Status Date / Time ciprofloxacin [From Cipro] Allergy Hives Verified 12/26/17 09:57 ibuprofen Allergy Hives Verified 01/03/16 17:28 [From NeoProfen (ibuprofen lysn)(PF)] Penicillins Allergy Swelling Verified 12/26/17 09:57 of Lip/Tongue/Throat vancomycin Allergy Hives Verified 12/26/17 09:57 clindamycin AdvReac Diarrhea Verified 12/26/17 09:57 All Systems: The remainder of the systems were reviewed and are negative Physical Examination Vital Signs: Vital Signs, Last 4 Hours Temp Pulse Resp BP Pulse Ox 04/06/18 15:55 98.2 F 126 17 124/111 94 Results - Laboratory Findings CBC and BMP: 04/06/18 13:21 04/06/18 02:04 ABG ABG pH 7.38 pH Units (7.32-7.45) 04/06/18 01:51 ABG pCO2 37 mmHg (35-45) 04/06/18 01:51 ABG pO2 456 mmHg (85-104) H 04/06/18 01:51 ABG O2 Saturation 100 % (95-98) H 04/06/18 01:51 PT/INR, D-dimer PT 12.8 Seconds (9.4-12.1) H 04/06/18 11:25 D-Dimer 797 ng/mLFEU (0-500) H 04/06/18 10:30 Abnormal lab findings: Abnormal lab results WBC 18.7 K/mcL (4.3-11.1) H 04/06/18 13:21 RBC 5.49 M/mcL (3.82-4.97) H 04/06/18 13:21 Hgb 15.6 g/dL (11.5-15.4) H 04/06/18 13:21 Hct 46.0 % (35.3-44.9) H 04/06/18 13:21 Neutrophils # 16.7 K/mcL (1.6-8.9) H 04/06/18 13:21 PT 12.8 Seconds (9.4-12.1) H 04/06/18 11:25 D-Dimer 797 ng/mLFEU (0-500) H 04/06/18 10:30 ABG pO2 456 mmHg (85-104) H 04/06/18 01:51 ABG O2 Saturation 100 % (95-98) H 04/06/18 01:51 ABG Base Excess -3 mEq/L (-2 to 3) L 04/06/18 01:51 Sodium 132 mEq/L (136-145) L 04/06/18 02:04 Chloride 96 mEq/L (98-107) L 04/06/18 02:04 Carbon Dioxide 18 mEq/L (23-29) L 04/06/18 02:04 BUN 5 mg/dL (8-23) L 04/06/18 02:04 Glucose 145 mg/dL (70-105) H 04/06/18 02:04 POC Glucose 179 mg/dL (70-99) H 04/06/18 11:18 Calculated Osmolality 274 (280-300) L 04/06/18 02:04 Lactic Acid 2.9 mmol/L (0.5-2.2) H 04/06/18 13:21 Phosphorus 2.6 mg/dL (2.7-4.5) L 04/06/18 10:30 Magnesium 1.5 mg/dL (1.6-2.6) L 04/06/18 10:30 Creatine Kinase 316 Units/L (30-223) H 04/06/18 12:07 Troponin I 3.49 ng/mL (< 0.04) H* 04/06/18 12:07 B-Natriuretic Peptide 1756 pg/mL (Less than 100) H 04/06/18 13:21 Urine Protein 100 mg/dL (Neg-Trace) H 04/06/18 05:00 Urine Glucose (UA) 100 mg/dL (Normal) H 04/06/18 05:00 Urine Ketones 80 mg/dL (Negative) H 04/06/18 05:00 Urine Blood Small (Negative) H 04/06/18 05:00 Urine Microscopic RBC 5-15 per hpf (0-3) H 04/06/18 05:00 Ur Squamous Epith Cells Many per lpf (None-Few) H 04/06/18 05:00 - Microbiology Findings Microbiology Findings: Microbiology, Last 48 Hours 04/06/18 12:07 Blood Culture - Preliminary Arterial Line Culture is incubating and being continuously monitored for growth. Final report to follow. 04/06/18 03:36 Blood Culture - Preliminary Peripheral Venipuncture Culture is incubating and being continuously monitored for growth. Final report to follow. 04/06/18 03:53 Blood Culture - Preliminary Peripheral Venipuncture Culture is incubating and being continuously monitored for growth. Final report to follow. - Clinical Findings Intake & Output: Intake & Output 04/06/18 04/06/18 04/06/18 07:59 15:59 23:59 Intake Total 1760 / 1760 Output Total 1350 / 1350 600 / 600 Balance 410 / 410 -600 / -600 Consult Discharge Plan - Plan Referrals: Lakshmi Rahman MD [Primary Care Provider] - 04/19/18 10:00 am - Attending Attestation I examined this patient and my medical decision-making was reviewed with the Resident Physician. I agree with the documented findings, disposition and treatment plan as described except to the extent set forth below. We independently had [id number] contact with the patient Patient seen and examined at bedside Labs, radiology, chart personally reviewed. FAC ENGINEER: The patient is awake and alert no focal deficit she is lethargic intermittently but easily arousable Pulm: Patient has developed what appears to be in aspiration pneumonia however she is not in any respiratory distress or requiring supplemental oxygen will continue to treat pneumonia as she has underlying COPD for which we can scheduled bronchodilators Cards: Acute reduction in ejection fraction with non-ST elevation ND patients on ACS protocol cardiology managing. She remains tachycardic which may be a reflection of underlying cardiomyopathy versus severe sepsis recommend closely monitored colloid challenges over the next 1-3 hours would stop maintenance infusion at this time. We will continue to trend lactate which may be a manifestation again of either her cardiomyopathy or underlying sepsis FEN-GI: Nothing by mouth for now no evidence of mesenteric thrombus/ischemia Renal: No evidence of ELIZA she has a metabolic acidosis with elevated lactate which is trending down. Generally appears on the dry side and we will give cautious volume resuscitation as outlined above ID: Suspected aspiration pneumonia she is on broad-spectrum antimicrobials for hospital associated organisms. She remains tachycardic but afebrile ID has been consulted because of her multiple antibiotic allergies. Obtain blood and sputum cultures Heme/Onc: Concern initially for GI hemorrhage however H&H has been stable in fact it has been elevated since she came to the hospital which may reflect volume depletion. General surgery is following this case she will need colonoscopy when more stable Endo: Glucose Monitored; check TSH Integ/MSK: Skin Care per routine ICU Nursing Protocol to prevent ulcers. Lines: All lines examined without evidence of infection : Dispo: Recommend transfer to ICU for closer monitoring given new cardiomyopathy and severe sepsis she has high risk for deterioration CODE: Full <Geremias Esparza - Last Filed: 04/06/18 18:44> Date of Encounter: 04/06/18 Time of Encounter: 16:30 Assessment and Plan (1) GI bleed Current Visit: Yes Status: Acute Hemoglobin has been stable throughout stay in hospital. Current level at 15.6. No blood transfusions since admission. Last reported that in stool was on 09/12 with bright red and dark blood. Colonoscopy was scheduled earlier today but patient was unable to tolerate bowel prep. Colonoscopy has been delayed due to sepsis and unstable condition. Pt. typed and screened: O positive with negative antibody screen. Patient still continues to complain of dizziness and lightheadedness along with abdominal pain. Abdominal CT A showed a patent inferior mesenteric artery as well as a SMA and celiac artery with no evidence of ischemic bowel. - Continue to trend H/H. - Monitor I/O's. - NPO diet. - IVP Zofran and Phenergan for N/V - Continue Prilosec. Qualifiers: GI bleed type/associated pathology: melena Qualified Code(s): K92.1 - Melena (2) Chest pain Current Visit: Yes Status: Chronic Patient has been complaining of intermittent chest pain for the past 10 years. Troponin elevated at 0.07, 1.34, 4.06, 3.49. Current echocardiogram shows an EF of 15%. Patient was started on heparin drip. Chest CT shows no evidence of PE. She currently denies any chest pain. Cardiology on board. We will consider a left heart catheter once patient's sepsis and pneumonia improves. Whether elevated troponin source is due to heart failure,, cardiomyopathy, myocarditis, or other source is still unclear. - Continue heparin drip. Qualifiers: Chest pain type: other chest pain Qualified Code(s): R07.89 - Other chest pain; R07.8 - Other chest pain (3) Leukocytosis Current Visit: Yes Status: Acute Chest CTA shows Bilateral parenchymal infiltrates with patchy areas of consolidation with small pleural effusions suggestive of probable multifocal pneumonia. Given setting of vomiting, there is concern for aspiration PNA. Blood cultures were drawn. Patient started on linezolid and meropenem Day # 1. No acute process is seen within the abdomen or pelvis. - continue antibiotics. Abdomen/Pelvis CT 04/05/18 18:00 IMPRESSION: No CT evidence of an acute intra-abdominal or intrapelvic process. Cecal thickening described on previous CT is not appreciated on this exam. The hepatic dome hypoattenuating lesion described on previous study is not appreciated on this exam. D/ / Josesito Dennis / Josesito Dennis Interpreting Provider: Josesito Dennis Chest X-Ray 04/06/18 02:11 IMPRESSION: Mild pulmonary edema. D/ / Bernardino Vasquez MD / Bernardino Vasquez MD Interpreting Provider: Bernardino Vasquez MD Chest CTA 04/06/18 11:41 IMPRESSION: Bilateral parenchymal infiltrates with patchy areas of consolidation with small pleural effusions suggestive of probable multifocal pneumonia. No pulmonary emboli are identified. No aortic aneurysm or abdominal aortic dissection. The thoracic aorta is not well evaluated for a dissection, though the limited evaluation shows no definite dissection flap. Vascular evaluation of the abdomen shows a patent inferior mesenteric artery, as well as SMA and celiac artery. Of note, the celiac and SMA arise from a common trunk. No stenosis or thrombus is identified. No evidence of ischemic bowel. No acute process is seen within the abdomen or pelvis. D/ / 04/06/2018 13:54:23 David Katz MD / Beverley Arellano Interpreting Provider: David Katz MD Abdomen/Pelvis CTA 04/06/18 11:51 IMPRESSION: Bilateral parenchymal infiltrates with patchy areas of consolidation with small pleural effusions suggestive of probable multifocal pneumonia. No pulmonary emboli are identified. No aortic aneurysm or abdominal aortic dissection. The thoracic aorta is not well evaluated for a dissection, though the limited evaluation shows no definite dissection flap. Vascular evaluation of the abdomen shows a patent inferior mesenteric artery, as well as SMA and celiac artery. Of note, the celiac and SMA arise from a common trunk. No stenosis or thrombus is identified. No evidence of ischemic bowel. No acute process is seen within the abdomen or pelvis. D/ / 04/06/2018 13:54:23 David Katz MD / Beverley Arellano Interpreting Provider: David Katz MD Qualifiers: Qualified Code(s): D72.829 - Elevated white blood cell count, unspecified (4) Severe sepsis Current Visit: Yes Status: Acute Likely secondary to multifocal pneumonia. Current lactic acid level at 2.9. History of Present Illness Consult date: 04/06/18 Requesting physician: Arti Hamilton Reason for consult: other (Leukocytosis, GI bleed, NSTEMI, PNA) Chief complaint: Nausea, vomiting, GI bleed History of present illness: Patient is a 62-year-old female past medical history of asthma, COPD, IBS/Crohn' s disease and past surgical history of a cholecystectomy 3 years ago that presents for that presented on 04/05/18 for GI bleed. Patient said that she had been having bloody bowel movements since the day before presentation. She noted bright red blood and dark tarry stools. She has been reporting persistent diffuse abdominal pain. Patient has also been reporting intermittent chest discomfort for the past 10 years. Patient was also reporting symptoms of syncope, fever, chills, nausea, vomiting, dizziness, and lightheadedness. Patient was started on IV fluids and bowel prep for planned colonoscopy the next day, however the night before the patient was found to be nonresponsive and a rapid response was called. Patient was tachycardic and tachypneic. Lab work showed leukocytosis and elevated lactate. Chest x-ray showed mild pulmonary edema. She denied any chest pain. She was empirically started on Zyvox and meropenem blood cultures were drawn. Patient also had an elevated troponin and on continued to trend upward on subsequent labs: 0.07, 1.34, 4.06, 3.49. EKG showed NSR with no acute ST changes. Patient was started on low-dose heparin drip. Her prior echo on 12/27/17 showed an EF of 65-70%. Her current echo during this hospital stay showed an EF of 15%. CT of the chest shows pleural effusion consistent with multifocal pneumonia. Mesenteric vessels were patent. No evidence of PE. Patient currently demonstrating severe sepsis and was transferred to ICU for further management and observation. Past Med Surg Social Fam HX - Past Medical History Medical history: asthma, COPD, GI bleed, migraine, other Additional medical history: IBS, Crohns disease, Diverticulosis Psychiatric history: anxiety, bipolar, depression, other - Past Surgical History Surgical History: cholecystectomy, other (Breast augmentation) Additional surgical history: breast construction. dental - Social History Smoking Status: Never smoker Smokeless Tobacco Status: No Alcohol use: none Drug use: none - Family History Father Race: Family Member Ethnicity: Non- Living Status: Still Living Hx Family Cardiac Disorders: Yes (HTN, HLD) Hx Family Genitourinary Disorders: Yes (Kidney stones) Hx Family Musculoskeletal Disorders: Yes (Degenerative spine) Hx Family Neurologic Disorders: Yes (Seizures) Mother Race: Family Member Ethnicity: Non- Living Status: Still Living Hx Family Cardiac Disorders: Yes (HTN, HLD) Hx Family GI Disorders: Yes (GERD) Brother Race: Family Member Ethnicity: Non- Living Status: Still Living Hx Family Musculoskeletal Disorders: Yes (Degenerative spine) All Systems: The remainder of the systems were reviewed and are negative - Constitutional Constitutional: chills, fatigue, fever(s), weakness - EENT Eyes: as per HPI, no loss of vision Nose, mouth and throat: dizziness - Cardiovascular Cardiovascular: chest pain (Intermittent. Currently denies), dyspnea, lightheadedness - Respiratory Respiratory: dyspnea - Gastrointestinal Gastrointestinal: abdominal pain, hematochezia, melena, nausea, vomiting ( Currently denies), no hematemesis - Musculoskeletal Musculoskeletal: weakness - Neurological Neurological: dizziness, weakness, no abnormal speech, no numbness - Psychiatric Psychiatric: as per HPI Physical Examination Vital Signs: Vital Signs, Last 4 Hours Temp Pulse Resp BP Pulse Ox 04/06/18 15:55 98.2 F 126 17 124/111 94 General appearance: no acute distress Eyes: nonicteric ENT: oropharynx moist Neck: supple Effort: normal Inspection: normal Auscultation: bilateral: clear Percussion: bilateral: not dull Tactile fremitus: bilateral: normal Cardiovascular: regular rate and rhythm Gastrointestinal: normoactive bowel sounds, hypoactive bowel sounds, soft, tender (Diffuse tenderness with deep palpation), non-distended Integumentary: normal Extremities: no cyanosis, no edema, no clubbing, pink and warm, pulses normal, no ischemia or petechiae Musculoskeletal: no deformities, ROM normal normal mental status mood appropriate, affect normal Results - Laboratory Findings CBC and BMP: 04/06/18 13:21 04/06/18 02:04 ABG ABG pH 7.38 pH Units (7.32-7.45) 04/06/18 01:51 ABG pCO2 37 mmHg (35-45) 04/06/18 01:51 ABG pO2 456 mmHg (85-104) H 04/06/18 01:51 ABG O2 Saturation 100 % (95-98) H 04/06/18 01:51 PT/INR, D-dimer PT 12.8 Seconds (9.4-12.1) H 04/06/18 11:25 D-Dimer 797 ng/mLFEU (0-500) H 04/06/18 10:30 Abnormal lab findings: Abnormal lab results WBC 18.7 K/mcL (4.3-11.1) H 04/06/18 13:21 RBC 5.49 M/mcL (3.82-4.97) H 04/06/18 13:21 Hgb 15.6 g/dL (11.5-15.4) H 04/06/18 13:21 Hct 46.0 % (35.3-44.9) H 04/06/18 13:21 Neutrophils # 16.7 K/mcL (1.6-8.9) H 04/06/18 13:21 PT 12.8 Seconds (9.4-12.1) H 04/06/18 11:25 D-Dimer 797 ng/mLFEU (0-500) H 04/06/18 10:30 ABG pO2 456 mmHg (85-104) H 04/06/18 01:51 ABG O2 Saturation 100 % (95-98) H 04/06/18 01:51 ABG Base Excess -3 mEq/L (-2 to 3) L 04/06/18 01:51 Sodium 132 mEq/L (136-145) L 04/06/18 02:04 Chloride 96 mEq/L (98-107) L 04/06/18 02:04 Carbon Dioxide 18 mEq/L (23-29) L 04/06/18 02:04 BUN 5 mg/dL (8-23) L 04/06/18 02:04 Glucose 145 mg/dL (70-105) H 04/06/18 02:04 POC Glucose 179 mg/dL (70-99) H 04/06/18 11:18 Calculated Osmolality 274 (280-300) L 04/06/18 02:04 Lactic Acid 2.9 mmol/L (0.5-2.2) H 04/06/18 13:21 Phosphorus 2.6 mg/dL (2.7-4.5) L 04/06/18 10:30 Magnesium 1.5 mg/dL (1.6-2.6) L 04/06/18 10:30 Creatine Kinase 316 Units/L (30-223) H 04/06/18 12:07 Troponin I 3.49 ng/mL (< 0.04) H* 04/06/18 12:07 Urine Protein 100 mg/dL (Neg-Trace) H 04/06/18 05:00 Urine Glucose (UA) 100 mg/dL (Normal) H 04/06/18 05:00 Urine Ketones 80 mg/dL (Negative) H 04/06/18 05:00 Urine Blood Small (Negative) H 04/06/18 05:00 Urine Microscopic RBC 5-15 per hpf (0-3) H 04/06/18 05:00 Ur Squamous Epith Cells Many per lpf (None-Few) H 04/06/18 05:00 - Microbiology Findings Microbiology Findings: Microbiology, Last 48 Hours 04/06/18 12:07 Blood Culture - Preliminary Arterial Line Culture is incubating and being continuously monitored for growth. Final report to follow. 04/06/18 03:36 Blood Culture - Preliminary Peripheral Venipuncture Culture is incubating and being continuously monitored for growth. Final report to follow. 04/06/18 03:53 Blood Culture - Preliminary Peripheral Venipuncture Culture is incubating and being continuously monitored for growth. Final report to follow. - Clinical Findings Intake & Output: Intake & Output 04/06/18 04/06/18 04/06/18 07:59 15:59 23:59 Intake Total 1760 / 1760 Output Total 1350 / 1350 600 / 600 Balance 410 / 410 -600 / -600
--- NOTE | 2018-04-06 18:28 | Electrocardiograph Report ---
[address] [place], [place] [address] Test Date: 2018-04-05 Pat Name: Tomasa Ocampo Department: 115 Room: [facility] Gender: F Senior Center Director: : 1955 Requested By: Eliezer Bass Order Number: [id number] Reading MD: Horacio Pierce Measurements Intervals [place] Rate: 62 P: -31 CA: 135 QRS: -1 QRSD: 92 T: 16 QT: 421 QTc: 426 Interpretive Statements SINUS RHYTHM Poor R wave progression Electronically Signed On 04-06-2018 18:26:47 EDT by Horacio Pierce
--- NOTE | 2018-04-06 18:28 | Electrocardiograph Report ---
[address] [place], [place] [address] Test Date: 2018-04-05 Pat Name: Tomasa Ocampo Department: 115 Room: [facility] Gender: F Prospecting Driller: : 1955 Requested By: [id number] Order Number: [id number] Reading MD: Horacio Pierce Measurements Intervals [place] Rate: 58 P: -60 PA: 110 QRS: 0 QRSD: 93 T: 29 QT: 439 QTc: 435 Interpretive Statements ECTOPIC ATRIAL BRADYCARDIA WITH SHORT PA INTERVAL Poor R wave progression Electronically Signed On 04-06-2018 18:27:01 EDT by Horacio Pierce
--- NOTE | 2018-04-06 18:38 | Electrocardiograph Report ---
[place] [address] Test Date: 2018-04-05 Pat Name: Tomasa Ocampo Department: 115 Room: [facility] Gender: Female Medical Unit Secretary: : 1955 Requested By: Eliezer Bass Order Number: [id number] Reading MD: Horacio Pierce Measurements Intervals [place] Rate: 72 P: 0 AL: 123 QRS: 3 QRSD: 105 T: 35 QT: 374 QTc: 398 Interpretive Statements SINUS RHYTHM Electronically Signed On 04-06-2018 18:37:04 EDT by Horacio Pierce
--- NOTE | 2018-04-06 18:42 | Electrocardiograph Report ---
[place] [address] Test Date: 2018-04-06 Pat Name: Tomasa Ocampo Department: 115 Room: [facility] Gender: F Implementation Analyst: : 1955 Requested By: Eliezer Bass Order Number: [id number] Reading MD: Horacio Pierce Measurements Intervals [place] Rate: 139 P: 69 WI: 129 QRS: -28 QRSD: 94 T: 71 QT: 310 QTc: 391 Interpretive Statements SINUS TACHYCARDIA BORDERLINE LEFT AXIS DEVIATION LEFT VENTRICULAR HYPERTROPHY AND ST-T CHANGE Electronically Signed On 04-06-2018 18:40:40 EDT by Horacio Pierce
[2018-04-06 19:15] LABS: Basophils % 0.1 %; Hematocrit 42.5 % (35.3-44.9); Hemoglobin 14.7 g/dL (11.5-15.4); Immature Granulocytes % 0.8 % (0-4); Lymphocytes # 0.9 K/mcL (0.6-4.6); Lymphocytes % 4.2 %; Mean Corpuscular HGB Conc 34.6 g/dL (31.6-35.5); Mean Corpuscular Volume 83.8 fL (83.0-100.0); Mean Platelet Volume 10.5 fL (9.4-12.4); Monocytes % 4.6 %; Neutrophils # 19.8 K/mcL (1.6-8.9); Platelet Count 334 K/mcL (140-400); Red Blood Count 5.07 M/mcL (3.82-4.97); Red Cell Distribution Width 12.8 % (11.5-14.5); Segmented Neutrophils % 90.3 %
[2018-04-06] MEDS ORDERED: Ipratropium/Albuterol Neb 3 ML IH PRN (19:23)
[2018-04-06] MEDS ORDERED: *HR* Promethazine 25 MG/ML VIAL IVP PRN (19:23)
[2018-04-06] MEDS ORDERED: Perphenazine 2 MG TABLET PO PRN (19:23)
[2018-04-06] MEDS ORDERED: *HR* Metoprolol 5 MG/5 ML VIAL IVP PRN (19:23)
[2018-04-06] MEDS: Acetaminophen IV 1,000 MG/100 ML INFUS..BTL IVPB SCH (22:09)
[2018-04-06] MEDS ORDERED: *HR* OxyCODONE Oral Soln 5 MG/5 ML UD.LIQ PO STA (22:11)
[2018-04-06 22:41] LABS: Adenovirus Not Detected (Not Detect); Bordetella Pertussis Not Detected (Not Detect); Chlamydophila pneumoniae Not Detected (Not Detect); Coronavirus 229E Not Detected (Not Detect); Coronavirus HKU1 Not Detected (Not Detect); Coronavirus NL63 Not Detected (Not Detect); Coronavirus OC43 Not Detected (Not Detect); Human Metapneumovirus Not Detected (Not Detect); Human Rhinovirus/Enterovirus Not Detected (Not Detect); Influenza A Subtype 2009 H1 Not Detected (Not Detect); Influenza A Untypeable Not Detected (Not Detect); Influenza B Not Detected (Not Detect); Mycoplasma pneumoniae Not Detected (Not Detect); Parainfluenza Virus 1 Not Detected (Not Detect); Parainfluenza Virus 2 Not Detected (Not Detect); Parainfluenza Virus 3 Not Detected (Not Detect); Parainfluenza Virus 4 Not Detected (Not Detect); Respiratory Syncytial Virus Not Detected (Not Detect)
[2018-04-06] MEDS: tiZANidine 4 MG TABLET PO PRN (23:33)
[2018-04-07 00:50] LABS: Basophils % 0.1 %; Hematocrit 37.3 % (35.3-44.9); Immature Granulocytes % 0.6 % (0-4); Lymphocytes # 0.9 K/mcL (0.6-4.6); Lymphocytes % 3.8 %; Mean Corpuscular HGB Conc 34.6 g/dL (31.6-35.5); Mean Corpuscular Hemoglobin 29.2 pg (28.0-33.3); Mean Corpuscular Volume 84.4 fL (83.0-100.0); Mean Platelet Volume 9.7 fL (9.4-12.4); Monocytes # 1.2 K/mcL (0.0-1.3); Neutrophils # 21.7 K/mcL (1.6-8.9); Platelet Count 289 K/mcL (140-400); Red Blood Count 4.42 M/mcL (3.82-4.97); Red Cell Distribution Width 12.8 % (11.5-14.5); Segmented Neutrophils % 90.5 %
[2018-04-07 00:51] LABS: Hemoglobin 12.9 g/dL (11.5-15.4)
[2018-04-07 01:13] LABS: Alanine Aminotransferase 14 Units/L (7-52); Albumin/Globulin Ratio 1.9 (1.1-2.2); Alkaline Phosphatase 48 Units/L (34-104); Aspartate Amino Transferase 63 Units/L (13-39); BUN/Creatinine Ratio 11 (6-26); Bilirubin,Total 0.7 mg/dL (0.3-1.0); Blood Urea Nitrogen 7 mg/dL (8-23); Calcium 8.7 mg/dL (8.6-10.3); Carbon Dioxide 17 mEq/L (23-29); Chloride 101 mEq/L (98-107); Globulin 2.1 g/dL (2.4-3.5); Glucose 143 mg/dL (70-105); Magnesium 2.1 mg/dL (1.6-2.6); Osmolality,Calculated 274 (280-300); Phosphorous 2.1 mg/dL (2.7-4.5); Potassium 3.4 mEq/L (3.5-5.1); Sodium 132 mEq/L (136-145); Total Protein 6.1 g/dL (6.4-8.9); eGFR For African Americans > 60 (> 60); eGFR For Non-African Americans > 60 (> 60)
[2018-04-07 01:24] LABS: Platelet Estimate Normal (Normal)
[2018-04-07] MEDS: Acetaminophen IV 1,000 MG/100 ML INFUS..BTL IVPB SCH (02:46)
[2018-04-07] MEDS: Meropenem 1,000 MG in Water for inj. (sterile) 20 ML 10 ML IVP SCH ×3 (04:22→19:52)
[2018-04-07] MEDS: tiZANidine 4 MG TABLET PO PRN ×4 (04:22→22:52)
[2018-04-07] MEDS ORDERED: *HR* OxyCODONE Oral Soln 5 MG/5 ML UD.LIQ PO PRN ×2 (04:25→11:44)
[2018-04-07 05:35] LABS: Basophils % 0.1 %; Hematocrit 32.7 % (35.3-44.9); Immature Granulocytes % 0.8 % (0-4); Lymphocytes # 1.1 K/mcL (0.6-4.6); Lymphocytes % 4.6 %; Mean Corpuscular HGB Conc 34.3 g/dL (31.6-35.5); Mean Corpuscular Hemoglobin 28.7 pg (28.0-33.3); Mean Corpuscular Volume 83.8 fL (83.0-100.0); Mean Platelet Volume 9.8 fL (9.4-12.4); Monocytes # 1.2 K/mcL (0.0-1.3); Monocytes % 5.2 %; Neutrophils # 21.1 K/mcL (1.6-8.9); Platelet Count 250 K/mcL (140-400); Segmented Neutrophils % 89.3 %
[2018-04-07 05:57] LABS: Hemoglobin 11.2 g/dL (11.5-15.4)
[2018-04-07 06:20] LABS: Hypersegmented Neutrophils Present (Not Present); Platelet Estimate Normal (Normal); Reactive Lymphocytes Present (Not Present)
--- NOTE | 2018-04-07 08:14 | Pulmonology Progress Note ---
<JermainGuillaume W - Last Filed: 04/07/18 10:44> Date of Encounter: 04/07/18 Objective PUL Vital signs: Last Vital Signs Temp 98.2 F 04/07/18 07:20 Pulse 93 04/07/18 05:48 Resp 14 04/07/18 05:48 BP 61/33 04/07/18 05:48 Pulse Ox 96 04/07/18 05:48 Results - Laboratory Findings CBC and BMP: 04/07/18 05:15 04/07/18 00:39 ABG ABG pH 7.38 pH Units (7.32-7.45) 04/06/18 01:51 ABG pCO2 37 mmHg (35-45) 04/06/18 01:51 ABG pO2 456 mmHg (85-104) H 04/06/18 01:51 ABG O2 Saturation 100 % (95-98) H 04/06/18 01:51 PT/INR, D-dimer PT 12.8 Seconds (9.4-12.1) H 04/06/18 11:25 D-Dimer 797 ng/mLFEU (0-500) H 04/06/18 10:30 Abnormal lab findings: Abnormal lab results WBC 23.6 K/mcL (4.3-11.1) H 04/07/18 05:15 Hgb 11.2 g/dL (11.5-15.4) L D 04/07/18 05:15 Hct 32.7 % (35.3-44.9) L 04/07/18 05:15 Neutrophils # 21.1 K/mcL (1.6-8.9) H 04/07/18 05:15 Hypersegmented Neuts Present (Not Present) A 04/07/18 05:15 Reactive Lymphocytes Present (Not Present) A 04/07/18 05:15 PT 12.8 Seconds (9.4-12.1) H 04/06/18 11:25 APTT 54.3 Seconds (26.0-36.0) H 04/07/18 05:15 D-Dimer 797 ng/mLFEU (0-500) H 04/06/18 10:30 ABG pO2 456 mmHg (85-104) H 04/06/18 01:51 ABG O2 Saturation 100 % (95-98) H 04/06/18 01:51 ABG Base Excess -3 mEq/L (-2 to 3) L 04/06/18 01:51 Sodium 132 mEq/L (136-145) L 04/07/18 00:39 Potassium 3.4 mEq/L (3.5-5.1) L 04/07/18 00:39 Carbon Dioxide 17 mEq/L (23-29) L 04/07/18 00:39 BUN 7 mg/dL (8-23) L 04/07/18 00:39 Glucose 143 mg/dL (70-105) H 04/07/18 00:39 POC Glucose 134 mg/dL (70-99) H 04/06/18 17:16 Calculated Osmolality 274 (280-300) L 04/07/18 00:39 Phosphorus 2.1 mg/dL (2.7-4.5) L 04/07/18 00:39 AST 63 Units/L (13-39) H 04/07/18 00:39 Creatine Kinase 316 Units/L (30-223) H 04/06/18 12:07 Troponin I 3.49 ng/mL (< 0.04) H* 04/06/18 12:07 B-Natriuretic Peptide 1756 pg/mL (Less than 100) H 04/06/18 13:21 Serum Total Protein 6.1 g/dL (6.4-8.9) L 04/07/18 00:39 Globulin 2.1 g/dL (2.4-3.5) L 04/07/18 00:39 TSH 0.309 mcIU/mL (0.340-5.600) L 04/06/18 18:22 Urine Protein 100 mg/dL (Neg-Trace) H 04/06/18 05:00 Urine Glucose (UA) 100 mg/dL (Normal) H 04/06/18 05:00 Urine Ketones 80 mg/dL (Negative) H 04/06/18 05:00 Urine Blood Small (Negative) H 04/06/18 05:00 Urine Microscopic RBC 5-15 per hpf (0-3) H 04/06/18 05:00 Ur Squamous Epith Cells Many per lpf (None-Few) H 04/06/18 05:00 - Microbiology Findings Microbiology Findings: Microbiology, Last 48 Hours 04/06/18 21:30 Legionella Antigen - Final Urine,Clean Catch Streptococcus pneumoniae Antigen (M - Final 04/06/18 18:22 Blood Culture - Preliminary Peripheral Venipuncture Culture is incubating and being continuously monitored for growth. Final report to follow. 04/06/18 12:07 Blood Culture - Preliminary Arterial Line Culture is incubating and being continuously monitored for growth. Final report to follow. 04/06/18 03:36 Blood Culture - Preliminary Peripheral Venipuncture Culture is incubating and being continuously monitored for growth. Final report to follow. 04/06/18 03:53 Blood Culture - Preliminary Peripheral Venipuncture Culture is incubating and being continuously monitored for growth. Final report to follow. - Clinical Findings Intake & Output: Intake & Output 04/06/18 04/07/18 04/07/18 23:59 07:59 15:59 Intake Total 610 / 610 120 / 120 Output Total 900 / 900 450 / 450 Balance -290 / -290 -330 / -330 Consult Discharge Plan - Plan Referrals: Lakshmi Rahman MD [Primary Care Provider] - 04/19/18 10:00 am - Attending Attestation I examined this patient and my medical decision-making was reviewed with the Resident Physician. I agree with the documented findings, disposition and treatment plan as described except to the extent set forth below. We independently had [id number] contact with the patient Patient seen and examined at bedside Labs, radiology, chart personally reviewed. Management was reviewed during multidisciplinary critical care rounds. 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 Suspcted PNA and Hydrostatic edema Cards: Hypotension without shock. Acute Cardiomyopathy likely stress induced possibly ACS. Cardiology following. May need LHC.. Responding to colloid challenge FEN-GI: NPO for now Renal: No ELIZA UOP monitored trend/replace electrolytes ID: Severe sepsis s/t PNA being treated for aspiration.cultures thus far negative . ID following Heme/Onc: On heprain gtt with slight drop in h/h without evidence of overt bleeding. Heparin on hold. check CBC if stable will restart.for possible ACS. Endo: Glucose Monitored Integ/MSK: Skin Care per routine ICU Nursing Protocol to prevent ulcers. Lines: All lines examined without evidence of infection : Dispo: Monitor in ICU today CODE:Full <Geremias Esparza - Last Filed: 04/07/18 13:13> Date of Encounter: 04/07/18 Time of Encounter: 09:20 Assessment and Plan (1) GI bleed Current Visit: Yes Status: Acute Hemoglobin has been stable throughout stay in hospital. Current level at 11.2 This has dropped yesterday from 14.7. No reports of bloody stool since admission. No blood transfusions since admission. Last reported that in stool was on 04/05/18 with bright red and dark blood. Colonoscopy was scheduled yesterday but patient was unable to tolerate bowel prep. Colonoscopy has been delayed due to sepsis and unstable condition. Pt. typed and screened: O positive with negative antibody screen. Patient still continues to complain of dizziness and lightheadedness along with abdominal pain. Abdominal CT A showed a patent inferior mesenteric artery as well as a SMA and celiac artery with no evidence of ischemic bowel. - Recheck H/H again today. Will restart heparin drip if stable. - Continue to trend H/H. - Monitor I/O's. - Will advance to clear liquid diet in the afternoon. - IVP Zofran and Phenergan for N/V - Continue Prilosec. Qualifiers: GI bleed type/associated pathology: melena Qualified Code(s): K92.1 - Melena (2) Chest pain Current Visit: Yes Status: Chronic Admits to intermittent chest pain for the past 10 years. She says she had an instance of sharp pain earlier this morning, but says it was the kind of usually pain she has been having for years. TTE demonstrated severely reduced LVEF, 15%, prior TTE showed normal LVEF (December 26/2018: EF 65-70%). Heparin drip is currently on hold pending repeat H/H this afternoon. Metoprolol on hold due to hypotension. - Will restart heparin drip pending H/H is stable later this afternoon. - Continue statin and ASA. - LHC pending once patient is stable and shows improvement of PNA. Qualifiers: Chest pain type: other chest pain Qualified Code(s): R07.89 - Other chest pain; R07.8 - Other chest pain (3) Leukocytosis Current Visit: Yes Status: Acute WBC today at 23.6 (yesterday at 22). Chest CTA shows Bilateral parenchymal infiltrates with patchy areas of consolidation with small pleural effusions suggestive of probable multifocal pneumonia. Given setting of vomiting, there is concern for aspiration PNA. Blood cultures were drawn. Patient on linezolid and meropenem Day # 2. - continue antibiotics. Qualifiers: Qualified Code(s): D72.829 - Elevated white blood cell count, unspecified (4) Severe sepsis Current Visit: Yes Status: Acute Lactic acid improved to 1.1 from 2.3 yesterday. Patient's IVF were stopped due to setting of HF and she was given internittent doses of 5% 250 cc albumin, for which she was responding favorably. She did have some episodes of hypotension after she was given her oxycodone overnight. BP has been ranging from 78-127/33- 82. Currently at 86/53. - Continue albumin. - Continue antibiotics. Subjective Principal diagnosis: GI bleed, heart failure, multifocal PNA Interval history: Patient says that she had some minor chest pain earlier this morning. Describes it as knifelike and lasted for a few seconds. She says that she normally experiences chest discomfort for the last 10 years intermittently. She says her nausea is improved since yesterday. She denies any vomiting. She admits to subjective fever. She says her shortness of breath is improved from yesterday. She denies any cough. She does admit that the pain in her lower abdomen is the same since yesterday. Objective PUL Vital signs: Last Vital Signs Temp 98.2 F 04/07/18 07:20 Pulse 93 04/07/18 05:48 Resp 14 04/07/18 05:48 BP 61/33 04/07/18 05:48 Pulse Ox 96 04/07/18 05:48 General appearance: no acute distress Eyes: nonicteric ENT: oropharynx moist Neck: supple Effort: normal Auscultation: bilateral: clear Percussion: bilateral: not dull Tactile fremitus: bilateral: normal Cardiovascular: regular rate and rhythm Gastrointestinal: normoactive bowel sounds, soft, tender (Bilaterally in lower abdominal region to deep palpation), non-distended Integumentary: normal Extremities: no cyanosis, no edema, no clubbing, pulses normal, no ischemia or petechiae Musculoskeletal: no deformities normal mental status mood appropriate, affect normal Results - Laboratory Findings CBC and BMP: 04/07/18 05:15 04/07/18 00:39 ABG ABG pH 7.38 pH Units (7.32-7.45) 04/06/18 01:51 ABG pCO2 37 mmHg (35-45) 04/06/18 01:51 ABG pO2 456 mmHg (85-104) H 04/06/18 01:51 ABG O2 Saturation 100 % (95-98) H 04/06/18 01:51 PT/INR, D-dimer PT 12.8 Seconds (9.4-12.1) H 04/06/18 11:25 D-Dimer 797 ng/mLFEU (0-500) H 04/06/18 10:30 Abnormal lab findings: Abnormal lab results WBC 23.6 K/mcL (4.3-11.1) H 04/07/18 05:15 Hgb 11.2 g/dL (11.5-15.4) L D 04/07/18 05:15 Hct 32.7 % (35.3-44.9) L 04/07/18 05:15 Neutrophils # 21.1 K/mcL (1.6-8.9) H 04/07/18 05:15 Hypersegmented Neuts Present (Not Present) A 04/07/18 05:15 Reactive Lymphocytes Present (Not Present) A 04/07/18 05:15 PT 12.8 Seconds (9.4-12.1) H 04/06/18 11:25 APTT 54.3 Seconds (26.0-36.0) H 04/07/18 05:15 D-Dimer 797 ng/mLFEU (0-500) H 04/06/18 10:30 ABG pO2 456 mmHg (85-104) H 04/06/18 01:51 ABG O2 Saturation 100 % (95-98) H 04/06/18 01:51 ABG Base Excess -3 mEq/L (-2 to 3) L 04/06/18 01:51 Sodium 132 mEq/L (136-145) L 04/07/18 00:39 Potassium 3.4 mEq/L (3.5-5.1) L 04/07/18 00:39 Carbon Dioxide 17 mEq/L (23-29) L 04/07/18 00:39 BUN 7 mg/dL (8-23) L 04/07/18 00:39 Glucose 143 mg/dL (70-105) H 04/07/18 00:39 POC Glucose 134 mg/dL (70-99) H 04/06/18 17:16 Calculated Osmolality 274 (280-300) L 04/07/18 00:39 Phosphorus 2.1 mg/dL (2.7-4.5) L 04/07/18 00:39 AST 63 Units/L (13-39) H 04/07/18 00:39 Creatine Kinase 316 Units/L (30-223) H 04/06/18 12:07 Troponin I 3.49 ng/mL (< 0.04) H* 04/06/18 12:07 B-Natriuretic Peptide 1756 pg/mL (Less than 100) H 04/06/18 13:21 Serum Total Protein 6.1 g/dL (6.4-8.9) L 04/07/18 00:39 Globulin 2.1 g/dL (2.4-3.5) L 04/07/18 00:39 TSH 0.309 mcIU/mL (0.340-5.600) L 04/06/18 18:22 Urine Protein 100 mg/dL (Neg-Trace) H 04/06/18 05:00 Urine Glucose (UA) 100 mg/dL (Normal) H 04/06/18 05:00 Urine Ketones 80 mg/dL (Negative) H 04/06/18 05:00 Urine Blood Small (Negative) H 04/06/18 05:00 Urine Microscopic RBC 5-15 per hpf (0-3) H 04/06/18 05:00 Ur Squamous Epith Cells Many per lpf (None-Few) H 04/06/18 05:00 - Microbiology Findings Microbiology Findings: Microbiology, Last 48 Hours 04/06/18 21:30 Legionella Antigen - Final Urine,Clean Catch Streptococcus pneumoniae Antigen (M - Final 04/06/18 18:22 Blood Culture - Preliminary Peripheral Venipuncture Culture is incubating and being continuously monitored for growth. Final report to follow. 04/06/18 12:07 Blood Culture - Preliminary Arterial Line Culture is incubating and being continuously monitored for growth. Final report to follow. 04/06/18 03:36 Blood Culture - Preliminary Peripheral Venipuncture Culture is incubating and being continuously monitored for growth. Final report to follow. 04/06/18 03:53 Blood Culture - Preliminary Peripheral Venipuncture Culture is incubating and being continuously monitored for growth. Final report to follow. - Clinical Findings Intake & Output: Intake & Output 04/06/18 04/07/18 04/07/18 23:59 07:59 15:59 Intake Total 610 / 610 120 / 120 Output Total 900 / 900 450 / 450 Balance -290 / -290 -330 / -330 - VTE Documentation of Mechanical Device: Intermittent pneumatic compression device
[2018-04-07] MEDS: Aspirin 81 MG TAB.CHEW PO SCH (09:00)
--- NOTE | 2018-04-07 10:35 | Cardiology Progress Note ---
Date of Encounter: 04/07/18 Time of Encounter: 09:45 Assessment and Plan (1) Elevated troponin Current Visit: Yes Status: Acute Troponin peak 4.06 with downward trend, NSTEMI type I vs. II in the setting of sepsis (mutifocal PNA) and unresponsiveness. Initial EKG shows NSR with no acute ST changes. Repeat EKG showed SR with short NE interval. She was found unresponsive last night. AMS may be secondary to Valium. No prior history of CAD. Recent hospital stay with elevated troponin in the setting of GI bleed. No heparin gtt d/t GI bleed, pt. admitted with complaints of melena and hematochezia. TTE demonstrated severely reduced LVEF, 15%, prior TTE showed normal LVEF ( December 26/2018: EF 65-70%). Continue asa and statin. Recommend BB (toprol XL) when BP will tolerate, currently hypotensive. (2) Cardiomyopathy Current Visit: Yes Status: Acute LVEF 15%, etiology unclear. Reports atypical chest pain symptoms, Troponin peak at 4.06. Given GI bleed (H/H appears stable); recommend diagnostic LHC when hemodynamically stable. Discussed with Dr. Shepard, recommend at least 3 days of IV atb for multifocal PNA prior to proceeding with LHC. No prior ischemic evaluation. Clinically appears euvolemic upon exam. Start BB when able, consider ACEi upon discharge if able. Strict I&Os, daily weights, Na/fluid restricted diet. Qualifiers: Cardiomyopathy type: unspecified Qualified Code(s): I42.9 - Cardiomyopathy , unspecified (3) Abdominal pain Current Visit: Yes Status: Acute Dr. Bass following. Planning for EGD and colonoscopy. Qualifiers: Abdominal location: generalized Qualified Code(s): R10.84 - Generalized abdominal pain Discussion w patient/family: The assessment and plan as outlined above was discussed with the patient and/or family members who expressed understanding and agreement. All questions were answered. Thank you for involving us in the care of your patient. Please call with any questions. The patient will be discussed and reviewed with Dr. Shepard, changes to be made accordingly. Subjective Principal diagnosis: Syncope, NSTEMI, abdominal pain Interval history: Seen and examined. Patient reports symptoms have improved this AM. Reports episode of "knife-like" chest pain this morning, lasted a few minutes, improved after sitting up. Continues to have nausea and vomiting, improving. Objective Vital Signs, Last 4 Hours Temp Pulse Resp BP Pulse Ox 04/07/18 09:47 98.2 F 18 85/62 90 04/07/18 09:11 18 92/67 90 04/07/18 08:00 18 85/62 90 04/07/18 07:20 98.2 F 04/07/18 07:00 78 18 74/43 90 General: Conversant HEENT: Atraumatic, Normocephaly Cardiac: Reg Rate and Rhythm, Normal S1 and S2, Other (tachycardiac) Lungs: Normal Breath Sounds Neuro: Alert and responsive Abdomen: Soft Skin: No rashes noted on visualized skin Musculoskeletal: No Chest Wall Tenderness Extremities: No Edema, Normal Pulses Results 04/07/18 05:15 04/07/18 00:39 Lab Results 04/06/18 04/06/18 04/06/18 10:30 10:30 10:30 WBC Hgb Hct Plt Count INR APTT D-Dimer 797 H Sodium Potassium Chloride Carbon Dioxide BUN Creatinine Glucose Calcium Magnesium 1.5 L Total Bilirubin AST ALT Alkaline Phosphatase Troponin I 4.06 H* B-Natriuretic Peptide TSH 04/06/18 04/06/18 04/06/18 11:25 11:25 12:07 WBC 18.0 H Hgb 15.9 H Hct 46.8 H Plt Count 411 H INR 1.2 APTT 30.8 D-Dimer Sodium Potassium Chloride Carbon Dioxide BUN Creatinine Glucose Calcium Magnesium Total Bilirubin AST ALT Alkaline Phosphatase Troponin I 3.49 H* B-Natriuretic Peptide TSH 04/06/18 04/06/18 04/06/18 13:21 13:21 18:22 WBC 18.7 H 22.0 H Hgb 15.6 H 14.7 Hct 46.0 H 42.5 Plt Count 394 334 INR APTT D-Dimer Sodium Potassium Chloride Carbon Dioxide BUN Creatinine Glucose Calcium Magnesium Total Bilirubin AST ALT Alkaline Phosphatase Troponin I B-Natriuretic Peptide 1756 H TSH 04/06/18 04/06/18 04/07/18 18:22 18:22 00:39 WBC 24.0 H Hgb 12.9 D Hct 37.3 Plt Count 289 INR APTT 85.0 H D D-Dimer Sodium Potassium Chloride Carbon Dioxide BUN Creatinine Glucose Calcium Magnesium Total Bilirubin AST ALT Alkaline Phosphatase Troponin I B-Natriuretic Peptide TSH 0.309 L 04/07/18 04/07/18 04/07/18 00:39 00:39 00:39 WBC Hgb Hct Plt Count INR APTT 58.6 H D-Dimer Sodium 132 L Potassium 3.4 L Chloride 101 Carbon Dioxide 17 L BUN 7 L Creatinine 0.64 Glucose 143 H Calcium 8.7 Magnesium 2.1 Total Bilirubin 0.7 AST 63 H ALT 14 Alkaline Phosphatase 48 Troponin I B-Natriuretic Peptide TSH 04/07/18 04/07/18 05:15 05:15 WBC 23.6 H Hgb 11.2 L D Hct 32.7 L Plt Count 250 INR APTT 54.3 H D-Dimer Sodium Potassium Chloride Carbon Dioxide BUN Creatinine Glucose Calcium Magnesium Total Bilirubin AST ALT Alkaline Phosphatase Troponin I B-Natriuretic Peptide TSH Active Medications Albuterol Sulfate (Albuterol Inhaler) 2 puff IH Q4H PRN PRN Reason: Shortness Of Breath Stop: 10/05/18 15:58 Albuterol/Ipratropium (Duoneb) 3 ml IH [id number] PRN PRN Reason: Shortness Of Breath/Wheezing Stop: 10/05/18 18:40 Aspirin (Aspirin) 81 mg PO DAILY YOON Stop: 10/06/18 11:16 Atorvastatin Calcium (Lipitor) 40 mg PO HS YOON Stop: 10/06/18 21:01 Last Admin: 04/06/18 20:16 Dose: 40 mg Heparin Sodium (Porcine) (Heparin) 2,800 unit 60 unit/kg (2800 unit) IVP Q6HR PRN PRN Reason: SEE COMMENTS Stop: 10/06/18 11:04 Heparin Sodium (Porcine) (Heparin) 1,400 unit 30 unit/kg (1400 unit) IVP Q6H PRN PRN Reason: SEE COMMENTS Stop: 10/06/18 11:04 Heparin Sodium/Dextrose (Heparin 25,000 Unit/500 Ml D5w) 25,000 unit in 500 mls @ 11.208 mls/hr IVC .Q24H YOON; 12 UNIT/KG/HR PRN Reason: Protocol Stop: 10/06/18 11:16 Last Titration: 04/07/18 06:14 Dose: 14 unit/kg/hr, 13.076 mls/hr Linezolid/Dextrose (Zyvox Premix 600mg/300ml) 600 mg in 300 mls @ 150 mls/hr IVPB Q12HR [facility] Stop: 10/06/18 06:01 Last Admin: 04/07/18 05:07 Dose: 150 mls/hr Meropenem 1,000 mg/ Sterile (Water) 10 mls @ 120 mls/hr IVP Q8H [facility] Stop: 10/06/18 04:01 Last Infusion: 04/07/18 04:37 Dose: Infused Acetaminophen (Ofirmev 1,000 Mg/100 Ml) 1,000 mg in 100 mls @ 400 mls/hr IVPB Q6H [facility] Stop: 10/06/18 19:24 Last Admin: 04/07/18 02:46 Dose: Not Given Albumin Human (Alburx 5%) 12.5 gm in 250 mls @ 60 mls/hr IVPB ONCE ONE Stop: 04/07/18 11:43 Lorazepam (Ativan) 0.5 mg PO BID [facility] Stop: 10/05/18 21:01 Last Admin: 04/06/18 20:16 Dose: 0.5 mg Omeprazole (Prilosec) 20 mg PO 0630 [facility] Stop: 10/07/18 06:31 Last Admin: 04/07/18 05:07 Dose: 20 mg Ondansetron HCl (Zofran) 4 mg IVP Q6HR PRN; Protocol PRN Reason: Nausea And Vomiting Stop: 10/05/18 17:48 Last Admin: 04/06/18 23:57 Dose: 4 mg Perphenazine (Trilafon) 4 mg PO QID PRN PRN Reason: Anxiety Promethazine HCl (Phenergan) 12.5 mg IVP Q6HR PRN PRN Reason: Nausea And Vomiting Stop: 10/05/18 17:48 Tizanidine HCl (Zanaflex) 4 mg PO Q5H PRN PRN Reason: Muscle Spasm Stop: 10/05/18 19:01 Last Admin: 04/07/18 04:22 Dose: 4 mg - Imaging and Cardiology Echo: report reviewed Other Results: 12 hour tele: avg [id number] ST. - EKG Interpretation EKG results cardiology: personally reviewed - VTE Documentation of Mechanical Device: Intermittent pneumatic compression device Consult Discharge Plan - Plan Referrals: Lakshmi Rahman MD [Primary Care Provider] - 04/19/18 10:00 am
--- NOTE | 2018-04-07 11:45 | Infectious Disease Progress No ---
Date of Encounter: 04/07/18 Time of Encounter: 11:43 - Assessment and Plan (1) Severe sepsis Current Visit: Yes Status: Acute The patient had three SIRS criteria plus lactic acidosis, hypotension, and acute coronary syndrome. Likely secondary to multifocal pneumonia. Improved. WBC stable. Hypotension improved. Tachycardia improved. Blood cultures drawn 04/06/18 are pending x 4 sets. (2) Multifocal pneumonia Current Visit: Yes Status: Acute Location: Bilateral lungs. Causative organism: Unclear. RIP negative. Legionella and S. pneumo UATs. The patient is not coughing anything up to get a sputum specimen. Continue Zyvox 600mg IV BID. Continue Meropenem 1 gram IV Q8H. Duration of treatment depends on the clinical picture. Monitor renal function and dose-adjust antibiotics. Avoid SSRIs while on Zyvox. (3) GI bleed Current Visit: Yes Status: Acute FOBT positive. Hgb stable. No acute bleeding noted on exam. General surgery consulted and following. Qualifiers: GI bleed type/associated pathology: melena Qualified Code(s): K92.1 - Melena (4) Drug allergy, antibiotic Current Visit: Yes Status: Acute Patient reports allergy to multiple antibiotics including PCN - makes her tongue swell. Allergies to Cipro, Vancomycin, and Clindamycin are not clear, but likely adverse reactions vs. true allergies. (5) Acute coronary syndrome Current Visit: Yes Status: Acute Troponin peaked at 4.01. Appreciate cardiology's recommendation. Patient with severe sepsis and GI bleed she would be very high risk for angioplasty apparently. (6) COPD (chronic obstructive pulmonary disease) Current Visit: Yes Status: Chronic Qualifiers: COPD type: unspecified COPD Qualified Code(s): J44.9 - Chronic obstructive pulmonary disease, unspecified (7) Crohns disease Current Visit: Yes Status: Acute Qualifiers: Gastrointestinal tract location: unspecified location Digestive disease complication type: with rectal bleeding Qualified Code(s): K50.911 - Crohn's disease, unspecified, with rectal bleeding (8) Schizoaffective disorder, chronic condition Current Visit: Yes Status: Chronic - Subjective Interval history: Patient seen and examined. Overnight events noted. Patient states that overall she feels better. Denies fevers, chills, or rigors. Denies chest pain. Reports a dry cough. Denies shortness of breath. Denies nausea or vomiting. Denies BM since yesterday. Reports chronic abdominal pain. Denies rashes or skin lesions. Infect Dis PN-Objective Data - Labs CBC & Chem 7: 04/07/18 13:05 04/07/18 00:39 Labs: Laboratory Results - last 24 hr 04/06/18 04/06/18 04/06/18 11:25 11:25 12:07 WBC 18.0 H RBC 5.57 H Hgb 15.9 H Hct 46.8 H MCV 84.0 MCH 28.5 MCHC 34.0 RDW 12.5 Plt Count 411 H MPV 10.0 Immature Gran % Seg Neutrophils % Lymphocytes % Monocytes % Eosinophils % Basophils % Neutrophils # Lymphocytes # Monocytes # Eosinophils # Basophils # Hypersegmented Neuts Reactive Lymphocytes Platelet Estimate PT 12.8 H INR 1.2 APTT 30.8 Sodium Potassium Chloride Carbon Dioxide BUN Creatinine Est GFR ( Amer) Est GFR (Non-Af Amer) BUN/Creatinine Ratio Glucose POC Glucose Calculated Osmolality Lactic Acid Calcium Phosphorus Magnesium Total Bilirubin AST ALT Alkaline Phosphatase Creatine Kinase 316 H Troponin I 3.49 H* B-Natriuretic Peptide Serum Total Protein Albumin Globulin Albumin/Globulin Ratio TSH Chlamy pneumoniae PCR Adenovirus (PCR) B. pertussis DNA (PCR) B.parapertussis DNA PCR Coronavirus OC43 (PCR) Coronavirus HKU1 (PCR) Coronavirus 229E (PCR) Coronavirus NL63 (PCR) Human Metapneumovir PCR Influenza A (H1) PCR Influ A (H1N1/09) PCR Influenza A (H3) PCR Influenza A Untype (PCR) Influenza Type B (PCR) M.pneumoniae DNA (PCR) Parainfluenza 1 (PCR) Parainfluenza 2 (PCR) Parainfluenza 3 (PCR) Parainfluenza 4 (PCR) RSV (PCR) Entero/Rhino (PCR) 04/06/18 04/06/18 04/06/18 13:21 13:21 13:21 WBC 18.7 H RBC 5.49 H Hgb 15.6 H Hct 46.0 H MCV 83.8 MCH 28.4 MCHC 33.9 RDW 12.5 Plt Count 394 MPV 9.8 Immature Gran % 0.7 Seg Neutrophils % 89.3 Lymphocytes % 5.1 Monocytes % 4.8 Eosinophils % 0.0 Basophils % 0.1 Neutrophils # 16.7 H Lymphocytes # 1.0 Monocytes # 0.9 Eosinophils # 0.0 Basophils # 0.0 Hypersegmented Neuts Reactive Lymphocytes Platelet Estimate PT INR APTT Sodium Potassium Chloride Carbon Dioxide BUN Creatinine Est GFR ( Amer) Est GFR (Non-Af Amer) BUN/Creatinine Ratio Glucose POC Glucose Calculated Osmolality Lactic Acid 2.9 H Calcium Phosphorus Magnesium Total Bilirubin AST ALT Alkaline Phosphatase Creatine Kinase Troponin I B-Natriuretic Peptide 1756 H Serum Total Protein Albumin Globulin Albumin/Globulin Ratio TSH Chlamy pneumoniae PCR Adenovirus (PCR) B. pertussis DNA (PCR) B.parapertussis DNA PCR Coronavirus OC43 (PCR) Coronavirus HKU1 (PCR) Coronavirus 229E (PCR) Coronavirus NL63 (PCR) Human Metapneumovir PCR Influenza A (H1) PCR Influ A (H1N1/09) PCR Influenza A (H3) PCR Influenza A Untype (PCR) Influenza Type B (PCR) M.pneumoniae DNA (PCR) Parainfluenza 1 (PCR) Parainfluenza 2 (PCR) Parainfluenza 3 (PCR) Parainfluenza 4 (PCR) RSV (PCR) Entero/Rhino (PCR) 04/06/18 04/06/18 04/06/18 17:16 18:22 18:22 WBC 22.0 H RBC 5.07 H Hgb 14.7 Hct 42.5 MCV 83.8 MCH 29.0 MCHC 34.6 RDW 12.8 Plt Count 334 MPV 10.5 Immature Gran % 0.8 Seg Neutrophils % 90.3 Lymphocytes % 4.2 Monocytes % 4.6 Eosinophils % 0.0 Basophils % 0.1 Neutrophils # 19.8 H Lymphocytes # 0.9 Monocytes # 1.0 Eosinophils # 0.0 Basophils # 0.0 Hypersegmented Neuts Reactive Lymphocytes Platelet Estimate PT INR APTT 85.0 H D Sodium Potassium Chloride Carbon Dioxide BUN Creatinine Est GFR ( Amer) Est GFR (Non-Af Amer) BUN/Creatinine Ratio Glucose POC Glucose 134 H Calculated Osmolality Lactic Acid Calcium Phosphorus Magnesium Total Bilirubin AST ALT Alkaline Phosphatase Creatine Kinase Troponin I B-Natriuretic Peptide Serum Total Protein Albumin Globulin Albumin/Globulin Ratio TSH Chlamy pneumoniae PCR Adenovirus (PCR) B. pertussis DNA (PCR) B.parapertussis DNA PCR Coronavirus OC43 (PCR) Coronavirus HKU1 (PCR) Coronavirus 229E (PCR) Coronavirus NL63 (PCR) Human Metapneumovir PCR Influenza A (H1) PCR Influ A (H1N1/09) PCR Influenza A (H3) PCR Influenza A Untype (PCR) Influenza Type B (PCR) M.pneumoniae DNA (PCR) Parainfluenza 1 (PCR) Parainfluenza 2 (PCR) Parainfluenza 3 (PCR) Parainfluenza 4 (PCR) RSV (PCR) Entero/Rhino (PCR) 04/06/18 04/06/18 04/06/18 18:22 18:22 21:30 WBC RBC Hgb Hct MCV MCH MCHC RDW Plt Count MPV Immature Gran % Seg Neutrophils % Lymphocytes % Monocytes % Eosinophils % Basophils % Neutrophils # Lymphocytes # Monocytes # Eosinophils # Basophils # Hypersegmented Neuts Reactive Lymphocytes Platelet Estimate PT INR APTT Sodium Potassium Chloride Carbon Dioxide BUN Creatinine Est GFR ( Amer) Est GFR (Non-Af Amer) BUN/Creatinine Ratio Glucose POC Glucose Calculated Osmolality Lactic Acid 2.3 H Calcium Phosphorus Magnesium Total Bilirubin AST ALT Alkaline Phosphatase Creatine Kinase Troponin I B-Natriuretic Peptide Serum Total Protein Albumin Globulin Albumin/Globulin Ratio TSH 0.309 L Chlamy pneumoniae PCR Not Detected Adenovirus (PCR) Not Detected B. pertussis DNA (PCR) Not Detected B.parapertussis DNA PCR Not Detected Coronavirus OC43 (PCR) Not Detected Coronavirus HKU1 (PCR) Not Detected Coronavirus 229E (PCR) Not Detected Coronavirus NL63 (PCR) Not Detected Human Metapneumovir PCR Not Detected Influenza A (H1) PCR Not Detected Influ A (H1N1/09) PCR Not Detected Influenza A (H3) PCR Not Detected Influenza A Untype (PCR) Not Detected Influenza Type B (PCR) Not Detected M.pneumoniae DNA (PCR) Not Detected Parainfluenza 1 (PCR) Not Detected Parainfluenza 2 (PCR) Not Detected Parainfluenza 3 (PCR) Not Detected Parainfluenza 4 (PCR) Not Detected RSV (PCR) Not Detected Entero/Rhino (PCR) Not Detected 04/07/18 04/07/18 04/07/18 00:39 00:39 00:39 WBC 24.0 H RBC 4.42 Hgb 12.9 D Hct 37.3 MCV 84.4 MCH 29.2 MCHC 34.6 RDW 12.8 Plt Count 289 MPV 9.7 Immature Gran % 0.6 Seg Neutrophils % 90.5 Lymphocytes % 3.8 Monocytes % 5.0 Eosinophils % 0.0 Basophils % 0.1 Neutrophils # 21.7 H Lymphocytes # 0.9 Monocytes # 1.2 Eosinophils # 0.0 Basophils # 0.0 Hypersegmented Neuts Reactive Lymphocytes Platelet Estimate Normal PT INR APTT Sodium 132 L Potassium 3.4 L Chloride 101 Carbon Dioxide 17 L BUN 7 L Creatinine 0.64 Est GFR ( Amer) > 60 Est GFR (Non-Af Amer) > 60 BUN/Creatinine Ratio 11 Glucose 143 H POC Glucose Calculated Osmolality 274 L Lactic Acid Calcium 8.7 Phosphorus 2.1 L Magnesium 2.1 Total Bilirubin 0.7 AST 63 H ALT 14 Alkaline Phosphatase 48 Creatine Kinase Troponin I B-Natriuretic Peptide Serum Total Protein 6.1 L Albumin 4.0 Globulin 2.1 L Albumin/Globulin Ratio 1.9 TSH Chlamy pneumoniae PCR Adenovirus (PCR) B. pertussis DNA (PCR) B.parapertussis DNA PCR Coronavirus OC43 (PCR) Coronavirus HKU1 (PCR) Coronavirus 229E (PCR) Coronavirus NL63 (PCR) Human Metapneumovir PCR Influenza A (H1) PCR Influ A (H1N1/09) PCR Influenza A (H3) PCR Influenza A Untype (PCR) Influenza Type B (PCR) M.pneumoniae DNA (PCR) Parainfluenza 1 (PCR) Parainfluenza 2 (PCR) Parainfluenza 3 (PCR) Parainfluenza 4 (PCR) RSV (PCR) Entero/Rhino (PCR) 04/07/18 04/07/18 04/07/18 00:39 00:39 05:15 WBC 23.6 H RBC 3.90 Hgb 11.2 L D Hct 32.7 L MCV 83.8 MCH 28.7 MCHC 34.3 RDW 13.0 Plt Count 250 MPV 9.8 Immature Gran % 0.8 Seg Neutrophils % 89.3 Lymphocytes % 4.6 Monocytes % 5.2 Eosinophils % 0.0 Basophils % 0.1 Neutrophils # 21.1 H Lymphocytes # 1.1 Monocytes # 1.2 Eosinophils # 0.0 Basophils # 0.0 Hypersegmented Neuts Present A Reactive Lymphocytes Present A Platelet Estimate Normal PT INR APTT 58.6 H Sodium Potassium Chloride Carbon Dioxide BUN Creatinine Est GFR ( Amer) Est GFR (Non-Af Amer) BUN/Creatinine Ratio Glucose POC Glucose Calculated Osmolality Lactic Acid 1.6 Calcium Phosphorus Magnesium Total Bilirubin AST ALT Alkaline Phosphatase Creatine Kinase Troponin I B-Natriuretic Peptide Serum Total Protein Albumin Globulin Albumin/Globulin Ratio TSH Chlamy pneumoniae PCR Adenovirus (PCR) B. pertussis DNA (PCR) B.parapertussis DNA PCR Coronavirus OC43 (PCR) Coronavirus HKU1 (PCR) Coronavirus 229E (PCR) Coronavirus NL63 (PCR) Human Metapneumovir PCR Influenza A (H1) PCR Influ A (H1N1) PCR Influenza A (H3) PCR Influenza A Untype (PCR) Influenza Type B (PCR) M.pneumoniae DNA (PCR) Parainfluenza 1 (PCR) Parainfluenza 2 (PCR) Parainfluenza 3 (PCR) Parainfluenza 4 (PCR) RSV (PCR) Entero/Rhino (PCR) 04/07/18 04/07/18 05:15 05:15 WBC RBC Hgb Hct MCV MCH MCHC RDW Plt Count MPV Immature Gran % Seg Neutrophils % Lymphocytes % Monocytes % Eosinophils % Basophils % Neutrophils # Lymphocytes # Monocytes # Eosinophils # Basophils # Hypersegmented Neuts Reactive Lymphocytes Platelet Estimate PT INR APTT 54.3 H Sodium Potassium Chloride Carbon Dioxide BUN Creatinine Est GFR ( Amer) Est GFR (Non-Af Amer) BUN/Creatinine Ratio Glucose POC Glucose Calculated Osmolality Lactic Acid 1.1 Calcium Phosphorus Magnesium Total Bilirubin AST ALT Alkaline Phosphatase Creatine Kinase Troponin I B-Natriuretic Peptide Serum Total Protein Albumin Globulin Albumin/Globulin Ratio TSH Chlamy pneumoniae PCR Adenovirus (PCR) B. pertussis DNA (PCR) B.parapertussis DNA PCR Coronavirus OC43 (PCR) Coronavirus HKU1 (PCR) Coronavirus 229E (PCR) Coronavirus NL63 (PCR) Human Metapneumovir PCR Influenza A (H1) PCR Influ A (H1N1/) PCR Influenza A (H3) PCR Influenza A Untype (PCR) Influenza Type B (PCR) M.pneumoniae DNA (PCR) Parainfluenza 1 (PCR) Parainfluenza 2 (PCR) Parainfluenza 3 (PCR) Parainfluenza 4 (PCR) RSV (PCR) Entero/Rhino (PCR) Cultures: Cultures 04/06/18 21:30 Legionella Antigen - Final Urine,Clean Catch Streptococcus pneumoniae Antigen (M - Final 04/06/18 18:22 Blood Culture - Preliminary Peripheral Venipuncture Culture is incubating and being continuously monitored for growth. Final report to follow. 04/06/18 12:07 Blood Culture - Preliminary Arterial Line Culture is incubating and being continuously monitored for growth. Final report to follow. 04/06/18 03:36 Blood Culture - Preliminary Peripheral Venipuncture Culture is incubating and being continuously monitored for growth. Final report to follow. 04/06/18 03:53 Blood Culture - Preliminary Peripheral Venipuncture Culture is incubating and being continuously monitored for growth. Final report to follow. Serology 04/06/18 04/06/18 Range/Units 21:30 05:00 Urine Color Yellow (Yellow) Urine Clarity Clear (Clear) Urine pH 7.0 (5.0-8.0) pH Units Ur Specific [place] 1.013 (1.010-1.025) Urine Protein 100 H (Neg-Trace) mg/dL Urine Glucose (UA) 100 H (Normal) mg/dL Urine Ketones 80 H (Negative) mg/dL Urine Blood Small H (Negative) Urine Nitrite Negative (Negative) Urine Bilirubin Negative (Negative) Urine Urobilinogen Normal (Normal) mg/dL Ur Leukocyte Esterase Negative (Negative) Urine Microscopic RBC 5-15 H (0-3) per hpf Urine Microscopic WBC 0-3 (0-3) per hpf Ur Squamous Epith Cells Many H (None-Few) per lpf Urine Bacteria None Seen (None-Few) per hpf Hyaline Casts None Seen (None-Few) per lpf Ur Culture Indicated? NO (NO) Chlamy pneumoniae PCR Not Detected (Not Detect) Adenovirus (PCR) Not Detected (Not Detect) B. pertussis DNA (PCR) Not Detected (Not Detect) B.parapertussis DNA PCR Not Detected (Not Detect) Coronavirus OC43 (PCR) Not Detected (Not Detect) Coronavirus HKU1 (PCR) Not Detected (Not Detect) Coronavirus 229E (PCR) Not Detected (Not Detect) Coronavirus NL63 (PCR) Not Detected (Not Detect) Human Metapneumovir PCR Not Detected (Not Detect) Influenza A (H1) PCR Not Detected (Not Detect) Influ A (H1N1/09) PCR Not Detected (Not Detect) Influenza A (H3) PCR Not Detected (Not Detect) Influenza A Untype (PCR) Not Detected (Not Detect) Influenza Type B (PCR) Not Detected (Not Detect) M.pneumoniae DNA (PCR) Not Detected (Not Detect) Parainfluenza 1 (PCR) Not Detected (Not Detect) Parainfluenza 2 (PCR) Not Detected (Not Detect) Parainfluenza 3 (PCR) Not Detected (Not Detect) Parainfluenza 4 (PCR) Not Detected (Not Detect) RSV (PCR) Not Detected (Not Detect) Entero/Rhino (PCR) Not Detected (Not Detect) - Impressions Impressions Echocardiogram Limited Views 04/06/18 09:11 Impressions: LVEF 15%. Normal LV chamber size and wall thickness. Global LV systolic dysfunction with sparing of the basal segments. Cardiology service notified of findings. Left Ventricular Wall Motion: Rest Echo Findings The apex, apical inferior, mid inferior, apical anterior, mid anterior, apical septal, mid inferior septal, apical lateral, mid anterior lateral, mid anterior septal and mid inferior lateral verdugo were hypokinetic. All other wall segments showed normal motion. Findings: Study Quality * Technically adequate exam. ECG Findings * Sinus tachycardia. Left Ventricle * LVEF 15%. * Normal LV chamber size and wall thickness. Right Ventricle * Normal right ventricular structure and function. Aorta * Normally sized aortic root. Pericardium * The pericardium appears normal. IVC * The IVC is not well evaluated. Chest CTA 04/06/18 11:41 IMPRESSION: Bilateral parenchymal infiltrates with patchy areas of consolidation with small pleural effusions suggestive of probable multifocal pneumonia. No pulmonary emboli are identified. No aortic aneurysm or abdominal aortic dissection. The thoracic aorta is not well evaluated for a dissection, though the limited evaluation shows no definite dissection flap. Vascular evaluation of the abdomen shows a patent inferior mesenteric artery, as well as SMA and celiac artery. Of note, the celiac and SMA arise from a common trunk. No stenosis or thrombus is identified. No evidence of ischemic bowel. No acute process is seen within the abdomen or pelvis. D/ / 04/06/2018 13:54:23 David Katz MD / Beverley Arellano Interpreting Provider: David Katz MD Abdomen/Pelvis CTA 04/06/18 11:51 IMPRESSION: Bilateral parenchymal infiltrates with patchy areas of consolidation with small pleural effusions suggestive of probable multifocal pneumonia. No pulmonary emboli are identified. No aortic aneurysm or abdominal aortic dissection. The thoracic aorta is not well evaluated for a dissection, though the limited evaluation shows no definite dissection flap. Vascular evaluation of the abdomen shows a patent inferior mesenteric artery, as well as SMA and celiac artery. Of note, the celiac and SMA arise from a common trunk. No stenosis or thrombus is identified. No evidence of ischemic bowel. No acute process is seen within the abdomen or pelvis. D/ / 04/06/2018 13:54:23 David Katz MD / Beverley Arellano Interpreting Provider: David Katz MD Exam - Constitutional Vitals: Temp Pulse Resp BP Pulse Ox 98.2 F 99 18 78/53 94 04/07/18 09:47 04/07/18 11:00 04/07/18 11:00 04/07/18 11:00 04/07/18 11:00 General appearance: average body habitus, cooperative, no acute distress - Head Head exam: Present: atraumatic, normal inspection, normocephalic - Eye Eye exam: Present: EOMI, normal appearance, PERRL Pupils: Present: normal accommodation - ENT ENT exam: Present: mucous membranes moist - Neck Neck exam: Present: normal inspection - Respiratory Respiratory exam: Present: CTAB. Absent: rales, respiratory distress, rhonchi, wheezes - Cardiovascular Cardiovascular exam: Present: RRR, +S1, +S2 - GI/Abdominal GI/Abdominal exam: Present: normal bowel sounds, soft. Absent: distended, tenderness Additional comments: Askew catheter noted to be draining clear yellow urine. - Extremities Exam Extremities exam: Present: normal inspection. Absent: joint swelling, pedal edema, tenderness - Neurological Exam Neurological exam: Present: alert, oriented X3, no focal deficits - Psychiatric Psychiatric exam: Present: normal affect, normal mood - Skin Skin exam: Present: dry, intact, normal color, warm - VTE Documentation of Mechanical Device: Intermittent pneumatic compression device Consult Discharge Plan - Plan Referrals: Lakshmi Rahman MD [Primary Care Provider] - 06/25/18 10:00 am - Attending Attestation I examined this patient and my medical decision-making was reviewed with the Resident Physician. I agree with the documented findings, disposition and treatment plan as described except to the extent set forth below.
[2018-04-07] MEDS ORDERED: Potassium Phosphate 44 MEQ in 0.9 % Sodium Chloride 250 ML IVPB ONE (11:48)
[2018-04-07] MEDS: OXYCODONE Oral CONC 10 MG/0.5 ML ORAL.SYG PO PRN ×3 (12:05→23:34)
[2018-04-07] MEDS: *HR* LORazepam 0.5 MG TABLET PO SCH ×2 (12:30→19:52)
[2018-04-07 13:34] LABS: Basophils % 0.1 %; Hematocrit 26.4 % (35.3-44.9); Hemoglobin 9.1 g/dL (11.5-15.4); Immature Granulocytes % 0.6 % (0-4); Lymphocytes # 1.1 K/mcL (0.6-4.6); Lymphocytes % 5.5 %; Mean Corpuscular HGB Conc 34.5 g/dL (31.6-35.5); Mean Corpuscular Hemoglobin 29.2 pg (28.0-33.3); Mean Corpuscular Volume 84.6 fL (83.0-100.0); Mean Platelet Volume 9.9 fL (9.4-12.4); Monocytes % 5.1 %; Neutrophils # 17.9 K/mcL (1.6-8.9); Platelet Count 190 K/mcL (140-400); Red Blood Count 3.12 M/mcL (3.82-4.97); Red Cell Distribution Width 13.1 % (11.5-14.5); Segmented Neutrophils % 88.7 %
[2018-04-07 17:49] LABS: Basophils % 0.1 %; Hematocrit 27.6 % (35.3-44.9); Hemoglobin 9.7 g/dL (11.5-15.4); Immature Granulocytes % 0.7 % (0-4); Lymphocytes # 1.3 K/mcL (0.6-4.6); Lymphocytes % 6.6 %; Mean Corpuscular HGB Conc 35.1 g/dL (31.6-35.5); Mean Corpuscular Hemoglobin 29.8 pg (28.0-33.3); Mean Corpuscular Volume 84.9 fL (83.0-100.0); Mean Platelet Volume 9.7 fL (9.4-12.4); Monocytes # 0.9 K/mcL (0.0-1.3); Monocytes % 4.3 %; Neutrophils # 17.8 K/mcL (1.6-8.9); Platelet Count 187 K/mcL (140-400); Red Blood Count 3.25 M/mcL (3.82-4.97); Red Cell Distribution Width 13.2 % (11.5-14.5); Segmented Neutrophils % 88.3 %
[2018-04-08] MEDS ORDERED: Hyoscyamine 0.5 MG/ML MLS IVP ONE (02:47)
[2018-04-08] MEDS: Meropenem 1,000 MG in Water for inj. (sterile) 20 ML 10 ML IVP SCH ×3 (03:43→20:32)
[2018-04-08] MEDS: OXYCODONE Oral CONC 10 MG/0.5 ML ORAL.SYG PO PRN ×4 (03:48→20:30)
[2018-04-08] MEDS: tiZANidine 4 MG TABLET PO PRN ×4 (03:48→20:31)
[2018-04-08] MEDS ORDERED: *HR* LORazepam 2 MG/ML VIAL IVP ONE (04:07)
[2018-04-08 04:19] LABS: Basophils % 0.1 %; Hematocrit 29.5 % (35.3-44.9); Hemoglobin 9.9 g/dL (11.5-15.4); Immature Granulocytes % 0.6 % (0-4); Lymphocytes # 1.9 K/mcL (0.6-4.6); Lymphocytes % 8.6 %; Mean Corpuscular HGB Conc 33.6 g/dL (31.6-35.5); Mean Corpuscular Hemoglobin 28.5 pg (28.0-33.3); Mean Platelet Volume 9.8 fL (9.4-12.4); Monocytes # 1.2 K/mcL (0.0-1.3); Monocytes % 5.5 %; Neutrophils # 18.5 K/mcL (1.6-8.9); Platelet Count 216 K/mcL (140-400); Red Blood Count 3.47 M/mcL (3.82-4.97); Red Cell Distribution Width 13.3 % (11.5-14.5); Segmented Neutrophils % 85.2 %
[2018-04-08 04:38] LABS: Alanine Aminotransferase 12 Units/L (7-52); Albumin 4.3 g/dL (3.5-5.7); Albumin/Globulin Ratio 2.3 (1.1-2.2); Alkaline Phosphatase 39 Units/L (34-104); Aspartate Amino Transferase 34 Units/L (13-39); BUN/Creatinine Ratio 16 (6-26); Blood Urea Nitrogen 12 mg/dL (8-23); Calcium 8.9 mg/dL (8.6-10.3); Carbon Dioxide 21 mEq/L (23-29); Chloride 103 mEq/L (98-107); Globulin 1.9 g/dL (2.4-3.5); Glucose 100 mg/dL (70-105); Osmolality,Calculated 280 (280-300); Potassium 3.4 mEq/L (3.5-5.1); Sodium 135 mEq/L (136-145); Total Protein 6.2 g/dL (6.4-8.9); eGFR For African Americans > 60 (> 60); eGFR For Non-African Americans > 60 (> 60)
--- NOTE | 2018-04-08 07:51 | Pulmonology Progress Note ---
<Geremias Esparza - Last Filed: 04/08/18 13:22> Date of Encounter: 04/08/18 Time of Encounter: 09:00 Assessment and Plan (1) GI bleed Current Visit: Yes Status: Acute Hemoglobin has been stable throughout stay in hospital. Heparin drip was witheld yesterday due to dropping hemoglobin. Dropped from 12.9 to 11.2 and then down to 9.1 yesterday. H/H was rechecked today and is uptrending at 9.9. No reports of bloody stool since admission. No blood transfusions since admission. Last reported that in stool was on 04/05/18 with bright red and dark blood. Colonoscopy was scheduled yesterday but patient was unable to tolerate bowel prep. Colonoscopy has been delayed due to sepsis and unstable condition. Pt. typed and screened: O positive with negative antibody screen. Patient still continues to complain of dizziness and lightheadedness along with abdominal pain. Abdominal CT A showed a patent inferior mesenteric artery as well as a SMA and celiac artery with no evidence of ischemic bowel. - Continue to trend H/H. Will restart heparin drip if stable. - Monitor I/O's. - Advance to full liquid diet. - IVP Zofran and Phenergan for N/V - Continue Prilosec. Qualifiers: GI bleed type/associated pathology: melena Qualified Code(s): K92.1 - Melena (2) Chest pain Current Visit: Yes Status: Chronic BP has been stable. Currently at 117/96. Heparin was stopped due to anemia. LVEF of 15%. Likely stress induced cardiomyopathy. Cardiology recommends at least 3 days of IV ABX for PNA prior to proceeding with [facility] Qualifiers: Chest pain type: other chest pain Qualified Code(s): R07.89 - Other chest pain; R07.8 - Other chest pain (3) Leukocytosis Current Visit: Yes Status: Acute WBC today at 21.7 (yesterday at 20.2). Chest CTA shows Bilateral parenchymal infiltrates with patchy areas of consolidation with small pleural effusions suggestive of probable multifocal pneumonia. Given setting of vomiting, there is concern for aspiration PNA. Blood cultures were drawn. Patient on linezolid and meropenem Day # 3. - continue antibiotics. (4) Sepsis Current Visit: Yes Status: Acute Lactic acid was 1.1 yesterday. Her WBC continues to be elevated around 20 and unclear whether this is from infectious etiology at this point. - Continue albumin as needed. - Continue antibiotics. (5) Pneumonia Current Visit: Yes Status: Acute Repeat CXR shows moderate increase in pleural effusion. - Lasix 20 mg IV once. Chest X-Ray 04/08/18 06:41 IMPRESSION: Stable exam with bilateral pleural effusions and bilateral airspace opacities concerning for multifocal infiltrates. D/ / Aki Hazel MD / Aki Hazel MD Interpreting Provider: Aki Hazel MD Subjective Principal diagnosis: GI bleed, heart failure, multifocal PNA Interval history: Patient is complaining of intermittent minor chest tightness this morning. She says she usually experiences this tightness on a daily basis, but says today is slightly worse. She admits to occasional nausea, but again this is her baseline. She admits to bilateral lower abdominal pain. She admits to a subjective fever. She admits to a productive cough. She has been able to tolerate her diet. Objective PUL Vital signs: Last Vital Signs Temp 99.4 F 04/08/18 05:01 Pulse 99 04/08/18 06:00 Resp 24 04/08/18 06:00 BP 99/61 04/08/18 06:00 Pulse Ox 93 04/08/18 06:00 General appearance: no acute distress Eyes: nonicteric ENT: oropharynx moist Neck: supple Effort: normal Auscultation: bilateral: clear Percussion: bilateral: not dull Tactile fremitus: bilateral: normal Cardiovascular: other (Tachycardic) Gastrointestinal: normoactive bowel sounds, soft, tender (Minor tenderness to lower abdomen b/l with deep palpation. ), non-distended Integumentary: normal Extremities: no cyanosis, no edema, no clubbing, pink and warm, pulses normal, no ischemia or petechiae Gait: normal gait normal mental status mood appropriate, affect normal Results - Laboratory Findings CBC and BMP: 04/08/18 03:55 04/08/18 03:55 ABG ABG pH 7.38 pH Units (7.32-7.45) 04/06/18 01:51 ABG pCO2 37 mmHg (35-45) 04/06/18 01:51 ABG pO2 456 mmHg (85-104) H 04/06/18 01:51 ABG O2 Saturation 100 % (95-98) H 04/06/18 01:51 PT/INR, D-dimer PT 12.8 Seconds (9.4-12.1) H 04/06/18 11:25 D-Dimer 797 ng/mLFEU (0-500) H 04/06/18 10:30 Abnormal lab findings: Abnormal lab results WBC 21.7 K/mcL (4.3-11.1) H 04/08/18 03:55 RBC 3.47 M/mcL (3.82-4.97) L 04/08/18 03:55 Hgb 9.9 g/dL (11.5-15.4) L 04/08/18 03:55 Hct 29.5 % (35.3-44.9) L 04/08/18 03:55 Neutrophils # 18.5 K/mcL (1.6-8.9) H 04/08/18 03:55 Hypersegmented Neuts Present (Not Present) A 04/07/18 05:15 Reactive Lymphocytes Present (Not Present) A 04/07/18 05:15 PT 12.8 Seconds (9.4-12.1) H 04/06/18 11:25 APTT 54.3 Seconds (26.0-36.0) H 04/07/18 05:15 D-Dimer 797 ng/mLFEU (0-500) H 04/06/18 10:30 ABG pO2 456 mmHg (85-104) H 04/06/18 01:51 ABG O2 Saturation 100 % (95-98) H 04/06/18 01:51 ABG Base Excess -3 mEq/L (-2 to 3) L 04/06/18 01:51 Sodium 135 mEq/L (136-145) L 04/08/18 03:55 Potassium 3.4 mEq/L (3.5-5.1) L 04/08/18 03:55 Carbon Dioxide 21 mEq/L (23-29) L 04/08/18 03:55 POC Glucose 134 mg/dL (70-99) H 04/06/18 17:16 Phosphorus 2.1 mg/dL (2.7-4.5) L 04/07/18 00:39 Creatine Kinase 316 Units/L (30-223) H 04/06/18 12:07 Troponin I 3.49 ng/mL (< 0.04) H* 04/06/18 12:07 B-Natriuretic Peptide 1756 pg/mL (Less than 100) H 04/06/18 13:21 Serum Total Protein 6.2 g/dL (6.4-8.9) L 04/08/18 03:55 Globulin 1.9 g/dL (2.4-3.5) L 04/08/18 03:55 Albumin/Globulin Ratio 2.3 (1.1-2.2) H 04/08/18 03:55 TSH 0.309 mcIU/mL (0.340-5.600) L 04/06/18 18:22 Urine Protein 100 mg/dL (Neg-Trace) H 04/06/18 05:00 Urine Glucose (UA) 100 mg/dL (Normal) H 04/06/18 05:00 Urine Ketones 80 mg/dL (Negative) H 04/06/18 05:00 Urine Blood Small (Negative) H 04/06/18 05:00 Urine Microscopic RBC 5-15 per hpf (0-3) H 04/06/18 05:00 Ur Squamous Epith Cells Many per lpf (None-Few) H 04/06/18 05:00 - Microbiology Findings Microbiology Findings: Microbiology, Last 48 Hours 04/06/18 21:30 Legionella Antigen - Final Urine,Clean Catch Streptococcus pneumoniae Antigen (M - Final 04/06/18 18:22 Blood Culture - Preliminary Peripheral Venipuncture Culture is incubating and being continuously monitored for growth. Final report to follow. 04/06/18 12:07 Blood Culture - Preliminary Arterial Line Culture is incubating and being continuously monitored for growth. Final report to follow. 04/06/18 03:36 Blood Culture - Preliminary Peripheral Venipuncture Culture is incubating and being continuously monitored for growth. Final report to follow. 04/06/18 03:53 Blood Culture - Preliminary Peripheral Venipuncture Culture is incubating and being continuously monitored for growth. Final report to follow. - Clinical Findings Intake & Output: Intake & Output 04/07/18 04/07/18 04/08/18 15:59 23:59 07:59 Intake Total 310 / 310 Output Total 325 / 325 575 / 575 175 / 175 Balance -315 / -315 -265 / -265 -175 / -175 Weight 51.7 kg - VTE Documentation of Mechanical Device: Intermittent pneumatic compression device Consult Discharge Plan - Plan Referrals: Lakshmi Rahman MD [Primary Care Provider] - 04/19/18 10:00 am <Guillaume Aly - Last Filed: 04/08/18 15:40> Date of Encounter: 04/08/18 Objective PUL Vital signs: Last Vital Signs Temp 97.5 F L 04/08/18 08:00 Pulse 99 04/08/18 06:00 Resp 24 04/08/18 06:00 BP 99/61 04/08/18 06:00 Pulse Ox 93 04/08/18 06:00 Results - Laboratory Findings CBC and BMP: 04/08/18 03:55 04/08/18 03:55 ABG ABG pH 7.38 pH Units (7.32-7.45) 04/06/18 01:51 ABG pCO2 37 mmHg (35-45) 04/06/18 01:51 ABG pO2 456 mmHg (85-104) H 04/06/18 01:51 ABG O2 Saturation 100 % (95-98) H 04/06/18 01:51 PT/INR, D-dimer PT 12.8 Seconds (9.4-12.1) H 04/06/18 11:25 D-Dimer 797 ng/mLFEU (0-500) H 04/06/18 10:30 Abnormal lab findings: Abnormal lab results WBC 21.7 K/mcL (4.3-11.1) H 04/08/18 03:55 RBC 3.47 M/mcL (3.82-4.97) L 04/08/18 03:55 Hgb 9.9 g/dL (11.5-15.4) L 04/08/18 03:55 Hct 29.5 % (35.3-44.9) L 04/08/18 03:55 Neutrophils # 18.5 K/mcL (1.6-8.9) H 04/08/18 03:55 Hypersegmented Neuts Present (Not Present) A 04/07/18 05:15 Reactive Lymphocytes Present (Not Present) A 04/07/18 05:15 PT 12.8 Seconds (9.4-12.1) H 04/06/18 11:25 APTT 54.3 Seconds (26.0-36.0) H 04/07/18 05:15 D-Dimer 797 ng/mLFEU (0-500) H 04/06/18 10:30 ABG pO2 456 mmHg (85-104) H 04/06/18 01:51 ABG O2 Saturation 100 % (95-98) H 04/06/18 01:51 ABG Base Excess -3 mEq/L (-2 to 3) L 04/06/18 01:51 Sodium 135 mEq/L (136-145) L 04/08/18 03:55 Potassium 3.4 mEq/L (3.5-5.1) L 04/08/18 03:55 Carbon Dioxide 21 mEq/L (23-29) L 04/08/18 03:55 POC Glucose 134 mg/dL (70-99) H 04/06/18 17:16 Phosphorus 2.1 mg/dL (2.7-4.5) L 04/07/18 00:39 Creatine Kinase 316 Units/L (30-223) H 04/06/18 12:07 Troponin I 3.49 ng/mL (< 0.04) H* 04/06/18 12:07 B-Natriuretic Peptide 1756 pg/mL (Less than 100) H 04/06/18 13:21 Serum Total Protein 6.2 g/dL (6.4-8.9) L 04/08/18 03:55 Globulin 1.9 g/dL (2.4-3.5) L 04/08/18 03:55 Albumin/Globulin Ratio 2.3 (1.1-2.2) H 04/08/18 03:55 TSH 0.309 mcIU/mL (0.340-5.600) L 04/06/18 18:22 Urine Protein 100 mg/dL (Neg-Trace) H 04/06/18 05:00 Urine Glucose (UA) 100 mg/dL (Normal) H 04/06/18 05:00 Urine Ketones 80 mg/dL (Negative) H 04/06/18 05:00 Urine Blood Small (Negative) H 04/06/18 05:00 Urine Microscopic RBC 5-15 per hpf (0-3) H 04/06/18 05:00 Ur Squamous Epith Cells Many per lpf (None-Few) H 04/06/18 05:00 - Microbiology Findings Microbiology Findings: Microbiology, Last 48 Hours 04/06/18 21:30 Legionella Antigen - Final Urine,Clean Catch Streptococcus pneumoniae Antigen (M - Final 04/06/18 18:22 Blood Culture - Preliminary Peripheral Venipuncture Culture is incubating and being continuously monitored for growth. Final report to follow. 04/06/18 12:07 Blood Culture - Preliminary Arterial Line Culture is incubating and being continuously monitored for growth. Final report to follow. 04/06/18 03:36 Blood Culture - Preliminary Peripheral Venipuncture Culture is incubating and being continuously monitored for growth. Final report to follow. 04/06/18 03:53 Blood Culture - Preliminary Peripheral Venipuncture Culture is incubating and being continuously monitored for growth. Final report to follow. - Clinical Findings Intake & Output: Intake & Output 04/07/18 04/08/18 04/08/18 23:59 07:59 15:59 Intake Total 310 / 310 Output Total 575 / 575 175 / 175 50 / 50 Balance -265 / -265 -175 / -175 -50 / -50 Weight 51.7 kg - Attending Attestation I examined this patient and my medical decision-making was reviewed with the Resident Physician. I agree with the documented findings, disposition and treatment plan as described except to the extent set forth below. We independently had [id number] contact with the patient Patient seen and examined at bedside Labs, radiology, chart personally reviewed. Management was reviewed during multidisciplinary critical care rounds. [employer]: Awake and alert no deficits Pulm: worsening hypoxia overnight s/t hydrostatic pulmonary edema atelectasis and PNA. Lasix given. CXR noted Cards: BP stable overnight. She has acute cardiomyopathy likely stress induced cardiology following. Heparin stopped yesterday becasue of anemia. FEN-GI: ADAT. NO evidence of GI bleeding. Gen surgery following Renal: UOP monitored no ELIZA ID: Treating with ABx for Likely aspiration PNA. ID following. Heme/Onc: Mechanical DVT prophylaxis given. H/H stable overnight. Slight drop overnight but uptrended overnight. CT abd without acute bleeding. Endo: Glucose Monitored replace eletrolytes. Integ/MSK: Skin Care per routine ICU Nursing Protocol to prevent ulcers. Lines: All lines examined without evidence of infection : Dispo: Stable for transfer to SDU. CODE: Full Code.
[2018-04-08] MEDS ORDERED: Furosemide 20 MG/2 ML VIAL IVP ONE ×2 (08:08→08:47)
[2018-04-08] MEDS: Aspirin 81 MG TAB.CHEW PO SCH (08:45)
[2018-04-08] MEDS: Ondansetron 4 MG/2 ML VIAL IVP PRN ×2 (08:45→20:35)
[2018-04-08] MEDS: *HR* LORazepam 0.5 MG TABLET PO SCH (08:45)
--- NOTE | 2018-04-08 09:56 | Event Note ---
Date of Encounter: 04/08/18 Time of Encounter: 09:55 discussed with hospitalist service; they will take over as primary service as any plans for procedures should be delayed until cardiac issues and other medical issues are resolved
[2018-04-08] MEDS ORDERED: Potassium Phosphate 44 MEQ in 0.9 % Sodium Chloride 250 ML IVPB ONE (11:21)
--- NOTE | 2018-04-08 12:19 | Cardiology Progress Note ---
<Steve Oliveros - Last Filed: 04/08/18 13:25> Date of Encounter: 04/08/18 Time of Encounter: 11:00 Assessment and Plan (1) Elevated troponin I level Current Visit: Yes Status: Acute Troponin peak 4.06 with downward trend, NSTEMI type I vs. II in the setting of sepsis (mutifocal PNA) and unresponsiveness. Initial EKG shows NSR with no acute ST changes. Repeat EKG showed SR with short IL interval. Limited ECHO during present admission demonstrates LVEF of 15% & global LV systolic dysfunction. -- Recent hospital stay with elevated troponin in the setting of GI bleed. ECHO at that time (December 2017: EF 65-70%). Presently admitted with complaints of melena and hematochezia. Heparin gtt deferred d/t GI bleed. Also being treated with antibiotics for multifocal pneumonia which is likely contributing to respiratory status/limitation. - Continue current rx. Recommend BB (toprol XL) when BP will tolerate. Continues to be intermittently hypotensive. - LHC once improves; still in acute hypoxic respiratory failure and unable to tolerate supine position below 30. -- will need to be able to lay flat prior to LHC (2) Cardiomyopathy Current Visit: Yes Status: Acute LVEF 15%, etiology unclear. Reports atypical chest pain symptoms, Troponin peak at 4.06. Given GI bleed (H/H appears stable); recommend diagnostic LHC when hemodynamically stable. Discussed with Dr. Shepard, recommend at least 3 days of IV atb for multifocal PNA prior to proceeding with LHC. No prior ischemic evaluation. Clinically appears euvolemic upon exam. Start BB when able, consider ACEi upon discharge if able. Strict I&Os, daily weights, Na/fluid restricted diet. Qualifiers: Cardiomyopathy type: unspecified Qualified Code(s): I42.9 - Cardiomyopathy , unspecified Discussion w patient/family: The assessment and plan as outlined above was discussed with the patient and/or family members who expressed understanding and agreement. All questions were answered. Thank you for involving us in the care of your patient. Please call with any questions. Subjective Principal diagnosis: GI bleed, heart failure, multifocal PNA Interval history: Patient reports no recurrent chest pain today. Continues to be short of breath and is only comfortable in this regard when inclined to 45. No new concerns. Objective Vital Signs, Last 4 Hours Temp Pulse Resp BP Pulse Ox 06/14/18 11:10 98.4 F 04/08/18 10:00 87 20 79/52 94 04/08/18 09:00 124 22 140/87 91 General: Conversant, No Apparent Distress, Other (Did attempt to examine patient with bed declined to 30; patient did not tolerate this for more than a few seconds before asking to be sat up again due to shortness of breath.) HEENT: Atraumatic, Normocephaly, Mucus Membranes Moist Neck: No JVD, Normal carotid pulses Cardiac: Reg Rate and Rhythm, Normal S1 and S2, No Murmur Lungs: Normal Breath Sounds, No Wheeze, Rales, Rhonchi Neuro: Alert and responsive, No focal deficits noted Abdomen: Soft, Non-Tender Skin: No rashes noted on visualized skin Musculoskeletal: No Chest Wall Tenderness Extremities: No Clubbing, No Cyanosis, No Edema, Normal Pulses Results 04/08/18 03:55 04/08/18 03:55 Lab Results 04/07/18 04/07/18 04/08/18 13:05 17:00 03:55 WBC 20.2 H 20.2 H 21.7 H Hgb 9.1 L D 9.7 L 9.9 L Hct 26.4 L 27.6 L 29.5 L Plt Count 190 187 216 Sodium Potassium Chloride Carbon Dioxide BUN Creatinine Glucose Calcium Total Bilirubin AST ALT Alkaline Phosphatase 04/08/18 03:55 WBC Hgb Hct Plt Count Sodium 135 L Potassium 3.4 L Chloride 103 Carbon Dioxide 21 L BUN 12 Creatinine 0.75 Glucose 100 Calcium 8.9 Total Bilirubin 1.0 AST 34 ALT 12 Alkaline Phosphatase 39 - VTE Documentation of Mechanical Device: Intermittent pneumatic compression device Consult Discharge Plan - Plan Referrals: Lakshmi Rahman MD [Primary Care Provider] - 04/19/18 10:00 am <Daniel Shepard - Last Filed: 04/08/18 15:19> Date of Encounter: 04/08/18 Assessment and Plan (1) Acute coronary syndrome Current Visit: Yes Status: Acute Multiple comorbidities including pneumonia with hx of GI bleed and new onset CHF (EF 15%) [facility] when stable and able to lay flat Patient continues to improve and today able to describe ongoing atypical type chest pain Discussion w patient/family: The assessment and plan as outlined above was discussed with the patient and/or family members who expressed understanding and agreement. All questions were answered. Thank you for involving us in the care of your patient. Please call with any questions. Objective Vital Signs, Last 4 Hours Pulse Resp BP Pulse Ox 04/08/18 12:00 102 20 108/74 97 Results 04/08/18 03:55 04/08/18 03:55 Lab Results 04/07/18 04/08/18 04/08/18 17:00 03:55 03:55 WBC 20.2 H 21.7 H Hgb 9.7 L 9.9 L Hct 27.6 L 29.5 L Plt Count 187 216 Sodium 135 L Potassium 3.4 L Chloride 103 Carbon Dioxide 21 L BUN 12 Creatinine 0.75 Glucose 100 Calcium 8.9 Total Bilirubin 1.0 AST 34 ALT 12 Alkaline Phosphatase 39
--- NOTE | 2018-04-08 17:09 | Infectious Disease Progress No ---
Date of Encounter: 04/08/18 Time of Encounter: 17:08 - Assessment and Plan (1) Severe sepsis Current Visit: Yes Status: Acute The patient had three SIRS criteria plus lactic acidosis, hypotension, and acute coronary syndrome. Likely secondary to multifocal pneumonia. Improved. WBC stable. Hypotension improved. Tachycardia improved. Blood cultures drawn 04/06/18 are pending x 4 sets. (2) Multifocal pneumonia Current Visit: Yes Status: Acute Location: Bilateral lungs. Causative organism: Unclear. RIP negative. Legionella and S. pneumo UATs. The patient is not coughing anything up to get a sputum specimen. Continue Zyvox 600mg IV BID. Continue Meropenem 1 gram IV Q8H. Duration of treatment depends on the clinical picture. Monitor renal function and dose-adjust antibiotics. Avoid SSRIs while on Zyvox. (3) GI bleed Current Visit: Yes Status: Acute FOBT positive. Hgb stable. No acute bleeding noted on exam. General surgery consulted and following. Qualifiers: GI bleed type/associated pathology: melena Qualified Code(s): K92.1 - Melena (4) Drug allergy, antibiotic Current Visit: Yes Status: Acute Patient reports allergy to multiple antibiotics including PCN - makes her tongue swell. Allergies to Cipro, Vancomycin, and Clindamycin are not clear, but likely adverse reactions vs. true allergies. (5) Acute coronary syndrome Current Visit: Yes Status: Acute Troponin peaked at 4.01. Appreciate cardiology's recommendation. Patient with severe sepsis and GI bleed she would be very high risk for angioplasty apparently. (6) COPD (chronic obstructive pulmonary disease) Current Visit: Yes Status: Chronic Qualifiers: COPD type: unspecified COPD Qualified Code(s): J44.9 - Chronic obstructive pulmonary disease, unspecified (7) Crohns disease Current Visit: Yes Status: Acute Qualifiers: Gastrointestinal tract location: unspecified location Digestive disease complication type: with rectal bleeding Qualified Code(s): K50.911 - Crohn's disease, unspecified, with rectal bleeding (8) Schizoaffective disorder, chronic condition Current Visit: Yes Status: Chronic - Subjective Interval history: Patient seen and examined. Overnight events noted. Patient states that overall she feels better. Denies fevers, chills, or rigors. Denies chest pain. Reports a dry cough. Denies shortness of breath. Denies nausea or vomiting. Denies BM since yesterday. Reports chronic abdominal pain. Denies rashes or skin lesions. Clinically she seems to be doing much better I believe that the ICU team will be transferring her to lower acuity unit. Patient tells me that she has no diarrhea but she is concerned that diarrhea will start soon. Patient tells me that she has had always chronic respiratory issues that she has never smoked. Infect Dis PN-Objective Data - Labs CBC & Chem 7: 04/08/18 03:55 04/08/18 03:55 Labs: Laboratory Results - last 24 hr 04/07/18 04/08/18 04/08/18 17:00 03:55 03:55 WBC 20.2 H 21.7 H RBC 3.25 L 3.47 L Hgb 9.7 L 9.9 L Hct 27.6 L 29.5 L MCV 84.9 85.0 MCH 29.8 28.5 MCHC 35.1 33.6 RDW 13.2 13.3 Plt Count 187 216 MPV 9.7 9.8 Immature Gran % 0.7 0.6 Seg Neutrophils % 88.3 85.2 Lymphocytes % 6.6 8.6 Monocytes % 4.3 5.5 Eosinophils % 0.0 0.0 Basophils % 0.1 0.1 Neutrophils # 17.8 H 18.5 H Lymphocytes # 1.3 1.9 Monocytes # 0.9 1.2 Eosinophils # 0.0 0.0 Basophils # 0.0 0.0 Sodium 135 L Potassium 3.4 L Chloride 103 Carbon Dioxide 21 L BUN 12 Creatinine 0.75 Est GFR ( Amer) > 60 Est GFR (Non-Af Amer) > 60 BUN/Creatinine Ratio 16 Glucose 100 Calculated Osmolality 280 Calcium 8.9 Total Bilirubin 1.0 AST 34 ALT 12 Alkaline Phosphatase 39 Serum Total Protein 6.2 L Albumin 4.3 Globulin 1.9 L Albumin/Globulin Ratio 2.3 H Cultures: Cultures 04/06/18 21:30 Legionella Antigen - Final Urine,Clean Catch Streptococcus pneumoniae Antigen (M - Final 04/06/18 18:22 Blood Culture - Preliminary Peripheral Venipuncture Culture is incubating and being continuously monitored for growth. Final report to follow. 04/06/18 12:07 Blood Culture - Preliminary Arterial Line Culture is incubating and being continuously monitored for growth. Final report to follow. 04/06/18 03:36 Blood Culture - Preliminary Peripheral Venipuncture Culture is incubating and being continuously monitored for growth. Final report to follow. 04/06/18 03:53 Blood Culture - Preliminary Peripheral Venipuncture Culture is incubating and being continuously monitored for growth. Final report to follow. Serology 04/06/18 04/06/18 Range/Units 21:30 05:00 Urine Color Yellow (Yellow) Urine Clarity Clear (Clear) Urine pH 7.0 (5.0-8.0) pH Units Ur Specific Recluse 1.013 (1.010-1.025) Urine Protein 100 H (Neg-Trace) mg/dL Urine Glucose (UA) 100 H (Normal) mg/dL Urine Ketones 80 H (Negative) mg/dL Urine Blood Small H (Negative) Urine Nitrite Negative (Negative) Urine Bilirubin Negative (Negative) Urine Urobilinogen Normal (Normal) mg/dL Ur Leukocyte Esterase Negative (Negative) Urine Microscopic RBC 5-15 H (0-3) per hpf Urine Microscopic WBC 0-3 (0-3) per hpf Ur Squamous Epith Cells Many H (None-Few) per lpf Urine Bacteria None Seen (None-Few) per hpf Hyaline Casts None Seen (None-Few) per lpf Ur Culture Indicated? NO (NO) Chlamy pneumoniae PCR Not Detected (Not Detect) Adenovirus (PCR) Not Detected (Not Detect) B. pertussis DNA (PCR) Not Detected (Not Detect) B.parapertussis DNA PCR Not Detected (Not Detect) Coronavirus OC43 (PCR) Not Detected (Not Detect) Coronavirus HKU1 (PCR) Not Detected (Not Detect) Coronavirus 229E (PCR) Not Detected (Not Detect) Coronavirus NL63 (PCR) Not Detected (Not Detect) Human Metapneumovir PCR Not Detected (Not Detect) Influenza A (H1) PCR Not Detected (Not Detect) Influ A (H1N1/09) PCR Not Detected (Not Detect) Influenza A (H3) PCR Not Detected (Not Detect) Influenza A Untype (PCR) Not Detected (Not Detect) Influenza Type B (PCR) Not Detected (Not Detect) M.pneumoniae DNA (PCR) Not Detected (Not Detect) Parainfluenza 1 (PCR) Not Detected (Not Detect) Parainfluenza 2 (PCR) Not Detected (Not Detect) Parainfluenza 3 (PCR) Not Detected (Not Detect) Parainfluenza 4 (PCR) Not Detected (Not Detect) RSV (PCR) Not Detected (Not Detect) Entero/Rhino (PCR) Not Detected (Not Detect) - Impressions Impressions Chest X-Ray 04/08/18 06:41 IMPRESSION: Stable exam with bilateral pleural effusions and bilateral airspace opacities concerning for multifocal infiltrates. D/ / Aki Hazel MD / Aki Hazel MD Interpreting Provider: Aki Hazel MD Exam - Constitutional Vitals: Temp Pulse Resp BP Pulse Ox 98.6 F 112 16 125/90 91 04/08/18 16:13 04/08/18 16:00 04/08/18 16:00 04/08/18 16:00 04/08/18 16:00 General appearance: no febrile, no no acute distress - Eye Eye exam: Present: EOMI, PERRL - Respiratory Respiratory exam: Present: rhonchi, wheezes - Cardiovascular Cardiovascular exam: Present: RRR, +S1, +S2 - GI/Abdominal GI/Abdominal exam: Present: normal bowel sounds, soft. Absent: tenderness - Extremities Exam Extremities exam: Present: normal inspection. Absent: pedal edema - VTE Documentation of Mechanical Device: Intermittent pneumatic compression device Consult Discharge Plan - Plan Referrals: Lakshmi Rahman MD [Primary Care Provider] - 04/19/18 10:00 am
[2018-04-08] MEDS ORDERED: Ipratropium/Albuterol Neb 3 ML IH PRN (18:17)
[2018-04-08] MEDS ORDERED: *HR* Promethazine 25 MG/ML VIAL IVP PRN (18:17)
[2018-04-08] MEDS ORDERED: *HR* Heparin 5,000 UNIT/ML VIAL IVP PRN ×2 (18:17)
[2018-04-08] MEDS ORDERED: Thiamine (B-1) 100 MG in D5% in Water 50 ML IVPB ONE (19:23)
--- NOTE | 2018-04-08 19:36 | Internal Med Progress Note ---
Date of Encounter: 04/08/18 Time of Encounter: 19:32 - Assessment and plan (1) Abdominal pain Current Visit: Yes Status: Acute Assessment and plan: With her chronic diarrhea, abdominal pain and her symptom possible chronic pancreatitis may consider therapeutic and diagnostic trial of pancreatic enzyme , we will check stool culture, add lactobacillus need colonoscopy once stable Qualifiers: Abdominal location: generalized Qualified Code(s): R10.84 - Generalized abdominal pain (2) Chest pain Current Visit: Yes Status: Chronic Assessment and plan: Continue heparin drip, close monitoring patient condition, currently no chest pain, appreciate cardiology input patient to have further evaluation by cardiac catheterization once she is stable Qualifiers: Chest pain type: precordial pain Qualified Code(s): R07.2 - Precordial pain (3) DVT prophylaxis Current Visit: Yes Status: Acute (4) GI bleed Current Visit: Yes Status: Acute Assessment and plan: H and H currently stable close monitoring Qualifiers: GI bleed type/associated pathology: melena Qualified Code(s): K92.1 - Melena (5) Schizoaffective disorder, chronic condition Current Visit: Yes Status: Chronic (6) COPD (chronic obstructive pulmonary disease) Current Visit: Yes Status: Chronic Qualifiers: COPD type: unspecified COPD Qualified Code(s): J44.9 - Chronic obstructive pulmonary disease, unspecified (7) Syncope Current Visit: Yes Status: Acute Qualifiers: Syncope type: unspecified Qualified Code(s): R55 - Syncope and collapse (8) Sodium (Na) deficiency Current Visit: Yes Status: Acute (9) Hypokalemia Current Visit: Yes Status: Acute Assessment and plan: We will check magnesium and phosphorus, close monitoring patient condition, keep potassium more than 4 magnesium more than 2 (10) Sepsis Current Visit: Yes Status: Acute Assessment and plan: Close monitoring, appreciate ID input Qualifiers: Sepsis type: sepsis due to unspecified organism Qualified Code(s): A41.9 - Sepsis, unspecified organism - Time Spent With Patient With her nutritional status, lack of present discharge, will add the nutritional supplement, we will consult dietitian for further assessment and monitoring and it with occasional diet, close monitoring of patient condition. Monitor electrolytes. With her nutritional status will add empiric vitamin B-1 , we will check vitamin B12 level and vitamin D. Titrate beta jeovany as soon as her blood pressure tolerated. Appreciate cardiology and ID input. Total time spent is greater than 50% in coordination of care (as documented) at patient's floor/unit and/or counseling patient: Greater than 35 minutes - Subjective Interval history: Patient has very poor nutritional status with her chronic diarrhea. Patient stated for long time cannot hold any food anytime she eat she would have a bowel movement. Decreased oral intake for long time.Shortness of breath on mild exertion, orthopnea, paroxysmal nocturnal dyspnea - Constitutional Vitals: Temp Pulse Resp BP Pulse Ox 99.3 F 96 16 101/66 95 04/08/18 19:13 04/08/18 19:13 04/08/18 19:13 04/08/18 19:13 04/08/18 19:13 General appearance: Present: cooperative, mild distress (Abdominal pain and nausea), A&O X 3, pleasant, underweight, answers questions appropriately - Head Head exam: Present: atraumatic, normocephalic - Neck Neck exam general surgery: Present: supple, trachea midline. Absent: lymphadenopathy - Respiratory Respiratory exam: Present: decreased breath sounds, rales, rhonchi. Absent: accessory muscle use, wheezes - GI/Abdominal GI/Abdominal exam: Present: normal bowel sounds, soft, tenderness (Mild diffuse abdominal tenderness), no peritoneal signs. Absent: distended - Extremities Exam Extremities exam: Present: warm, radial pulses palpable and symmetrical. Absent : calf tenderness, cyanotic, pedal edema - Neurological Exam Neurological exam: Present: CN II-XII intact, oriented X3, no focal deficits. Absent: pronater drift, facial droop, speech deficit Internal Medicine: Result - Labs CBC & Chem 7: 04/08/18 03:55 04/08/18 03:55 Labs: Short CBC 04/08/18 Range/Units 03:55 WBC 21.7 H (4.3-11.1) K/mcL Hgb 9.9 L (11.5-15.4) g/dL Hct 29.5 L (35.3-44.9) % Plt Count 216 (140-400) K/mcL Neutrophils # 18.5 H (1.6-8.9) K/mcL BMP 04/08/18 03:55 Sodium 135 L Potassium 3.4 L Chloride 103 Carbon Dioxide 21 L BUN 12 Creatinine 0.75 Glucose 100 Calcium 8.9 Liver Function 04/08/18 Range/Units 03:55 Total Bilirubin 1.0 (0.3-1.0) mg/dL AST 34 (13-39) Units/L ALT 12 (7-52) Units/L Alkaline Phosphatase 39 (34-104) Units/L Albumin 4.3 (3.5-5.7) g/dL - ABG Interpretation ABG results: ABG ABG pH 7.38 pH Units (7.32-7.45) 04/06/18 01:51 ABG pCO2 37 mmHg (35-45) 04/06/18 01:51 ABG pO2 456 mmHg (85-104) H 04/06/18 01:51 ABG O2 Saturation 100 % (95-98) H 04/06/18 01:51 PT/INR, D-dimer PT 12.8 Seconds (9.4-12.1) H 04/06/18 11:25 D-Dimer 797 ng/mLFEU (0-500) H 04/06/18 10:30 - Impressions Impressions Chest X-Ray 04/08/18 06:41 IMPRESSION: Stable exam with bilateral pleural effusions and bilateral airspace opacities concerning for multifocal infiltrates. D/ / Aki Hazel MD / Aki Hazel MD Interpreting Provider: Aki Hazel MD - VTE Documentation of Mechanical Device: Intermittent pneumatic compression device Consult Discharge Plan - Plan Referrals: Lakshmi Rahman MD [Primary Care Provider] - 04/19/18 10:00 am
[2018-04-08] MEDS: Perphenazine 2 MG TABLET PO PRN (20:28)
[2018-04-08] MEDS: Thiamine (B-1) 100 MG TABLET PO SCH (20:29)
[2018-04-08] MEDS ORDERED: *HR* LORazepam 0.5 MG TABLET PO SCH (21:00)
[2018-04-08] MEDS: *HR* LORazepam 0.5 MG TABLET PO PRN (21:21)
[2018-04-08] MEDS: Lactobacillus 1 EACH CAP.SPRINK PO SCH (21:22)
[2018-04-08 21:42] LABS: Magnesium 2.1 mg/dL (1.6-2.6); Phosphorous 2.8 mg/dL (2.7-4.5)
[2018-04-09] MEDS ORDERED: traMADol 50 MG TABLET PO PRN (00:38)
[2018-04-09] MEDS ORDERED: 0.9 % Sodium Chloride 1,000 ML IVC SCH (00:45)
[2018-04-09] MEDS: OXYCODONE Oral CONC 10 MG/0.5 ML ORAL.SYG PO PRN ×4 (03:53→23:05)
[2018-04-09] MEDS: Meropenem 1,000 MG in Water for inj. (sterile) 20 ML 10 ML IVP SCH ×3 (03:54→21:56)
[2018-04-09] MEDS: Ondansetron 4 MG/2 ML VIAL IVP PRN ×2 (04:10→08:39)
[2018-04-09 04:22] LABS: Basophils % 0.1 %; Eosinophils % 0.2 %; Hematocrit 27.4 % (35.3-44.9); Hemoglobin 9.2 g/dL (11.5-15.4); Immature Granulocytes % 0.4 % (0-4); Lymphocytes % 18.5 %; Mean Corpuscular HGB Conc 33.6 g/dL (31.6-35.5); Mean Corpuscular Hemoglobin 29.1 pg (28.0-33.3); Mean Corpuscular Volume 86.7 fL (83.0-100.0); Mean Platelet Volume 10.1 fL (9.4-12.4); Monocytes # 0.5 K/mcL (0.0-1.3); Monocytes % 4.6 %; Neutrophils # 8.2 K/mcL (1.6-8.9); Platelet Count 170 K/mcL (140-400); Red Blood Count 3.16 M/mcL (3.82-4.97); Red Cell Distribution Width 13.3 % (11.5-14.5); Segmented Neutrophils % 76.2 %
[2018-04-09 04:42] LABS: BUN/Creatinine Ratio 18 (6-26); Blood Urea Nitrogen 12 mg/dL (8-23); Calcium 8.6 mg/dL (8.6-10.3); Carbon Dioxide 23 mEq/L (23-29); Chloride 104 mEq/L (98-107); Glucose 98 mg/dL (70-105); Magnesium 2.1 mg/dL (1.6-2.6); Osmolality,Calculated 284 (280-300); Phosphorous 2.9 mg/dL (2.7-4.5); Potassium 3.6 mEq/L (3.5-5.1); Sodium 137 mEq/L (136-145); eGFR For African Americans > 60 (> 60); eGFR For Non-African Americans > 60 (> 60)
[2018-04-09] MEDS ORDERED: Potassium Chloride Elixir 20 MEQ/15 ML UDC PO ONE (07:54)
--- NOTE | 2018-04-09 08:05 | Internal Med Progress Note ---
Date of Encounter: 04/09/18 Time of Encounter: 07:30 - Assessment and plan (1) Abdominal pain Current Visit: Yes Status: Acute Assessment and plan: CAT scan abdomen and pelvis no evidence of colitis, will check UA, remove Askew catheter status, close monitoring patient condition, Protonix twice a day with her gastritis Qualifiers: Abdominal location: generalized Qualified Code(s): R10.84 - Generalized abdominal pain (2) Chest pain Current Visit: Yes Status: Chronic Assessment and plan: Patient had chest tightness today she is tachycardic, possible fluid overload, we will check EKG troponin add Cardizem, will call cardiology, may consider Lasix if her blood pressure is stable, continue aspirin, heparin drip statin Qualifiers: Chest pain type: precordial pain Qualified Code(s): R07.2 - Precordial pain (3) DVT prophylaxis Current Visit: Yes Status: Acute (4) GI bleed Current Visit: Yes Status: Acute Assessment and plan: H&H stable, close monitoring, vitamin B12 borderline low ,we will replace Qualifiers: GI bleed type/associated pathology: melena Qualified Code(s): K92.1 - Melena (5) Schizoaffective disorder, chronic condition Current Visit: Yes Status: Chronic (6) COPD (chronic obstructive pulmonary disease) Current Visit: Yes Status: Chronic Assessment and plan: Continue ipratropium add Xopenex Qualifiers: COPD type: unspecified COPD Qualified Code(s): J44.9 - Chronic obstructive pulmonary disease, unspecified (7) Syncope Current Visit: Yes Status: Acute Qualifiers: Syncope type: unspecified Qualified Code(s): R55 - Syncope and collapse (8) Hypokalemia Current Visit: Yes Status: Acute Assessment and plan: Add potassium supplement keep potassium more than 4 (9) Sepsis Current Visit: Yes Status: Acute Qualifiers: Sepsis type: sepsis due to unspecified organism Qualified Code(s): A41.9 - Sepsis, unspecified organism - Time Spent With Patient Total time spent is greater than 50% in coordination of care (as documented) at patient's floor/unit and/or counseling patient: Greater than 35 minutes - Subjective Interval history: She is complaining of chest tightness, shortness of breath, her blood pressure was down yesterday after receiving all pain medication, patient received a fluid bolus. Her oxygenation was down when now she is on nonrebreather mask 10 liters - Constitutional Vitals: Temp Pulse Resp BP Pulse Ox 98.3 F 129 18 151/95 88 04/09/18 07:55 04/09/18 07:55 04/09/18 07:55 04/09/18 07:55 04/09/18 07:55 General appearance: Present: cooperative, mild distress (Abdominal pain and nausea), pleasant, underweight, answers questions appropriately - Head Head exam: Present: atraumatic, normocephalic - Respiratory Respiratory exam: Present: decreased breath sounds, prolonged expiratory phase, rales, rhonchi. Absent: accessory muscle use, wheezes - Cardiovascular Cardiovascular exam: Present: RRR, +S1, +S2, tachycardia. Absent: diastolic murmur, gallop, rubs, systolic murmur - GI/Abdominal GI/Abdominal exam: Present: normal bowel sounds, soft, tenderness (suprapubic tenderness), no peritoneal signs. Absent: distended - Neurological Exam Neurological exam: Present: CN II-XII intact, oriented X3, no focal deficits. Absent: pronater drift, facial droop, speech deficit - Skin Skin exam: Present: dry Internal Medicine: Result - Labs CBC & Chem 7: 04/09/18 04:00 04/09/18 04:00 Labs: Short CBC 04/09/18 Range/Units 04:00 WBC 10.7 D (4.3-11.1) K/mcL Hgb 9.2 L (11.5-15.4) g/dL Hct 27.4 L (35.3-44.9) % Plt Count 170 (140-400) K/mcL Neutrophils # 8.2 (1.6-8.9) K/mcL BMP 04/09/18 04:00 Sodium 137 Potassium 3.6 Chloride 104 Carbon Dioxide 23 BUN 12 Creatinine 0.65 Glucose 98 Calcium 8.6 - ABG Interpretation ABG results: ABG ABG pH 7.38 pH Units (7.32-7.45) 04/06/18 01:51 ABG pCO2 37 mmHg (35-45) 04/06/18 01:51 ABG pO2 456 mmHg (85-104) H 04/06/18 01:51 ABG O2 Saturation 100 % (95-98) H 04/06/18 01:51 PT/INR, D-dimer PT 12.8 Seconds (9.4-12.1) H 04/06/18 11:25 D-Dimer 797 ng/mLFEU (0-500) H 04/06/18 10:30 - Impressions Impressions Chest X-Ray 04/08/18 06:41 IMPRESSION: Stable exam with bilateral pleural effusions and bilateral airspace opacities concerning for multifocal infiltrates. D/ / Aki Hazel MD / Aki Haezl MD Interpreting Provider: Aki Hazel MD - VTE Documentation of Mechanical Device: Intermittent pneumatic compression device Consult Discharge Plan - Plan Referrals: Lakshmi Rahman MD [Primary Care Provider] - 04/19/18 10:00 am
[2018-04-09] MEDS: Lactobacillus 1 EACH CAP.SPRINK PO SCH (08:17)
[2018-04-09] MEDS: Thiamine (B-1) 100 MG TABLET PO SCH ×2 (08:17→21:45)
[2018-04-09] MEDS: Aspirin 81 MG TAB.CHEW PO SCH (08:17)
[2018-04-09] MEDS ORDERED: Cyanocobalamin (B-12) 1,000 MCG/ML VIAL IM ONE (08:26)
--- NOTE | 2018-04-09 08:33 | Cardiology Progress Note ---
Date of Encounter: 04/09/18 Time of Encounter: 08:32 Assessment and Plan (1) Elevated troponin I level Current Visit: Yes Status: Acute (2) Cardiomyopathy Current Visit: Yes Status: Acute Qualifiers: Cardiomyopathy type: unspecified Qualified Code(s): I42.9 - Cardiomyopathy , unspecified Discussion w patient/family: The assessment and plan as outlined above was discussed with the patient and/or family members who expressed understanding and agreement. All questions were answered. Thank you for involving us in the care of your patient. Please call with any questions. Subjective Principal diagnosis: GI bleed, heart failure, multifocal PNA Objective Vital Signs, Last 4 Hours Temp Pulse Resp BP Pulse Ox 04/09/18 07:55 98.3 F 129 18 151/95 88 04/09/18 05:02 16 88 Results 04/09/18 04:00 04/09/18 04:00 Lab Results 04/08/18 04/09/18 04/09/18 21:00 04:00 04:00 WBC 10.7 D Hgb 9.2 L Hct 27.4 L Plt Count 170 Sodium 137 Potassium 3.6 Chloride 104 Carbon Dioxide 23 BUN 12 Creatinine 0.65 Glucose 98 Calcium 8.6 Magnesium 2.1 2.1 - VTE Documentation of Mechanical Device: Intermittent pneumatic compression device Consult Discharge Plan - Plan Referrals: Lakshmi Rahman MD [Primary Care Provider] - 04/19/18 10:00 am
[2018-04-09] MEDS ORDERED: Furosemide 20 MG/2 ML VIAL IVP ONE ×2 (08:59→09:15)
[2018-04-09] MEDS: Cyanocobalamin (B-12) 1,000 MCG TABLET PO SCH (09:19)
[2018-04-09] MEDS: tiZANidine 4 MG TABLET PO PRN ×3 (09:19→21:56)
[2018-04-09] MEDS: Levalbuterol Neb 1.25 MG/3 ML IH SCH ×3 (09:48→23:31)
[2018-04-09] MEDS: Ipratropium Neb 0.5 MG NEBULIZER IH SCH ×3 (09:48→23:31)
--- NOTE | 2018-04-09 09:49 | Event Note ---
Addendum entered and electronically signed by Steve Oliveros DO 04/09/18 10:49: Correction: will continue to watch pt over the weekend. Original Note: <Steve Oliveros - Last Filed: 04/09/18 10:39> Date of Encounter: 04/09/18 Time of Encounter: 09:44 - Cardiology Event Note Reviewed vitals and labs. Tentative plan has been, and continues to be, to pursue LHC once patient's respiratory compromise has stabilized. She was stepped down from ICU on 04/08/18, but continues to be hypoxic requiring >/= 45 bed inclination for "optimal" comfort. Still tachypneic with saturations in high 80s on 12 LPM via mask. Not suitable for LHC at this time. Cardiology will sign off at present. Re-consult for non-emergent LHC (no sooner than Thursday04/12/18) when patient improves sufficiently to lay supine without respiratory distress/compromise. Call if other relevant concerns arise. <Daniel Shepard - Last Filed: 04/09/18 12:45> Date of Encounter: 04/09/18 - Cardiology Event Note I examined this patient and my medical decision-making was reviewed with the Resident Physician. I agree with the documented findings, disposition and treatment plan as described except to the extent set forth below. Currently volume overloaded after IVF last night, slight improvement in symptoms , lasix 20mg IV x 1 and gentle diuresis, not candidate for a LHC today due to resp insufficinecy Revaluate after diuresis
[2018-04-09 10:33] LABS: Bilirubin,Urine Negative (Negative); Blood,Urine Moderate (Negative); Clarity,Urine Clear (Clear); Color,Urine Yellow (Yellow); Glucose,Urine (UA) Normal (Normal); Ketones,Urine Trace mg/dL (Negative); Leukocyte Esterase,Urine Moderate (Negative); Nitrite,Urine Negative (Negative); Protein,Urine Trace mg/dL (Neg-Trace); Specific Gravity,Urine 1.014 (1.010-1.025); Urobilinogen,Urine Normal (Normal)
[2018-04-09 10:37] LABS: Bacteria,Urine None Seen per hpf (None-Few); Hyaline Casts,Urine None Seen per lpf (None-Few); Squamous Epithelial Cell,Urine Many per lpf (None-Few)
[2018-04-09 10:45] LABS: ABG Base Excess 2 mEq/L (-2 to 3); ABG HCO3 25 mEq/L (21-27); ABG Oxygen Saturation 96 % (95-98); ABG PCO2 31 mmHg (35-45); ABG PH 7.51 pH Units (7.32-7.45); ABG PO2 73 mmHg (85-104); ABG TCO2 26 mEq/L (20-26)
[2018-04-09] MEDS: *HR* LORazepam 0.5 MG TABLET PO PRN ×2 (15:55→21:56)
--- NOTE | 2018-04-09 17:12 | Infectious Disease Progress No ---
Date of Encounter: 04/09/18 Time of Encounter: 17:11 - Assessment and Plan (1) Severe sepsis Current Visit: Yes Status: Acute The patient had three SIRS criteria plus lactic acidosis, hypotension, and acute coronary syndrome. Likely secondary to multifocal pneumonia. Improved. WBC stable. Hypotension improved. Tachycardia improved. Blood cultures drawn 04/06/18 are pending x 4 sets. (2) Multifocal pneumonia Current Visit: Yes Status: Acute Location: Bilateral lungs. Causative organism: Unclear. RIP negative. Legionella and S. pneumo UATs. The patient is not coughing anything up to get a sputum specimen. Continue Zyvox 600mg IV BID. Continue Meropenem 1 gram IV Q8H. Duration of treatment depends on the clinical picture. Monitor renal function and dose-adjust antibiotics. Avoid SSRIs while on Zyvox. (3) GI bleed Current Visit: Yes Status: Acute FOBT positive. Hgb stable. No acute bleeding noted on exam. General surgery consulted and following. Qualifiers: GI bleed type/associated pathology: melena Qualified Code(s): K92.1 - Melena (4) Drug allergy, antibiotic Current Visit: Yes Status: Acute Patient reports allergy to multiple antibiotics including PCN - makes her tongue swell. Allergies to Cipro, Vancomycin, and Clindamycin are not clear, but likely adverse reactions vs. true allergies. (5) Acute coronary syndrome Current Visit: Yes Status: Acute Troponin peaked at 4.01. Appreciate cardiology's recommendation. Patient with severe sepsis and GI bleed she would be very high risk for angioplasty apparently. (6) COPD (chronic obstructive pulmonary disease) Current Visit: Yes Status: Chronic Qualifiers: COPD type: unspecified COPD Qualified Code(s): J44.9 - Chronic obstructive pulmonary disease, unspecified (7) Crohns disease Current Visit: Yes Status: Acute Qualifiers: Gastrointestinal tract location: unspecified location Digestive disease complication type: with rectal bleeding Qualified Code(s): K50.911 - Crohn's disease, unspecified, with rectal bleeding (8) Schizoaffective disorder, chronic condition Current Visit: Yes Status: Chronic - Subjective Interval history: Patient seen and examined. seems to be doing okay labs improving no fever appreciate cardiology recommendations ROS still positive for shortness of breath no diarrhea, no abdominal pain, no urinary symptoms mentation improved Infect Dis PN-Objective Data - Labs CBC & Chem 7: 04/09/18 04:00 04/09/18 04:00 Labs: Laboratory Results - last 24 hr 04/08/18 04/08/18 04/09/18 21:00 21:00 04:00 WBC 10.7 D RBC 3.16 L Hgb 9.2 L Hct 27.4 L MCV 86.7 MCH 29.1 MCHC 33.6 RDW 13.3 Plt Count 170 MPV 10.1 Immature Gran % 0.4 Seg Neutrophils % 76.2 Lymphocytes % 18.5 Monocytes % 4.6 Eosinophils % 0.2 Basophils % 0.1 Neutrophils # 8.2 Lymphocytes # 2.0 Monocytes # 0.5 Eosinophils # 0.0 Basophils # 0.0 ABG pH ABG pCO2 ABG pO2 ABG HCO3 ABG Total CO2 ABG O2 Saturation ABG Base Excess O2 Delivery Device Inspired O2 Sodium Potassium Chloride Carbon Dioxide BUN Creatinine Est GFR ( Amer) Est GFR (Non-Af Amer) BUN/Creatinine Ratio Glucose Calculated Osmolality Calcium Phosphorus 2.8 Magnesium 2.1 Troponin I Vitamin B12 273 Urine Color Urine Clarity Urine pH Ur Specific [place] Urine Protein Urine Glucose (UA) Urine Ketones Urine Blood Urine Nitrite Urine Bilirubin Urine Urobilinogen Ur Leukocyte Esterase Urine Microscopic RBC Urine Microscopic WBC Ur Squamous Epith Cells Urine Bacteria Hyaline Casts Ur Culture Indicated? 04/09/18 04/09/18 04/09/18 04:00 09:30 10:15 WBC RBC Hgb Hct MCV MCH MCHC RDW Plt Count MPV Immature Gran % Seg Neutrophils % Lymphocytes % Monocytes % Eosinophils % Basophils % Neutrophils # Lymphocytes # Monocytes # Eosinophils # Basophils # ABG pH ABG pCO2 ABG pO2 ABG HCO3 ABG Total CO2 ABG O2 Saturation ABG Base Excess O2 Delivery Device Inspired O2 Sodium 137 Potassium 3.6 Chloride 104 Carbon Dioxide 23 BUN 12 Creatinine 0.65 Est GFR ( Amer) > 60 Est GFR (Non-Af Amer) > 60 BUN/Creatinine Ratio 18 Glucose 98 Calculated Osmolality 284 Calcium 8.6 Phosphorus 2.9 Magnesium 2.1 Troponin I 1.73 H* Vitamin B12 Urine Color Yellow Urine Clarity Clear Urine pH 6.0 Ur Specific [place] 1.014 Urine Protein Trace Urine Glucose (UA) Normal Urine Ketones Trace H Urine Blood Moderate H Urine Nitrite Negative Urine Bilirubin Negative Urine Urobilinogen Normal Ur Leukocyte Esterase Moderate H Urine Microscopic RBC 5-15 H Urine Microscopic WBC 5-15 H Ur Squamous Epith Cells Many H Urine Bacteria None Seen Hyaline Casts None Seen Ur Culture Indicated? NO. A 04/09/18 10:41 WBC RBC Hgb Hct MCV MCH MCHC RDW Plt Count MPV Immature Gran % Seg Neutrophils % Lymphocytes % Monocytes % Eosinophils % Basophils % Neutrophils # Lymphocytes # Monocytes # Eosinophils # Basophils # ABG pH 7.51 H ABG pCO2 31 L ABG pO2 73 L ABG HCO3 25 ABG Total CO2 26 ABG O2 Saturation 96 ABG Base Excess 2 O2 Delivery Device HFNC Inspired O2 100.0 Sodium Potassium Chloride Carbon Dioxide BUN Creatinine Est GFR ( Amer) Est GFR (Non-Af Amer) BUN/Creatinine Ratio Glucose Calculated Osmolality Calcium Phosphorus Magnesium Troponin I Vitamin B12 Urine Color Urine Clarity Urine pH Ur Specific [place] Urine Protein Urine Glucose (UA) Urine Ketones Urine Blood Urine Nitrite Urine Bilirubin Urine Urobilinogen Ur Leukocyte Esterase Urine Microscopic RBC Urine Microscopic WBC Ur Squamous Epith Cells Urine Bacteria Hyaline Casts Ur Culture Indicated? Cultures: Cultures 04/06/18 17:24 Blood Culture - Preliminary Peripheral Venipuncture Culture is incubating and being continuously monitored for growth. Final report to follow. 04/06/18 21:30 Legionella Antigen - Final Urine,Clean Catch Streptococcus pneumoniae Antigen (M - Final 04/06/18 18:22 Blood Culture - Preliminary Peripheral Venipuncture Culture is incubating and being continuously monitored for growth. Final report to follow. 04/06/18 12:07 Blood Culture - Preliminary Arterial Line Culture is incubating and being continuously monitored for growth. Final report to follow. 04/06/18 03:36 Blood Culture - Preliminary Peripheral Venipuncture Culture is incubating and being continuously monitored for growth. Final report to follow. 04/06/18 03:53 Blood Culture - Preliminary Peripheral Venipuncture Culture is incubating and being continuously monitored for growth. Final report to follow. Serology 04/09/18 04/06/18 04/06/18 Range/Units 10:15 21:30 05:00 Urine Color Yellow Yellow (Yellow) Urine Clarity Clear Clear (Clear) Urine pH 6.0 7.0 (5.0-8.0) pH Units Ur Specific [place] 1.014 1.013 (1.010-1.025) Urine Protein Trace 100 H (Neg-Trace) mg/dL Urine Glucose (UA) Normal 100 H (Normal) mg/dL Urine Ketones Trace H 80 H (Negative) mg/dL Urine Blood Moderate H Small H (Negative) Urine Nitrite Negative Negative (Negative) Urine Bilirubin Negative Negative (Negative) Urine Urobilinogen Normal Normal (Normal) mg/dL Ur Leukocyte Esterase Moderate H Negative (Negative) Urine Microscopic RBC 5-15 H 5-15 H (0-3) per hpf Urine Microscopic WBC 5-15 H 0-3 (0-3) per hpf Ur Squamous Epith Cells Many H Many H (None-Few) per lpf Urine Bacteria None Seen None Seen (None-Few) per hpf Hyaline Casts None Seen None Seen (None-Few) per lpf Ur Culture Indicated? NO. A NO (NO) Chlamy pneumoniae PCR Not Detected (Not Detect) Adenovirus (PCR) Not Detected (Not Detect) B. pertussis DNA (PCR) Not Detected (Not Detect) B.parapertussis DNA PCR Not Detected (Not Detect) Coronavirus OC43 (PCR) Not Detected (Not Detect) Coronavirus HKU1 (PCR) Not Detected (Not Detect) Coronavirus 229E (PCR) Not Detected (Not Detect) Coronavirus NL63 (PCR) Not Detected (Not Detect) Human Metapneumovir PCR Not Detected (Not Detect) Influenza A (H1) PCR Not Detected (Not Detect) Influ A (H1N1/09) PCR Not Detected (Not Detect) Influenza A (H3) PCR Not Detected (Not Detect) Influenza A Untype (PCR) Not Detected (Not Detect) Influenza Type B (PCR) Not Detected (Not Detect) M.pneumoniae DNA (PCR) Not Detected (Not Detect) Parainfluenza 1 (PCR) Not Detected (Not Detect) Parainfluenza 2 (PCR) Not Detected (Not Detect) Parainfluenza 3 (PCR) Not Detected (Not Detect) Parainfluenza 4 (PCR) Not Detected (Not Detect) RSV (PCR) Not Detected (Not Detect) Entero/Rhino (PCR) Not Detected (Not Detect) Exam - Constitutional Vitals: Temp Pulse Resp BP Pulse Ox 98.8 F 119 18 133/80 98 04/09/18 15:55 04/09/18 16:06 04/09/18 15:57 04/09/18 15:55 04/09/18 15:57 - VTE Documentation of Mechanical Device: Intermittent pneumatic compression device Consult Discharge Plan - Plan Referrals: Lakshmi Rahman MD [Primary Care Provider] - 04/19/18 10:00 am
[2018-04-09] MEDS: Perphenazine 2 MG TABLET PO PRN (22:54)
[2018-04-10] MEDS: Ipratropium Neb 0.5 MG NEBULIZER IH SCH ×4 (04:21→22:11)
[2018-04-10] MEDS: Levalbuterol Neb 1.25 MG/3 ML IH SCH ×4 (04:21→22:11)
[2018-04-10] MEDS: tiZANidine 4 MG TABLET PO PRN ×4 (04:44→20:55)
[2018-04-10] MEDS: OXYCODONE Oral CONC 10 MG/0.5 ML ORAL.SYG PO PRN ×4 (04:47→23:20)
[2018-04-10] MEDS: Meropenem 1,000 MG in Water for inj. (sterile) 20 ML 10 ML IVP SCH ×3 (05:15→20:54)
[2018-04-10] MEDS: Lactobacillus 1 EACH CAP.SPRINK PO SCH (08:23)
[2018-04-10] MEDS: Cyanocobalamin (B-12) 1,000 MCG TABLET PO SCH (08:23)
[2018-04-10] MEDS: Thiamine (B-1) 100 MG TABLET PO SCH ×2 (08:23→21:12)
[2018-04-10] MEDS: Aspirin 81 MG TAB.CHEW PO SCH (08:23)
[2018-04-10 09:08] LABS: Basophils % 0.2 %; Eosinophils # 0.1 K/mcL (0.0-0.6); Hematocrit 29.9 % (35.3-44.9); Hemoglobin 10.1 g/dL (11.5-15.4); Immature Granulocytes % 0.3 % (0-4); Lymphocytes # 1.7 K/mcL (0.6-4.6); Lymphocytes % 14.5 %; Mean Corpuscular HGB Conc 33.8 g/dL (31.6-35.5); Mean Corpuscular Volume 85.9 fL (83.0-100.0); Monocytes # 0.4 K/mcL (0.0-1.3); Monocytes % 3.8 %; Neutrophils # 9.2 K/mcL (1.6-8.9); Platelet Count 235 K/mcL (140-400); Red Blood Count 3.48 M/mcL (3.82-4.97); Segmented Neutrophils % 80.2 %
[2018-04-10 09:25] LABS: BUN/Creatinine Ratio 23 (6-26); Blood Urea Nitrogen 13 mg/dL (8-23); Calcium 8.9 mg/dL (8.6-10.3); Carbon Dioxide 21 mEq/L (23-29); Chloride 99 mEq/L (98-107); Glucose 108 mg/dL (70-105); Magnesium 2.1 mg/dL (1.6-2.6); Osmolality,Calculated 279 (280-300); Phosphorous 2.5 mg/dL (2.7-4.5); Potassium 4.1 mEq/L (3.5-5.1); Sodium 134 mEq/L (136-145); eGFR For African Americans > 60 (> 60); eGFR For Non-African Americans > 60 (> 60)
[2018-04-10] MEDS ORDERED: *HR* Digoxin 0.5 MG/2 ML AMPUL IVP ONE (12:23)
--- NOTE | 2018-04-10 12:26 | Internal Med Progress Note ---
Date of Encounter: 04/10/18 Time of Encounter: 10:00 - Assessment and plan (1) Abdominal pain Current Visit: Yes Status: Acute Qualifiers: Abdominal location: generalized Qualified Code(s): R10.84 - Generalized abdominal pain (2) COPD (chronic obstructive pulmonary disease) Current Visit: Yes Status: Chronic Qualifiers: COPD type: unspecified COPD Qualified Code(s): J44.9 - Chronic obstructive pulmonary disease, unspecified (3) Syncope Current Visit: Yes Status: Acute Qualifiers: Syncope type: unspecified Qualified Code(s): R55 - Syncope and collapse (4) Acute on chronic systolic heart failure Current Visit: Yes Status: Acute (5) Multifocal pneumonia Current Visit: Yes Status: Acute (6) Sinus tachycardia Current Visit: Yes Status: Acute (7) Gastritis Current Visit: Yes Status: Acute Assessment and plan: We will increase Protonix, add Carafate close monitoring H&H Qualifiers: Gastritis type: superficial Chronicity: unspecified Gastritis bleeding: without bleeding Qualified Code(s): K29.30 - Chronic superficial gastritis without bleeding - Time Spent With Patient Plan appreciate ID input. Continue current antibiotic , close monitoring of electrolytes, keep potassium more than 4 ,magnesium more than 2, will added 1 dose of digoxin, in view of the volume overload ,Will add one dose of Lasix , close monitoring patient condition counseling about diet will add Megace continue DVT prophylaxis, H&H stable Total time spent is greater than 50% in coordination of care (as documented) at patient's floor/unit and/or counseling patient: 25 - 35 minutes - Subjective Interval history: Patient continued to complain of shortness of breath palpitation, she denies any chest pain, low oral intake, she denies any diarrhea, patient is complaining of gastric discomfort nausea unable to correlate her meals - Constitutional Vitals: Temp Pulse Resp BP Pulse Ox 98.9 F 95 18 100/53 97 04/10/18 11:44 04/10/18 11:44 04/10/18 11:44 04/10/18 11:44 04/10/18 11:44 General appearance: Present: cooperative, mild distress (Abdominal pain and nausea), pleasant, underweight, answers questions appropriately - Head Head exam: Present: atraumatic, normocephalic - Neck Neck exam general surgery: Present: supple, trachea midline. Absent: lymphadenopathy - Respiratory Respiratory exam: Present: decreased breath sounds, prolonged expiratory phase, rales, rhonchi. Absent: accessory muscle use, wheezes - Cardiovascular Cardiovascular exam: Present: RRR, +S1, +S2, systolic murmur, tachycardia. Absent: diastolic murmur, gallop, rubs - GI/Abdominal GI/Abdominal exam: Present: normal bowel sounds, soft, tenderness (Suprapubic tenderness, epigastric tenderness), no peritoneal signs. Absent: distended Internal Medicine: Result - Labs CBC & Chem 7: 04/10/18 08:51 04/10/18 08:51 Labs: Short CBC 04/10/18 Range/Units 08:51 WBC 11.5 H (4.3-11.1) K/mcL Hgb 10.1 L (11.5-15.4) g/dL Hct 29.9 L (35.3-44.9) % Plt Count 235 (140-400) K/mcL Neutrophils # 9.2 H (1.6-8.9) K/mcL BMP 04/10/18 08:51 Sodium 134 L Potassium 4.1 Chloride 99 Carbon Dioxide 21 L BUN 13 Creatinine 0.57 L Glucose 108 H Calcium 8.9 - ABG Interpretation ABG results: ABG ABG pH 7.51 pH Units (7.32-7.45) H 04/09/18 10:41 ABG pCO2 31 mmHg (35-45) L 04/09/18 10:41 ABG pO2 73 mmHg (85-104) L 04/09/18 10:41 ABG O2 Saturation 96 % (95-98) 04/09/18 10:41 PT/INR, D-dimer PT 12.8 Seconds (9.4-12.1) H 04/06/18 11:25 D-Dimer 797 ng/mLFEU (0-500) H 04/06/18 10:30 - VTE Documentation of Mechanical Device: Intermittent pneumatic compression device Consult Discharge Plan - Plan Referrals: Lakshmi Rahman MD [Primary Care Provider] - 04/19/18 10:00 am
[2018-04-10] MEDS: Megestrol Acetate 400 MG/10 ML UDC PO SCH (13:16)
[2018-04-10] MEDS: Sucralfate 1 GM TABLET PO SCH ×3 (13:16→21:12)
[2018-04-10] MEDS: Furosemide 20 MG/2 ML VIAL IVP SCH (14:19)
[2018-04-10] MEDS: *HR* LORazepam 0.5 MG TABLET PO PRN (20:55)
[2018-04-10] MEDS: Perphenazine 2 MG TABLET PO PRN (21:51)
[2018-04-11] MEDS: tiZANidine 4 MG TABLET PO PRN ×4 (03:02→20:00)
[2018-04-11] MEDS: Ipratropium Neb 0.5 MG NEBULIZER IH SCH ×4 (03:05→20:32)
[2018-04-11] MEDS: Levalbuterol Neb 1.25 MG/3 ML IH SCH ×4 (03:06→20:32)
[2018-04-11] MEDS: Meropenem 1,000 MG in Water for inj. (sterile) 20 ML 10 ML IVP SCH ×3 (06:10→19:59)
[2018-04-11] MEDS: OXYCODONE Oral CONC 10 MG/0.5 ML ORAL.SYG PO PRN ×3 (07:26→20:00)
[2018-04-11] MEDS: Sucralfate 1 GM TABLET PO SCH ×4 (07:29→20:00)
[2018-04-11] MEDS: Ondansetron 4 MG/2 ML VIAL IVP PRN (09:10)
[2018-04-11] MEDS: *HR* LORazepam 0.5 MG TABLET PO PRN ×2 (09:19→22:30)
[2018-04-11] MEDS: Furosemide 20 MG/2 ML VIAL IVP SCH (09:19)
[2018-04-11] MEDS: Lactobacillus 1 EACH CAP.SPRINK PO SCH (10:26)
[2018-04-11] MEDS: Aspirin 81 MG TAB.CHEW PO SCH (10:26)
[2018-04-11] MEDS: Megestrol Acetate 400 MG/10 ML UDC PO SCH (10:27)
[2018-04-11] MEDS: Cyanocobalamin (B-12) 1,000 MCG TABLET PO SCH (10:28)
[2018-04-11] MEDS: Thiamine (B-1) 100 MG TABLET PO SCH ×2 (10:28→20:00)
[2018-04-11 11:11] LABS: Basophils % 0.3 %; Eosinophils # 0.1 K/mcL (0.0-0.6); Hematocrit 32.3 % (35.3-44.9); Hemoglobin 11.1 g/dL (11.5-15.4); Immature Granulocytes % 0.5 % (0-4); Immature Platelets 3.8 % (1.1-6.1); Lymphocytes # 1.1 K/mcL (0.6-4.6); Lymphocytes % 17.2 %; Mean Corpuscular HGB Conc 34.4 g/dL (31.6-35.5); Mean Corpuscular Hemoglobin 29.4 pg (28.0-33.3); Mean Corpuscular Volume 85.4 fL (83.0-100.0); Mean Platelet Volume 10.1 fL (9.4-12.4); Monocytes # 0.4 K/mcL (0.0-1.3); Monocytes % 5.9 %; Neutrophils # 4.9 K/mcL (1.6-8.9); Platelet Count 231 K/mcL (140-400); Red Blood Count 3.78 M/mcL (3.82-4.97); Red Cell Distribution Width 12.5 % (11.5-14.5); Segmented Neutrophils % 74.1 %
[2018-04-11 11:28] LABS: BUN/Creatinine Ratio 22 (6-26); Blood Urea Nitrogen 13 mg/dL (8-23); Carbon Dioxide 26 mEq/L (23-29); Chloride 95 mEq/L (98-107); Glucose 91 mg/dL (70-105); Magnesium 1.9 mg/dL (1.6-2.6); Osmolality,Calculated 278 (280-300); Phosphorous 2.9 mg/dL (2.7-4.5); Potassium 3.8 mEq/L (3.5-5.1); Sodium 134 mEq/L (136-145); eGFR For African Americans > 60 (> 60); eGFR For Non-African Americans > 60 (> 60)
--- NOTE | 2018-04-11 15:51 | Internal Med Progress Note ---
Date of Encounter: 04/11/18 Time of Encounter: 12:49 - Assessment and plan (1) Abdominal pain Current Visit: Yes Status: Acute Assessment and plan: Patient had chronic abdominal pain and chronic diarrhea,, check urine analysis again with reflux, continue Protonix, Qualifiers: Abdominal location: generalized Qualified Code(s): R10.84 - Generalized abdominal pain (2) COPD (chronic obstructive pulmonary disease) Current Visit: Yes Status: Chronic Qualifiers: COPD type: unspecified COPD Qualified Code(s): J44.9 - Chronic obstructive pulmonary disease, unspecified (3) Acute on chronic systolic heart failure Current Visit: Yes Status: Acute (4) Multifocal pneumonia Current Visit: Yes Status: Acute Assessment and plan: Patient is currently off antibiotic she does not want any more antibiotic with her diarrhea scaled of complication. No leukocytosis will check chest x-ray and reevaluate (5) Sinus tachycardia Current Visit: Yes Status: Acute Assessment and plan: Improving (6) Gastritis Current Visit: Yes Status: Acute Qualifiers: Gastritis type: superficial Chronicity: unspecified Gastritis bleeding: without bleeding Qualified Code(s): K29.30 - Chronic superficial gastritis without bleeding (7) Diarrhea Current Visit: Yes Status: Acute Assessment and plan: Check stool for C. difficile Qualifiers: Diarrhea type: unspecified type Qualified Code(s): R19.7 - Diarrhea, unspecified - Time Spent With Patient Total time spent is greater than 50% in coordination of care (as documented) at patient's floor/unit and/or counseling patient: 25 - 35 minutes - Subjective Interval history: Patient is feeling better, shortness of breath is improving, she denies any fever or chills overnight, patient refuses to take antibiotic yesterday and today because her diarrhea - Constitutional Vitals: Temp Pulse Resp BP Pulse Ox 98.5 F 96 18 116/84 98 04/11/18 11:13 04/11/18 11:13 04/11/18 11:13 04/11/18 11:13 04/11/18 11:13 General appearance: Present: cooperative, pleasant, underweight, answers questions appropriately - Head Head exam: Present: atraumatic, normocephalic - Neck Neck exam general surgery: Present: supple, trachea midline. Absent: lymphadenopathy - Respiratory Respiratory exam: Present: decreased breath sounds, rales. Absent: rhonchi, wheezes - Cardiovascular Cardiovascular exam: Present: RRR, +S1, +S2, systolic murmur. Absent: diastolic murmur, gallop, rubs - GI/Abdominal GI/Abdominal exam: Present: normal bowel sounds, soft, tenderness (Suprapubic tenderness mild diffuse abdominal tenderness), no peritoneal signs. Absent: distended - Extremities Exam Extremities exam: Present: warm, radial pulses palpable and symmetrical. Absent : calf tenderness, cyanotic, pedal edema Internal Medicine: Result - Labs CBC & Chem 7: 04/11/18 10:55 04/11/18 10:55 Labs: Short CBC 04/11/18 Range/Units 10:55 WBC 6.6 (4.3-11.1) K/mcL Hgb 11.1 L (11.5-15.4) g/dL Hct 32.3 L (35.3-44.9) % Plt Count 231 (140-400) K/mcL Neutrophils # 4.9 (1.6-8.9) K/mcL BMP 04/11/18 10:55 Sodium 134 L Potassium 3.8 Chloride 95 L Carbon Dioxide 26 BUN 13 Creatinine 0.60 Glucose 91 Calcium 9.0 - ABG Interpretation ABG results: ABG ABG pH 7.51 pH Units (7.32-7.45) H 04/09/18 10:41 ABG pCO2 31 mmHg (35-45) L 04/09/18 10:41 ABG pO2 73 mmHg (85-104) L 04/09/18 10:41 ABG O2 Saturation 96 % (95-98) 04/09/18 10:41 PT/INR, D-dimer PT 12.8 Seconds (9.4-12.1) H 04/06/18 11:25 D-Dimer 797 ng/mLFEU (0-500) H 04/06/18 10:30 - VTE Documentation of Mechanical Device: Intermittent pneumatic compression device Consult Discharge Plan - Plan Referrals: Lakshmi Rahman MD [Primary Care Provider] - 04/19/18 10:00 am
[2018-04-11] MEDS ORDERED: Dicyclomine 20 MG/2 ML AMPUL IM PRN (15:54)
[2018-04-11] MEDS: Perphenazine 2 MG TABLET PO PRN (22:30)
[2018-04-12] MEDS: OXYCODONE Oral CONC 10 MG/0.5 ML ORAL.SYG PO PRN ×4 (01:55→20:27)
[2018-04-12] MEDS: Ipratropium Neb 0.5 MG NEBULIZER IH SCH ×4 (04:14→22:41)
[2018-04-12] MEDS: Levalbuterol Neb 1.25 MG/3 ML IH SCH ×4 (04:14→22:41)
[2018-04-12] MEDS: Meropenem 1,000 MG in Water for inj. (sterile) 20 ML 10 ML IVP SCH ×3 (06:28→20:31)
[2018-04-12] MEDS: tiZANidine 4 MG TABLET PO PRN ×4 (06:30→21:26)
[2018-04-12 07:05] LABS: Basophils % 0.5 %; Eosinophils # 0.2 K/mcL (0.0-0.6); Eosinophils % 2.5 %; Hematocrit 34.2 % (35.3-44.9); Immature Granulocytes % 0.4 % (0-4); Lymphocytes % 23.8 %; Mean Corpuscular HGB Conc 34.8 g/dL (31.6-35.5); Mean Corpuscular Hemoglobin 29.3 pg (28.0-33.3); Mean Corpuscular Volume 84.2 fL (83.0-100.0); Mean Platelet Volume 9.7 fL (9.4-12.4); Monocytes # 0.6 K/mcL (0.0-1.3); Monocytes % 7.5 %; Neutrophils # 5.4 K/mcL (1.6-8.9); Platelet Count 318 K/mcL (140-400); Red Blood Count 4.06 M/mcL (3.82-4.97); Red Cell Distribution Width 12.5 % (11.5-14.5); Segmented Neutrophils % 65.3 %
[2018-04-12 07:08] LABS: Hemoglobin 11.9 g/dL (11.5-15.4)
[2018-04-12 07:09] LABS: Alanine Aminotransferase 12 Units/L (7-52); Albumin 4.2 g/dL (3.5-5.7); Albumin/Globulin Ratio 1.7 (1.1-2.2); Alkaline Phosphatase 42 Units/L (34-104); Aspartate Amino Transferase 23 Units/L (13-39); BUN/Creatinine Ratio 24 (6-26); Bilirubin,Total 0.8 mg/dL (0.3-1.0); Blood Urea Nitrogen 13 mg/dL (8-23); Calcium 9.5 mg/dL (8.6-10.3); Carbon Dioxide 23 mEq/L (23-29); Chloride 96 mEq/L (98-107); Globulin 2.5 g/dL (2.4-3.5); Glucose 90 mg/dL (70-105); Osmolality,Calculated 282 (280-300); Phosphorous 3.5 mg/dL (2.7-4.5); Potassium 3.3 mEq/L (3.5-5.1); Sodium 136 mEq/L (136-145); Total Protein 6.7 g/dL (6.4-8.9); eGFR For African Americans > 60 (> 60); eGFR For Non-African Americans > 60 (> 60)
[2018-04-12] MEDS: Sucralfate 1 GM TABLET PO SCH ×4 (07:37→20:31)
[2018-04-12] MEDS: Megestrol Acetate 400 MG/10 ML UDC PO SCH (07:38)
[2018-04-12] MEDS: Thiamine (B-1) 100 MG TABLET PO SCH ×2 (07:38→20:31)
[2018-04-12] MEDS: Cyanocobalamin (B-12) 1,000 MCG TABLET PO SCH (07:38)
[2018-04-12] MEDS: Aspirin 81 MG TAB.CHEW PO SCH (08:28)
[2018-04-12] MEDS: Lactobacillus 1 EACH CAP.SPRINK PO SCH (08:28)
[2018-04-12] MEDS: Furosemide 20 MG/2 ML VIAL IVP SCH (08:28)
--- NOTE | 2018-04-12 08:37 | Cardiology Progress Note ---
Addendum entered and electronically signed by Steve Oliveros DO 04/12/18 10:40: Upon discussion with Dr. Bartholomew, pt not in favor of diagnostic LHC. Original Note: <DomoSteve - Last Filed: 04/12/18 08:34> Date of Encounter: 04/12/18 Time of Encounter: 08:34 Assessment and Plan (1) Cardiomyopathy Current Visit: Yes Status: Acute LVEF 15%, etiology unclear. ECHO in December 2017 showed normal LVEF. Troponin peak at 4.06 -- down-trended since. Rechecked on 04/09/18 and was 1.73. No prior ischemic evaluation. Clinically appears euvolemic upon exam. Desaturates to low 90s when HOB declined to 30. Still clearly in respiratory distress with conversational dyspnea. - Will start Metoprolol 12.5mg BID. - Recommend higher dose of Lasix (40mg daily). - Given GI bleed (H/H appears stable), plan is to pursue diagnostic LHC when achieves respiratory stability. -- Recommend evaluating and controlling source of GI bleed prior to cardiologic intervention due to possible indication for DAPT. - Hold TAMMY-inhibitor pending LHC. - Strict I&Os, daily weights, Na/fluid restricted diet. Qualifiers: Cardiomyopathy type: unspecified Qualified Code(s): I42.9 - Cardiomyopathy , unspecified (2) Elevated troponin I level Current Visit: Yes Status: Acute Consulted for ischemic evaluation. Diagnostic LHC being considered when respiratory status can tolerate supine position. In setting of GI bleed, interventional LHC limited due to possible indication for use of DAPT. Details of plan as stated above. Discussion w patient/family: The assessment and plan as outlined above was discussed with the patient and/or family members who expressed understanding and agreement. All questions were answered. Thank you for involving us in the care of your patient. Please call with any questions. Subjective Principal diagnosis: GI bleed, heart failure, multifocal PNA Interval history: Patient reports no recurrent chest pain today. Continues to be short of breath but says she is feeling somewhat better. States she still has to sit up to breathe normally. No new concerns. Objective Vital Signs, Last 4 Hours Temp Pulse Resp BP Pulse Ox 04/12/18 07:06 98.5 F 113 26 148/88 96 General: Conversant HEENT: Atraumatic, Normocephaly, Mucus Membranes Moist Neck: No JVD Cardiac: Normal S1 and S2 (tachycardic around 108 bpm), No Murmur Lungs: Normal Breath Sounds, No Wheeze, Rales, Rhonchi, Other (tachypneic at around 22, speaks in interrupted sentences, SpO2 drops from 100% to 94% when declined to 30.) Neuro: Alert and responsive, No focal deficits noted Abdomen: Soft, Non-Tender Skin: No rashes noted on visualized skin Musculoskeletal: No Chest Wall Tenderness Extremities: No Clubbing, No Cyanosis, No Edema, Normal Pulses Results 04/12/18 06:44 04/12/18 06:44 Lab Results 04/11/18 04/11/18 04/12/18 10:55 10:55 06:44 WBC 6.6 8.3 Hgb 11.1 L 11.9 Hct 32.3 L 34.2 L Plt Count 231 318 Sodium 134 L Potassium 3.8 Chloride 95 L Carbon Dioxide 26 BUN 13 Creatinine 0.60 Glucose 91 Calcium 9.0 Magnesium 1.9 Total Bilirubin AST ALT Alkaline Phosphatase 04/12/18 06:44 WBC Hgb Hct Plt Count Sodium 136 Potassium 3.3 L Chloride 96 L Carbon Dioxide 23 BUN 13 Creatinine 0.55 L Glucose 90 Calcium 9.5 Magnesium 2.0 Total Bilirubin 0.8 AST 23 ALT 12 Alkaline Phosphatase 42 - VTE Documentation of Mechanical Device: Intermittent pneumatic compression device Consult Discharge Plan - Plan Referrals: Lakshmi Rahman MD [Primary Care Provider] - 04/19/18 10:00 am <Tiffanie Bartholomew - Last Filed: 04/12/18 14:10> Date of Encounter: 04/12/18 Assessment and Plan Discussion w patient/family: I examined this patient and my medical decision-making was reviewed with the Resident Physician. I agree with the documented findings, disposition and treatment plan. Taking over Cardiology Service from Dr. Shepard. I reviewed the pertinent medical records including but not limited to H&P, consult notes, progress notes , labs, cardiac studies and outpatient records. Appears patient presented originally with concern for GIB. General Surgery was consulted - reported no melena and stable Hgb (15) and decided against colonoscopy and appears to have signed off. However, recommendations were made before Hgb decreased to 9.0 range. Given that a heart catheterization may require anticoagulants during the procedure and potentially commit her to 12 months of dual antiplatelet therapy, would recommend a complete GI workup before considering a LHC which could be done as an outpatient. Additionally, the patient is having difficulty breathing and is unable to lay flat prohibiting her from undergoing LHC at this time. Symptoms of breathing difficulty may be multifactorial. Would consider increasing lasix to 40mg IV daily with watch on renal function. CXR demonstrates 'nonspecific' findings probably related to pneumonia. At this time, we will sign off - recommend GI evaluation. Can consider LHC while hospitalized if GI evaluation has been complete and patient is able to lay flat. Otherwise, would recommend outpatient evaluation. Please consider increasing lasix. Will add BB and ACEI which can be uptitrated as an outpatient. Objective Vital Signs, Last 4 Hours Temp Pulse Resp BP Pulse Ox 04/12/18 11:09 99.2 F 108 28 149/99 98 Results 04/12/18 06:44 04/12/18 06:44 Lab Results 04/12/18 04/12/18 06:44 06:44 WBC 8.3 Hgb 11.9 Hct 34.2 L Plt Count 318 Sodium 136 Potassium 3.3 L Chloride 96 L Carbon Dioxide 23 BUN 13 Creatinine 0.55 L Glucose 90 Calcium 9.5 Magnesium 2.0 Total Bilirubin 0.8 AST 23 ALT 12 Alkaline Phosphatase 42
--- NOTE | 2018-04-12 08:57 | Event Note ---
Date of Encounter: 04/12/18 Time of Encounter: 08:[address] Bass. Surgery will officially sign off of Tomasa at this time. There is no urgent indication for endoscopy at this time. No surgical intervention warranted. Please call or consult for new questions.
--- NOTE | 2018-04-12 09:05 | Electrocardiograph Report ---
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
--- NOTE | 2018-04-12 09:43 | Electrocardiograph Report ---
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
[2018-04-12 12:22] LABS: Bilirubin,Urine Negative (Negative); Blood,Urine Negative (Negative); Clarity,Urine Clear (Clear); Color,Urine Yellow (Yellow); Glucose,Urine (UA) Normal (Normal); Ketones,Urine 80 mg/dL (Negative); Leukocyte Esterase,Urine Negative (Negative); Nitrite,Urine Negative (Negative); Protein,Urine Negative (Neg-Trace); Specific Gravity,Urine 1.011 (1.010-1.025); Urobilinogen,Urine Normal (Normal)
--- NOTE | 2018-04-12 15:16 | Infectious Disease Progress No ---
Date of Encounter: 04/12/18 Time of Encounter: 15:14 - Assessment and Plan (1) Severe sepsis Current Visit: Yes Status: Acute Resolved The patient had three SIRS criteria plus lactic acidosis, hypotension, and acute coronary syndrome. Likely secondary to multifocal pneumonia. Improved. WBC stable. Hypotension improved. Tachycardia improved. Blood cultures drawn 04/06/18 are pending x 4 sets. (2) Multifocal pneumonia Current Visit: Yes Status: Acute Location: Bilateral lungs. Causative organism: Unclear. RIP negative. Legionella and S. pneumo UAT negative The patient is not coughing anything up to get a sputum specimen. Continue Zyvox 600mg by mouth BID. Continue Meropenem 1 gram IV Q8H. Duration of treatment 10 days total. Today she is on day 5 Monitor renal function and dose-adjust antibiotics. Avoid SSRIs while on Zyvox. The patient insists on going home, consider doxycycline and Bactrim for 5 more days. We will sign off, please call us if he does have any questions or concerns (3) GI bleed Current Visit: Yes Status: Acute FOBT positive. Hgb stable. No acute bleeding noted on exam. General surgery consulted and following. Qualifiers: GI bleed type/associated pathology: melena Qualified Code(s): K92.1 - Melena (4) Drug allergy, antibiotic Current Visit: Yes Status: Acute Patient reports allergy to multiple antibiotics including PCN - makes her tongue swell. Allergies to Cipro, Vancomycin, and Clindamycin are not clear, but likely adverse reactions vs. true allergies. (5) Acute coronary syndrome Current Visit: Yes Status: Acute Troponin peaked at 4.01. Appreciate cardiology's recommendation. Patient with severe sepsis and GI bleed she would be very high risk for angioplasty apparently. (6) COPD (chronic obstructive pulmonary disease) Current Visit: Yes Status: Chronic Qualifiers: COPD type: unspecified COPD Qualified Code(s): J44.9 - Chronic obstructive pulmonary disease, unspecified (7) Crohns disease Current Visit: Yes Status: Acute Qualifiers: Gastrointestinal tract location: unspecified location Digestive disease complication type: with rectal bleeding Qualified Code(s): K50.911 - Crohn's disease, unspecified, with rectal bleeding (8) Schizoaffective disorder, chronic condition Current Visit: Yes Status: Chronic - Subjective Interval history: Patient seen and examined. seems to be doing okay. Nursing tells me that the patient has been refusing her antibiotics because they are giving her diarrhea. When I spoke with the patient she states that she does not take antibiotics and she has better homeopathic approach that she can do at home if I discharge. Expensive patient that we need to practice evidence-based medicine and follow guidelines. Review of system positive for shortness of breath and cough and nausea and yesterday she had vomiting episodes and intermittent diarrhea. No urinary symptoms Patient seen and examined. Patient is afebrile Patient tachycardic with heart rate up to 125 WBC normalized 83 with normal differential BUN/creatinine stable Chest x-ray from April 11: Nonspecific pulmonary findings probably related to pneumonia. Congestive heart failure is a consideration, however the vasculature does not appear particularly engorged. Infect Dis PN-Objective Data - Labs CBC & Chem 7: 04/12/18 06:44 04/12/18 06:44 Labs: Laboratory Results - last 24 hr 04/12/18 04/12/18 04/12/18 06:44 06:44 11:45 WBC 8.3 RBC 4.06 Hgb 11.9 Hct 34.2 L MCV 84.2 MCH 29.3 MCHC 34.8 RDW 12.5 Plt Count 318 MPV 9.7 Immature Gran % 0.4 Seg Neutrophils % 65.3 Lymphocytes % 23.8 Monocytes % 7.5 Eosinophils % 2.5 Basophils % 0.5 Neutrophils # 5.4 Lymphocytes # 2.0 Monocytes # 0.6 Eosinophils # 0.2 Basophils # 0.0 Sodium 136 Potassium 3.3 L Chloride 96 L Carbon Dioxide 23 BUN 13 Creatinine 0.55 L Est GFR ( Amer) > 60 Est GFR (Non-Af Amer) > 60 BUN/Creatinine Ratio 24 Glucose 90 Calculated Osmolality 282 Calcium 9.5 Phosphorus 3.5 Magnesium 2.0 Total Bilirubin 0.8 AST 23 ALT 12 Alkaline Phosphatase 42 Serum Total Protein 6.7 Albumin 4.2 Globulin 2.5 Albumin/Globulin Ratio 1.7 Urine Color Yellow Urine Clarity Clear Urine pH 6.0 Ur Specific [place] 1.011 Urine Protein Negative Urine Glucose (UA) Normal Urine Ketones 80 H Urine Blood Negative Urine Nitrite Negative Urine Bilirubin Negative Urine Urobilinogen Normal Ur Leukocyte Esterase Negative Ur Culture Indicated? NO Cultures: Cultures 04/06/18 17:24 Blood Culture - Final Peripheral Venipuncture No growth. Final report. 04/06/18 18:22 Blood Culture - Final Peripheral Venipuncture No growth. Final report. 04/06/18 12:07 Blood Culture - Final Arterial Line No growth. Final report. 04/06/18 03:36 Blood Culture - Final Peripheral Venipuncture No growth. Final report. 04/06/18 03:53 Blood Culture - Final Peripheral Venipuncture No growth. Final report. 04/06/18 21:30 Legionella Antigen - Final Urine,Clean Catch Streptococcus pneumoniae Antigen (M - Final Serology 04/12/18 04/09/18 04/06/18 Range/Units 11:45 10:15 21:30 Urine Color Yellow Yellow (Yellow) Urine Clarity Clear Clear (Clear) Urine pH 6.0 6.0 (5.0-8.0) pH Units Ur Specific [place] 1.011 1.014 (1.010-1.025) Urine Protein Negative Trace (Neg-Trace) mg/dL Urine Glucose (UA) Normal Normal (Normal) mg/dL Urine Ketones 80 H Trace H (Negative) mg/dL Urine Blood Negative Moderate H (Negative) Urine Nitrite Negative Negative (Negative) Urine Bilirubin Negative Negative (Negative) Urine Urobilinogen Normal Normal (Normal) mg/dL Ur Leukocyte Esterase Negative Moderate H (Negative) Urine Microscopic RBC 5-15 H (0-3) per hpf Urine Microscopic WBC 5-15 H (0-3) per hpf Ur Squamous Epith Cells Many H (None-Few) per lpf Urine Bacteria None Seen (None-Few) per hpf Hyaline Casts None Seen (None-Few) per lpf Ur Culture Indicated? NO NO. A (NO) Chlamy pneumoniae PCR Not Detected (Not Detect) Adenovirus (PCR) Not Detected (Not Detect) B. pertussis DNA (PCR) Not Detected (Not Detect) B.parapertussis DNA PCR Not Detected (Not Detect) Coronavirus OC43 (PCR) Not Detected (Not Detect) Coronavirus HKU1 (PCR) Not Detected (Not Detect) Coronavirus 229E (PCR) Not Detected (Not Detect) Coronavirus NL63 (PCR) Not Detected (Not Detect) Human Metapneumovir PCR Not Detected (Not Detect) Influenza A (H1) PCR Not Detected (Not Detect) Influ A (H1N1/09) PCR Not Detected (Not Detect) Influenza A (H3) PCR Not Detected (Not Detect) Influenza A Untype (PCR) Not Detected (Not Detect) Influenza Type B (PCR) Not Detected (Not Detect) M.pneumoniae DNA (PCR) Not Detected (Not Detect) Parainfluenza 1 (PCR) Not Detected (Not Detect) Parainfluenza 2 (PCR) Not Detected (Not Detect) Parainfluenza 3 (PCR) Not Detected (Not Detect) Parainfluenza 4 (PCR) Not Detected (Not Detect) RSV (PCR) Not Detected (Not Detect) Entero/Rhino (PCR) Not Detected (Not Detect) 04/06/18 Range/Units 05:00 Urine Color Yellow (Yellow) Urine Clarity Clear (Clear) Urine pH 7.0 (5.0-8.0) pH Units Ur Specific [place] 1.013 (1.010-1.025) Urine Protein 100 H (Neg-Trace) mg/dL Urine Glucose (UA) 100 H (Normal) mg/dL Urine Ketones 80 H (Negative) mg/dL Urine Blood Small H (Negative) Urine Nitrite Negative (Negative) Urine Bilirubin Negative (Negative) Urine Urobilinogen Normal (Normal) mg/dL Ur Leukocyte Esterase Negative (Negative) Urine Microscopic RBC 5-15 H (0-3) per hpf Urine Microscopic WBC 0-3 (0-3) per hpf Ur Squamous Epith Cells Many H (None-Few) per lpf Urine Bacteria None Seen (None-Few) per hpf Hyaline Casts None Seen (None-Few) per lpf Ur Culture Indicated? NO (NO) Chlamy pneumoniae PCR (Not Detect) Adenovirus (PCR) (Not Detect) B. pertussis DNA (PCR) (Not Detect) B.parapertussis DNA PCR (Not Detect) Coronavirus OC43 (PCR) (Not Detect) Coronavirus HKU1 (PCR) (Not Detect) Coronavirus 229E (PCR) (Not Detect) Coronavirus NL63 (PCR) (Not Detect) Human Metapneumovir PCR (Not Detect) Influenza A (H1) PCR (Not Detect) Influ A (H1N1/09) PCR (Not Detect) Influenza A (H3) PCR (Not Detect) Influenza A Untype (PCR) (Not Detect) Influenza Type B (PCR) (Not Detect) M.pneumoniae DNA (PCR) (Not Detect) Parainfluenza 1 (PCR) (Not Detect) Parainfluenza 2 (PCR) (Not Detect) Parainfluenza 3 (PCR) (Not Detect) Parainfluenza 4 (PCR) (Not Detect) RSV (PCR) (Not Detect) Entero/Rhino (PCR) (Not Detect) - Impressions Impressions Abdomen/Pelvis CT 04/07/18 14:20 IMPRESSION: 1. No radiographic findings to suggest presence of retroperitoneal hemorrhage. 2. Persistent finding of bibasilar pleuroparenchymal disease as described above. D/ / 04/07/2018 15:11:19 Logan Robles MD / anisa Interpreting Provider: Logan Robles MD Chest X-Ray 04/11/18 15:47 IMPRESSION: Nonspecific pulmonary findings probably related to pneumonia. Congestive heart failure is a consideration, however the vasculature does not appear particularly engorged. D/ / Josesito Dennis / Josesito Dennis Interpreting Provider: Josesito Dennis Exam - Constitutional Vitals: Temp Pulse Resp BP Pulse Ox 99.2 F 108 28 149/99 98 04/12/18 11:09 04/12/18 11:09 04/12/18 11:09 04/12/18 11:09 04/12/18 11:09 General appearance: mild distress, no cooperative - Respiratory Additional comments: Air sounds audible both lung stanley. Chest expanding symmetrically. Has some rhonchi and wheezing noted diffusely - Cardiovascular Cardiovascular exam: Present: RRR, +S1, +S2 Additional comments: Tachycardic - GI/Abdominal GI/Abdominal exam: Present: soft. Absent: distended, firm, tenderness - Extremities Exam Extremities exam: Present: normal inspection. Absent: pedal edema - VTE Documentation of Mechanical Device: Intermittent pneumatic compression device Consult Discharge Plan - Plan Referrals: Lakshmi Rahman MD [Primary Care Provider] - 04/19/18 10:00 am
[2018-04-12] MEDS: Linezolid 600 MG TABLET PO SCH (16:39)
--- NOTE | 2018-04-12 17:38 | Internal Med Progress Note ---
Date of Encounter: 04/12/18 Time of Encounter: 14:00 - Assessment and plan (1) Abdominal pain Current Visit: Yes Status: Acute Qualifiers: Abdominal location: generalized Qualified Code(s): R10.84 - Generalized abdominal pain (2) COPD (chronic obstructive pulmonary disease) Current Visit: Yes Status: Chronic Qualifiers: COPD type: unspecified COPD Qualified Code(s): J44.9 - Chronic obstructive pulmonary disease, unspecified (3) Acute on chronic systolic heart failure Current Visit: Yes Status: Acute (4) Multifocal pneumonia Current Visit: Yes Status: Acute (5) Sinus tachycardia Current Visit: Yes Status: Acute (6) Gastritis Current Visit: Yes Status: Acute Qualifiers: Gastritis type: superficial Chronicity: unspecified Gastritis bleeding: without bleeding Qualified Code(s): K29.30 - Chronic superficial gastritis without bleeding (7) Diarrhea Current Visit: Yes Status: Acute Qualifiers: Diarrhea type: unspecified type Qualified Code(s): R19.7 - Diarrhea, unspecified - Time Spent With Patient Plan I had long discussion with patient counseling about diuretics, she stated that she misunderstood the management plan recommended by cardiology team, she is willing to go us rule procedure if needed, she is willing to take her Lasix 40 mg daily, discussed with dumbwaiter operator rehabilitation counselor recommended clear liquid diet start tomorrow morning possible colonoscopy on Thursday and EGD, patient high risk of arrhythmia this with her low ejection fraction, need cardiac catheterization before discharge for further evaluation of her condition, had dropped her hemoglobin could be secondary to hemodilution, hemoglobin is up to 11 back to her baseline after diuresis, we will check stool for occult blood, continue Protonix, appreciate dumbwaiter operator on cardiology input, continue beta jeovany lisinopril and Lasix Total time spent is greater than 50% in coordination of care (as documented) at patient's floor/unit and/or counseling patient: Greater than 35 minutes - Subjective Interval history: Patient is feeling anxious about taking higher dose of Lasix, she is scared about dizziness, patient denies any chest pain she stated her shortness of breath is improving. Patient is eating better, no evidence of blood in stool or black stool - Constitutional Vitals: Temp Pulse Resp BP Pulse Ox 98.8 F 109 26 145/90 97 04/12/18 16:30 04/12/18 16:30 04/12/18 16:30 04/12/18 16:30 04/12/18 16:30 General appearance: Present: cooperative, pleasant, underweight, answers questions appropriately - Head Head exam: Present: atraumatic, normocephalic - Neck Neck exam general surgery: Present: supple, trachea midline. Absent: lymphadenopathy - Respiratory Respiratory exam: Present: decreased breath sounds. Absent: accessory muscle use, rales, rhonchi, wheezes - Cardiovascular Cardiovascular exam: Present: RRR, +S1, +S2. Absent: diastolic murmur, gallop, rubs, systolic murmur - GI/Abdominal GI/Abdominal exam: Present: normal bowel sounds, soft, tenderness (Mild diffuse abdominal tenderness and epigastric tenderness more), no peritoneal signs. Absent: distended - Extremities Exam Extremities exam: Present: warm, radial pulses palpable and symmetrical. Absent : cyanotic, pedal edema Internal Medicine: Result - Labs CBC & Chem 7: 04/12/18 06:44 04/12/18 06:44 Labs: Short CBC 04/12/18 Range/Units 06:44 WBC 8.3 (4.3-11.1) K/mcL Hgb 11.9 (11.5-15.4) g/dL Hct 34.2 L (35.3-44.9) % Plt Count 318 (140-400) K/mcL Neutrophils # 5.4 (1.6-8.9) K/mcL BMP 04/12/18 06:44 Sodium 136 Potassium 3.3 L Chloride 96 L Carbon Dioxide 23 BUN 13 Creatinine 0.55 L Glucose 90 Calcium 9.5 Liver Function 04/12/18 Range/Units 06:44 Total Bilirubin 0.8 (0.3-1.0) mg/dL AST 23 (13-39) Units/L ALT 12 (7-52) Units/L Alkaline Phosphatase 42 (34-104) Units/L Albumin 4.2 (3.5-5.7) g/dL Urine 04/12/18 Range/Units 11:45 Urine Color Yellow (Yellow) Urine Clarity Clear (Clear) Urine pH 6.0 (5.0-8.0) pH Units Ur Specific [place] 1.011 (1.010-1.025) Urine Protein Negative (Neg-Trace) mg/dL Urine Glucose (UA) Normal (Normal) mg/dL - ABG Interpretation ABG results: ABG ABG pH 7.51 pH Units (7.32-7.45) H 04/09/18 10:41 ABG pCO2 31 mmHg (35-45) L 04/09/18 10:41 ABG pO2 73 mmHg (85-104) L 04/09/18 10:41 ABG O2 Saturation 96 % (95-98) 04/09/18 10:41 PT/INR, D-dimer PT 12.8 Seconds (9.4-12.1) H 04/06/18 11:25 D-Dimer 797 ng/mLFEU (0-500) H 04/06/18 10:30 - Impressions Impressions Abdomen/Pelvis CT 04/07/18 14:20 IMPRESSION: 1. No radiographic findings to suggest presence of retroperitoneal hemorrhage. 2. Persistent finding of bibasilar pleuroparenchymal disease as described above. D/ / 04/07/2018 15:11:19 Logan Robles MD / anisa Interpreting Provider: Logan Robles MD Chest X-Ray 04/11/18 15:47 IMPRESSION: Nonspecific pulmonary findings probably related to pneumonia. Congestive heart failure is a consideration, however the vasculature does not appear particularly engorged. D/ / Josesito Dennis / Josesito Dennis Interpreting Provider: Josesito Dennis - VTE Documentation of Mechanical Device: Intermittent pneumatic compression device Consult Discharge Plan - Plan Referrals: Lakshmi Rahman MD [Primary Care Provider] - 04/19/18 10:00 am
[2018-04-12] MEDS: Perphenazine 2 MG TABLET PO PRN (21:27)
[2018-04-12] MEDS: Ondansetron 4 MG/2 ML VIAL IVP PRN (21:32)
[2018-04-12] MEDS ORDERED: Levalbuterol Neb 1.25 MG/3 ML IH PRN (22:31)
[2018-04-12] MEDS ORDERED: Ipratropium Neb 0.5 MG NEBULIZER IH PRN (22:32)
[2018-04-13] MEDS: *HR* LORazepam 0.5 MG TABLET PO PRN (00:52)
[2018-04-13] MEDS: Meropenem 1,000 MG in Water for inj. (sterile) 20 ML 10 ML IVP SCH ×3 (04:10→19:27)
[2018-04-13] MEDS: Sucralfate 1 GM TABLET PO SCH ×4 (04:11→19:32)
[2018-04-13] MEDS: Linezolid 600 MG TABLET PO SCH ×2 (04:11→17:52)
[2018-04-13] MEDS: OXYCODONE Oral CONC 10 MG/0.5 ML ORAL.SYG PO PRN ×3 (06:44→19:28)
[2018-04-13] MEDS: Megestrol Acetate 400 MG/10 ML UDC PO SCH (07:19)
[2018-04-13] MEDS: Lactobacillus 1 EACH CAP.SPRINK PO SCH (08:38)
[2018-04-13] MEDS: Thiamine (B-1) 100 MG TABLET PO SCH ×2 (08:39→20:22)
[2018-04-13] MEDS: Cyanocobalamin (B-12) 1,000 MCG TABLET PO SCH (08:40)
[2018-04-13] MEDS: Aspirin 81 MG TAB.CHEW PO SCH (08:40)
[2018-04-13] MEDS: tiZANidine 4 MG TABLET PO PRN ×2 (08:57→19:36)
[2018-04-13] MEDS: Furosemide 20 MG/2 ML VIAL IVP SCH (08:57)
--- NOTE | 2018-04-13 13:46 | Internal Med Progress Note ---
Date of Encounter: 04/13/18 Time of Encounter: 13:44 - Assessment and plan (1) Abdominal pain Current Visit: Yes Status: Acute Assessment and plan: Patient had chronic abdominal pain and chronic intermittent diarrhea. Refuse for endoscopy and also PPI. I talked to patient and her extensively about further management plan and she agreed to get PPI but is still refusing endoscope he as she feel too weak. GI consultation was done by previous partner and awaiting for his opinion. Qualifiers: Abdominal location: generalized Qualified Code(s): R10.84 - Generalized abdominal pain Code(s): R10.9 - Unspecified abdominal pain SNOMED Code(s): 35183419 (2) Multifocal pneumonia Current Visit: Yes Status: Acute Assessment and plan: Patient declined to take any antibiotic as concern that her a stomach get upset. No leukocytosis but will check CBC today. I explained the risk for suboptimal antibiotic coverage is an possibility of resistance developed she and her understand and take the responsibility for bad outcome but is still does not want any antibiotic. I Will also talked to ID specialist for further plan of care. Final blood culture report with no growth (3) Acute on chronic systolic heart failure Current Visit: Yes Status: Acute Assessment and plan: Severe cardiomyopathy with ejection fraction 15%. [employer]'s on board and continue medical management. Earlier patient refused to take Lasix but today she started to take. Plan for heart catheterization once patient is stable enough to tolerate the procedure. Patient refused for any intervention right now as too weak to tolerate any procedure. Will discuss with hot mix operator and if the possibility to schedule outpatient. (4) Gastritis Current Visit: Yes Status: Acute Assessment and plan: Patient refused to take PPI and Carafate today. I explained been she agreed for PPI. History of GI bleed chronically but refusing and risk of. Hemoglobin has been is stable to yesterday but I will repeat CBC again. If hemoglobin is stable then I will talk to general surgeon to get the possibility for outpatient endoscopy as per patient and family decision. Patient supposed to have clear liquid as per order but family is sneaking to bring regular food and got caught incidentally by medical staff Qualifiers: Gastritis type: superficial Chronicity: unspecified Gastritis bleeding: without bleeding Qualified Code(s): K29.30 - Chronic superficial gastritis without bleeding (5) COPD (chronic obstructive pulmonary disease) Current Visit: Yes Status: Chronic Assessment and plan: Stable. Does not appear in acute exacerbation. Continue ipratropium add Xopenex Qualifiers: COPD type: unspecified COPD Qualified Code(s): J44.9 - Chronic obstructive pulmonary disease, unspecified (6) Diarrhea Current Visit: Yes Status: Chronic Assessment and plan: Chronic intermittent. Slowing down now. Qualifiers: Diarrhea type: unspecified type Qualified Code(s): R19.7 - Diarrhea, unspecified (7) Generalized weakness Current Visit: Yes Status: Acute Assessment and plan: No focal motor weakness. Physiotherapist consulted but patient again refused for any physiotherapy (8) DVT prophylaxis Current Visit: Yes Status: Acute Assessment and plan: SCDs. No blood thinner due to concern of GI bleed - Time Spent With Patient Total time spent is greater than 50% in coordination of care (as documented) at patient's floor/unit and/or counseling patient: Greater than 35 minutes (Spent more than 35 minute inpatient care, reviewing chart, communicating with nurse and access consultant. Discussion with patient and family and providing all possible explanation) - Subjective Interval history: Complain of a stomach upset. Patient refused to take antibiotic as she thinks it makes her stomach upset. She also declined for endoscopic today as she feel too weak to tolerate any procedure therefore general surgeon signed off. at bedside. Patient denies fever, chills, nausea, vomiting, headache, dizziness, chest pain , shortness of breath, urinary complaint. Diarrhea is slowing down Initially patient got admitted under general surgeon Dr. Ivan for the endoscope be with concern of colitis and chronic recurrent GI bleed. Eventually she got respiratory distress and possible drug overdose due to sedative medicine and transferred to ICU setting where multifocal pneumonia and raised troponin was found. ID was consulted for the management of pneumonia because patient has multiple drug allergy. [employer] was consulted for raised troponin and severe cardiomyopathy ejection fraction 15% and a started medical management immediately and decided to wait for any cardiac intervention such as heart catheterization once patient get stable. - Constitutional Vitals: Temp Pulse Resp BP Pulse Ox 98.0 F 97 19 87/42 99 04/13/18 10:55 04/13/18 11:39 04/13/18 10:55 04/13/18 10:55 04/13/18 10:55 General appearance: Present: cooperative, pleasant, underweight, answers questions appropriately Exam: General appearance: No acute distress, A&O X 3. at bedside Head exam: Atraumatic Eye exam: EOMI, PERRLA ENT exam: Moist oral mucosa Neck nontender, supple Respiratory exam: Clear to auscultation bilaterally Cardiovascular exam: Regular rate and rhythm, no systolic murmur Abdominal exam: Soft, mild diffuse tenderness but no rebound tenderness, no guarding and rigidity, nondistended, positive bowel sounds Extremities exam: No calf tenderness, no pedal edema Present: Skin-no rash, warm, dry, intact Neurological exam: Alert, awake, oriented 3, CN II-XII intact, no focal deficits. No facial droop. Normal speech. Internal Medicine: Result - Labs CBC & Chem 7: 04/13/18 13:53 04/13/18 13:53 - ABG Interpretation ABG results: ABG ABG pH 7.51 pH Units (7.32-7.45) H 04/09/18 10:41 ABG pCO2 31 mmHg (35-45) L 04/09/18 10:41 ABG pO2 73 mmHg (85-104) L 04/09/18 10:41 ABG O2 Saturation 96 % (95-98) 04/09/18 10:41 PT/INR, D-dimer PT 12.8 Seconds (9.4-12.1) H 04/06/18 11:25 D-Dimer 797 ng/mLFEU (0-500) H 04/06/18 10:30 - VTE Documentation of Mechanical Device: Intermittent pneumatic compression device Consult Discharge Plan - Plan Referrals: Lakshmi Rahman MD [Primary Care Provider] - 04/19/18 10:00 am
[2018-04-13 14:03] LABS: Basophils % 0.4 %; Eosinophils # 0.2 K/mcL (0.0-0.6); Hematocrit 31.9 % (35.3-44.9); Hemoglobin 11.2 g/dL (11.5-15.4); Immature Granulocytes % 0.6 % (0-4); Lymphocytes # 2.1 K/mcL (0.6-4.6); Lymphocytes % 29.7 %; Mean Corpuscular HGB Conc 35.1 g/dL (31.6-35.5); Mean Corpuscular Hemoglobin 29.4 pg (28.0-33.3); Mean Corpuscular Volume 83.7 fL (83.0-100.0); Mean Platelet Volume 9.4 fL (9.4-12.4); Monocytes # 0.8 K/mcL (0.0-1.3); Monocytes % 11.7 %; Neutrophils # 3.8 K/mcL (1.6-8.9); Platelet Count 285 K/mcL (140-400); Red Blood Count 3.81 M/mcL (3.82-4.97); Red Cell Distribution Width 12.6 % (11.5-14.5); Segmented Neutrophils % 54.6 %
[2018-04-13 14:20] LABS: BUN/Creatinine Ratio 20 (6-26); Blood Urea Nitrogen 12 mg/dL (8-23); Calcium 9.5 mg/dL (8.6-10.3); Carbon Dioxide 29 mEq/L (23-29); Chloride 99 mEq/L (98-107); Glucose 102 mg/dL (70-105); Osmolality,Calculated 286 (280-300); Potassium 3.4 mEq/L (3.5-5.1); Sodium 138 mEq/L (136-145); eGFR For African Americans > 60 (> 60); eGFR For Non-African Americans > 60 (> 60)
[2018-04-13] MEDS: Perphenazine 2 MG TABLET PO PRN (21:53)
[2018-04-14] MEDS: OXYCODONE Oral CONC 10 MG/0.5 ML ORAL.SYG PO PRN ×4 (01:40→20:14)
[2018-04-14] MEDS: tiZANidine 4 MG TABLET PO PRN ×4 (01:41→21:26)
[2018-04-14] MEDS: *HR* LORazepam 0.5 MG TABLET PO PRN ×2 (01:44→15:42)
[2018-04-14] MEDS: Meropenem 1,000 MG in Water for inj. (sterile) 20 ML 10 ML IVP SCH ×3 (03:21→19:33)
[2018-04-14] MEDS ORDERED: 0.9 % Sodium Chloride 500 ML IVC ONE ×2 (04:26→23:12)
[2018-04-14] MEDS: Linezolid 600 MG TABLET PO SCH ×2 (05:00→15:47)
[2018-04-14] MEDS: Cyanocobalamin (B-12) 1,000 MCG TABLET PO SCH (07:47)
[2018-04-14] MEDS: Sucralfate 1 GM TABLET PO SCH ×4 (07:47→19:37)
[2018-04-14] MEDS: Thiamine (B-1) 100 MG TABLET PO SCH ×2 (07:47→19:36)
[2018-04-14] MEDS: Aspirin 81 MG TAB.CHEW PO SCH (07:54)
[2018-04-14] MEDS: Lactobacillus 1 EACH CAP.SPRINK PO SCH (07:54)
[2018-04-14] MEDS: Megestrol Acetate 400 MG/10 ML UDC PO SCH (07:55)
[2018-04-14] MEDS: Furosemide 20 MG/2 ML VIAL IVP SCH (07:55)
[2018-04-14 16:49] LABS: Basophils % 0.4 %; Eosinophils # 0.3 K/mcL (0.0-0.6); Eosinophils % 3.9 %; Hematocrit 28.2 % (35.3-44.9); Hemoglobin 9.7 g/dL (11.5-15.4); Immature Granulocytes % 0.6 % (0-4); Lymphocytes % 29.5 %; Mean Corpuscular HGB Conc 34.4 g/dL (31.6-35.5); Mean Corpuscular Hemoglobin 29.6 pg (28.0-33.3); Mean Platelet Volume 9.6 fL (9.4-12.4); Monocytes # 0.8 K/mcL (0.0-1.3); Monocytes % 11.8 %; Neutrophils # 3.6 K/mcL (1.6-8.9); Platelet Count 286 K/mcL (140-400); Red Blood Count 3.28 M/mcL (3.82-4.97); Red Cell Distribution Width 12.9 % (11.5-14.5); Segmented Neutrophils % 53.8 %
[2018-04-14 17:08] LABS: BUN/Creatinine Ratio 11 (6-26); Blood Urea Nitrogen 8 mg/dL (8-23); Calcium 9.4 mg/dL (8.6-10.3); Carbon Dioxide 26 mEq/L (23-29); Chloride 103 mEq/L (98-107); Glucose 120 mg/dL (70-105); Osmolality,Calculated 288 (280-300); Potassium 3.4 mEq/L (3.5-5.1); Sodium 139 mEq/L (136-145); eGFR For African Americans > 60 (> 60); eGFR For Non-African Americans > 60 (> 60)
--- NOTE | 2018-04-14 18:26 | Internal Med Progress Note ---
Date of Encounter: 04/14/18 Time of Encounter: 18:22 - Assessment and plan (1) Abdominal pain Current Visit: Yes Status: Acute Assessment and plan: Patient had chronic abdominal pain and chronic intermittent diarrhea. Refused for endoscopy and also PPI therefore general surgeon signed of. Again I had long discussion with patient and family about further plans but they have been very indecisive and also Refusing Several Medication Including PPI and Antibiotic. There Has Been Ordered for Clear Liquid but Her Has Been Sneaking to Bring Regular Food. Repeat CBC with declining hemoglobin but no active visible bleeding. Early in the day patient was hypotensive due to overdiuresis therefore Lasix was held and repeat blood pressure started to improve but is still low-level normal. I went to room to 3 times to update the patient about information in helping in making decision and after lowering hemoglobin patient decided to stay and reconsult surgeon Dr. Ivan therefore I informed Dr. Ivan. As per surgeon will repeat hemoglobin tomorrow morning and will decide the need of endoscope be while in the hospital versus outpatient. Keep patient on clear liquid, PPI, repeat blood tests in the morning . Qualifiers: Abdominal location: generalized Qualified Code(s): R10.84 - Generalized abdominal pain Code(s): R10.9 - Unspecified abdominal pain SNOMED Code(s): 89947994 (2) Multifocal pneumonia Current Visit: Yes Status: Acute Assessment and plan: Patient declined to take any antibiotic as concern that her a stomach get upset. White count normal.. I explained the risk for suboptimal antibiotic coverage is an possibility of resistance developed she and her understand and take the responsibility for bad outcome if it happens but is still does not want any antibiotic. Talk to ID specialist and made him aware. Final blood culture report with no growth (3) Acute on chronic systolic heart failure Current Visit: Yes Status: Acute Assessment and plan: Severe cardiomyopathy with ejection fraction 15%. Electrician Manager's on board and continue medical management. IV Lasix was restarted but patient got overdiuresis therefore Lasix on hold. Will resume oral low-dose Lasix once BP better. Plan for heart catheterization once patient is stable enough to tolerate the procedure. Patient refused for any intervention right now as too weak to tolerate any procedure and understand the risk of severe outcome. Will discuss with bioinformatician to schedule outpatient when patient is ready to discharge. (4) COPD (chronic obstructive pulmonary disease) Current Visit: Yes Status: Chronic Assessment and plan: Stable. Does not appear in acute exacerbation. Continue ipratropium add Xopenex Qualifiers: COPD type: unspecified COPD Qualified Code(s): J44.9 - Chronic obstructive pulmonary disease, unspecified (5) Diarrhea Current Visit: Yes Status: Chronic Assessment and plan: Chronic intermittent. Qualifiers: Diarrhea type: unspecified type Qualified Code(s): R19.7 - Diarrhea, unspecified (6) Generalized weakness Current Visit: Yes Status: Acute Assessment and plan: No focal motor weakness. Physiotherapist consulted but patient declined. (7) DVT prophylaxis Current Visit: Yes Status: Acute Assessment and plan: SCDs. No blood thinner due to concern of GI bleed - Time Spent With Patient Total time spent is greater than 50% in coordination of care (as documented) at patient's floor/unit and/or counseling patient: - Subjective Interval history: Multiple nonspecific complaints such as feeling hot and cold, weak, tired, stomach upset but also fluctuate her symptom complaint frequently. Again I had long discussion with patient and family about further plans but they have been very indecisive and also Refusing Several Medication Including PPI and Antibiotic. There Has Been Ordered for Clear Liquid but Her Has Been Sneaking to Bring Regular Food. She also declined for endoscopic today as she feel too weak to tolerate any procedure therefore general surgeon signed off. at bedside. Patient denies fever, chills, nausea, vomiting, headache, dizziness, chest pain , shortness of breath, urinary complaint. Diarrhea is slowing down Initially patient got admitted under general surgeon Dr. Ivan for the endoscope be with concern of colitis and chronic recurrent GI bleed. Eventually she got respiratory distress and possible drug overdose due to sedative medicine and transferred to ICU setting where multifocal pneumonia and raised troponin was found. ID was consulted for the management of pneumonia because patient has multiple drug allergy. Electrician Manager was consulted for raised troponin and severe cardiomyopathy ejection fraction 15% and a started medical management immediately and decided to wait for any cardiac intervention such as heart catheterization once patient get stable. - Constitutional Vitals: Temp Pulse Resp BP Pulse Ox 97.9 F 89 18 101/71 96 04/14/18 16:41 04/14/18 16:41 04/14/18 16:41 04/14/18 16:41 04/14/18 16:41 General appearance: Present: cooperative, pleasant, underweight, answers questions appropriately Exam: General appearance: No acute distress, A&O X 3, appears tired, at bedside Head exam: Atraumatic Eye exam: EOMI, PERRLA ENT exam: Moist oral mucosa Neck nontender, supple Respiratory exam: Clear to auscultation bilaterally Cardiovascular exam: Regular rate and rhythm, no systolic murmur Abdominal exam: Soft, mild diffuse tender, nondistended, positive bowel sounds Extremities exam: No calf tenderness, no pedal edema Present: Skin-no rash, warm, dry, intact Neurological exam: Alert, awake, oriented 3, CN II-XII intact, no focal deficits. Motor 5 x 5 in all 4 extremities. No facial droop. Normal speech. Diffuse to walk as she feels very weak. She also declined PT evaluation Internal Medicine: Result - Labs CBC & Chem 7: 04/14/18 16:35 04/14/18 16:35 Labs: Short CBC 04/14/18 Range/Units 16:35 WBC 6.7 (4.3-11.1) K/mcL Hgb 9.7 L D (11.5-15.4) g/dL Hct 28.2 L (35.3-44.9) % Plt Count 286 (140-400) K/mcL Neutrophils # 3.6 (1.6-8.9) K/mcL BMP 04/14/18 16:35 Sodium 139 Potassium 3.4 L Chloride 103 Carbon Dioxide 26 BUN 8 Creatinine 0.71 Glucose 120 H Calcium 9.4 - ABG Interpretation ABG results: ABG ABG pH 7.51 pH Units (7.32-7.45) H 04/09/18 10:41 ABG pCO2 31 mmHg (35-45) L 04/09/18 10:41 ABG pO2 73 mmHg (85-104) L 04/09/18 10:41 ABG O2 Saturation 96 % (95-98) 04/09/18 10:41 PT/INR, D-dimer PT 12.8 Seconds (9.4-12.1) H 04/06/18 11:25 D-Dimer 797 ng/mLFEU (0-500) H 04/06/18 10:30 - VTE Documentation of Mechanical Device: Intermittent pneumatic compression device Consult Discharge Plan - Plan Referrals: Lakshmi Rahman MD [Primary Care Provider] - 04/19/18 10:00 am
[2018-04-14] MEDS: Perphenazine 2 MG TABLET PO PRN (21:28)
[2018-04-14] MEDS ORDERED: Acetaminophen 325 MG TABLET PO PRN (23:23)
[2018-04-15] MEDS ORDERED: 0.9 % Sodium Chloride 500 ML IVC ONE ×2 (00:05→00:14)
--- NOTE | 2018-04-15 01:14 | Event Note ---
Date of Encounter: 04/14/18 Time of Encounter: 23:10 Alerted by pts. nurse MAURISIO Cruz that pts. automatic BP was 74/49 w/HR of 85. Manual BP was 80/59. Order for 500 mL 0.9 NS bolus placed w/orders to check BP every 15 minute 4 after completion. Was also instructed to hold patient's oxycodone next dose due to hypotension. Tylenol 650 mg by mouth ordered for pain. Nurse alerted me following completion of bolus that automatic BP was 66/ 32 with heart rate of 72. Manual BP was 70/49. Second 500 mL 0.9 NS bolus ordered @ 250 mL/HR w/ order to check BP Q15MIN. Manual BP during examination was 76/52. Concern regarding pts. current EF of 15% according to 04/06/18 Echocardiogram. Communication order placed to hold all BP meds and pain medications d/t hypotension and alert provider prior to administration. Discussed pt. w/Dr. Vance who will continue to monitor pt. overnight. Discussed possibility of need for pressors if hypotension continues. Pt. admitted for GI bleed. Hgb 11.2 yesterday and 9.7 today. Stat H/H ordered w/ timed H/H Q6HR. present in room during examination and work-up. Pt. will continue to be monitored very closely overnight for signs of decompensation.
[2018-04-15 01:37] LABS: Hematocrit 28.4 % (35.3-44.9); Hemoglobin 9.2 g/dL (11.5-15.4)
[2018-04-15 01:53] LABS: BUN/Creatinine Ratio 12 (6-26); Blood Urea Nitrogen 7 mg/dL (8-23); Calcium 8.6 mg/dL (8.6-10.3); Carbon Dioxide 26 mEq/L (23-29); Chloride 105 mEq/L (98-107); Glucose 100 mg/dL (70-105); Osmolality,Calculated 286 (280-300); Potassium 3.2 mEq/L (3.5-5.1); Sodium 139 mEq/L (136-145); eGFR For African Americans > 60 (> 60); eGFR For Non-African Americans > 60 (> 60)
[2018-04-15] MEDS: Meropenem 1,000 MG in Water for inj. (sterile) 20 ML 10 ML IVP SCH ×2 (05:30→12:21)
[2018-04-15] MEDS: Linezolid 600 MG TABLET PO SCH (05:30)
[2018-04-15] MEDS ORDERED: Furosemide 40 MG TABLET PO SCH (09:00)
[2018-04-15] MEDS: Sucralfate 1 GM TABLET PO SCH ×3 (09:15→17:07)
[2018-04-15] MEDS: Aspirin 81 MG TAB.CHEW PO SCH (09:16)
[2018-04-15] MEDS: Lactobacillus 1 EACH CAP.SPRINK PO SCH ×2 (09:16→09:44)
[2018-04-15] MEDS: Cyanocobalamin (B-12) 1,000 MCG TABLET PO SCH (09:17)
[2018-04-15] MEDS: Thiamine (B-1) 100 MG TABLET PO SCH (09:17)
[2018-04-15] MEDS: Megestrol Acetate 400 MG/10 ML UDC PO SCH ×2 (09:35→09:39)
[2018-04-15] MEDS: OXYCODONE Oral CONC 10 MG/0.5 ML ORAL.SYG PO PRN ×2 (10:38→17:06)
[2018-04-15] MEDS: tiZANidine 4 MG TABLET PO PRN (12:22)
[2018-04-15] MEDS: Ondansetron 4 MG/2 ML VIAL IVP PRN (13:01)
[2018-04-15 13:27] LABS: Hematocrit 29.4 % (35.3-44.9); Hemoglobin 10.1 g/dL (11.5-15.4)
[2018-04-15 14:07] VITALS: BP 102/58
--- NOTE | 2018-04-15 15:09 | Discharge Summary ---
- NOTES TO OUTPATIENT PROVIDER Notes to Outpatient Provider: Follow-up with PCP within one [id number] Lasix with potassium supplement as patient and monitor blood pressure and potassium level. Follow-up dance artist in 1-2 week. Follow-up with GI specialist in one week. Follow-up with ID specialist as per PCP advice Orders not resulted at time of discharge: Pending orders 04/15/18 04:00 CBC [Complete Blood Count] [HEME] AM 0400 04/15/18 07:00 H/H [Hemoglobin and Hematocrit] [HEME] Q6H Date of Encounter: 04/15/18 Time of Encounter: 15:05 - Discharge Diagnosis (1) Abdominal pain Priority: Primary Status: Chronic Assessment and Plan: Patient had chronic abdominal pain and chronic intermittent diarrhea. Refused for endoscopy and also PPI therefore general surgeon signed of. During this hospital stay, I had long discussion several times with patient and family about further plans but they have been very indecisive and also Refusing Several Medication Including PPI and Antibiotic. There Has Been Ordered for Clear Liquid but Her Has Been Sneaking to Bring Regular Food. Repeat CBC with improving hemoglobin and no active visible bleeding. Her blood pressure dropped down after starting IV Lasix as recommended by dance artist 40 mg daily therefore a small fluid resuscitation was given. Her blood pressure is started to come up it is still low normal the last blood pressure for discharge 122/60s. During this admission patient and family has been back and forth in accepting and refusing treatment plan even after explaining over and over by different physicians included risk-benefit effect and outcome. They verbally consented understanding risk of not getting adequate treatment and take the responsibility for any further outcome. Patient is agreeable to follow with GI , dance artist and PCP on OPD basis to decide for future workup such as catheterization and endoscope. Qualifiers: Abdominal location: generalized Qualified Code(s): R10.84 - Generalized abdominal pain Code(s): R10.9 - Unspecified abdominal pain SNOMED Code(s): 02886207 (2) Multifocal pneumonia Priority: Primary Status: Acute Assessment and Plan: Patient declined to take any antibiotic as concern that her a stomach get upset. White count normal.. I explained the risk for suboptimal antibiotic coverage is an possibility of resistance developed she and her understand and take the responsibility for bad outcome if it happens but is still does not want any antibiotic. Talk to ID specialist and made him aware. Final blood culture report with no growth . Will discharge patient in doxycycline and Septra for 5 days as recommended by ID specialist (3) Acute on chronic systolic heart failure Priority: Primary Status: Acute Assessment and Plan: Severe cardiomyopathy with ejection fraction 15%. 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 IV Lasix was restarted but patient got overdiuresis therefore Lasix on hold. Advised to resume very low-dose Lasix 20 mg daily with potassium 8 mEq along with that 2 days later but also keep track blood pressure and discuss with PCP and cardiologists if does not tolerate or needs further adjustment in dose. During his stay Patient refused for any heart catheter intervention as feeling too weak weak to tolerate any procedure and understand the risk of severe outcome. Needs to follow dance artist on OPD basis patient has to make appointment. Will discharge patient on low-dose beta jeovany with hold parameters, continuation of losartan and Lasix low-dose. No aspirin started due to concern of GI bleed but can discuss with PCP (4) COPD (chronic obstructive pulmonary disease) Priority: Secondary Status: Chronic Assessment and Plan: Stable. Does not appear in acute exacerbation. Continue home medicine Qualifiers: COPD type: unspecified COPD Qualified Code(s): J44.9 - Chronic obstructive pulmonary disease, unspecified (5) Generalized weakness Priority: Secondary Status: Acute Assessment and Plan: No focal motor weakness. Physiotherapist consulted but patient declined. Patient was able to ambulate in the room without dizziness or support and tolerating oral diet before discharge Blood pressure on discharge 122/60s (6) HTN (hypertension) Priority: Secondary Status: Acute Assessment and Plan: Low normal blood pressure at this time. Therefore advised to hold blood pressure medicine losartan and Lasix for 2 days check blood pressure and resume under the guidance of PCP. Stopped hydrochlorothiazide. Close BP monitoring Qualifiers: Hypertension type: essential hypertension Qualified Code(s): I10 - Essential (primary) hypertension Hospital course: Ms. Ocampo is a 62 year old female patient with history of diabetes mellitus, hypertension got admitted for GI bleed workup, multifocal pneumonia, severe cardiomyopathy ejection fraction 15% possibly ischemic. Received details in diagnosis part of discharge . Patient and family have been very adamant and accepting refusing frequently recommended treatment plan and finally decided to go home while accepting the risk including and take full responsibility of any outcome. At the time of discharge patient is able to tolerate oral diet, ambulating in the room without much help, stable blood pressure. Patient was advised to keep blood pressure and blood glucose level monitoring closely and further adjustment in medication under the guidance of PCP. Discharge discussed with: patient, family, nurse Time spent discussing smoking cessation with patient: more than 10 minutes - Time Spent with Patient Total time spent providing and/or coordinating discharge services: Greater than 30 minutes - Discharge Medications Prescriptions: Metoprolol [Lopressor] 12.5 mg PO BID #30 tablet Home Medications: Albuterol Sulfate [Ventolin Hfa] 1 - 2 puff IH Q4-6H PRN 12/26/17 [History] LORazepam [Ativan] 0.5 mg PO BID 12/26/17 [History] Perphenazine 4 - 8 mg PO QID PRN 12/26/17 [History] Tizanidine HCl 4 mg PO QID PRN 3 Days #12 tablet 12/28/17 [Rx] Oxycodone HCl [Oxycodone HCl] 5 mg PO Q4-6H PRN 04/06/18 [History] Metoprolol [Lopressor] 12.5 mg PO BID #30 tablet 04/15/18 [Rx] Allergies/Adverse Reactions: 3 Allergy/AdvReac Type Severity Reaction Status Date / Time ciprofloxacin [From Cipro] Allergy Hives Verified 12/26/17 09:57 ibuprofen Allergy Hives Verified 01/03/16 17:28 [From NeoProfen (ibuprofen lysn)(PF)] Penicillins Allergy Swelling Verified 12/26/17 09:57 of Lip/Tongue/Throat vancomycin Allergy Hives Verified 12/26/17 09:57 clindamycin AdvReac Diarrhea Verified 12/26/17 09:57 Date of admission: 04/05/18 14:29 Primary care physician: Lakshmi Rahman MD Consults: 04/05/18 14:34 Consult to Hospitalist [CONS] Routine Consulting Provider: Hospitalist Maurisio Reason for Consult: management of medical conditions/medications Call Completed: No 04/06/18 03:32 Consult to Cardiology [CONS] Routine Comment: Consulting Provider: Cardiology [place] Reason for Consult: elevated troponin Call Completed: No 04/06/18 11:38 Consult to Cardiology [CONS] Routine Comment: Consulting Provider: Cardiology M[place] Reason for Consult: elevated troponin Call Completed: Yes 04/06/18 14:34 Consult to Infectious Diseases [CONS] Routine Consulting Provider: Infectious Disease [place] Reason for Consult: leukocytosis Call Completed: No 04/06/18 15:39 Consult to Critical Care [CONS] Routine Consulting Provider: Pulm Crit Care & Sleep [place] Reason for Consult: LEukocytosis, GI bleed, NSTEMI Call Completed: Yes 04/08/18 19:48 Consult to Nutrition [CONS] Routine Comment: Consulting Provider: NUTRITION Reason for Dietary Consult: Diet Education 04/10/18 09:25 Consult to Cardiac Rehabilitation-Phase1 [CONS] Routine Comment: Reason for Consult: NSTEMI Call Completed: Yes 04/10/18 10:37 Consult to Invasive Line Access Team [CONS] Routine Reason for Consult: limited vascular access Line Type: EPIV 04/12/18 17:42 Consult to Gastroenterology [CONS] Routine Consulting Provider: Gastroenterology [place] Reason for Consult: possible gi bleeding Call Completed: Yes - Constitutional Vitals: Temp Pulse Resp BP Pulse Ox 98.1 F 104 20 102/58 98 04/15/18 11:37 04/15/18 14:04 04/15/18 14:04 04/15/18 14:04 04/15/18 14:04 General appearance: Present: cooperative, pleasant, underweight, answers questions appropriately Exam: General appearance: No acute distress, A&O X 3 Head exam: Atraumatic Eye exam: EOMI, PERRLA ENT exam: Moist oral mucosa Neck nontender, supple Respiratory exam: Clear to auscultation bilaterally Cardiovascular exam: Regular rate and rhythm, no systolic murmur Abdominal exam: Soft, nontender, nondistended, positive bowel sounds Extremities exam: No calf tenderness, no pedal edema Present: Skin-no rash, warm, dry, intact Neurological exam: Alert, awake, oriented 3, CN II-XII intact, no focal deficits. No facial droop. Normal speech. Normal gait. Romberg sign negative - Patient Status Disposition: Home, Self-Care Condition: Fair Functional capacity at discharge: independent ambulation Overall status at discharge: patient is back to baseline - Discharge Instructions Instructions: Pacemaker (DC), Syncope (DC), Sepsis (DC), Pneumonia (DC) Follow Up With: Lakshmi Rahman MD [Primary Care Provider] - 04/19/18 10:00 am - Diet and Activity Activity: increase activity as tolerated Diet: diabetic diet, low fat, low cholesterol, low salt diet - VTE Documentation of Mechanical Device: Intermittent pneumatic compression device
[2018-04-15] MEDS ORDERED: Doxycycline 100 MG CAPSULE PO SCH (21:00)
[2018-04-15] MEDS ORDERED: Sulfamethoxazole/Trimeth DS 1 EACH TABLET PO SCH (21:00)
[2018-04-17] MEDS ORDERED: Furosemide 20 MG TABLET PO SCH (09:00)
== END 2018-04-15 19:01 | disposition home or self-care (01) | DRG 871 ==
LOC: 3ANU → 2NNU 04-06 02:35 → ICNU 04-06 17:21 → 2NNU 04-08 18:05
PROVIDERS: ADMIT Surgery; ATTEND Surgery

== ENCOUNTER 2018-06-25 18:44 | Observation (INO) ==
[2018-06-25] MEDS ORDERED: Ondansetron 4 MG/2 ML VIAL IVP ONE (19:35)
--- NOTE | 2018-06-25 19:38 | Emergency Department Note ---
Disposition Clinical Impression: Elevated lipase Chest pain Qualifiers: Chest pain type: unspecified Qualified Code(s): R07.9 - Chest pain, unspecified Abdominal pain Qualifiers: Abdominal location: lower abdomen, unspecified Qualified Code(s): R10.30 - Lower abdominal pain, unspecified Disposition: Admitted As Inpatient Condition: Fair General Adult HPI - General Chief complaint: ED Abdominal Pain Stated complaint: abd pain Time Seen by Provider: 06/25/18 19:05 Source: patient Mode of arrival: EMS Limitations: no limitations Nursing Notes Reviewed: Yes Vital Signs Reviewed: Yes - History of Present Illness HPI Narrative: Patient is a 62-year-old female presenting with chest pain and lower abdominal pain. Patient has history significant for CHF, AL, IBS, GI bleed. Patient states that chest pain began about 2-3 days ago, has been intermittent, with episodes lasting seconds to hours, described to be in the left chest region with radiation into the left neck. Patient denies exertional component. She notes associated shortness of breath and diaphoresis with these episodes. She describes the pain as a tightness and fullness throughout the chest. Patient was diagnosed with AL in March, and states that this pain is similar to the pain she experienced at that time. Patient denies current chest pain, while was in the room. States that pain at this point is 1 out of 10. Patient states that she takes current daily aspirin at home. Patient states that she was seen in March, with elevated troponin, no cardiac intervention was taken at that point in time. Echocardiogram was performed which showed LVEF of 15%, change from previous. Patient also notes abdominal pain that is chronic, however over the past 7 days has progressively gotten worse in the lower quadrants, with change in urinary urgency, frequency with hematuria. She states that this is new from her chronic abdominal pain, which she describes as a crampy, that at times is relieved with stooling. She chronically has hematochezia or melena, and denies any change in this. She also has associated nausea/vomiting without note of hematemesis. She denies recent fever or chills, weakness. She states that in the past she has had 12 episodes, however recently she just felt somewhat lightheaded and dizzy from going from a sitting to standing position. She states that she is unable to be a keep any liquids or solids down due to nausea. Patient denies any recent syncopal episodes. Pain Scale: 9 - Related Data Home Medications Medication Instructions Recorded Confirmed LORazepam [Ativan] 0.5 mg PO BID 12/26/17 06/25/18 Perphenazine 4 - 8 mg PO QID PRN 12/26/17 06/25/18 Tizanidine HCl [Tizanidine HCl] 4 mg PO Q4-6H PRN 06/25/18 06/25/18 Allergies Allergy/AdvReac Type Severity Reaction Status Date / Time ciprofloxacin [From Cipro] Allergy Hives Verified 12/26/17 09:57 ibuprofen Allergy Hives Verified 01/03/16 17:28 [From NeoProfen (ibuprofen lysn)(PF)] Penicillins Allergy Swelling Verified 12/26/17 09:57 of Lip/Tongue/Throat vancomycin Allergy Hives Verified 12/26/17 09:57 clindamycin AdvReac Diarrhea Verified 12/26/17 09:57 All systems ED: reviewed and negative except as stated. Review of Systems: As Per HPI Constitutional: Denies: fever, chills, weakness ENT ED: Denies: congestion Cardiovascular: Reports: chest pain, dyspnea on exertion, orthopnea. Denies: palpitations, edema, syncope, paroxysmal nocturnal dyspnea Respiratory: Reports: dyspnea. Denies: cough, wheezes, hemoptysis, sputum production Gastrointestinal: Reports: abdominal pain, nausea, vomiting, diarrhea, hematochezia (Chronic). Denies: constipation, hematemesis, melena Genitourinary: Reports: urgency, dysuria, hematuria. Denies: discharge Musculoskeletal: Denies: back pain Integumentary: Denies: rash Neurological: Denies: headache, weakness, numbness, paresthesias, confusion Endocrine: Denies: fatigue Past Medical History - Past Medical History Attestation: Yes The following information was validated with the patient. Source: patient Medical history: Reports: asthma, COPD, GI bleed, migraine, other Surgical history: Reports: cholecystectomy, other (Breast augmentation) Psychiatric history: Reports: anxiety, depression, schizophrenia, other - Social History Smoking Status: Never smoker Smokeless Tobacco Status: No Alcohol use: Reports: none Drug use: Reports: none Physical Exam - General Limitations: no limitations General appearance: alert, in no apparent distress - Head Head exam: atraumatic, normocephalic - Eye Eye exam: Present: normal appearance, EOMI - ENT ENT exam: normal exam, mucous membranes moist - Neck Neck exam: Present: normal inspection - Chest Chest inspection: Present: normal inspection, symmetric chest wall rise - Respiratory Respiratory exam: Present: normal lung sounds bilaterally. Absent: respiratory distress, wheezes - Cardiovascular Cardiovascular exam: Present: regular rate, normal rhythm - Abdominal Exam Abdominal exam: Present: soft, tenderness (Slightly throughout the lower quadrants), normal bowel sounds. Absent: distention, guarding, rebound, rigidity - Extremities Exam Extremities exam: Present: normal inspection, normal capillary refill. Absent: tenderness, pedal edema, calf tenderness - Expanded Lower Extremity Exam Neurovascular/Tendon exam: Present: normal capillary refill. Absent: pulse deficit, motor deficit, sensory deficit - Neurological Exam Neurological exam: Present: alert, oriented X3 - Psychiatric Psychiatric exam: Present: normal affect, normal mood Course Course Narrative: We will order labs for ACS rule out, as well as hepatic and lipase panel. Vital Signs Temperature 98.2 F 06/25/18 18:47 Pulse Rate 77 06/25/18 18:47 Respiratory Rate 16 06/25/18 18:47 Blood Pressure 133/66 06/25/18 18:47 O2 Sat by Pulse Oximetry 99 06/25/18 18:47 Temperature 98.2 F 06/25/18 18:47 Pulse Rate 77 06/25/18 18:47 Respiratory Rate 16 06/25/18 18:47 Blood Pressure 133/66 06/25/18 18:47 O2 Sat by Pulse Oximetry 99 06/25/18 18:47 Oxygen Delivery Oxygen Delivery Room Air Medical Decision Making - [facility] Narrative Medical decision making narrative: Patient is a 62-year-old female presenting with abdominal pain and chest pain. Patient has has medical history significant for AL, CHF and chronic abdominal pain. In the emergency department revealed EKG which showed sinus bradycardia, which is new from last ER visit, CBC and BMP is relatively unremarkable. LFTs are within normal limits. Lipase is slightly elevated at 104, which is new from previous visit. Chest x-ray is negative for acute cardio pulmonary process. Troponin and BNP are within normal limits. Urinalysis was negative for UTI. Zofran was given for nausea, fluids were started with elevated lipase. Patient has remained stable while in the ER, with normal vital signs other than bradycardic, while in the room, heart rate ranged from 45-50 bpm. At this point in time, patient will be recommended to be admitted for observation, for ACS rule out. Discussed this with the patient, and she is in agreement with this decision. Discussed patient with hospitalist at 2206, and was accepted for ACS rule out. - Medical Records Medical records reviewed: Yes I reviewed the patient's medical records. - Lab Data Lab results reviewed: Yes I reviewed the patient's lab results. Result diagrams: 06/25/18 20:07 06/25/18 20:07 Lab Results 06/25/18 06/25/18 06/25/18 Range/Units 20:03 20:07 20:07 WBC (4.3-11.1) K/mcL RBC (3.82-4.97) M/mcL Hgb (11.5-15.4) g/dL Hct (35.3-44.9) % MCV (83.0-100.0) fL MCH (28.0-33.3) pg MCHC (31.6-35.5) g/dL RDW (11.5-14.5) % Plt Count (140-400) K/mcL MPV (9.4-12.4) fL Immature Gran % (0-4) % Seg Neutrophils % % Lymphocytes % % Monocytes % % Eosinophils % % Basophils % % Neutrophils # (1.6-8.9) K/mcL Lymphocytes # (0.6-4.6) K/mcL Monocytes # (0.0-1.3) K/mcL Eosinophils # (0.0-0.6) K/mcL Basophils # (0.0-0.2) K/mcL Sodium (136-145) mEq/L Potassium (3.5-5.1) mEq/L Chloride (98-107) mEq/L Carbon Dioxide (23-29) mEq/L BUN (8-23) mg/dL Creatinine (0.60-1.20) mg/dL Est GFR ( Amer) (> 60) Est GFR (Non-Af Amer) (> 60) BUN/Creatinine Ratio (6-26) Glucose (70-105) mg/dL Calculated Osmolality (280-300) Calcium (8.6-10.3) mg/dL Total Bilirubin 0.5 (0.3-1.0) mg/dL Direct Bilirubin 0.1 (0.0-0.2) mg/dL Indirect Bilirubin 0.4 (0.0-1.2) mg/dL AST 13 (13-39) Units/L ALT 6 L (7-52) Units/L Alkaline Phosphatase 68 (34-104) Units/L Troponin I (< 0.04) ng/mL B-Natriuretic Peptide 70 (Less than 100) pg/mL Serum Total Protein 7.6 (6.4-8.9) g/dL Albumin 4.7 (3.5-5.7) g/dL Globulin 2.9 (2.4-3.5) g/dL Albumin/Globulin Ratio 1.6 (1.1-2.2) Lipase (11-82) Units/L Urine Color Yellow (Yellow) Urine Clarity Clear (Clear) Urine pH 6.0 (5.0-8.0) pH Units Ur Specific [place] 1.006 L (1.010-1.025) Urine Protein Negative (Neg-Trace) mg/dL Urine Glucose (UA) Normal (Normal) mg/dL Urine Ketones Negative (Negative) mg/dL Urine Blood Negative (Negative) Urine Nitrite Negative (Negative) Urine Bilirubin Negative (Negative) Urine Urobilinogen Normal (Normal) mg/dL Ur Leukocyte Esterase Negative (Negative) Ur Culture Indicated? NO (NO) 06/25/18 06/25/18 Range/Units 20:07 20:07 WBC 8.3 (4.3-11.1) K/mcL RBC 4.36 (3.82-4.97) M/mcL Hgb 12.5 (11.5-15.4) g/dL Hct 37.5 (35.3-44.9) % MCV 86.0 (83.0-100.0) fL MCH 28.7 (28.0-33.3) pg MCHC 33.3 (31.6-35.5) g/dL RDW 13.0 (11.5-14.5) % Plt Count 421 H (140-400) K/mcL MPV 9.6 (9.4-12.4) fL Immature Gran % 0.4 (0-4) % Seg Neutrophils % 74.4 % Lymphocytes % 19.8 % Monocytes % 4.6 % Eosinophils % 0.4 % Basophils % 0.4 % Neutrophils # 6.2 (1.6-8.9) K/mcL Lymphocytes # 1.6 (0.6-4.6) K/mcL Monocytes # 0.4 (0.0-1.3) K/mcL Eosinophils # 0.0 (0.0-0.6) K/mcL Basophils # 0.0 (0.0-0.2) K/mcL Sodium 135 L (136-145) mEq/L Potassium 3.7 (3.5-5.1) mEq/L Chloride 101 (98-107) mEq/L Carbon Dioxide 23 (23-29) mEq/L BUN 5 L (8-23) mg/dL Creatinine 0.65 (0.60-1.20) mg/dL Est GFR ( Amer) > 60 (> 60) Est GFR (Non-Af Amer) > 60 (> 60) BUN/Creatinine Ratio 8 (6-26) Glucose 114 H (70-105) mg/dL Calculated Osmolality 278 L (280-300) Calcium 9.8 (8.6-10.3) mg/dL Total Bilirubin (0.3-1.0) mg/dL Direct Bilirubin (0.0-0.2) mg/dL Indirect Bilirubin (0.0-1.2) mg/dL AST (13-39) Units/L ALT (7-52) Units/L Alkaline Phosphatase (34-104) Units/L Troponin I < 0.03 (< 0.04) ng/mL B-Natriuretic Peptide (Less than 100) pg/mL Serum Total Protein (6.4-8.9) g/dL Albumin (3.5-5.7) g/dL Globulin (2.4-3.5) g/dL Albumin/Globulin Ratio (1.1-2.2) Lipase 104 H (11-82) Units/L Urine Color (Yellow) Urine Clarity (Clear) Urine pH (5.0-8.0) pH Units Ur Specific [place] (1.010-1.025) Urine Protein (Neg-Trace) mg/dL Urine Glucose (UA) (Normal) mg/dL Urine Ketones (Negative) mg/dL Urine Blood (Negative) Urine Nitrite (Negative) Urine Bilirubin (Negative) Urine Urobilinogen (Normal) mg/dL Ur Leukocyte Esterase (Negative) Ur Culture Indicated? (NO) - Radiology Data Radiology results reviewed: Yes I reviewed the patient's radiology results. Chest X-Ray 06/25/18 19:32 IMPRESSION: No radiographic evidence of acute cardiopulmonary process. Findings suggestive of underlying COPD. D/ / 06/25/2018 21:25:44 Marco Soni MD / [facility] Interpreting Provider: Marco Soni MD - EKG Data EKG #1 EKG attestation: Yes I reviewed and interpreted this EKG. EKG results narrative: EKG performed at 2022 with heart rate of 40, sinus bradycardia, regular rhythm , MS interval 138, QRS 108, QT of 550, QTC of 449, normal axis, no ST segment depression, elevation or signs of acute ischemic changes. Overall impression is sinus bradycardia. When compared to previous EKG there are: changes noted S.B.A.R. - S.B.A.RAbhinav Situation: Demographics, MOA Background: Presenting Complaint, Relevant PMH, Meds, & Allergies Assessment: Vital Signs, Course and respsone to treatment, Exam Concerns, Pertinant Lab Results S.B.A.R. Report Given to: Hospitalist Mary Lou Repor Time: 22:06 (accepted patient)
[2018-06-25 20:15] LABS: Bilirubin,Urine Negative (Negative); Blood,Urine Negative (Negative); Clarity,Urine Clear (Clear); Color,Urine Yellow (Yellow); Glucose,Urine (UA) Normal (Normal); Ketones,Urine Negative (Negative); Leukocyte Esterase,Urine Negative (Negative); Nitrite,Urine Negative (Negative); Protein,Urine Negative (Neg-Trace); Specific Gravity,Urine 1.006 (1.010-1.025); Urobilinogen,Urine Normal (Normal)
[2018-06-25 20:22] LABS: Basophils % 0.4 %; Eosinophils % 0.4 %; Hematocrit 37.5 % (35.3-44.9); Hemoglobin 12.5 g/dL (11.5-15.4); Immature Granulocytes % 0.4 % (0-4); Lymphocytes # 1.6 K/mcL (0.6-4.6); Lymphocytes % 19.8 %; Mean Corpuscular HGB Conc 33.3 g/dL (31.6-35.5); Mean Corpuscular Hemoglobin 28.7 pg (28.0-33.3); Mean Platelet Volume 9.6 fL (9.4-12.4); Monocytes # 0.4 K/mcL (0.0-1.3); Monocytes % 4.6 %; Neutrophils # 6.2 K/mcL (1.6-8.9); Platelet Count 421 K/mcL (140-400); Red Blood Count 4.36 M/mcL (3.82-4.97); Segmented Neutrophils % 74.4 %
[2018-06-25 20:44] LABS: Albumin 4.7 g/dL (3.5-5.7); Albumin/Globulin Ratio 1.6 (1.1-2.2); Bilirubin,Direct 0.1 mg/dL (0.0-0.2); Bilirubin,Indirect 0.4 mg/dL (0.0-1.2); Bilirubin,Total 0.5 mg/dL (0.3-1.0); Globulin 2.9 g/dL (2.4-3.5); Total Protein 7.6 g/dL (6.4-8.9)
[2018-06-25 20:46] LABS: BUN/Creatinine Ratio 8 (6-26); Blood Urea Nitrogen 5 mg/dL (8-23); Calcium 9.8 mg/dL (8.6-10.3); Carbon Dioxide 23 mEq/L (23-29); Chloride 101 mEq/L (98-107); Glucose 114 mg/dL (70-105); Lipase 104 Units/L (11-82); Osmolality,Calculated 278 (280-300); Potassium 3.7 mEq/L (3.5-5.1); Sodium 135 mEq/L (136-145); Troponin I < 0.03 ng/mL (< 0.04); eGFR For Non-African Americans > 60 (> 60)
[2018-06-25] MEDS ORDERED: 0.9 % Sodium Chloride 1,000 ML IVC ONE (21:45)
[2018-06-25] MEDS ORDERED: Naloxone 0.4 MG/ML INJ IVP PRN (22:08)
[2018-06-25] MEDS ORDERED: Nitroglycerin 0.4 MG TAB.SUBL SL PRN (22:15)
--- NOTE | 2018-06-25 22:18 | Internal Med History&Physical ---
Date of Encounter: 06/25/18 Time of Encounter: 22:18 Internal Medicine - H&P: HPI Chief complaint: Chest and abdominal pain History of present illness: Ms. Ocampo is a 62 year old female with multiple comorbidities significant for heart failure with reduced ejection fraction (last EF of 15%), COPD, hypertension who presents with chest and abdominal pain. Of note, patient is a difficult historian. Patient states that her chest pain began last night, however, she cannot recall when it started because she has been having intermittent chest pain for some time. However she describes it as substernal and located under the left breast, squeezing in quality and varies in intensity. Symptoms aggravated by laying on her side and back. She states that she is unable to lay flat on her back because she begins to feel SOB and her chest pain gets worse. Pain is nonradiating however she states that she is also having pain in her neck as well. She also reports exacerbation with deep breathing and relieved when she takes her muscle relaxers. Reports concomitant diaphoresis as well. She states that one week prior she had 8 hours of almost continuous nausea and vomiting which has since subsided. However, she became concerned because her last CT in March had a similar presentation in which symptoms were preceded by nausea and vomiting. Patient also reports abdominal pain but states that she has abdominal pain has been a chronic issue. Patient noted to have a mildly elevated lipase level of 104 in the ED, however no further imaging was obtained. Patient denies any fever, chills, nausea at this time. Past Med Surg Social Fam HX - Past Medical History Medical history: asthma, COPD, GI bleed, migraine, other Additional medical history: IBS, Crohns disease, Diverticulosis Psychiatric history: anxiety, depression, schizophrenia, other - Past Surgical History Surgical History: cholecystectomy, other (Breast augmentation) Additional surgical history: breast construction. dental - Social History Smoking Status: Never smoker Smokeless Tobacco Status: No Alcohol use: none Drug use: none - Family History Father Family Member Ethnicity: Non- Living Status: Still Living Hx Family Cardiac Disorders: Yes (HTN, HLD) Hx Family Neurologic Disorders: Yes (Seizures) Mother Family Member Ethnicity: Non- Living Status: Still Living Hx Family Cardiac Disorders: Yes (HTN, HLD) Hx Family GI Disorders: Yes (GERD) Brother Family Member Ethnicity: Non- Living Status: Still Living Internal Medicine - H&P: Meds LORazepam [Ativan] 0.5 mg PO BID 12/26/17 [History] Perphenazine 4 - 8 mg PO QID PRN 12/26/17 [History] Tizanidine HCl 4 mg PO Q4-6H PRN 06/25/18 [History] Ondansetron ODT [Zofran ODT] 4 mg PO Q6H #20 tab.rapdis 06/27/18 [Rx] 3 Allergy/AdvReac Type Severity Reaction Status Date / Time ciprofloxacin [From Cipro] Allergy Hives Verified 12/26/17 09:57 ibuprofen Allergy Hives Verified 01/03/16 17:28 [From NeoProfen (ibuprofen lysn)(PF)] Penicillins Allergy Swelling Verified 12/26/17 09:57 of Lip/Tongue/Throat vancomycin Allergy Hives Verified 12/26/17 09:57 clindamycin AdvReac Diarrhea Verified 12/26/17 09:57 All Systems PM: A 10-system review of systems was performed and is negative for pertinent findings except as documented above in the HPI. - Constitutional Constitutional: no chills, no fever(s), no night sweats - EENT Eyes: no change in vision, no discharge, no pain, no photophobia Ears: no ear discharge, no ear pain, no tinnitus Nose, mouth and throat: no dysphagia, no nasal discharge, no neck pain, no sore throat - Cardiovascular Cardiovascular ROS IM: no chest pain, no diaphoresis, no dyspnea, no lightheadedness, no palpitations, no syncope - Respiratory Respiratory: no cough, no dyspnea, no wheezing, no excessive phlegm production - Gastrointestinal Gastrointestinal: no abdominal pain, no diarrhea, no hematemesis, no hematochezia, no melena, no nausea, no vomiting - Genitourinary Genitourinary: no change in urinary stream, no dysuria, no flank pain, no hematuria - Musculoskeletal Musculoskeletal ROS IM: no numbness, no tingling - Integumentary Integumentary IM: no rash, no unusual bruising - Neurological Neurological ROS: no confusion, no convulsions, no focal weakness, no numbness, no tingling, no tremor(s) - Hematologic/Lymphatic Hematologic/Lymphatic: no easy bruising - Constitutional Vitals: Temp Pulse Resp BP Pulse Ox 98.2 F 77 16 133/66 99 06/25/18 18:47 06/25/18 18:47 06/25/18 18:47 06/25/18 18:47 06/25/18 18:47 Exam: General: Alert and oriented 3. Sitting up in bed in no acute distress Skin:Normal color, no rash, no lesions. HEENT:EOM, pupils equal, round and reactive. Cardiovascular:Normal S1 & S2, no rubs, murmurs or gallops. No JVD. Pulse regular. Lungs:Normal breath sounds, no wheezes or crackles. Abdomen:Soft, diffusely tender to light palpation. Positive bowel sounds; no rebound or guarding. Extremities:No deformity, no edema or tenderness, no joint swelling or clubbing. Neurological:Normal cognition and motor skills. Pulses:Carotid and radial pulses normal +2. Rest of the physical exam is non contributory Internal Med - H&P Results - Labs CBC & Chem 7: 06/27/18 05:48 06/27/18 05:48 Labs: Short CBC 06/25/18 Range/Units 20:07 WBC 8.3 (4.3-11.1) K/mcL Hgb 12.5 (11.5-15.4) g/dL Hct 37.5 (35.3-44.9) % Plt Count 421 H (140-400) K/mcL Neutrophils # 6.2 (1.6-8.9) K/mcL BMP 06/25/18 20:07 Sodium 135 L Potassium 3.7 Chloride 101 Carbon Dioxide 23 BUN 5 L Creatinine 0.65 Glucose 114 H Calcium 9.8 Cardiac Enzymes 06/25/18 Range/Units 20:07 Troponin I < 0.03 (< 0.04) ng/mL Liver Function 06/25/18 Range/Units 20:07 Total Bilirubin 0.5 (0.3-1.0) mg/dL Direct Bilirubin 0.1 (0.0-0.2) mg/dL AST 13 (13-39) Units/L ALT 6 L (7-52) Units/L Alkaline Phosphatase 68 (34-104) Units/L Albumin 4.7 (3.5-5.7) g/dL Urine 06/25/18 Range/Units 20:03 Urine Color Yellow (Yellow) Urine Clarity Clear (Clear) Urine pH 6.0 (5.0-8.0) pH Units Ur Specific [place] 1.006 L (1.010-1.025) Urine Protein Negative (Neg-Trace) mg/dL Urine Glucose (UA) Normal (Normal) mg/dL - Impressions ITS Impressions Chest X-Ray 06/25/18 19:32 IMPRESSION: No radiographic evidence of acute cardiopulmonary process. Findings suggestive of underlying COPD. D/ / 06/25/2018 21:25:44 Marco Soni MD / [email or web address] Interpreting Provider: Marco Soni MD - Assessment and plan (1) Chest pain Status: Chronic Assessment and plan: Chest pain with both typical and atypical features; substernal, pressure-like with reports of left-sided neck pain. However patient also endorses pain that is positional specifically lying on her back and left side and relieved with sitting up. At this time EKG was reviewed which showed nonspecific T-wave and ST changes, relatively unchanged from previous EKGs along with no evidence suggesting pericarditis. However, initial EKG demonstrated sinus tachycardia in the 130s. Upon repeat testing in the ED EKG demonstrated sinus bradycardia in the 40s which was again confirmed with another repeat EKG on the floor. Troponins thus far have been negative. However given her somewhat mixed history and chest pain presentation, will start patient on heparin drip. Patient states she took a baby aspirin at home prior to coming into the ED. We will continue to trend troponin. Echocardiogram in the morning. Given sinus bradycardia we will hold giving any beta jeovany. Patient states that her victorian literature professor took her off her beta jeovany as she did not tolerate it. Cardiology consult. Order has been placed however consult needs to be called in. Qualifiers: Chest pain type: unspecified Qualified Code(s): R07.9 - Chest pain, unspecified (2) Abdominal pain Status: Chronic Assessment and plan: Abdominal pain that is diffuse and nonspecific. Patient has a reported history of chronic abdominal pain and diarrhea. Labs showed a mildly elevated lipase of 104. At this time we will obtain a CT abdomen for further evaluation. Qualifiers: Abdominal location: unspecified location Qualified Code(s): R10.9 - Unspecified abdominal pain (3) HTN (hypertension) Status: Chronic Assessment and plan: Blood pressure mildly elevated. Patient states that she is no longer on a beta jeovany because she was not able to tolerate it. Qualifiers: Hypertension type: essential hypertension Qualified Code(s): I10 - Essential (primary) hypertension (4) COPD (chronic obstructive pulmonary disease) Status: Chronic Assessment and plan: Stable no evidence of an acute exacerbation. Qualifiers: COPD type: unspecified COPD Qualified Code(s): J44.9 - Chronic obstructive pulmonary disease, unspecified (5) Heart failure with reduced ejection fraction Status: Chronic Assessment and plan: Heart failure with reduced ejection fraction. Last echo demonstrated an EF of 15%. We will repeat echo in the morning. At this time she has no evidence of an acute exacerbation. Patient is on a low dose of Lasix of 20 mg. We will hold Lasix for now. Qualifiers: Heart failure chronicity: chronic Qualified Code(s): I50.22 - Chronic systolic (congestive) heart failure - Time Spent With Patient Total time spent is greater than 50% in coordination of care (as documented) at patient's floor/unit and/or counseling patient:
--- NOTE | 2018-06-25 22:31 | Emergency Department Note ---
Disposition Clinical Impression: Elevated lipase Chest pain Qualifiers: Chest pain type: unspecified Qualified Code(s): R07.9 - Chest pain, unspecified Abdominal pain Qualifiers: Abdominal location: lower abdomen, unspecified Qualified Code(s): R10.30 - Lower abdominal pain, unspecified Disposition: Admitted As Inpatient Condition: Fair General Adult HPI - General Chief complaint: ED Abdominal Pain Stated complaint: abd pain Time Seen by Provider: 06/25/18 19:05 Source: patient Mode of arrival: EMS Limitations: no limitations Nursing Notes Reviewed: Yes Vital Signs Reviewed: Yes - History of Present Illness Pain Scale: 9 - Related Data Home Medications Medication Instructions Recorded Confirmed LORazepam [Ativan] 0.5 mg PO BID 12/26/17 06/25/18 Perphenazine 4 - 8 mg PO QID PRN 12/26/17 06/25/18 Tizanidine HCl [Tizanidine HCl] 4 mg PO Q4-6H PRN 06/25/18 06/25/18 Allergies Allergy/AdvReac Type Severity Reaction Status Date / Time ciprofloxacin [From Cipro] Allergy Hives Verified 12/26/17 09:57 ibuprofen Allergy Hives Verified 01/03/16 17:28 [From NeoProfen (ibuprofen lysn)(PF)] Penicillins Allergy Swelling Verified 12/26/17 09:57 of Lip/Tongue/Throat vancomycin Allergy Hives Verified 12/26/17 09:57 clindamycin AdvReac Diarrhea Verified 12/26/17 09:57 Constitutional: Denies: fever, chills, weakness ENT ED: Denies: congestion Cardiovascular: Reports: chest pain, dyspnea on exertion, orthopnea. Denies: palpitations, edema, syncope, paroxysmal nocturnal dyspnea Respiratory: Reports: dyspnea. Denies: cough, wheezes, hemoptysis, sputum production Gastrointestinal: Reports: abdominal pain, nausea, vomiting, diarrhea, hematochezia (Chronic). Denies: constipation, hematemesis, melena Genitourinary: Reports: urgency, dysuria, hematuria. Denies: discharge Musculoskeletal: Denies: back pain Integumentary: Denies: rash Neurological: Denies: headache, weakness, numbness, paresthesias, confusion Endocrine: Denies: fatigue Past Medical History - Past Medical History Medical history: Reports: asthma, COPD, GI bleed, migraine, other Surgical history: Reports: cholecystectomy, other (Breast augmentation) Psychiatric history: Reports: anxiety, depression, schizophrenia, other - Social History Smoking Status: Never smoker Smokeless Tobacco Status: No Alcohol use: Reports: none Drug use: Reports: none Physical Exam - General Limitations: no limitations General appearance: alert, in no apparent distress Course Vital Signs Temperature 98.2 F 06/25/18 18:47 Pulse Rate 77 06/25/18 18:47 Respiratory Rate 16 06/25/18 18:47 Blood Pressure 133/66 06/25/18 18:47 O2 Sat by Pulse Oximetry 99 06/25/18 18:47 Temperature 98.2 F 06/25/18 18:47 Pulse Rate 77 06/25/18 18:47 Respiratory Rate 16 06/25/18 18:47 Blood Pressure 133/66 06/25/18 18:47 O2 Sat by Pulse Oximetry 99 06/25/18 18:47 Oxygen Delivery Oxygen Delivery Room Air Medical Decision Making - Medical Records Medical records reviewed: Yes I reviewed the patient's medical records. - Lab Data Lab results reviewed: Yes I reviewed the patient's lab results. Result diagrams: 06/25/18 20:07 06/25/18 20:07 Lab Results 06/25/18 06/25/18 06/25/18 Range/Units 20:03 20:07 20:07 WBC (4.3-11.1) K/mcL RBC (3.82-4.97) M/mcL Hgb (11.5-15.4) g/dL Hct (35.3-44.9) % MCV (83.0-100.0) fL MCH (28.0-33.3) pg MCHC (31.6-35.5) g/dL RDW (11.5-14.5) % Plt Count (140-400) K/mcL MPV (9.4-12.4) fL Immature Gran % (0-4) % Seg Neutrophils % % Lymphocytes % % Monocytes % % Eosinophils % % Basophils % % Neutrophils # (1.6-8.9) K/mcL Lymphocytes # (0.6-4.6) K/mcL Monocytes # (0.0-1.3) K/mcL Eosinophils # (0.0-0.6) K/mcL Basophils # (0.0-0.2) K/mcL Sodium (136-145) mEq/L Potassium (3.5-5.1) mEq/L Chloride (98-107) mEq/L Carbon Dioxide (23-29) mEq/L BUN (8-23) mg/dL Creatinine (0.60-1.20) mg/dL Est GFR ( Amer) (> 60) Est GFR (Non-Af Amer) (> 60) BUN/Creatinine Ratio (6-26) Glucose (70-105) mg/dL Calculated Osmolality (280-300) Calcium (8.6-10.3) mg/dL Total Bilirubin 0.5 (0.3-1.0) mg/dL Direct Bilirubin 0.1 (0.0-0.2) mg/dL Indirect Bilirubin 0.4 (0.0-1.2) mg/dL AST 13 (13-39) Units/L ALT 6 L (7-52) Units/L Alkaline Phosphatase 68 (34-104) Units/L Troponin I (< 0.04) ng/mL B-Natriuretic Peptide 70 (Less than 100) pg/mL Serum Total Protein 7.6 (6.4-8.9) g/dL Albumin 4.7 (3.5-5.7) g/dL Globulin 2.9 (2.4-3.5) g/dL Albumin/Globulin Ratio 1.6 (1.1-2.2) Lipase (11-82) Units/L Urine Color Yellow (Yellow) Urine Clarity Clear (Clear) Urine pH 6.0 (5.0-8.0) pH Units Ur Specific [place] 1.006 L (1.010-1.025) Urine Protein Negative (Neg-Trace) mg/dL Urine Glucose (UA) Normal (Normal) mg/dL Urine Ketones Negative (Negative) mg/dL Urine Blood Negative (Negative) Urine Nitrite Negative (Negative) Urine Bilirubin Negative (Negative) Urine Urobilinogen Normal (Normal) mg/dL Ur Leukocyte Esterase Negative (Negative) Ur Culture Indicated? NO (NO) 06/25/18 06/25/18 Range/Units 20:07 20:07 WBC 8.3 (4.3-11.1) K/mcL RBC 4.36 (3.82-4.97) M/mcL Hgb 12.5 (11.5-15.4) g/dL Hct 37.5 (35.3-44.9) % MCV 86.0 (83.0-100.0) fL MCH 28.7 (28.0-33.3) pg MCHC 33.3 (31.6-35.5) g/dL RDW 13.0 (11.5-14.5) % Plt Count 421 H (140-400) K/mcL MPV 9.6 (9.4-12.4) fL Immature Gran % 0.4 (0-4) % Seg Neutrophils % 74.4 % Lymphocytes % 19.8 % Monocytes % 4.6 % Eosinophils % 0.4 % Basophils % 0.4 % Neutrophils # 6.2 (1.6-8.9) K/mcL Lymphocytes # 1.6 (0.6-4.6) K/mcL Monocytes # 0.4 (0.0-1.3) K/mcL Eosinophils # 0.0 (0.0-0.6) K/mcL Basophils # 0.0 (0.0-0.2) K/mcL Sodium 135 L (136-145) mEq/L Potassium 3.7 (3.5-5.1) mEq/L Chloride 101 (98-107) mEq/L Carbon Dioxide 23 (23-29) mEq/L BUN 5 L (8-23) mg/dL Creatinine 0.65 (0.60-1.20) mg/dL Est GFR ( Amer) > 60 (> 60) Est GFR (Non-Af Amer) > 60 (> 60) BUN/Creatinine Ratio 8 (6-26) Glucose 114 H (70-105) mg/dL Calculated Osmolality 278 L (280-300) Calcium 9.8 (8.6-10.3) mg/dL Total Bilirubin (0.3-1.0) mg/dL Direct Bilirubin (0.0-0.2) mg/dL Indirect Bilirubin (0.0-1.2) mg/dL AST (13-39) Units/L ALT (7-52) Units/L Alkaline Phosphatase (34-104) Units/L Troponin I < 0.03 (< 0.04) ng/mL B-Natriuretic Peptide (Less than 100) pg/mL Serum Total Protein (6.4-8.9) g/dL Albumin (3.5-5.7) g/dL Globulin (2.4-3.5) g/dL Albumin/Globulin Ratio (1.1-2.2) Lipase 104 H (11-82) Units/L Urine Color (Yellow) Urine Clarity (Clear) Urine pH (5.0-8.0) pH Units Ur Specific [place] (1.010-1.025) Urine Protein (Neg-Trace) mg/dL Urine Glucose (UA) (Normal) mg/dL Urine Ketones (Negative) mg/dL Urine Blood (Negative) Urine Nitrite (Negative) Urine Bilirubin (Negative) Urine Urobilinogen (Normal) mg/dL Ur Leukocyte Esterase (Negative) Ur Culture Indicated? (NO) - Radiology Data Radiology results reviewed: Yes I reviewed the patient's radiology results. Chest X-Ray 06/25/18 19:32 IMPRESSION: No radiographic evidence of acute cardiopulmonary process. Findings suggestive of underlying COPD. D/ / 06/25/2018 21:25:44 Marco Soni MD / [facility] Interpreting Provider: Marco Soni MD - EKG Data EKG #1 EKG attestation: Yes I reviewed and interpreted this EKG. EKG results narrative: EKG shows a sinus bradycardia with ventricular rate of 40. No acute ST segment elevation or depression. No ectopy. Attestation Statement - Attestation Attestation: I, Pardeep Lebron MD, personally evaluated this patient and discussed their management with the resident physician. I reviewed the resident's note and agree with the documented findings, medical decision making, and plan of care. 62-year-old female presents to the emergency department with a complaint of some left-sided chest pains which started yesterday and has been intermittent. She describes it as dull achy pain. Some shortness of breath with the pain. She also complains of some diffuse abdominal pain which is a chronic recurrent problem that she has had for years. She has had diarrhea for about the past 5- 7 days. Nausea but no vomiting. No fever. No melena. Some intermittent streaks of blood in the stool. No hematemesis. No urinary symptoms. On examination patient is a well-developed thin female in no acute distress. She is alert and oriented 3. There is no cyanosis or diaphoresis. Chest is nontender to palpation. Breath sounds are clear and equal bilaterally. Heart regular with a mild bradycardia. Heart rate in the upper 40s and low 50s during my exam. Abdomen is soft with normal bowel sounds. Mild diffuse tenderness. No guarding or rebound tenderness. No tympany or distention. EKG shows a sinus bradycardia but no acute changes. Chest x-ray negative. Labs reviewed. Troponin normal. She did have a mildly elevated lipase at 104. The hospitalist, Dr. Fountain, was consulted and accepted admission of the patient.
[2018-06-26] MEDS ORDERED: Isovue-370 500 ML INFUS..BTL IV ONE (01:49)
[2018-06-26] MEDS: OXYCODONE Oral CONC 10 MG/0.5 ML ORAL.SYG SL PRN ×4 (02:04→21:04)
[2018-06-26] MEDS ORDERED: *HR* Heparin 5,000 UNIT/ML VIAL IVP PRN ×2 (03:32)
[2018-06-26] MEDS ORDERED: *HR* Heparin 5,000 UNIT/ML VIAL IVP ONE (03:32)
[2018-06-26] MEDS ORDERED: Heparin 25,000 UNIT/500 ML D5W 25,000 UNIT/500 ML BAG IVC SCH (03:45)
[2018-06-26 04:16] LABS: Hematocrit 33.4 % (35.3-44.9); Hemoglobin 11.2 g/dL (11.5-15.4); Mean Corpuscular HGB Conc 33.5 g/dL (31.6-35.5); Mean Corpuscular Hemoglobin 28.4 pg (28.0-33.3); Mean Corpuscular Volume 84.6 fL (83.0-100.0); Mean Platelet Volume 9.9 fL (9.4-12.4); Platelet Count 378 K/mcL (140-400); Red Blood Count 3.95 M/mcL (3.82-4.97); Red Cell Distribution Width 13.1 % (11.5-14.5)
[2018-06-26] MEDS ORDERED: Furosemide 20 MG TABLET PO ONE (04:18)
[2018-06-26 04:35] LABS: Alanine Aminotransferase 5 Units/L (7-52); Albumin 4.4 g/dL (3.5-5.7); Albumin/Globulin Ratio 1.8 (1.1-2.2); Alkaline Phosphatase 61 Units/L (34-104); Aspartate Amino Transferase 11 Units/L (13-39); BUN/Creatinine Ratio 8 (6-26); Bilirubin,Total 0.7 mg/dL (0.3-1.0); Blood Urea Nitrogen 5 mg/dL (8-23); Calcium 9.4 mg/dL (8.6-10.3); Carbon Dioxide 23 mEq/L (23-29); Chloride 103 mEq/L (98-107); Globulin 2.5 g/dL (2.4-3.5); Glucose 107 mg/dL (70-105); Osmolality,Calculated 280 (280-300); Potassium 3.4 mEq/L (3.5-5.1); Sodium 136 mEq/L (136-145); Total Protein 6.9 g/dL (6.4-8.9); eGFR For Non-African Americans > 60 (> 60)
[2018-06-26] MEDS: tiZANidine 4 MG TABLET PO PRN ×3 (04:45→18:25)
[2018-06-26 05:21] LABS: Hematocrit 33.5 % (35.3-44.9); Hemoglobin 11.1 g/dL (11.5-15.4); Mean Corpuscular HGB Conc 33.1 g/dL (31.6-35.5); Mean Corpuscular Hemoglobin 28.2 pg (28.0-33.3); Platelet Count 395 K/mcL (140-400); Red Blood Count 3.94 M/mcL (3.82-4.97)
[2018-06-26 05:26] LABS: Heparin anti-factor XA UFH 0.07 IU/mL (0.30-0.70); INR 1.1; Prothrombin Time 12.7 Seconds (9.4-12.1)
[2018-06-26] MEDS: *HR* LORazepam 0.5 MG TABLET PO SCH ×2 (08:12→20:01)
--- NOTE | 2018-06-26 11:37 | Cardiology Consult Note ---
Date of Encounter: 06/26/18 Time of Encounter: 09:20 Assessment and Plan (1) Chest pain Current Visit: Yes Status: Chronic Atypical chest pain symptoms. Troponin negative x3. No acute ischemic ECG changes noted. Recent dx of CMP with LVEF~15%; was unable to proceed with [facility] due to acute GI bleed. Patient has not followed up in the outpatient setting d/t reported illness. RIDGE negative, will stop IV heparin gtt, recent GI bleed. Recommend asa and statin. Repeat TTE pending, further recommendations to follow. Qualifiers: Chest pain type: unspecified Qualified Code(s): R07.9 - Chest pain, unspecified (2) Cardiomyopathy Current Visit: No Status: Chronic Hx of recent CMP, etiology unclear. TTE 04/06/18: LVEF 15% with global LV systolic dysfunction with sparing of the basal segments. TTE earlier this year demonstrated (December 2017) demonstrated LVEF 65-70% with normal wall motion. Patient appears euvolemic upon exam. Patient was not on ACEi or BB in the outpatient setting, unclear why. Will hold BB for now as patient presented with bradycardia (HR now stable). BP elevated, will start low dose ACEi. Repeat TTE pending. Qualifiers: Cardiomyopathy type: unspecified Qualified Code(s): I42.9 - Cardiomyopathy , unspecified (3) Acute pancreatitis Current Visit: Yes Status: Acute Per CT scan findings. Suspect etiology of current symptoms. Mgmt per primary service. Qualifiers: Pancreatitis type: unspecified pancreatitis type Acute pancreatitis complication: unspecified Qualified Code(s): K85.90 - Acute pancreatitis without necrosis or infection, unspecified Discussion w patient/family: The assessment and plan as outlined above was discussed with the patient and/or family members who expressed understanding and agreement. All questions were answered. Thank you for involving us in the care of your patient. Please call with any questions. The patient will be discussed and reviewed with Dr. Santiago; changes to be made accordingly. History of Present Illness Consult date: 06/26/18 Requesting physician: Matt Sood Consult reason: Cardiomyopathy Chief complaint: Abdominal pain, chest pain History of present illness: Ms. Ocampo is a 62 year old female with PMHx significant of COPD, IBS, Crohns disease, hx of GI bleed, and cardiomyopathy with reduced LVEF (~15%) who presented to the ED with complaints of abdominal pain and chest discomfort. Reports nearly constant chest discomfort since last hospital discharge. Reports pain is sharp and is primarily left-sided; pain worsens when she lays on her left side and improves with sitting up. Also reports crampy abdominal pain that is similar to her chronic pain. Associated symptoms include fatigue, poor functional status, and shortness of breath. Reports she has been very ill over the past few months and is unable to attend any outpatient appointments. Troponin negative x3. ECG shows SB 40 BPM. Prior CV testing: TTE 12/27/17: LVEF 65-70%, normal wall motion TTE 04/06/18: LVEF 15%, global LV dysfunction with sparing of the basal segments Past Med Surg Social Fam HX - Past Medical History Attestation: Yes The following information was validated with the patient. Source: patient Medical history: asthma, cardiomyopathy, COPD, GI bleed, migraine, other Additional medical history: IBS, Crohns disease, Diverticulosis Psychiatric history: anxiety, depression, schizophrenia, other - Past Surgical History Surgical History: cholecystectomy, other (Breast augmentation) Additional surgical history: breast construction. dental - Social History Smoking Status: Never smoker Smokeless Tobacco Status: No Alcohol use: none Drug use: none - Family History Father Family Member Ethnicity: Non- Living Status: Still Living Hx Family Cardiac Disorders: Yes (HTN, HLD) Hx Family Neurologic Disorders: Yes (Seizures) Mother Family Member Ethnicity: Non- Living Status: Still Living Hx Family Cardiac Disorders: Yes (HTN, HLD) Hx Family GI Disorders: Yes (GERD) Brother Family Member Ethnicity: Non- Living Status: Still Living Medications and Allergies LORazepam [Ativan] 0.5 mg PO BID 12/26/17 [History] Perphenazine 4 - 8 mg PO QID PRN 12/26/17 [History] Tizanidine HCl [Tizanidine HCl] 4 mg PO Q4-6H PRN 06/25/18 [History] 3 Allergy/AdvReac Type Severity Reaction Status Date / Time ciprofloxacin [From Cipro] Allergy Hives Verified 12/26/17 09:57 ibuprofen Allergy Hives Verified 01/03/16 17:28 [From NeoProfen (ibuprofen lysn)(PF)] Penicillins Allergy Swelling Verified 12/26/17 09:57 of Lip/Tongue/Throat vancomycin Allergy Hives Verified 12/26/17 09:57 clindamycin AdvReac Diarrhea Verified 12/26/17 09:57 All Systems Review: The remainder of the systems were reviewed and are negative - Cardiovascular Cardiovascular: as per HPI Physical Examination Vital Signs, Last 4 Hours Temp Pulse Resp BP Pulse Ox 06/26/18 11:20 98.8 F 71 17 186/81 97 06/26/18 07:49 98.5 F 57 16 111/57 100 General: Conversant, No Apparent Distress HEENT: Atraumatic, Normocephaly Cardiac: Reg Rate and Rhythm, Normal S1 and S2 Lungs: Normal Breath Sounds Neuro: Alert and responsive Abdomen: Other (tender) Musculoskeletal: No Chest Wall Tenderness Extremities: No Edema, Normal Pulses Results 06/26/18 04:33 06/26/18 03:21 Lab Results 06/26/18 06/26/18 06/26/18 03:21 03:21 03:21 WBC 7.5 Hgb 11.2 L Hct 33.4 L Plt Count 378 INR Sodium 136 Potassium 3.4 L Chloride 103 Carbon Dioxide 23 BUN 5 L Creatinine 0.60 Glucose 107 H Calcium 9.4 Total Bilirubin 0.7 AST 11 L ALT 5 L Alkaline Phosphatase 61 Troponin I < 0.03 06/26/18 06/26/18 06/26/18 04:33 04:33 08:40 WBC 7.8 Hgb 11.1 L Hct 33.5 L Plt Count 395 INR 1.1 Sodium Potassium Chloride Carbon Dioxide BUN Creatinine Glucose Calcium Total Bilirubin AST ALT Alkaline Phosphatase Troponin I < 0.03 Active Medications Heparin Sodium (Porcine) (Heparin) 3,300 unit 70 unit/kg (3300 unit) IVP Q6HR PRN PRN Reason: SEE COMMENTS Stop: 12/26/18 03:33 Heparin Sodium (Porcine) (Heparin) 1,600 unit 35 unit/kg (1600 unit) IVP Q6H PRN PRN Reason: SEE COMMENTS Stop: 12/26/18 03:33 Hydralazine HCl (Hydralazine) 10 mg IVP Q6H PRN PRN Reason: Hypertension Stop: 12/26/18 03:32 Sodium Chloride (0.9 % Sodium Chloride) 1,000 mls @ 75 mls/hr IVC .[id number] YOON Stop: 06/27/18 00:54 Last Admin: 06/26/18 00:00 Dose: 75 mls/hr Heparin Sodium/Dextrose (Heparin 25,000 Unit/500 Ml D5w) 25,000 unit in 500 mls @ 13.132 mls/hr IVC .Q24H YOON; 14 UNIT/KG/HR PRN Reason: Protocol Stop: 12/26/18 03:46 Last Admin: 06/26/18 05:34 Dose: 14 unit/kg/hr, 13.132 mls/hr Lorazepam (Ativan) 0.5 mg PO BID YOON Stop: 12/26/18 09:01 Last Admin: 06/26/18 08:12 Dose: 0.5 mg Naloxone HCl (Narcan) 0.4 mg IVP Q2MIN PRN PRN Reason: SEE COMMENTS Stop: 12/25/18 22:09 Nitroglycerin (Nitroglycerin) 0.4 mg SL Q5MIN PRN PRN Reason: Chest Pain Stop: 12/25/18 22:16 Oxycodone HCl (Oxycodone Oral Conc) 5 mg SL Q6HR PRN; Protocol PRN Reason: Analgesia Stop: 12/26/18 01:43 Last Admin: 06/26/18 08:12 Dose: 5 mg Potassium Chloride (Potassium Chloride) 20 meq PO BID YOON Stop: 12/26/18 09:01 Last Admin: 06/26/18 09:13 Dose: 20 meq Tizanidine HCl (Zanaflex) 4 mg PO QID PRN PRN Reason: Muscle Spasm Stop: 12/26/18 04:20 Last Admin: 06/26/18 10:57 Dose: 4 mg Impressions Chest X-Ray 06/25/18 19:32 IMPRESSION: No radiographic evidence of acute cardiopulmonary process. Findings suggestive of underlying COPD. D/ / 06/25/2018 21:25:44 Marco Soni MD / [facility] Interpreting Provider: Marco Soni MD Abdomen/Pelvis CT 06/26/18 01:49 IMPRESSION: Acute pancreatitis. D/ / Bernardino Vasquez MD / Bernardino Vasquez MD Interpreting Provider: Bernardino Vasquez MD - Imaging and Cardiology Echo: report reviewed Other Results: 12 hour tele: avg HR=56 SB. Consult Discharge Plan - Plan Referrals: Lakshmi Rahman MD [Primary Care Provider] -
[2018-06-26] MEDS ORDERED: Perphenazine 2 MG TABLET PO PRN (11:38)
--- NOTE | 2018-06-26 15:28 | Internal Med Progress Note ---
Hospitalist Progress Note - Encounter Date of Encounter: 06/26/18 Time of Encounter: 09:55 - Subjective Interval History: Pt was seen and assessed at 0955. She is resting quietly with male visitor at bedside. Pt staes that her pain has been intermittent for "a while" and reports that she had diarrhea for 7 days prior to admission, none since arrival. Pt tells of long history of GI issues including diverticulosis, IBS, Crohn's. Pt states that she has to take her pain medication prior to eating to keep from having diarrhea or vomiting. - Exam Vitals: Temp Pulse Resp BP Pulse Ox 98.8 F 71 17 186/81 97 06/26/18 11:20 06/26/18 11:20 06/26/18 11:20 06/26/18 11:20 06/26/18 11:20 Exam: General: Pt resting quietly on bed, no distress. Skin: pwd, no rashes, lesions, redness Neurological: Pt is alert and awake, oriented x 3, Speech is clear, PERRLA, EOMI , no nystagmus, no pronator drift. strength equal x 4 extremities HEENT: mucous mumbranes moist, no conjuctival pallor Neck: supple, no tracheal deviation, no lymphadenopathy, tenderness, no thyromegaly Heart: S1S2 heard without gallops, clicks, murmurs, no bradycardia or tachycardia, pt has no peripheral edema, pedal and radial pulses palpable bilaterally. Lungs: clear throughout without wheezing, rales, or ronchi, respirations are unlabored Abdomen: soft, flat, and tender with bowel sound present, no hepatomegaly. Psych: Normal affect with good eye contact - Assessment and Plan (1) Chest pain Current Visit: Yes Status: Chronic Assessment and Plan: Atypical chest pain, substernal, pressure-like with radiation to left neck. She states that pain is worse when lying on her back, left side, and when she takes a deep breath. Pain is relieved when she sits up. EKG showed t-wave and ST changes, similar to prior EKG. Pts EKG showed ST with rate in the 130s, repeat showed sinus bradycardia rate in the 40s. Troponins negative x3. Chest xray negative. Abdominal CT showed acute pancreatitis which could be a source of pain. Echocardiogram shows LVEF of 65%, moderate LV DD, no significant valvular dysfunction. LVEF greatly improved compared to prior report from March,. She has been evaluated by cardiology she was to have an [facility], unable to proceed due to acute GI bleed and patient has not followed up in the office. Patient was placed on a heparin drip initially, this and stopped by cardiology. Appreciate cardiology's recommendations, we will wait for further. Continue telemetry Cardiology following, waiting for recommendations (2) COPD (chronic obstructive pulmonary disease) Current Visit: Yes Status: Chronic Assessment and Plan: Chronic. NO actue exacerbation. Continue home medications. (3) HTN (hypertension) Current Visit: Yes Status: Acute Assessment and Plan: Mild HTN this afternoon. Monitor VS, continue current medications. (4) Abdominal pain Current Visit: Yes Status: Acute Assessment and Plan: CT shows pancreatitis, lipase elevated. Abdominal pain that is diffuse and nonspecific. Patient has a reported history of chronic abdominal pain and diarrhea. 7 day history of diarrhea prior to admission. Clear liquid diet if tolerated Pain control IVF hydration Monitor labs (5) Heart failure with reduced ejection fraction Current Visit: Yes Status: Acute Assessment and Plan: EF improved over last study. Recent diagnosis of CMP. Cardiology following. Pt appears to be euvolemic, continue home dose of lasix. - Time Spent with Patient Total time spent is greater than 50% in coordination of care (as documented) at patient's floor/unit and/or counseling patient: less than 15 minutes Plan of Care Discussed with: patient Internal Medicine: Result - Labs CBC & Chem 7: 06/26/18 04:33 06/26/18 03:21 Labs: Short CBC 06/26/18 06/26/18 Range/Units 03:21 04:33 WBC 7.5 7.8 (4.3-11.1) K/mcL Hgb 11.2 L 11.1 L (11.5-15.4) g/dL Hct 33.4 L 33.5 L (35.3-44.9) % Plt Count 378 395 (140-400) K/mcL BMP 06/26/18 03:21 Sodium 136 Potassium 3.4 L Chloride 103 Carbon Dioxide 23 BUN 5 L Creatinine 0.60 Glucose 107 H Calcium 9.4 Cardiac Enzymes 06/26/18 06/26/18 Range/Units 03:21 08:40 Troponin I < 0.03 < 0.03 (< 0.04) ng/mL Liver Function 06/26/18 Range/Units 03:21 Total Bilirubin 0.7 (0.3-1.0) mg/dL AST 11 L (13-39) Units/L ALT 5 L (7-52) Units/L Alkaline Phosphatase 61 (34-104) Units/L Albumin 4.4 (3.5-5.7) g/dL - ABG Interpretation ABG results: PT/INR, D-dimer PT 12.7 Seconds (9.4-12.1) H 06/26/18 04:33 - Impressions Impressions Abdomen/Pelvis CT 06/26/18 01:49 IMPRESSION: Acute pancreatitis. D/ / Bernardino Vasquez MD / Bernardino Vasquez MD Interpreting Provider: Bernardino Vasquez MD Echocardiogram 06/26/18 03:37 Impressions: LVEF 65%. Normal LV chamber size, wall thickness and function. Moderate left ventricular diastolic dysfunction. Normal right ventricular structure and function. Unable to estimate RVSP due to lack of TR jet. No significant valvular dysfunction. LVEF has greatly improved compared to prior report from 04/06/2018. Left Ventricular Wall Motion: Rest Echo Findings All wall segments showed normal motion. Findings: Study Quality * Technically adequate exam. ECG Findings * Normal sinus rhythm. Left Ventricle * LVEF 65%. * Normal LV chamber size, wall thickness and function. * Moderate left ventricular diastolic dysfunction. Right Ventricle * Normal right ventricular structure and function. Left Atrium * Normal left atrial size. Right Atrium * Normal right atrial size. Aortic Valve * Aortic valve not well visualized. * No aortic stenosis. * No aortic regurgitation. Mitral Valve * Normal mitral valve structure and function. * No mitral regurgitation. * No mitral stenosis. Tricuspid Valve * Normal tricuspid valve structure and function. * No tricuspid regurgitation. * Unable to estimate RVSP due to lack of TR jet. Pulmonic Valve * Normal pulmonic valve structure and function. * No pulmonic regurgitation. Aorta * Normally sized aortic root. Pericardium * The pericardium appears normal. IVC * Normal IVC dimensions and inspiratory collapse. Pulmonary Artery * Normal visualized portions of the main pulmonary artery. Consult Discharge Plan - Plan Referrals: Lakshmi Rahman MD [Primary Care Provider] - (1) Chest pain Qualifiers: Chest pain type: unspecified Qualified Code(s): R07.9 - Chest pain, unspecified (2) COPD (chronic obstructive pulmonary disease) Qualifiers: COPD type: unspecified COPD Qualified Code(s): J44.9 - Chronic obstructive pulmonary disease, unspecified (3) HTN (hypertension) Qualifiers: Hypertension type: essential hypertension Qualified Code(s): I10 - Essential (primary) hypertension (5) Heart failure with reduced ejection fraction Qualifiers: Heart failure chronicity: chronic Qualified Code(s): I50.22 - Chronic systolic (congestive) heart failure
[2018-06-26] MEDS: 0.9 % Sodium Chloride 1,000 ML IVC SCH ×2 (15:54)
[2018-06-26] MEDS: Ondansetron 4 MG/2 ML VIAL IVP PRN ×2 (16:11→23:28)
[2018-06-27] MEDS: OXYCODONE Oral CONC 10 MG/0.5 ML ORAL.SYG SL PRN ×3 (03:20→15:26)
[2018-06-27 06:43] LABS: Basophils % 0.7 %; Eosinophils # 0.2 K/mcL (0.0-0.6); Hematocrit 31.4 % (35.3-44.9); Hemoglobin 10.1 g/dL (11.5-15.4); Immature Granulocytes % 0.2 % (0-4); Lymphocytes # 1.6 K/mcL (0.6-4.6); Lymphocytes % 27.7 %; Mean Corpuscular HGB Conc 32.2 g/dL (31.6-35.5); Mean Corpuscular Hemoglobin 28.4 pg (28.0-33.3); Mean Corpuscular Volume 88.2 fL (83.0-100.0); Mean Platelet Volume 10.1 fL (9.4-12.4); Monocytes # 0.3 K/mcL (0.0-1.3); Monocytes % 5.7 %; Neutrophils # 3.5 K/mcL (1.6-8.9); Platelet Count 312 K/mcL (140-400); Red Blood Count 3.56 M/mcL (3.82-4.97); Red Cell Distribution Width 13.2 % (11.5-14.5); Segmented Neutrophils % 62.7 %
[2018-06-27] MEDS: tiZANidine 4 MG TABLET PO PRN ×2 (06:44→12:50)
[2018-06-27] MEDS: *HR* LORazepam 0.5 MG TABLET PO SCH (08:01)
[2018-06-27 09:22] LABS: BUN/Creatinine Ratio 6 (6-26); Blood Urea Nitrogen 4 mg/dL (8-23); Calcium 8.7 mg/dL (8.6-10.3); Carbon Dioxide 22 mEq/L (23-29); Chloride 108 mEq/L (98-107); Glucose 140 mg/dL (70-105); Lipase 103 Units/L (11-82); Osmolality,Calculated 289 (280-300); Potassium 3.3 mEq/L (3.5-5.1); Sodium 140 mEq/L (136-145); eGFR For Non-African Americans > 60 (> 60)
[2018-06-27] MEDS: Ondansetron 4 MG/2 ML VIAL IVP PRN (12:53)
--- NOTE | 2018-06-27 14:04 | Discharge Summary ---
- NOTES TO OUTPATIENT PROVIDER Notes to Outpatient Provider: Pt diagnosed with pancreatitis, very mild. Pt was in no pain and was eating and drinking well. Pt should follow up with PCP for evaluation. Date of Encounter: 06/27/18 Time of Encounter: 09:05 - Discharge Diagnosis (1) Chest pain Priority: Secondary Status: Chronic Assessment and Plan: Atypical chest pain, substernal, pressure-like with radiation to left neck. She states that pain is worse when lying on her back, left side, and when she takes a deep breath. Pain is relieved when she sits up. EKG showed t-wave and ST changes, similar to prior EKG. Pts EKG showed ST with rate in the 130s, repeat showed sinus bradycardia rate in the 40s. Troponins negative x3. Chest xray negative. Abdominal CT showed acute pancreatitis which could be a source of pain. Echocardiogram shows LVEF of 65%, moderate LV DD, no significant valvular dysfunction. LVEF greatly improved compared to prior report from March,. She has been evaluated by cardiology she was to have an [facility], unable to proceed due to acute GI bleed and patient has not followed up in the office. Patient was placed on a heparin drip initially, this and stopped by cardiology. Appreciate cardiology's recommendations, they do not recommend any more cardiac testing and will see pt in the office. Qualifiers: Chest pain type: unspecified Qualified Code(s): R07.9 - Chest pain, unspecified (2) COPD (chronic obstructive pulmonary disease) Priority: Secondary Status: Chronic Assessment and Plan: Chronic. No actue exacerbation. Continue home medications. lungs clear, no wheezing, rales, ronchi. No supplemental 02 needed. Qualifiers: COPD type: unspecified COPD Qualified Code(s): J44.9 - Chronic obstructive pulmonary disease, unspecified (3) HTN (hypertension) Priority: Secondary Status: Chronic Assessment and Plan: Well controlled. Monitor VS, continue current medications. Qualifiers: Hypertension type: essential hypertension Qualified Code(s): I10 - Essential (primary) hypertension (4) Abdominal pain Priority: Secondary Status: Chronic Assessment and Plan: CT shows pancreatitis, lipase elevated, stable, unclear if this has been elevated and is decreasing. 103 today. Pt is stable and without pain. Pt with extensive history of abdominal complaints including IBS, Crohns, diverticulitis/losis and 'irregular bowel rhythm." Pt denies abdominal pain today and is able to tolerate po food and fluid. 7 day history of diarrhea prior to admission, none since arrival.. Qualifiers: Abdominal location: unspecified location Qualified Code(s): R10.9 - Unspecified abdominal pain (5) Heart failure with reduced ejection fraction Priority: Secondary Status: Chronic Assessment and Plan: EF improved over last study. Recent diagnosis of CMP. Cardiology consulted and have signed off. No more testing required and pt can follow up in the office. Pt appears to be euvolemic, continue home dose of lasix. Qualifiers: Heart failure chronicity: chronic Qualified Code(s): I50.22 - Chronic systolic (congestive) heart failure (6) Acute pancreatitis Priority: Primary Status: Acute Assessment and Plan: Pt with elevated lipase, CT evidence of pancreatitis, abdominal pain. Pt has improved since admission She is pain free today and is able to tolerate po food and fluid. Follow up with PCP. Qualifiers: Pancreatitis type: unspecified pancreatitis type Acute pancreatitis complication: no infection or necrosis Qualified Code(s): K85.90 - Acute pancreatitis without necrosis or infection, unspecified Hospital course: Please see assessment and plan for hospital course. Discharge discussed with: patient, family, nurse - Time Spent with Patient Total time spent providing and/or coordinating discharge services: Less than 30 minutes - Discharge Medications Prescriptions: Ondansetron ODT [Zofran ODT] 4 mg PO Q6H #20 tab.rapdis Home Medications: LORazepam [Ativan] 0.5 mg PO BID 12/26/17 [History] Perphenazine 4 - 8 mg PO QID PRN 12/26/17 [History] Tizanidine HCl 4 mg PO Q4-6H PRN 06/25/18 [History] Ondansetron ODT [Zofran ODT] 4 mg PO Q6H #20 tab.rapdis 06/27/18 [Rx] Allergies/Adverse Reactions: 3 Allergy/AdvReac Type Severity Reaction Status Date / Time ciprofloxacin [From Cipro] Allergy Hives Verified 12/26/17 09:57 ibuprofen Allergy Hives Verified 01/03/16 17:28 [From NeoProfen (ibuprofen lysn)(PF)] Penicillins Allergy Swelling Verified 12/26/17 09:57 of Lip/Tongue/Throat vancomycin Allergy Hives Verified 12/26/17 09:57 clindamycin AdvReac Diarrhea Verified 12/26/17 09:57 Date of admission: 06/25/18 22:17 Primary care physician: Lakshmi Rahman MD Consults: 06/25/18 23:09 Consult to Cardiology [CONS] Routine Comment: Consulting Provider: Cardiology Mely Reason for Consult: Chest Pain Call Completed: No 06/26/18 11:40 Consult to Verification Rep [CONS] Routine Reason for SW Consult: evaluation for increased services at home? Discharging clinician: Lauren Smiley Anticipated date of discharge: 06/27/18 - Constitutional Vitals: Temp Pulse Resp BP Pulse Ox 97.9 F 54 17 144/69 100 06/27/18 11:49 06/27/18 11:49 06/27/18 11:49 06/27/18 11:49 06/27/18 11:49 General appearance: Present: cooperative, morbidly obese, pleasant, answers questions appropriately Exam: as above - Head Head exam: Present: atraumatic, normocephalic - Eye Eye exam: Present: PERRL, conjuntiva pink, sclera anicteric Pupils: Present: PERRL - Neck Neck exam general surgery: Present: supple, trachea midline. Absent: lymphadenopathy - Respiratory Respiratory exam: Present: CTAB. Absent: accessory muscle use, rales, rhonchi, wheezes - Cardiovascular Cardiovascular exam: Present: RRR, +S1, +S2. Absent: diastolic murmur, gallop, rubs, systolic murmur - GI/Abdominal GI/Abdominal exam: Present: normal bowel sounds, soft, no peritoneal signs. Absent: distended, tenderness - Extremities Exam Extremities exam: Present: warm, radial pulses palpable and symmetrical. Absent : calf tenderness, cyanotic, pedal edema - Neurological Exam Neurological exam: Present: CN II-XII intact, oriented X3, no focal deficits. Absent: pronater drift, facial droop, speech deficit - Skin Skin exam: Present: dry, intact - Patient Status Disposition: Home, Self-Care Condition: Good Functional capacity at discharge: wheelchair bound Overall status at discharge: patient is back to baseline - Discharge Instructions Follow Up With: Lakshmi Rahman MD [Primary Care Provider] - Additional Instructions: Follow up with your PCP in the next 3-5 days for a recheck. Take your medications as directed. Return to the ER as needed for any other problems or concerns, or if your symptoms return or worsen. Resume your normal medications and return to your normal diet and activties as tolerated. - Diet and Activity Activity: increase activity as tolerated Diet: advance to your usual diet
[2018-06-27 16:54] VITALS: BP 125/64
--- NOTE | 2018-06-29 21:19 | Electrocardiograph Report ---
[address] [address] Test Date: 2018-06-25 Pat Name: Tomasa Ocampo Department: EXAM19 Room: 3B38 Gender: F Rope Tier: : 1955 Requested By: Breann Ross Order Number: [id number] Reading MD: Renetta Schultz Measurements Intervals [place] Rate: 40 P: 94 [place]: 138 QRS: 31 QRSD: 108 T: 68 QT: 550 QTc: 449 Interpretive Statements Sinus bradycardia Baseline artifact Electronically Signed On 06-29-2018 21:17:49 EDT by Renetta Schultz
--- NOTE | 2018-06-29 21:23 | Electrocardiograph Report ---
[place] [address] Test Date: 2018-06-26 Pat Name: Tomasa Ocampo Department: 113 Room: 3B Gender: F Product Design Manager: : 1955 Requested By: Matt Sood Order Number: [id number] Reading MD: Renetta Schultz Measurements Intervals [place] Rate: 46 P: -14 [place]: 98 QRS: 6 QRSD: 93 T: 48 QT: 494 QTc: 453 Interpretive Statements SINUS BRADYCARDIA WITH SHORT [place] INTERVAL Electronically Signed On 06-29-2018 21:22:04 EDT by Renetta Schultz
== END 2018-06-27 17:55 | disposition home or self-care (01) ==
LOC: 3BNU 18:44 → EMEROOARM 18:44 → 3BNU 23:25
PROVIDERS: ADMIT Internal Medicine; ATTEND Internal Medicine

== ENCOUNTER 2019-11-29 01:36 | Inpatient (IN) ==
[2019-11-29] MEDS ORDERED: Isovue-370 500 ML BOTTLE IVP ONE (01:40)
[2019-11-29] MEDS ORDERED: 0.9 % Sodium Chloride 1,000 ML IVC ONE ×5 (01:40→12:04)
[2019-11-29] MEDS ORDERED: Morphine Sulfate 2 MG/ML SYRINGE IVP ONE (01:40)
[2019-11-29] MEDS ORDERED: *HR* Promethazine 25 MG/ML VIAL IVP ONE (01:40)
[2019-11-29 02:31] LABS: Basophils % 0.1 %; Hematocrit 43.3 % (35.3-44.9); Hemoglobin 15.9 g/dL (11.5-15.4); Immature Granulocytes % 0.5 % (0-4); Lymphocytes # 0.9 K/mcL (0.6-4.6); Lymphocytes % 4.7 %; Mean Corpuscular HGB Conc 36.7 g/dL (31.6-35.5); Mean Corpuscular Hemoglobin 29.4 pg (28.0-33.3); Monocytes # 0.6 K/mcL (0.0-1.3); Monocytes % 3.3 %; Neutrophils # 16.5 K/mcL (1.6-8.9); Platelet Count 501 K/mcL (140-400); Red Blood Count 5.41 M/mcL (3.82-4.97); Red Cell Distribution Width 11.8 % (11.5-14.5); Segmented Neutrophils % 91.4 %
[2019-11-29 02:54] LABS: Alanine Aminotransferase 12 Units/L (7-52); Albumin 5.6 g/dL (3.5-5.7); Albumin/Globulin Ratio 1.7 (1.1-2.2); Alkaline Phosphatase 75 Units/L (34-104); Aspartate Amino Transferase 23 Units/L (13-39); BUN/Creatinine Ratio 8 (6-26); Bilirubin,Direct 0.2 mg/dL (0.0-0.2); Bilirubin,Indirect 1.2 mg/dL (0.0-1.0); Bilirubin,Total 1.4 mg/dL (0.3-1.0); Blood Urea Nitrogen 6 mg/dL (8-23); Calcium 10.8 mg/dL (8.6-10.3); Carbon Dioxide 19 mEq/L (23-29); Chloride 86 mEq/L (98-107); Globulin 3.3 g/dL (2.4-3.5); Glucose 130 mg/dL (70-105); Lipase 36 Units/L (11-82); Osmolality,Calculated 267 (280-300); Potassium 2.9 mEq/L (3.5-5.1); Sodium 129 mEq/L (136-145); Total Protein 8.9 g/dL (6.4-8.9); Troponin I 0.03 ng/mL (< 0.04); eGFR For African Americans > 60 (> 60); eGFR For Non-African Americans > 60 (> 60)
[2019-11-29] MEDS ORDERED: Aztreonam 2,000 MG in Water for inj. (sterile) 20 ML IVP ONE (02:56)
[2019-11-29 03:24] LABS: Bilirubin,Urine Negative (Negative); Blood,Urine Trace (Negative); Clarity,Urine Clear (Clear); Color,Urine Yellow (Yellow); Glucose,Urine (UA) 100 mg/dL (Normal); Ketones,Urine 15 mg/dL (Negative); Leukocyte Esterase,Urine Negative (Negative); Nitrite,Urine Negative (Negative); PH,Urine 6.5 pH Units (5.0-8.0); Protein,Urine Trace mg/dL (Neg-Trace); Specific Gravity,Urine 1.021 (1.010-1.025); Urobilinogen,Urine Normal (Normal)
[2019-11-29 03:27] LABS: Bacteria,Urine None Seen per hpf (None-Few); Hyaline Casts,Urine None Seen per lpf (None-Few); Squamous Epithelial Cell,Urine None Seen per lpf (None-Few); WBC,Urine 0-3 per hpf (0-3)
[2019-11-29] MEDS ORDERED: Naloxone 0.4 MG/ML INJ IVP PRN (04:48)
[2019-11-29] MEDS ORDERED: 0.9 % Sodium Chloride 250 ML ONE (04:58)
[2019-11-29] MEDS ORDERED: Ondansetron 4 MG/2 ML VIAL IVP PRN (05:00)
[2019-11-29] MEDS ORDERED: 0.9 % Sodium Chloride 1,000 ML IVC SCH (05:45)
[2019-11-29 06:44] LABS: BUN/Creatinine Ratio 7 (6-26); Blood Urea Nitrogen 6 mg/dL (8-23); Calcium 9.2 mg/dL (8.6-10.3); Carbon Dioxide 16 mEq/L (23-29); Chloride 91 mEq/L (98-107); Glucose 174 mg/dL (70-105); Osmolality,Calculated 274 (280-300); Potassium 3.2 mEq/L (3.5-5.1); Sodium 131 mEq/L (136-145); eGFR For African Americans > 60 (> 60); eGFR For Non-African Americans > 60 (> 60)
[2019-11-29 06:49] LABS: ABG Base Excess -8 mEq/L (-2 to 3); ABG HCO3 12 mEq/L (21-27); ABG Oxygen Saturation 99 % (95-98); ABG PCO2 16 mmHg (35-45); ABG PH 7.48 pH Units (7.32-7.45); ABG PO2 115 mmHg (85-104); ABG TCO2 13 mEq/L (20-26)
[2019-11-29 06:52] LABS: Estimated Average Glucose 126 mg/dl
[2019-11-29] MEDS ORDERED: *HR* HYDROmorphone (PF) 1 MG/ML SYRINGE IM ONE (07:13)
[2019-11-29] MEDS ORDERED: *HR* HYDROmorphone (PF) 1 MG/ML SYRINGE IVP ONE (07:18)
[2019-11-29] MEDS ORDERED: *HR* Promethazine 25 MG/ML VIAL IVP STA (07:52)
[2019-11-29] MEDS ORDERED: Metoclopramide 10 MG/2 ML VIAL IVP PRN (07:57)
[2019-11-29] MEDS ORDERED: Lidocaine Jelly 11 ml Syringe MM STA (08:21)
[2019-11-29] MEDS ORDERED: Scopolamine Patch 1.5 MG PATCH.TD72 TD ONE (08:23)
[2019-11-29] MEDS ORDERED: Acetaminophen IV 1,000 MG/100 ML INFUS..BTL IVPB STA (08:29)
[2019-11-29] MEDS ORDERED: *HR* LORazepam 2 MG/ML VIAL IVP ONE (08:29)
[2019-11-29 09:07] LABS: C-Reactive Protein < 5 mg/L (Less than 10)
[2019-11-29] MEDS: 0.9 % Sodium Chloride 1,000 ML IVC SCH ×2 (09:31→20:21)
[2019-11-29 10:03] LABS: Salicylate < 2.5 mg/dL (15.0-30.0)
[2019-11-29 10:41] LABS: Amphetamine Screen,Urine Negative ng/mL (Cutoff=1000); Barbiturate Screen,Urine Negative ng/mL (Cutoff=200); Benzodiazepines Screen,Urine Negative ng/mL (Cutoff=200); Cannabinoid Screen,Urine Negative ng/mL (Cutoff = 50); Cocaine Screen,Urine Negative ng/mL (Cutoff= 300); Opiate Screen,Urine Positive ng/mL (Cutoff=300); Phencyclidine Screen,Urine Negative ng/mL (Cutoff=25)
[2019-11-29 10:57] LABS: ABG Base Excess -9 mEq/L (-2 to 3); ABG HCO3 13 mEq/L (21-27); ABG Oxygen Saturation 98 % (95-98); ABG PCO2 22 mmHg (35-45); ABG PH 7.39 pH Units (7.32-7.45); ABG PO2 102 mmHg (85-104); ABG TCO2 14 mEq/L (20-26)
[2019-11-29] MEDS ORDERED: Potassium Chloride 40 MEQ, Lidocaine 1% 2 ML in 0.9 % Sodium Chloride 500 ML IVPB ONE (11:07)
[2019-11-29] MEDS: Pantoprazole 40 MG VIAL IVP SCH ×2 (11:43→17:07)
[2019-11-29] MEDS: *HR* Metoprolol 5 MG/5 ML VIAL IVP PRN ×2 (11:57→20:26)
[2019-11-29] MEDS: Ondansetron 4 MG/2 ML VIAL IVP PRN ×2 (14:38→22:42)
[2019-11-29] MEDS: *HR* Promethazine 25 MG/ML VIAL IVP PRN (14:52)
[2019-11-29 15:16] LABS: Acetaminophen < 10 mcg/mL (10-20)
[2019-11-29] MEDS ORDERED: Perphenazine 2 MG TABLET PO PRN (16:43)
[2019-11-29] MEDS ORDERED: *HR* LORazepam 0.5 MG TABLET PO PRN (16:43)
[2019-11-29] MEDS: *HR* Heparin 5,000 UNIT/ML VIAL SQ SCH ×2 (17:10→22:37)
[2019-11-30] MEDS: *HR* Metoprolol 5 MG/5 ML VIAL IVP PRN ×2 (02:31→08:44)
[2019-11-30] MEDS ORDERED: *HR* HYDROmorphone 2 MG/ML SYRINGE IVP PRN (02:40)
[2019-11-30 04:22] LABS: Basophils % 0.1 %; Hematocrit 38.9 % (35.3-44.9); Hemoglobin 13.9 g/dL (11.5-15.4); Lymphocytes % 5.2 %; Mean Corpuscular HGB Conc 35.7 g/dL (31.6-35.5); Mean Corpuscular Hemoglobin 29.3 pg (28.0-33.3); Mean Corpuscular Volume 82.1 fL (83.0-100.0); Mean Platelet Volume 9.8 fL (9.4-12.4); Monocytes # 1.4 K/mcL (0.0-1.3); Monocytes % 7.1 %; Neutrophils # 16.7 K/mcL (1.6-8.9); Platelet Count 349 K/mcL (140-400); Red Blood Count 4.74 M/mcL (3.82-4.97); Red Cell Distribution Width 12.5 % (11.5-14.5); Segmented Neutrophils % 86.6 %; White Blood Count 19.3 K/mcL (4.3-11.1)
[2019-11-30 04:36] LABS: Alanine Aminotransferase 10 Units/L (7-52); Albumin 4.1 g/dL (3.5-5.7); Albumin/Globulin Ratio 1.6 (1.1-2.2); Alkaline Phosphatase 61 Units/L (34-104); Aspartate Amino Transferase 28 Units/L (13-39); BUN/Creatinine Ratio 7 (6-26); Blood Urea Nitrogen 4 mg/dL (8-23); Calcium 9.1 mg/dL (8.6-10.3); Carbon Dioxide 19 mEq/L (23-29); Chloride 99 mEq/L (98-107); Globulin 2.6 g/dL (2.4-3.5); Glucose 118 mg/dL (70-105); Magnesium 1.5 mg/dL (1.6-2.6); Osmolality,Calculated 266 (280-300); Potassium 3.7 mEq/L (3.5-5.1); Sodium 129 mEq/L (136-145); Total Protein 6.7 g/dL (6.4-8.9); eGFR For African Americans > 60 (> 60); eGFR For Non-African Americans > 60 (> 60)
[2019-11-30] MEDS: *HR* Heparin 5,000 UNIT/ML VIAL SQ SCH ×3 (07:18→20:20)
[2019-11-30] MEDS: Pantoprazole 40 MG VIAL IVP SCH ×2 (07:18→17:12)
[2019-11-30] MEDS: *HR* Promethazine 25 MG/ML VIAL IVP PRN (08:18)
[2019-11-30] MEDS: tiZANidine 4 MG TABLET PO PRN ×3 (09:19→20:20)
[2019-11-30] MEDS ORDERED: Potassium Chloride 40 MEQ, Lidocaine 1% 2 ML in D5% in Water 500 ML IVPB ONE (09:28)
[2019-11-30] MEDS ORDERED: Perphenazine 2 MG TABLET PO ONE (09:39)
[2019-11-30] MEDS ORDERED: Potassium Chloride 40 MEQ, Lidocaine 1% 2 ML in 0.9 % Sodium Chloride 500 ML IVPB ONE (09:45)
[2019-11-30 12:44] LABS: Bilirubin,Urine Negative (Negative); Blood,Urine Negative (Negative); Clarity,Urine Clear (Clear); Color,Urine Yellow (Yellow); Glucose,Urine (UA) Normal (Normal); Ketones,Urine 80 mg/dL (Negative); Leukocyte Esterase,Urine Negative (Negative); Nitrite,Urine Negative (Negative); Protein,Urine 30 mg/dL (Neg-Trace); Specific Gravity,Urine 1.014 (1.010-1.025); Urobilinogen,Urine Normal (Normal)
[2019-11-30 12:47] LABS: Bacteria,Urine None Seen per hpf (None-Few); Hyaline Casts,Urine Few per lpf (None-Few); Squamous Epithelial Cell,Urine Moderate per lpf (None-Few); WBC,Urine 0-3 per hpf (0-3)
[2019-11-30] MEDS ORDERED: levoFLOXacin 750 MG/150 ML 750 MG/150 ML BAG IVPB SCH ×2 (20:00→21:00)
[2019-11-30] MEDS: Perphenazine 2 MG TABLET PO SCH (20:20)
[2019-11-30] MEDS: *HR* LORazepam 0.5 MG TABLET PO SCH (20:20)
[2019-12-01] MEDS: tiZANidine 4 MG TABLET PO PRN ×2 (01:14→11:22)
[2019-12-01] MEDS ORDERED: 0.9 % Sodium Chloride 250 ML IVC ONE (04:51)
[2019-12-01] MEDS: *HR* Heparin 5,000 UNIT/ML VIAL SQ SCH ×3 (05:01→22:46)
[2019-12-01] MEDS: Pantoprazole 40 MG VIAL IVP SCH ×2 (05:01→18:06)
[2019-12-01 05:19] LABS: Basophils % 0.2 %; Eosinophils % 0.1 %; Hematocrit 29.2 % (35.3-44.9); Immature Granulocytes % 0.8 % (0-4); Lymphocytes # 2.2 K/mcL (0.6-4.6); Lymphocytes % 17.1 %; Mean Corpuscular HGB Conc 34.6 g/dL (31.6-35.5); Mean Corpuscular Hemoglobin 29.4 pg (28.0-33.3); Mean Corpuscular Volume 85.1 fL (83.0-100.0); Mean Platelet Volume 9.8 fL (9.4-12.4); Monocytes # 0.9 K/mcL (0.0-1.3); Monocytes % 7.1 %; Neutrophils # 9.8 K/mcL (1.6-8.9); Platelet Count 220 K/mcL (140-400); Red Blood Count 3.43 M/mcL (3.82-4.97); Red Cell Distribution Width 13.2 % (11.5-14.5); Segmented Neutrophils % 74.7 %; White Blood Count 13.1 K/mcL (4.3-11.1)
[2019-12-01 05:24] LABS: Hemoglobin 10.1 g/dL (11.5-15.4)
[2019-12-01 05:34] LABS: Calcium 8.5 mg/dL (8.6-10.3); Magnesium 2.6 mg/dL (1.6-2.6); Phosphorous 1.3 mg/dL (2.7-4.5); Potassium 3.7 mEq/L (3.5-5.1)
[2019-12-01] MEDS ORDERED: Ondansetron 4 MG/2 ML VIAL IVP PRN (08:23)
[2019-12-01] MEDS: *HR* LORazepam 0.5 MG TABLET PO SCH ×2 (09:47→22:46)
[2019-12-01] MEDS ORDERED: 0.9 % Sodium Chloride 1,000 ML IVC ONE (12:48)
[2019-12-01] MEDS ORDERED: 0.9 % Sodium Chloride 1,000 ML ONE (13:20)
[2019-12-01 17:27] LABS: Amphetamines NEGATIVE ng/mL (Cutoff 30); Barbiturates NEGATIVE ng/mL (Cutoff 75); Benzodiazepines NEGATIVE ng/mL (Cutoff 75); Buprenorphine NEGATIVE ng/mL (Cutoff 1); Cocaine NEGATIVE ng/mL (Cutoff 30); Methadone NEGATIVE ng/mL (Cutoff 40); Methamphetamines NEGATIVE ng/mL (Cutoff 30); Opiates NEGATIVE ng/mL (Cutoff 30); Phencyclidine NEGATIVE ng/mL (Cutoff 15)
[2019-12-01] MEDS: Ringers Solution, Lactated 1,000 ML IVC SCH (18:54)
[2019-12-01] MEDS: Ondansetron 4 MG/2 ML VIAL IVP PRN (19:56)
[2019-12-01] MEDS ORDERED: *HR* Promethazine 25 MG/ML VIAL IVP ONE (22:44)
[2019-12-01] MEDS ORDERED: *HR* LORazepam 2 MG/ML VIAL IVP ONE (22:45)
[2019-12-01] MEDS: Perphenazine 2 MG TABLET PO SCH (23:19)
[2019-12-02] MEDS: tiZANidine 4 MG TABLET PO PRN ×2 (01:09→20:11)
[2019-12-02] MEDS: Ringers Solution, Lactated 1,000 ML IVC SCH ×3 (01:35→20:11)
[2019-12-02] MEDS: *HR* Heparin 5,000 UNIT/ML VIAL SQ SCH ×3 (05:15→20:10)
[2019-12-02] MEDS: Pantoprazole 40 MG VIAL IVP SCH ×2 (05:16→18:13)
[2019-12-02] MEDS: Ondansetron 4 MG/2 ML VIAL IVP PRN ×3 (05:16→20:10)
[2019-12-02 05:49] LABS: Basophils % 0.1 %; Hematocrit 34.7 % (35.3-44.9); Immature Granulocytes % 1.1 % (0-4); Lymphocytes # 1.5 K/mcL (0.6-4.6); Lymphocytes % 10.2 %; Mean Corpuscular HGB Conc 33.7 g/dL (31.6-35.5); Mean Corpuscular Hemoglobin 29.8 pg (28.0-33.3); Mean Corpuscular Volume 88.5 fL (83.0-100.0); Mean Platelet Volume 9.9 fL (9.4-12.4); Monocytes # 0.8 K/mcL (0.0-1.3); Monocytes % 5.4 %; Platelet Count 251 K/mcL (140-400); Red Blood Count 3.92 M/mcL (3.82-4.97); Red Cell Distribution Width 13.3 % (11.5-14.5); Segmented Neutrophils % 83.2 %; White Blood Count 14.4 K/mcL (4.3-11.1)
[2019-12-02 05:50] LABS: Hemoglobin 11.7 g/dL (11.5-15.4)
[2019-12-02 06:05] LABS: BUN/Creatinine Ratio 11 (6-26); Blood Urea Nitrogen 9 mg/dL (8-23); Calcium 9.3 mg/dL (8.6-10.3); Carbon Dioxide 23 mEq/L (23-29); Chloride 98 mEq/L (98-107); Glucose 93 mg/dL (70-105); Osmolality,Calculated 278 (280-300); Phosphorous 3.5 mg/dL (2.7-4.5); Potassium 4.3 mEq/L (3.5-5.1); Sodium 135 mEq/L (136-145); eGFR For African Americans > 60 (> 60); eGFR For Non-African Americans > 60 (> 60)
[2019-12-02] MEDS ORDERED: Perphenazine 2 MG TABLET PO ONE (08:16)
[2019-12-02] MEDS: *HR* LORazepam 0.5 MG TABLET PO SCH ×2 (08:32→20:11)
[2019-12-02] MEDS ORDERED: *HR* Propofol 200 MG/20 ML VIAL IVP ONE (13:25)
[2019-12-02] MEDS ORDERED: Lidocaine -MPF 2% 2 ML VIAL ONE (13:35)
[2019-12-02] MEDS ORDERED: levoFLOXacin 750 MG/150 ML 750 MG/150 ML BAG IVPB SCH ×3 (14:00→20:00)
[2019-12-02] MEDS: levoFLOXacin 750 MG/150 ML 750 MG/150 ML BAG IVPB SCH (14:44)
[2019-12-02] MEDS ORDERED: *HR* Metoprolol 5 MG/5 ML VIAL IVP ONE (14:45)
[2019-12-02] MEDS: Sucralfate 1 GM TABLET PO SCH ×2 (18:13→20:10)
[2019-12-02] MEDS: Perphenazine 2 MG TABLET PO SCH (20:10)
[2019-12-03] MEDS: tiZANidine 4 MG TABLET PO PRN (02:50)
[2019-12-03 04:08] LABS: Basophils % 0.3 %; Eosinophils % 0.3 %; Hematocrit 34.3 % (35.3-44.9); Hemoglobin 11.9 g/dL (11.5-15.4); Immature Granulocytes % 1.5 % (0-4); Lymphocytes # 1.5 K/mcL (0.6-4.6); Lymphocytes % 21.4 %; Mean Corpuscular HGB Conc 34.7 g/dL (31.6-35.5); Mean Corpuscular Hemoglobin 29.4 pg (28.0-33.3); Mean Corpuscular Volume 84.7 fL (83.0-100.0); Mean Platelet Volume 9.8 fL (9.4-12.4); Monocytes # 0.6 K/mcL (0.0-1.3); Monocytes % 8.5 %; Neutrophils # 4.9 K/mcL (1.6-8.9); Platelet Count 200 K/mcL (140-400); Red Blood Count 4.05 M/mcL (3.82-4.97)
[2019-12-03 04:09] LABS: White Blood Count 7.2 K/mcL (4.3-11.1)
[2019-12-03 04:27] LABS: BUN/Creatinine Ratio 14 (6-26); Blood Urea Nitrogen 10 mg/dL (8-23); Calcium 9.1 mg/dL (8.6-10.3); Carbon Dioxide 24 mEq/L (23-29); Chloride 95 mEq/L (98-107); Glucose 104 mg/dL (70-105); Osmolality,Calculated 267 (280-300); Phosphorous 2.4 mg/dL (2.7-4.5); Potassium 3.6 mEq/L (3.5-5.1); Sodium 129 mEq/L (136-145); eGFR For African Americans > 60 (> 60); eGFR For Non-African Americans > 60 (> 60)
[2019-12-03] MEDS: Ringers Solution, Lactated 1,000 ML IVC SCH (04:35)
[2019-12-03] MEDS: Acetaminophen 325 MG TABLET PO PRN ×2 (04:35→20:02)
[2019-12-03] MEDS: *HR* Heparin 5,000 UNIT/ML VIAL SQ SCH ×3 (04:35→20:02)
[2019-12-03] MEDS: Pantoprazole 40 MG VIAL IVP SCH (04:35)
[2019-12-03] MEDS ORDERED: 0.9 % Sodium Chloride 250 ML IVC ONE (05:02)
[2019-12-03] MEDS: *HR* LORazepam 0.5 MG TABLET PO SCH ×2 (08:42→20:01)
[2019-12-03] MEDS: Sucralfate 1 GM TABLET PO SCH ×3 (08:42→20:01)
[2019-12-03] MEDS: levoFLOXacin 750 MG/150 ML 750 MG/150 ML BAG IVPB SCH (08:43)
[2019-12-03] MEDS: Ondansetron 4 MG/2 ML VIAL IVP PRN (11:29)
[2019-12-03] MEDS: Perphenazine 2 MG TABLET PO SCH (20:01)
[2019-12-03 20:50] LABS: Protein/Creatinine Ratio,Urine 0.66 mg/mg (0.00-0.20); Sodium, Urine 128.1 mEq/L
[2019-12-04 03:03] LABS: Basophils % 0.2 %; Eosinophils % 0.1 %; Hematocrit 39.5 % (35.3-44.9); Hemoglobin 13.5 g/dL (11.5-15.4); Immature Platelets 2.9 % (1.1-6.1); Lymphocytes # 2.1 K/mcL (0.6-4.6); Lymphocytes % 14.5 %; Mean Corpuscular HGB Conc 34.2 g/dL (31.6-35.5); Mean Corpuscular Hemoglobin 29.7 pg (28.0-33.3); Mean Corpuscular Volume 86.8 fL (83.0-100.0); Mean Platelet Volume 9.8 fL (9.4-12.4); Monocytes # 1.1 K/mcL (0.0-1.3); Monocytes % 7.8 %; Platelet Count 234 K/mcL (140-400); Red Blood Count 4.55 M/mcL (3.82-4.97); Red Cell Distribution Width 12.8 % (11.5-14.5); Segmented Neutrophils % 76.4 %; White Blood Count 14.5 K/mcL (4.3-11.1)
[2019-12-04 03:11] LABS: Neutrophils # 11.1 K/mcL (1.6-8.9)
[2019-12-04 03:15] LABS: BUN/Creatinine Ratio 14 (6-26); Blood Urea Nitrogen 11 mg/dL (8-23); Calcium 9.7 mg/dL (8.6-10.3); Carbon Dioxide 24 mEq/L (23-29); Chloride 93 mEq/L (98-107); Glucose 107 mg/dL (70-105); Osmolality,Calculated 272 (280-300); Potassium 3.5 mEq/L (3.5-5.1); Sodium 131 mEq/L (136-145); eGFR For African Americans > 60 (> 60); eGFR For Non-African Americans > 60 (> 60)
[2019-12-04 03:30] LABS: Thyroid Stimulating Hormone 1.727 mcIU/mL (0.340-5.600)
[2019-12-04] MEDS: Ondansetron 4 MG/2 ML VIAL IVP PRN ×2 (04:47→10:20)
[2019-12-04] MEDS: *HR* Heparin 5,000 UNIT/ML VIAL SQ SCH ×3 (04:47→21:56)
[2019-12-04] MEDS: tiZANidine 4 MG TABLET PO PRN (04:47)
[2019-12-04] MEDS: *HR* LORazepam 0.5 MG TABLET PO SCH ×2 (08:05→21:56)
[2019-12-04] MEDS: Sucralfate 1 GM TABLET PO SCH ×3 (08:09→21:56)
[2019-12-04] MEDS: levoFLOXacin 750 MG/150 ML 750 MG/150 ML BAG IVPB SCH (08:09)
[2019-12-04] MEDS ORDERED: Ringers Solution, Lactated 1,000 ML IVC SCH ×2 (08:45→20:03)
[2019-12-04 10:01] LABS: Triiodothyronine (T3) Free 2.82 pg/mL (2.50-3.90)
[2019-12-04] MEDS ORDERED: Albuterol 2.5 MG/3 ML NEBULIZER IH ONE (13:15)
[2019-12-04] MEDS ORDERED: Scopolamine Patch 1.5 MG PATCH.TD72 TD SCH (14:15)
[2019-12-04] MEDS ORDERED: Dexamethasone 4 MG/ML VIAL ONE (14:23)
[2019-12-04] MEDS ORDERED: *HR* Rocuronium Bromide 50 MG/5 ML VIAL ONE ×2 (14:23→17:48)
[2019-12-04] MEDS ORDERED: *HR* Propofol 200 MG/20 ML VIAL IVP ONE (14:23)
[2019-12-04] MEDS ORDERED: *HR* FentaNYL (PF) 100 MCG/2 ML VIAL ONE ×2 (14:23→16:55)
[2019-12-04] MEDS ORDERED: Ondansetron 4 MG/2 ML VIAL ONE (14:23)
[2019-12-04] MEDS ORDERED: Lidocaine -MPF 2% 2 ML VIAL ONE (14:23)
[2019-12-04] MEDS ORDERED: Famotidine 20 MG/2 ML VIAL ONE (15:37)
[2019-12-04] MEDS ORDERED: Acetaminophen IV 1,000 MG/100 ML INFUS..BTL ONE (15:37)
[2019-12-04] MEDS ORDERED: *HR* PHENYLEPHRINE 1,000 MCG/10 ML SYRINGE IVP ONE (16:36)
[2019-12-04] MEDS ORDERED: Albumin Human 5% 25.0 GM/500 ML VIAL ONE (17:46)
[2019-12-04] MEDS ORDERED: *HR* HYDROMORPHONE 2 MG/ML VIAL ONE (18:36)
[2019-12-04] MEDS: Ringers Solution, Lactated 1,000 ML IVC SCH (18:45)
[2019-12-04] MEDS ORDERED: Ondansetron 4 MG/2 ML VIAL IVP ONE (18:49)
[2019-12-04] MEDS ORDERED: *HR* Labetalol 20 MG/4 ML SYRINGE IVP PRN (18:49)
[2019-12-04] MEDS ORDERED: *HR* HYDROmorphone (PF) 1 MG/ML SYRINGE ONE ×2 (18:53→19:04)
[2019-12-04] MEDS: *HR* HYDROmorphone (PF) 1 MG/ML SYRINGE IVP PRN ×4 (18:55→19:10)
[2019-12-04] MEDS: *HR* Promethazine 25 MG/ML VIAL IVP PRN ×2 (19:09→19:15)
[2019-12-04] MEDS ORDERED: Naloxone 0.4 MG/ML INJ IVP PRN (20:03)
[2019-12-04] MEDS: Perphenazine 2 MG TABLET PO SCH (21:56)
[2019-12-04] MEDS: Acetaminophen IV 1,000 MG/100 ML INFUS..BTL IVPB SCH (23:52)
[2019-12-04] MEDS: Ketorolac 15 MG/ML VIAL IVP SCH (23:52)
[2019-12-05 03:28] LABS: Basophils % 0.2 %; Hematocrit 34.5 % (35.3-44.9); Hemoglobin 12.2 g/dL (11.5-15.4); Immature Granulocytes % 1.3 % (0-4); Lymphocytes # 0.8 K/mcL (0.6-4.6); Lymphocytes % 4.3 %; Mean Corpuscular HGB Conc 35.4 g/dL (31.6-35.5); Mean Corpuscular Hemoglobin 29.7 pg (28.0-33.3); Mean Corpuscular Volume 83.9 fL (83.0-100.0); Monocytes # 0.5 K/mcL (0.0-1.3); Monocytes % 2.6 %; Neutrophils # 16.5 K/mcL (1.6-8.9); Platelet Count 191 K/mcL (140-400); Red Blood Count 4.11 M/mcL (3.82-4.97); Red Cell Distribution Width 13.2 % (11.5-14.5); Segmented Neutrophils % 91.6 %
[2019-12-05 03:47] LABS: BUN/Creatinine Ratio 13 (6-26); Blood Urea Nitrogen 9 mg/dL (8-23); Calcium 9.7 mg/dL (8.6-10.3); Carbon Dioxide 26 mEq/L (23-29); Chloride 96 mEq/L (98-107); Glucose 170 mg/dL (70-105); Magnesium 1.7 mg/dL (1.6-2.6); Osmolality,Calculated 275 (280-300); Phosphorous 1.9 mg/dL (2.7-4.5); Sodium 131 mEq/L (136-145); eGFR For African Americans > 60 (> 60); eGFR For Non-African Americans > 60 (> 60)
[2019-12-05] MEDS: *HR* Labetalol 20 MG/4 ML SYRINGE IVP PRN ×3 (04:31→15:19)
[2019-12-05] MEDS: Acetaminophen IV 1,000 MG/100 ML INFUS..BTL IVPB SCH ×2 (05:18→12:55)
[2019-12-05] MEDS: Ketorolac 15 MG/ML VIAL IVP SCH ×3 (05:18→18:37)
[2019-12-05] MEDS: *HR* Heparin 5,000 UNIT/ML VIAL SQ SCH ×3 (05:18→21:45)
[2019-12-05] MEDS: Ondansetron 4 MG/2 ML VIAL IVP PRN ×2 (06:01→15:18)
[2019-12-05] MEDS: tiZANidine 4 MG TABLET PO PRN (06:38)
[2019-12-05 08:05] LABS: Saccharomyces cerevisiae IgA 3.2 Units (0.0-24.9)
[2019-12-05] MEDS: *HR* LORazepam 0.5 MG TABLET PO SCH ×2 (09:43→21:45)
[2019-12-05] MEDS: Sucralfate 1 GM TABLET PO SCH ×3 (09:43→21:45)
[2019-12-05] MEDS: levoFLOXacin 750 MG/150 ML 750 MG/150 ML BAG IVPB SCH (09:47)
[2019-12-05] MEDS ORDERED: Acetaminophen 325 MG TABLET PO PRN (14:20)
[2019-12-05] MEDS ORDERED: Prochlorperazine 10 MG/2 ML VIAL IVP PRN (20:56)
[2019-12-05] MEDS: Perphenazine 2 MG TABLET PO SCH (21:45)
[2019-12-06] MEDS: Ketorolac 15 MG/ML VIAL IVP SCH ×4 (00:16→18:09)
[2019-12-06] MEDS ORDERED: *HR* Metoprolol 5 MG/5 ML VIAL IVP ONE ×2 (00:19→00:20)
[2019-12-06] MEDS ORDERED: *HR* Labetalol 20 MG/4 ML SYRINGE IVP ONE (01:19)
[2019-12-06 03:52] LABS: Basophils % 0.1 %; Eosinophils % 0.1 %; Hematocrit 31.2 % (35.3-44.9); Hemoglobin 10.8 g/dL (11.5-15.4); Immature Granulocytes % 1.3 % (0-4); Lymphocytes % 11.6 %; Mean Corpuscular HGB Conc 34.6 g/dL (31.6-35.5); Mean Corpuscular Hemoglobin 30.3 pg (28.0-33.3); Mean Corpuscular Volume 87.6 fL (83.0-100.0); Mean Platelet Volume 9.6 fL (9.4-12.4); Monocytes # 1.1 K/mcL (0.0-1.3); Monocytes % 6.1 %; Platelet Count 182 K/mcL (140-400); Red Blood Count 3.56 M/mcL (3.82-4.97); Red Cell Distribution Width 13.2 % (11.5-14.5); Segmented Neutrophils % 80.8 %; White Blood Count 17.3 K/mcL (4.3-11.1)
[2019-12-06 04:14] LABS: BUN/Creatinine Ratio 14 (6-26); Blood Urea Nitrogen 11 mg/dL (8-23); Calcium 9.1 mg/dL (8.6-10.3); Carbon Dioxide 25 mEq/L (23-29); Chloride 98 mEq/L (98-107); Glucose 100 mg/dL (70-105); Magnesium 1.6 mg/dL (1.6-2.6); Osmolality,Calculated 273 (280-300); Potassium 3.2 mEq/L (3.5-5.1); Sodium 132 mEq/L (136-145); eGFR For African Americans > 60 (> 60); eGFR For Non-African Americans > 60 (> 60)
[2019-12-06] MEDS ORDERED: Potassium Chloride 40 MEQ, Lidocaine 1% 2 ML in 0.9 % Sodium Chloride 500 ML IVPB ONE (04:45)
[2019-12-06] MEDS: *HR* Heparin 5,000 UNIT/ML VIAL SQ SCH ×3 (05:44→21:18)
[2019-12-06] MEDS: Sucralfate 1 GM TABLET PO SCH ×3 (10:25→21:18)
[2019-12-06] MEDS: tiZANidine 4 MG TABLET PO PRN ×4 (10:29→22:44)
[2019-12-06] MEDS: *HR* LORazepam 0.5 MG TABLET PO SCH ×2 (10:31→21:18)
[2019-12-06] MEDS: Ondansetron ODT 4 MG TAB.RAPDIS SL SCH ×2 (10:31→17:05)
[2019-12-06] MEDS: levoFLOXacin 750 MG/150 ML 750 MG/150 ML BAG IVPB SCH (10:32)
[2019-12-06] MEDS: Baclofen 10 MG TABLET PO SCH ×3 (10:34→21:21)
[2019-12-06] MEDS: Perphenazine 2 MG TABLET PO SCH (21:18)
[2019-12-07] MEDS: Ondansetron ODT 4 MG TAB.RAPDIS SL SCH ×3 (01:14→08:22)
[2019-12-07] MEDS: Ketorolac 15 MG/ML VIAL IVP SCH ×4 (01:14→17:20)
[2019-12-07] MEDS: tiZANidine 4 MG TABLET PO PRN ×3 (04:37→12:34)
[2019-12-07 05:06] LABS: Basophils % 0.3 %; Eosinophils # 0.1 K/mcL (0.0-0.6); Eosinophils % 0.8 %; Hematocrit 30.2 % (35.3-44.9); Hemoglobin 10.5 g/dL (11.5-15.4); Immature Granulocytes % 1.8 % (0-4); Lymphocytes # 2.1 K/mcL (0.6-4.6); Lymphocytes % 17.4 %; Mean Corpuscular HGB Conc 34.8 g/dL (31.6-35.5); Mean Corpuscular Hemoglobin 29.8 pg (28.0-33.3); Mean Corpuscular Volume 85.8 fL (83.0-100.0); Mean Platelet Volume 9.6 fL (9.4-12.4); Monocytes # 0.9 K/mcL (0.0-1.3); Monocytes % 7.5 %; Neutrophils # 8.7 K/mcL (1.6-8.9); Platelet Count 195 K/mcL (140-400); Red Blood Count 3.52 M/mcL (3.82-4.97); Red Cell Distribution Width 13.7 % (11.5-14.5); Segmented Neutrophils % 72.2 %
[2019-12-07 05:24] LABS: BUN/Creatinine Ratio 15 (6-26); Blood Urea Nitrogen 12 mg/dL (8-23); Calcium 9.3 mg/dL (8.6-10.3); Carbon Dioxide 27 mEq/L (23-29); Chloride 98 mEq/L (98-107); Glucose 139 mg/dL (70-105); Magnesium 1.7 mg/dL (1.6-2.6); Osmolality,Calculated 278 (280-300); Phosphorous 1.9 mg/dL (2.7-4.5); Potassium 3.1 mEq/L (3.5-5.1); Sodium 133 mEq/L (136-145); eGFR For African Americans > 60 (> 60); eGFR For Non-African Americans > 60 (> 60)
[2019-12-07] MEDS: *HR* Heparin 5,000 UNIT/ML VIAL SQ SCH ×2 (06:32→17:52)
[2019-12-07] MEDS ORDERED: Potassium Phosphate 44 MEQ in 0.9 % Sodium Chloride 250 ML IVPB ONE (08:13)
[2019-12-07] MEDS: Sucralfate 1 GM TABLET PO SCH ×2 (08:22→17:52)
[2019-12-07] MEDS: *HR* LORazepam 0.5 MG TABLET PO SCH (08:22)
[2019-12-07] MEDS: Baclofen 10 MG TABLET PO SCH ×2 (08:23→17:52)
[2019-12-07] MEDS: levoFLOXacin 750 MG/150 ML 750 MG/150 ML BAG IVPB SCH (08:23)
[2019-12-07 11:54] VITALS: BP 167/103
[2019-12-07] MEDS ORDERED: Scopolamine Patch 1.5 MG PATCH.TD72 TD SCH (14:15)
[2019-12-07] MEDS ORDERED: amLODIPine 5 MG TABLET PO ONE (17:26)
== END 2019-12-07 18:55 | disposition home or self-care (01) | DRG 327 ==
LOC: EMEROOARM 01:36 → 2NENU 01:36 → SUATTDRO 04:39 → 2NENU 05:15 → SUATTDRO 16:43
PROVIDERS: ADMIT Internal Medicine; ATTEND Student in an Organized Health Care Education/Training Program
PROC: ENDOEBX (2019-12-02 13:30)

== ENCOUNTER 2019-12-22 15:34 | Observation (INO) ==
[2019-12-22] MEDS ORDERED: Ondansetron 4 MG/2 ML VIAL IVP ONE ×2 (15:41→16:53)
[2019-12-22] MEDS ORDERED: Isovue-370 500 ML BOTTLE IVP ONE (15:42)
[2019-12-22] MEDS ORDERED: 0.9 % Sodium Chloride 1,000 ML IVC ONE ×2 (15:50→17:33)
[2019-12-22] MEDS ORDERED: Morphine Sulfate 2 MG/ML SYRINGE IVP ONE (16:29)
[2019-12-22 16:38] LABS: Alanine Aminotransferase 11 Units/L (7-52); Albumin 4.9 g/dL (3.5-5.7); Albumin/Globulin Ratio 1.6 (1.1-2.2); Alkaline Phosphatase 67 Units/L (34-104); Aspartate Amino Transferase 19 Units/L (13-39); BUN/Creatinine Ratio 14 (6-26); Bilirubin,Direct 0.2 mg/dL (0.0-0.2); Bilirubin,Indirect 0.7 mg/dL (0.0-1.0); Bilirubin,Total 0.9 mg/dL (0.3-1.0); Blood Urea Nitrogen 12 mg/dL (8-23); Calcium 10.6 mg/dL (8.6-10.3); Carbon Dioxide 20 mEq/L (23-29); Chloride 99 mEq/L (98-107); Glucose 171 mg/dL (70-105); Lipase 33 Units/L (11-82); Osmolality,Calculated 288 (280-300); Potassium 4.1 mEq/L (3.5-5.1); Sodium 137 mEq/L (136-145); Total Protein 7.9 g/dL (6.4-8.9); eGFR For African Americans > 60 (> 60); eGFR For Non-African Americans > 60 (> 60)
[2019-12-22 16:48] LABS: Basophils % 0.1 %; Hematocrit 34.1 % (35.3-44.9); Immature Granulocytes % 0.2 % (0-4); Lymphocytes # 0.6 K/mcL (0.6-4.6); Lymphocytes % 5.7 %; Mean Corpuscular HGB Conc 33.1 g/dL (31.6-35.5); Mean Corpuscular Hemoglobin 30.2 pg (28.0-33.3); Mean Corpuscular Volume 91.2 fL (83.0-100.0); Mean Platelet Volume 9.7 fL (9.4-12.4); Monocytes # 0.2 K/mcL (0.0-1.3); Monocytes % 2.3 %; Neutrophils # 9.3 K/mcL (1.6-8.9); Platelet Count 456 K/mcL (140-400); Red Blood Count 3.74 M/mcL (3.82-4.97); Red Cell Distribution Width 14.1 % (11.5-14.5); Segmented Neutrophils % 91.7 %; White Blood Count 10.1 K/mcL (4.3-11.1)
[2019-12-22 16:49] LABS: Hemoglobin 11.3 g/dL (11.5-15.4)
[2019-12-22 17:43] LABS: Bilirubin,Urine Negative (Negative); Blood,Urine Trace (Negative); Clarity,Urine Clear (Clear); Color,Urine Yellow (Yellow); Glucose,Urine (UA) 100 mg/dL (Normal); Ketones,Urine Trace mg/dL (Negative); Leukocyte Esterase,Urine Negative (Negative); Nitrite,Urine Negative (Negative); PH,Urine 6.5 pH Units (5.0-8.0); Protein,Urine Trace mg/dL (Neg-Trace); Specific Gravity,Urine 1.027 (1.010-1.025); Urobilinogen,Urine Normal (Normal)
[2019-12-22 17:51] LABS: Bacteria,Urine None Seen per hpf (None-Few); Hyaline Casts,Urine None Seen per lpf (None-Few); Squamous Epithelial Cell,Urine Few per lpf (None-Few); WBC,Urine 0-3 per hpf (0-3)
[2019-12-22] MEDS ORDERED: *HR* HYDROmorphone (PF) 1 MG/ML SYRINGE IVP ONE (19:16)
[2019-12-22] MEDS ORDERED: Metoclopramide 10 MG/2 ML VIAL IVP ONE (19:17)
[2019-12-22] MEDS ORDERED: Naloxone 0.4 MG/ML INJ IVP PRN (20:11)
[2019-12-22] MEDS ORDERED: Scopolamine Patch 1.5 MG PATCH.TD72 TD ONE (20:14)
[2019-12-22] MEDS ORDERED: *HR* LORazepam 2 MG/ML VIAL IVP PRN (20:14)
[2019-12-22] MEDS: 0.9 % Sodium Chloride 1,000 ML IVC SCH (21:21)
[2019-12-22] MEDS: *HR* Heparin 5,000 UNIT/ML VIAL SQ SCH (21:22)
[2019-12-22] MEDS: *HR* Promethazine 25 MG/ML VIAL IVP PRN (21:22)
[2019-12-22] MEDS: *HR* HYDROmorphone (PF) 1 MG/ML SYRINGE IVP PRN (21:36)
[2019-12-22] MEDS ORDERED: *HR* OxyCODONE Immed Rel 5 MG TABLET PO PRN (21:41)
[2019-12-22] MEDS: *HR* Metoprolol 5 MG/5 ML VIAL IVP SCH (23:31)
[2019-12-22] MEDS: tiZANidine 4 MG TABLET PO PRN (23:31)
[2019-12-22] MEDS: Perphenazine 2 MG TABLET PO PRN (23:31)
[2019-12-22] MEDS: Ipratropium/Albuterol Neb 3 ML IH SCH (23:52)
[2019-12-23] MEDS: Scopolamine Patch 1.5 MG PATCH.TD72 TD SCH (00:12)
[2019-12-23 02:23] LABS: Hematocrit 34.9 % (35.3-44.9); Hemoglobin 11.6 g/dL (11.5-15.4); Immature Granulocytes % 0.2 % (0-4); Lymphocytes # 0.4 K/mcL (0.6-4.6); Lymphocytes % 4.9 %; Mean Corpuscular HGB Conc 33.2 g/dL (31.6-35.5); Mean Corpuscular Hemoglobin 30.3 pg (28.0-33.3); Mean Corpuscular Volume 91.1 fL (83.0-100.0); Mean Platelet Volume 9.6 fL (9.4-12.4); Monocytes # 0.2 K/mcL (0.0-1.3); Monocytes % 2.6 %; Neutrophils # 7.9 K/mcL (1.6-8.9); Platelet Count 416 K/mcL (140-400); Red Blood Count 3.83 M/mcL (3.82-4.97); Red Cell Distribution Width 14.6 % (11.5-14.5); Segmented Neutrophils % 92.3 %; White Blood Count 8.6 K/mcL (4.3-11.1)
[2019-12-23] MEDS: *HR* HYDROmorphone (PF) 1 MG/ML SYRINGE IVP PRN ×3 (02:32→17:45)
[2019-12-23 02:44] LABS: Alanine Aminotransferase 9 Units/L (7-52); Albumin 4.1 g/dL (3.5-5.7); Albumin/Globulin Ratio 1.6 (1.1-2.2); Alkaline Phosphatase 54 Units/L (34-104); Aspartate Amino Transferase 19 Units/L (13-39); BUN/Creatinine Ratio 13 (6-26); Bilirubin,Total 0.7 mg/dL (0.3-1.0); Blood Urea Nitrogen 8 mg/dL (8-23); Calcium 9.1 mg/dL (8.6-10.3); Carbon Dioxide 21 mEq/L (23-29); Chloride 104 mEq/L (98-107); Globulin 2.5 g/dL (2.4-3.5); Glucose 144 mg/dL (70-105); Magnesium 1.5 mg/dL (1.6-2.6); Osmolality,Calculated 279 (280-300); Potassium 4.2 mEq/L (3.5-5.1); Sodium 134 mEq/L (136-145); Total Protein 6.6 g/dL (6.4-8.9); eGFR For African Americans > 60 (> 60); eGFR For Non-African Americans > 60 (> 60)
[2019-12-23 02:46] LABS: INR 1.2; Prothrombin Time 13.4 Seconds (9.4-12.1)
[2019-12-23] MEDS: Ipratropium/Albuterol Neb 3 ML IH SCH ×5 (03:45→20:20)
[2019-12-23] MEDS: 0.9 % Sodium Chloride 1,000 ML IVC SCH (06:14)
[2019-12-23] MEDS: *HR* Heparin 5,000 UNIT/ML VIAL SQ SCH ×3 (06:15→21:06)
[2019-12-23] MEDS: *HR* Metoprolol 5 MG/5 ML VIAL IVP SCH ×2 (06:15→11:22)
[2019-12-23] MEDS: amLODIPine 5 MG TABLET PO SCH (07:49)
[2019-12-23] MEDS: *HR* OxyCODONE Immed Rel 5 MG TABLET PO SCH ×3 (07:50→21:05)
[2019-12-23] MEDS: *HR* Promethazine 25 MG/ML VIAL IVP PRN (07:56)
[2019-12-23] MEDS ORDERED: *HR* LORazepam 2 MG/ML VIAL IVP PRN (13:09)
[2019-12-23] MEDS ORDERED: *HR* LORazepam 2 MG/ML VIAL IVP ONE ×2 (13:24→14:36)
[2019-12-23] MEDS ORDERED: Pantoprazole 40 MG VIAL IVP SCH (13:30)
[2019-12-23] MEDS ORDERED: E-Z-PAQUE (BARIUM SULF) SUSP 1 BOTTLE PO ONE (14:48)
[2019-12-23] MEDS: *HR* Labetalol 20 MG/4 ML SYRINGE IVP PRN (15:43)
[2019-12-23] MEDS: Pantoprazole 40 MG VIAL IVP SCH ×2 (15:58→21:05)
[2019-12-24] MEDS: Ipratropium/Albuterol Neb 3 ML IH SCH ×6 (00:02→20:37)
[2019-12-24] MEDS: *HR* HYDROmorphone (PF) 1 MG/ML SYRINGE IVP PRN ×2 (01:02→09:17)
[2019-12-24] MEDS: *HR* Labetalol 20 MG/4 ML SYRINGE IVP PRN (04:50)
[2019-12-24] MEDS: *HR* Heparin 5,000 UNIT/ML VIAL SQ SCH ×3 (06:15→21:41)
[2019-12-24 06:57] LABS: Hemoglobin 11.1 g/dL (11.5-15.4); Mean Corpuscular HGB Conc 32.6 g/dL (31.6-35.5); Mean Corpuscular Hemoglobin 29.7 pg (28.0-33.3); Mean Corpuscular Volume 90.9 fL (83.0-100.0); Mean Platelet Volume 9.8 fL (9.4-12.4); Platelet Count 391 K/mcL (140-400); Red Blood Count 3.74 M/mcL (3.82-4.97); Red Cell Distribution Width 14.3 % (11.5-14.5); White Blood Count 10.9 K/mcL (4.3-11.1)
[2019-12-24 07:15] LABS: BUN/Creatinine Ratio 18 (6-26); Blood Urea Nitrogen 12 mg/dL (8-23); Calcium 9.8 mg/dL (8.6-10.3); Carbon Dioxide 23 mEq/L (23-29); Chloride 98 mEq/L (98-107); Glucose 110 mg/dL (70-105); Magnesium 2.4 mg/dL (1.6-2.6); Osmolality,Calculated 276 (280-300); Potassium 3.4 mEq/L (3.5-5.1); Sodium 133 mEq/L (136-145); eGFR For African Americans > 60 (> 60); eGFR For Non-African Americans > 60 (> 60)
[2019-12-24] MEDS: *HR* OxyCODONE Immed Rel 5 MG TABLET PO SCH ×4 (09:01→21:42)
[2019-12-24] MEDS: amLODIPine 5 MG TABLET PO SCH (09:02)
[2019-12-24] MEDS: Pantoprazole 40 MG VIAL IVP SCH ×2 (09:02→21:41)
[2019-12-24] MEDS ORDERED: *HR* HYDROmorphone (PF) 1 MG/ML SYRINGE IVP PRN ×2 (10:16→17:31)
[2019-12-24] MEDS: *HR* Promethazine 25 MG/ML VIAL IVP PRN (15:31)
[2019-12-24] MEDS: Perphenazine 2 MG TABLET PO PRN (21:51)
[2019-12-25] MEDS: Ipratropium/Albuterol Neb 3 ML IH SCH ×3 (00:29→07:37)
[2019-12-25] MEDS: *HR* Labetalol 20 MG/4 ML SYRINGE IVP PRN ×2 (01:27→11:48)
[2019-12-25] MEDS: *HR* Heparin 5,000 UNIT/ML VIAL SQ SCH ×3 (06:16→20:31)
[2019-12-25 06:56] LABS: BUN/Creatinine Ratio 32 (6-26); Blood Urea Nitrogen 21 mg/dL (8-23); Calcium 9.8 mg/dL (8.6-10.3); Carbon Dioxide 25 mEq/L (23-29); Chloride 99 mEq/L (98-107); Glucose 94 mg/dL (70-105); Osmolality,Calculated 285 (280-300); Potassium 3.5 mEq/L (3.5-5.1); Sodium 136 mEq/L (136-145); eGFR For African Americans > 60 (> 60); eGFR For Non-African Americans > 60 (> 60)
[2019-12-25] MEDS ORDERED: amLODIPine 5 MG TABLET PO ONE (09:09)
[2019-12-25] MEDS ORDERED: Ipratropium/Albuterol Neb 3 ML IH PRN (09:09)
[2019-12-25] MEDS: *HR* OxyCODONE Immed Rel 5 MG TABLET PO SCH ×3 (10:15→19:44)
[2019-12-25] MEDS: Pantoprazole 40 MG VIAL IVP SCH ×2 (10:17→20:31)
[2019-12-25] MEDS: *HR* Promethazine 25 MG/ML VIAL IVP PRN (11:48)
[2019-12-25] MEDS: tiZANidine 4 MG TABLET PO PRN (16:32)
[2019-12-25] MEDS ORDERED: Acetaminophen IV 500 MG/50 ML INFUS..BTL IVPB ONE (19:42)
[2019-12-25] MEDS: Scopolamine Patch 1.5 MG PATCH.TD72 TD SCH (22:48)
[2019-12-25] MEDS: Perphenazine 2 MG TABLET PO PRN (22:48)
[2019-12-26 04:37] LABS: Hemoglobin 11.5 g/dL (11.5-15.4); Mean Corpuscular HGB Conc 33.8 g/dL (31.6-35.5); Mean Corpuscular Hemoglobin 31.1 pg (28.0-33.3); Mean Corpuscular Volume 91.9 fL (83.0-100.0); Mean Platelet Volume 10.2 fL (9.4-12.4); Platelet Count 321 K/mcL (140-400); White Blood Count 8.6 K/mcL (4.3-11.1)
[2019-12-26 04:43] LABS: BUN/Creatinine Ratio 28 (6-26); Blood Urea Nitrogen 26 mg/dL (8-23); Calcium 9.7 mg/dL (8.6-10.3); Carbon Dioxide 22 mEq/L (23-29); Chloride 97 mEq/L (98-107); Glucose 88 mg/dL (70-105); Magnesium 2.1 mg/dL (1.6-2.6); Osmolality,Calculated 284 (280-300); Potassium 3.5 mEq/L (3.5-5.1); Sodium 135 mEq/L (136-145); eGFR For African Americans > 60 (> 60); eGFR For Non-African Americans > 60 (> 60)
[2019-12-26] MEDS: *HR* Promethazine 25 MG/ML VIAL IVP PRN ×3 (04:46→17:42)
[2019-12-26] MEDS: *HR* Heparin 5,000 UNIT/ML VIAL SQ SCH ×3 (05:10→21:43)
[2019-12-26] MEDS: *HR* Labetalol 20 MG/4 ML SYRINGE IVP PRN (05:11)
[2019-12-26] MEDS ORDERED: GI Cocktail 40 ML EACH PO ONE (08:14)
[2019-12-26] MEDS: *HR* OxyCODONE Immed Rel 5 MG TABLET PO SCH ×3 (08:51→21:43)
[2019-12-26] MEDS: Pantoprazole 40 MG VIAL IVP SCH ×2 (08:51→21:42)
[2019-12-26] MEDS ORDERED: amLODIPine 5 MG TABLET PO SCH (09:00)
[2019-12-26] MEDS ORDERED: *HR* LORazepam 2 MG/ML VIAL IM STA (14:42)
[2019-12-26] MEDS ORDERED: Ringers Solution, Lactated 1,000 ML IVC ONE (14:50)
[2019-12-26 16:05] LABS: Lipase 70 Units/L (11-82)
[2019-12-26 16:40] LABS: Albumin 4.5 g/dL (3.5-5.7); Albumin/Globulin Ratio 1.7 (1.1-2.2); Bilirubin,Direct 0.2 mg/dL (0.0-0.2); Bilirubin,Indirect 0.6 mg/dL (0.0-1.0); Bilirubin,Total 0.8 mg/dL (0.3-1.0); Globulin 2.6 g/dL (2.4-3.5); Total Protein 7.1 g/dL (6.4-8.9)
[2019-12-27] MEDS: *HR* OxyCODONE Immed Rel 5 MG TABLET PO PRN (03:11)
[2019-12-27 03:57] LABS: BUN/Creatinine Ratio 31 (6-26); Blood Urea Nitrogen 20 mg/dL (8-23); Calcium 9.5 mg/dL (8.6-10.3); Carbon Dioxide 25 mEq/L (23-29); Chloride 96 mEq/L (98-107); Glucose 90 mg/dL (70-105); Magnesium 1.8 mg/dL (1.6-2.6); Osmolality,Calculated 280 (280-300); Phosphorous 2.9 mg/dL (2.7-4.5); Potassium 2.9 mEq/L (3.5-5.1); Sodium 134 mEq/L (136-145); eGFR For African Americans > 60 (> 60); eGFR For Non-African Americans > 60 (> 60)
[2019-12-27] MEDS: *HR* Heparin 5,000 UNIT/ML VIAL SQ SCH ×3 (05:24→20:59)
[2019-12-27] MEDS: Pantoprazole 40 MG VIAL IVP SCH ×2 (08:20→20:57)
[2019-12-27] MEDS: *HR* OxyCODONE Immed Rel 5 MG TABLET PO SCH ×3 (08:20→21:00)
[2019-12-27] MEDS: *HR* Promethazine 25 MG/ML VIAL IVP PRN (13:45)
[2019-12-27 15:39] LABS: BUN/Creatinine Ratio 27 (6-26); Blood Urea Nitrogen 16 mg/dL (8-23); Calcium 9.9 mg/dL (8.6-10.3); Carbon Dioxide 26 mEq/L (23-29); Chloride 97 mEq/L (98-107); Glucose 101 mg/dL (70-105); Osmolality,Calculated 275 (280-300); Potassium 3.7 mEq/L (3.5-5.1); Sodium 132 mEq/L (136-145); eGFR For African Americans > 60 (> 60); eGFR For Non-African Americans > 60 (> 60)
[2019-12-27] MEDS: *HR* Labetalol 20 MG/4 ML SYRINGE IVP PRN (16:17)
[2019-12-27] MEDS: tiZANidine 4 MG TABLET PO PRN (19:37)
[2019-12-27] MEDS ORDERED: Artificial Tears SOLN 15 ML BOTTLE LEFT EYE PRN (19:48)
[2019-12-27] MEDS: Bacitracin/PolymyxinB OPTH Oin 3.5 APPL/3.5 GM TUBE LEFT EYE SCH (21:00)
[2019-12-27] MEDS: Perphenazine 2 MG TABLET PO PRN (21:05)
[2019-12-27] MEDS: amLODIPine 5 MG TABLET PO SCH (21:23)
[2019-12-27] MEDS ORDERED: 0.9 % Sodium Chloride 250 ML ONE (23:46)
[2019-12-27] MEDS ORDERED: 0.9 % Sodium Chloride 250 ML IVC ONE (23:51)
[2019-12-28] MEDS: *HR* OxyCODONE Immed Rel 5 MG TABLET PO PRN (03:10)
[2019-12-28 04:35] LABS: Hematocrit 29.8 % (35.3-44.9); Mean Corpuscular HGB Conc 32.2 g/dL (31.6-35.5); Mean Corpuscular Volume 93.1 fL (83.0-100.0); Mean Platelet Volume 9.7 fL (9.4-12.4); Platelet Count 287 K/mcL (140-400); Red Cell Distribution Width 13.8 % (11.5-14.5); White Blood Count 7.6 K/mcL (4.3-11.1)
[2019-12-28 04:36] LABS: Hemoglobin 9.6 g/dL (11.5-15.4)
[2019-12-28 04:48] LABS: Calcium 9.5 mg/dL (8.6-10.3); Magnesium 1.8 mg/dL (1.6-2.6); Potassium 3.2 mEq/L (3.5-5.1)
[2019-12-28] MEDS: *HR* Heparin 5,000 UNIT/ML VIAL SQ SCH (05:06)
[2019-12-28] MEDS: *HR* Promethazine 25 MG/ML VIAL IVP PRN (05:06)
[2019-12-28] MEDS: Bacitracin/PolymyxinB OPTH Oin 3.5 APPL/3.5 GM TUBE LEFT EYE SCH (10:25)
[2019-12-28] MEDS: *HR* OxyCODONE Immed Rel 5 MG TABLET PO SCH (10:26)
[2019-12-28] MEDS: Pantoprazole 40 MG VIAL IVP SCH (10:26)
[2019-12-28 11:17] VITALS: BP 150/82
== END 2019-12-28 11:57 | disposition home or self-care (01) | DRG 392 ==
LOC: 2ANU 15:34 → EMEROOARM 15:34 → SUATTDRO 19:43 → 2ANU 20:18 → SUATTDRO 12-25 16:44
PROVIDERS: ADMIT Internal Medicine; ATTEND Internal Medicine

== ENCOUNTER 2020-07-31 05:39 | Observation (INO) ==
[2020-07-31] MEDS ORDERED: 0.9 % Sodium Chloride 1,000 ML IVC ONE ×2 (05:58→12:27)
[2020-07-31] MEDS ORDERED: Ondansetron 4 MG/2 ML VIAL IVP ONE (05:58)
[2020-07-31] MEDS ORDERED: *HR* FentaNYL (PF) 100 MCG/2 ML VIAL IVP ONE (06:17)
[2020-07-31 06:42] LABS: Basophils % 0.2 %; Eosinophils % 0.1 %; Hematocrit 35.8 % (35.3-44.9); Hemoglobin 11.7 g/dL (11.5-15.4); Immature Granulocytes % 0.4 % (0-4); Lymphocytes # 1.7 K/mcL (0.6-4.6); Lymphocytes % 18.2 %; Mean Corpuscular HGB Conc 32.7 g/dL (31.6-35.5); Mean Corpuscular Hemoglobin 29.1 pg (28.0-33.3); Mean Corpuscular Volume 89.1 fL (83.0-100.0); Mean Platelet Volume 9.9 fL (9.4-12.4); Monocytes # 0.4 K/mcL (0.0-1.3); Monocytes % 4.2 %; Neutrophils # 7.2 K/mcL (1.6-8.9); Platelet Count 408 K/mcL (140-400); Red Blood Count 4.02 M/mcL (3.82-4.97); Red Cell Distribution Width 12.5 % (11.5-14.5); Segmented Neutrophils % 76.9 %; White Blood Count 9.3 K/mcL (4.3-11.1)
[2020-07-31 06:45] LABS: INR 1.1
[2020-07-31 06:48] LABS: Bilirubin,Urine Negative (Negative); Blood,Urine Negative (Negative); Clarity,Urine Clear (Clear); Color,Urine Colorless (Yellow); Glucose,Urine (UA) Normal (Normal); Ketones,Urine Negative (Negative); Leukocyte Esterase,Urine Negative (Negative); Nitrite,Urine Negative (Negative); PH,Urine 6.5 pH Units (5.0-8.0); Protein,Urine Negative (Neg-Trace); Specific Gravity,Urine 1.012 (1.010-1.025); Urobilinogen,Urine Normal (Normal)
[2020-07-31 06:50] LABS: Amphetamine Screen,Urine Negative ng/mL (Cutoff=1000); Barbiturate Screen,Urine Negative ng/mL (Cutoff=200)
[2020-07-31 06:51] LABS: Benzodiazepines Screen,Urine Negative ng/mL (Cutoff=300); Cannabinoid Screen,Urine Negative ng/mL (Cutoff = 50); Cocaine Screen,Urine Negative ng/mL (Cutoff= 300); Opiate Screen,Urine Negative ng/mL (Cutoff=300); Phencyclidine Screen,Urine Negative ng/mL (Cutoff=25)
[2020-07-31 07:00] LABS: Alanine Aminotransferase 7 Units/L (7-52); Albumin 4.7 g/dL (3.5-5.7); Albumin/Globulin Ratio 1.6 (1.1-2.2); Alkaline Phosphatase 79 Units/L (34-104); Aspartate Amino Transferase 13 Units/L (13-39); BUN/Creatinine Ratio 13 (6-26); Bilirubin,Direct 0.1 mg/dL (0.0-0.2); Bilirubin,Indirect 0.5 mg/dL (0.0-1.0); Bilirubin,Total 0.6 mg/dL (0.3-1.0); Blood Urea Nitrogen 9 mg/dL (8-23); Calcium 10.4 mg/dL (8.6-10.3); Carbon Dioxide 23 mEq/L (23-29); Chloride 95 mEq/L (98-107); Creatine Kinase 37 Units/L (30-223); Glucose 105 mg/dL (70-105); Lipase 17 Units/L (11-82); Osmolality,Calculated 269 (280-300); Potassium 3.9 mEq/L (3.5-5.1); Sodium 130 mEq/L (136-145); Total Protein 7.7 g/dL (6.4-8.9); Troponin I < 0.03 ng/mL (< 0.04); eGFR For African Americans > 60 (> 60); eGFR For Non-African Americans > 60 (> 60)
[2020-07-31 07:32] LABS: Adenovirus Not Detected (Not Detect); Bordetella Pertussis Not Detected (Not Detect); Chlamydophila pneumoniae Not Detected (Not Detect); Coronavirus 229E Not Detected (Not Detect); Coronavirus HKU1 Not Detected (Not Detect); Coronavirus NL63 Not Detected (Not Detect); Coronavirus OC43 Not Detected (Not Detect); Human Metapneumovirus Not Detected (Not Detect); Human Rhinovirus/Enterovirus Not Detected (Not Detect); Influenza A Subtype 2009 H1 Not Detected (Not Detect); Influenza B Not Detected (Not Detect); Mycoplasma pneumoniae Not Detected (Not Detect); Parainfluenza Virus 1 Not Detected (Not Detect); Parainfluenza Virus 2 Not Detected (Not Detect); Parainfluenza Virus 3 Not Detected (Not Detect); Parainfluenza Virus 4 Not Detected (Not Detect); Respiratory Syncytial Virus Not Detected (Not Detect); SARS-CoV-2 Not Detected (Not Detect)
[2020-07-31] MEDS ORDERED: Morphine Sulfate 2 MG/ML SYRINGE IVP ONE (08:55)
[2020-07-31] MEDS ORDERED: *HR* Promethazine 25 MG/ML VIAL IVP ONE (08:55)
[2020-07-31] MEDS ORDERED: Pantoprazole 40 MG VIAL IVP SCH (11:54)
[2020-07-31] MEDS ORDERED: Ondansetron 4 MG/2 ML VIAL IVP PRN (12:02)
[2020-07-31] MEDS ORDERED: Naloxone 0.4 MG/ML INJ IVP PRN (12:02)
[2020-07-31] MEDS ORDERED: Acetaminophen 325 MG TABLET PO PRN (12:02)
[2020-07-31] MEDS ORDERED: Pantoprazole 40 MG VIAL IVP ONE ×3 (12:45→18:00)
[2020-07-31] MEDS ORDERED: *HR* LORazepam 0.5 MG TABLET PO PRN (13:19)
[2020-07-31 13:30] LABS: Chol/HDL Ratio 3.8 (0-4.9)
[2020-07-31] MEDS: *HR* OxyCODONE Immed Rel 5 MG TABLET PO PRN ×3 (13:55→23:03)
[2020-07-31] MEDS: *HR* Promethazine 25 MG/ML VIAL IVP PRN ×2 (13:56→20:24)
[2020-07-31] MEDS: Pantoprazole 40 MG VIAL IVP SCH (17:59)
[2020-07-31] MEDS: Perphenazine 2 MG TABLET PO PRN (23:04)
[2020-08-01] MEDS: *HR* OxyCODONE Immed Rel 5 MG TABLET PO PRN ×5 (03:32→20:36)
[2020-08-01] MEDS ORDERED: tiZANidine 4 MG TABLET PO SCH (04:00)
[2020-08-01] MEDS: *HR* Enoxaparin 40 MG/0.4 ML SYRINGE SQ SCH (06:03)
[2020-08-01] MEDS: Pantoprazole 40 MG VIAL IVP SCH ×2 (06:03→18:07)
[2020-08-01] MEDS: tiZANidine 4 MG TABLET PO SCH ×5 (06:03→20:36)
[2020-08-01 06:43] LABS: Hematocrit 34.5 % (35.3-44.9); Hemoglobin 11.4 g/dL (11.5-15.4); Mean Corpuscular Hemoglobin 29.5 pg (28.0-33.3); Mean Corpuscular Volume 89.1 fL (83.0-100.0); Mean Platelet Volume 9.5 fL (9.4-12.4); Platelet Count 451 K/mcL (140-400); Red Blood Count 3.87 M/mcL (3.82-4.97); Red Cell Distribution Width 12.6 % (11.5-14.5); White Blood Count 6.9 K/mcL (4.3-11.1)
[2020-08-01 07:06] LABS: BUN/Creatinine Ratio 6 (6-26); Blood Urea Nitrogen 5 mg/dL (8-23); Calcium 9.8 mg/dL (8.6-10.3); Carbon Dioxide 25 mEq/L (23-29); Chloride 104 mEq/L (98-107); Glucose 99 mg/dL (70-105); Osmolality,Calculated 291 (280-300); Potassium 3.4 mEq/L (3.5-5.1); Sodium 142 mEq/L (136-145); eGFR For African Americans > 60 (> 60); eGFR For Non-African Americans > 60 (> 60)
[2020-08-01] MEDS: Ondansetron ODT 4 MG TAB.RAPDIS SL PRN ×2 (07:50→16:28)
[2020-08-01] MEDS ORDERED: 0.9 % Sodium Chloride 1,000 ML IVC SCH (13:30)
[2020-08-02] MEDS: Perphenazine 2 MG TABLET PO PRN ×2 (00:23→22:49)
[2020-08-02] MEDS: tiZANidine 4 MG TABLET PO SCH ×6 (00:24→20:27)
[2020-08-02] MEDS: *HR* OxyCODONE Immed Rel 5 MG TABLET PO PRN ×6 (00:24→21:24)
[2020-08-02] MEDS: Ondansetron ODT 4 MG TAB.RAPDIS SL PRN ×2 (00:24→08:44)
[2020-08-02] MEDS: *HR* Enoxaparin 40 MG/0.4 ML SYRINGE SQ SCH (04:34)
[2020-08-02] MEDS: Pantoprazole 40 MG VIAL IVP SCH (04:34)
[2020-08-02 06:12] LABS: Hematocrit 29.7 % (35.3-44.9); Hemoglobin 9.6 g/dL (11.5-15.4); Mean Corpuscular HGB Conc 32.3 g/dL (31.6-35.5); Mean Corpuscular Hemoglobin 29.1 pg (28.0-33.3); Mean Platelet Volume 9.4 fL (9.4-12.4); Platelet Count 354 K/mcL (140-400); Red Cell Distribution Width 12.7 % (11.5-14.5); White Blood Count 4.7 K/mcL (4.3-11.1)
[2020-08-02 06:27] LABS: BUN/Creatinine Ratio 6 (6-26); Blood Urea Nitrogen 5 mg/dL (8-23); Calcium 9.2 mg/dL (8.6-10.3); Carbon Dioxide 27 mEq/L (23-29); Chloride 103 mEq/L (98-107); Glucose 97 mg/dL (70-105); Osmolality,Calculated 281 (280-300); Potassium 3.6 mEq/L (3.5-5.1); Sodium 137 mEq/L (136-145); eGFR For African Americans > 60 (> 60); eGFR For Non-African Americans > 60 (> 60)
[2020-08-03] MEDS: tiZANidine 4 MG TABLET PO SCH ×3 (00:59→08:14)
[2020-08-03] MEDS: *HR* OxyCODONE Immed Rel 5 MG TABLET PO PRN ×3 (00:59→09:55)
[2020-08-03 05:34] LABS: Basophils % 0.7 %; Eosinophils # 0.2 K/mcL (0.0-0.6); Eosinophils % 3.8 %; Hematocrit 32.1 % (35.3-44.9); Hemoglobin 10.4 g/dL (11.5-15.4); Immature Granulocytes % 0.2 % (0-4); Lymphocytes # 1.7 K/mcL (0.6-4.6); Lymphocytes % 37.9 %; Mean Corpuscular HGB Conc 32.4 g/dL (31.6-35.5); Mean Corpuscular Hemoglobin 29.2 pg (28.0-33.3); Mean Corpuscular Volume 90.2 fL (83.0-100.0); Mean Platelet Volume 9.7 fL (9.4-12.4); Monocytes # 0.3 K/mcL (0.0-1.3); Monocytes % 6.9 %; Neutrophils # 2.3 K/mcL (1.6-8.9); Platelet Count 372 K/mcL (140-400); Red Blood Count 3.56 M/mcL (3.82-4.97); Red Cell Distribution Width 12.3 % (11.5-14.5); Segmented Neutrophils % 50.5 %; White Blood Count 4.5 K/mcL (4.3-11.1)
[2020-08-03 07:06] VITALS: BP 144/75
== END 2020-08-03 11:25 | disposition home or self-care (01) ==
LOC: EMEROOARM 05:39 → 3BNU 05:39
PROVIDERS: ADMIT Internal Medicine; ATTEND Internal Medicine